=== PATIENT | female | born 1935 | race Caucasian/White ===

== ENCOUNTER 2018-03-23 12:24 | Inpatient (IN) | payer MEDICARE, OTHER ==
[~2018-03-23] VITALS: Ht 167.6 cm; Wt 77.6 kg
[~2018-03-23 12:24] MED LIST: CLAR-19; CND32T PO; EPIN0.3P2 IM; MONT10TA21; MTL2.5T PO; MTP100TCR; MTP100TCR PO; NF-MET200T; ONDA4TAB11 PO; PHEN118S11; TELM80TA3; TPR100T
--- OUTSIDE RECORDS SUMMARY | 2018-03-23 12:33 | XMS REPORT ---
Author Author ASHLEY VORA [facility] Address [address] [place] [address] Care Team Providers Care Service Unit Operator Name Role Phone ASHLEY VORA Unavailable PROBLEMS Type Condition ICD9-CM Code MIY82-KC Code Onset Dates Condition Status SNOMED Code Problem Mixed hyperlipidemia E78.2 Active 847135432 Problem Benign essential hypertension I10 Active 9767231 ALLERGIES Unknown Allergies SOCIAL HISTORY No smoking Hx information available PLAN OF CARE VITAL SIGNS MEDICATIONS Medication Instructions Dosage Frequency Start Date End Date Duration Status Tiotropium [place] Monohydrate 2.5 MCG/ACT Inhalation, dispense as writen Once a day 2 puffs 24h Jul, Aug, 90 days Active RESULTS No Results PROCEDURES No Known procedures IMMUNIZATIONS No Known Immunizations
--- OUTSIDE RECORDS SUMMARY | 2018-03-23 12:33 | XMS REPORT ---
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
--- OUTSIDE RECORDS SUMMARY | 2018-03-23 12:33 | XMS REPORT ---
Author Author ASHLEY VORA Organization [facility] Address [address] [place] [address] Care Team Providers Care Technology Adoption Manager Name Role Phone ASHLEY VORA Unavailable PROBLEMS Type Condition ICD9-CM Code FOB60-SX Code Onset Dates Condition Status SNOMED Code Problem Mixed hyperlipidemia E78.2 Active 866591387 Problem Benign essential hypertension I10 Active 3246818 ALLERGIES No Information ENCOUNTERS Encounter Location Date Diagnosis [place] [id number] [place] [address] 14429- 8675 Aug, [facility] [id number] [place] [address] 76542- 7368 Jun, [facility] [id number] [place] [address] 93207- 1246 Jan, [facility] [id number] [place] [address] 43830- 8333 Jan, Benign essential hypertension I10 [facility] [id number] [place] [address] 07441- 3232 Jan, [facility] [id number] [place] [address] 25901- 8779 Jan, Benign essential hypertension I10 and Mixed hyperlipidemia E78.2 [facility] [id number] [place] [address] 05483- 2434 December, Dizziness R42 [facility] [id number] [place] [address] 52770- 5350 Sep, Bronchospasm J98.01 [facility] [id number] [place] [address] 96828- 3512 Sep, Bronchospasm J98.01 [facility] [id number] [place] [address] 72130- 6087 Jun, [facility] [id number] [place] [address] 87925- 8381 Jan, [facility] [id number] [place] [address] 90866- 8140 Jan, Benign essential hypertension I10 [facility] [address] 92632- 7234 December, [facility] [id number] [place] [address] 20147- 9072 December, Acute right-sided low back pain without sciatica M54.5 ; Neck pain M54.2 ; Benign essential hypertension I10 and Hematuria R31.9 [facility] [id number] [place] [address] 69985- 7897 December, [facility] [address] 94[address] -7080 December, Acute right-sided low back pain, with sciatica presence unspecified M54.5 and Acute right flank pain R10.9 [facility] [id number] [place] [address] 00806- 6040 December, [facility] [id number] [place] [address] 27219- 6658 December, Neck pain M54.2 [facility] [id number] [place] [address] 62946- 1282 Sep, [facility] [id number] [place] [address] 08865- 0499 Aug, [facility] [address] 58309- 1775 Jul, [facility] [id number] [place] [address] 79411- 2086 Jul, Bronchospasm J98.01 [facility] [id number] [place] [address] 55871- 3401 Jul, Cough R05 and Neck pain M54.2 [facility] [id number] [place] [address] 42372- 1611 14 Jun, 2015 [facility] [id number] [place] [address] 01139- 4206 Jun, [facility] [id number] [place] [address] 30991- 5847 30 Jan, 2015 Acute upper respiratory infection 465.9 and Pleurisy 511.0 [facility] [id number] [place] [address] 52007- 1594 Jan, [facility] [id number] [place] [address] 43886- 5183 Jan, Benign essential hypertension 401.1 ; Unspecified arthropathy, site unspecified 716.90 and Discoid lupus erythematosus 695.4 [facility] [id number] [place] [address] 74125- 6788 Dec, [facility] [id number] [place] [address] 85042- 2110 Dec, [facility] [id number] [place] [address] 09009- 3284 Jun, [facility] [id number] [address] 4929 Jun, [facility] [id number] [place] [address] 02468- 0585 Jun, [facility] [id number] [place] [address] 10912- 6190 Jun, [facility] [id number] [place] [address] 53541- 7886 Jan, [facility] [id number] [place] [address] 07897- 7220 Jan, [facility] [id number] [place] [address] 06665- 4629 Jan, [facility] [place] [facility] [address] [id number] [place] [address]- 8459 Jan, [facility] [place] [facility] [address] [id number] [place] [address]- 6633 Dec, [facility] [place] [facility] [address] [id number] [place] [address]- 7371 Dec, [facility] [place] [facility] [address] [id number] [place] [address]- 8741 Dec, [facility] [place] [facility] [address] [id number] [place] [address]- 5665 Dec, [facility] [place] [facility] [address] [id number] [place] [address]- 8973 Dec, [facility] [place] [facility] [address] [id number] [place] [address]- 0022 Sep, [facility] [place] [facility] [address] [id number] [place] [address]- 9581 Sep, [facility] [place] [facility] [address] [id number] [place] [address]- 8801 Sep, [facility] [place] [facility] [address] [facility] [id number] [place] [address]- 4838 Sep, [facility] [place] [facility] [address] [id number] [place] [address]- 4914 May, [facility] [place] [facility] [address] [id number] [place] [address]- 4836 Mar, [facility] [place] [facility] [address] [id number] [place] [address]- 0583 Mar, [facility] [place] [facility] [address] [id number] [place] [address]- 3719 Aug, [facility] [place] [facility] [address] [id number] [place] [address]- 3812 Aug, [facility] [place] [facility] [address] [place] [address]- 0766 Jun, [facility] [address] [place] [address]- 3996 Jun, [facility] [address] [place] [address]- 2546 Mar, [facility] [address] [place] [address]- 9677 Mar, [facility] [address] [place] [address]- 2013 Jan, [facility] [address] [place] [address] 71193- 4206 Oct, [facility] [address] [place] [address]- 1866 Oct, [facility] [id number] [place] [address]- 1642 Sep, [facility] [address] [place] [address]- 9542 Sep, [facility] [address] [place] [address]- 8836 Sep, [facility] [address] [place] [address]- 3573 Sep, [facility] [address] [place] [address]- 8077 Aug, [facility] [id number] [address]- 2783 Apr, IMMUNIZATIONS No Known Immunizations SOCIAL HISTORY Never Assessed REASON FOR VISIT Medication refill request PLAN OF CARE VITAL SIGNS MEDICATIONS Medication Instructions Dosage Frequency Start Date End Date Duration Status Toprol XL 100 mg Orally, no generic 2 times a day 1 tablet No Generic 12h Active Metolazone 2.5 MG Orally, no generic Once a day 1 tablet 24h Jun, Active RESULTS No Results PROCEDURES No Known procedures INSTRUCTIONS MEDICATIONS ADMINISTERED No Known Medications MEDICAL (GENERAL) HISTORY Type Description Date Medical History lupus erythematous Medical History hypertension Surgical History appendectomy 1954 Surgical History hysterectomy 1984 Hospitalization History surgeries
--- OUTSIDE RECORDS SUMMARY | 2018-03-23 12:33 | XMS REPORT ---
Author Author ASHLEY VORA [facility] eClinicalWorks Address Unknown Phone Unavailable Care Team Providers Care Senior Marketing Manager Name Role Phone ASHLEY VORA CP Unavailable Allergies, Adverse Reactions, Alerts Substance Reaction Event Type Prednisone skin peeled off, purple skin Drug Allergy Erythromycin Base chest pain Drug Allergy Metoprolol Succinate 100 Mg Tablet Extended Releas Info Not Available Non Drug Allergy Metoprolol Succinate 25 Mg Tablet Extended Release Info Not Available Non Drug Allergy Problems Problem Type Condition Code Onset Dates Condition Status Problem Unspecified arthropathy, 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 [address]-60 2.5 MG Orally Once a day Jun 23, 2012 1 tablet Tramadol HCl [facility] [address]-51 50 MG Orally every 6 hrs Jul 04, 2015 1 tablet as needed [place]and [facility] [address]-22 32 MG Once a day February 25, 2014 ral route 1 time per dayBrand name only Toprol XL [facility] [address]-75 100 MG Orally 2 times a day 1 tablet No Generic Procedures Procedure Coding System Code Date Office Visit, Est Pt., Level 3 CPT-4 63621 Jul 04, 2015 [facility] VISIT ESTABLISHED PATIENT CPT-4 G0467 Jul 04, 2015 Vital Signs Date/Time: Jul 04, 2015 Temperature 97.9 F Weight 135 lbs Height 66 in BMI 21.79 Index Blood Pressure Diastolic 98 mmHg Blood Pressure Systolic 148 mmHg Cardiac Monitoring Heart Rate 88 bpm Results Name Result Date Reference Range Unit Abnormality Flag Xray : Chest (PA lateral) Summary Purpose eClinicalWorks Submission
--- OUTSIDE RECORDS SUMMARY | 2018-03-23 12:33 | XMS REPORT ---
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
--- OUTSIDE RECORDS SUMMARY | 2018-03-23 12:33 | XMS REPORT ---
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
--- OUTSIDE RECORDS SUMMARY | 2018-03-23 12:33 | XMS REPORT ---
Author Author ASHLEY VORA [facility] Address [address] [place] [address] Care Team Providers Care Manager Payment Name Role Phone ASHLEY VORA Unavailable PROBLEMS Type Condition ICD9-CM Code ZJR06-JW Code Onset Dates Condition Status SNOMED Code Problem Mixed hyperlipidemia E78.2 Active 446928858 Problem Benign essential hypertension I10 Active 7567705 ALLERGIES No Information SOCIAL HISTORY Never Assessed PLAN OF CARE VITAL SIGNS MEDICATIONS Medication Instructions Dosage Frequency Start Date End Date Duration Status Meclizine HCl 25 MG Orally Once a day 1 tablet as needed 24h December, 30 day(s) Active RESULTS No Results PROCEDURES No Known procedures IMMUNIZATIONS No Known Immunizations MEDICAL (GENERAL) HISTORY Type Description Date Medical History lupus erythematous Medical History hypertension Surgical History appendectomy 1954 Surgical History hysterectomy 1984 Hospitalization History surgeries
--- OUTSIDE RECORDS SUMMARY | 2018-03-23 12:33 | XMS REPORT ---
Author Author ASHLEY VORA Organization [facility] Address [address] [place] [address] Care Team Providers Care Construction Area Manager Name Role Phone ASHLEY VORA Unavailable PROBLEMS Type Condition ICD9-CM Code DHV89-QN Code Onset Dates Condition Status SNOMED Code Problem Mixed hyperlipidemia E78.2 Active 822107629 Problem Benign essential hypertension I10 Active 0841132 ALLERGIES No Information ENCOUNTERS Encounter Location Date Diagnosis [facility] [id number] [place] [address] 36900- 7021 December, Benign essential hypertension I10 and Mixed hyperlipidemia E78.2 [facility] [address] 63885- 5495 December, [facility] [id number] [place] [address] 37157- 0384 December, Benign essential hypertension I10 [facility] [id number] [place] [address] 08087- 2855 Aug, [facility] [id number] [place] [address] 33787- 4958 Jun, [facility] [id number] [place] [address] 14199- 8384 Jan, [facility] [id number] [place] [address] 90764- 0171 Jan, Benign essential hypertension I10 [facility] [id number] [place] [address] 79076- 5645 Jan, [facility] [id number] [place] [address] 98781- 2713 13 Jan, 2017 Benign essential hypertension I10 and Mixed hyperlipidemia E78.2 [facility] [id number] [place] [address] 58062- 2111 December, Dizziness R42 [facility] [address] 83590- 9148 Sep, Bronchospasm J98.01 [facility] [address] 31778- 8073 Sep, Bronchospasm J98.01 [facility] [address] 38462- 6743 Jun, [facility] [address] 46828- 8636 Jan, [facility] [address] 66153- 0727 Jan, Benign essential hypertension I10 [facility] [id number] [place] [address] 50121- 2928 December, [facility] [address] 38491- 5968 December, Acute right-sided low back pain without sciatica M54.5 ; Neck pain M54.2 ; Benign essential hypertension I10 and Hematuria R31.9 [facility] [id number] [place] [address] 96378- 8527 December, [facility] [id number] [place] [address] 81317 -4248 December, Acute right-sided low back pain, with sciatica presence unspecified M54.5 and Acute right flank pain R10.9 [facility] [id number] [place] [address] 62952- 5659 December, [facility] [address] 41228- 5347 December, Neck pain M54.2 [facility] [id number] [place] [address] 20631- 5349 Sep, [facility] [address] [place] [address]- 3089 Aug, [facility] [id number] [place] [address] 30262- 5262 Jul, [facility] [address], [place] [address]- 4012 Jul, Bronchospasm J98.01 [facility] [id number] [place] [address] 74655- 7675 Jul, Cough R05 and Neck pain M54.2 [facility] [id number] [place] [address] 65090- 1148 Jun, [facility] [id number] [place] [address] 96702- 0807 Jun, [facility] [id number] [place] [address] 81020- 2245 Jan, Acute upper respiratory infection 465.9 and Pleurisy 511.0 [facility] [address] [place] [address] 56030- 1413 Jan, [facility] [id number] [place] [address] 80149- 9959 Jan, Benign essential hypertension 401.1 ; Unspecified arthropathy, site unspecified 716.90 and Discoid lupus erythematosus 695.4 [facility] [address] [place] [address] 06962- 6490 Dec, [facility] [address] [address]- 6117 Dec, [facility] [id number] [place] [address] 65505- 5060 Jun, [facility] [address], [place] [address]- 2774 Jun, [facility] [address] [place] [address] 36447- 1462 Jun, [facility] [place] [facility] [address] [id number] [place] [address]- 1539 Jun, [facility] [place] [facility] [address] [id number] [place] [address]- 9588 Jan, [facility] [place] [facility] [address] [id number] [place] [address]- 0034 Jan, [facility] [place] [facility] [address] [id number] [place] [address]- 1407 Jan, [facility] [place] [facility] [address] [id number] [place] [address]- 6528 Jan, [facility] [place] [facility] [address] [id number] [place] [address]- 3198 Dec, [facility] [place] [facility] [address] [id number] [place] [address]- 7233 Dec, [facility] [place] [facility] [address] [id number] [place] [address]- 4416 Dec, [facility] [place] [facility] [address] [id number] [place] [address]- 2734 Dec, [facility] [place] [facility] [address] [id number] [place] [address]- 9576 Dec, [facility] [place] [facility] [address] [id number] [place] [address]- 7138 Sep, [facility] [place] [facility] [address] [id number] [place] [address]- 6745 Sep, [facility] [place] [facility] [address] [id number] [place] [address]- 4971 Sep, [facility] [place] [facility] [address] [id number] [place] [address]- 5358 Sep, [facility] [place] [facility] [address] [id number] [place] [address]- 7674 May, [facility] [place] [facility] [address] [id number] [place] [address]- 2102 Mar, [facility] [place] [facility] [address] [id number] [place] [address]- 7922 Mar, [facility] [place] [facility] [address] [id number] [place] [address]- 5420 Aug, [facility] [place] [facility] [address] [id number] [place] [address]- 0022 Aug, [facility] [place] [facility] [address] [id number] [place] [address]- 4280 Jun, [facility] [place] [facility] [address] [id number] [place] [address]- 5778 Jun, [facility] [place] [facility] [address] [id number] [place] [address]- 1539 Mar, [facility] [place] [facility] [address] [id number] [place] [address]- 9247 Mar, [facility] [place] [facility] [address] [id number] [place] [address]- 9578 Jan, [facility] [place] [facility] [address] [id number] [place] [address]- 1261 Oct, [facility] [place] [facility] [address] [id number] [place] [address]- 1154 Oct, [facility] [place] [facility] [address] [id number] [place] [address]- 1990 Sep, [facility] [place] [facility] [address] [id number] [place] [address]- 8533 Sep, [facility] [place] [facility] [address] [id number] [place] [address]- 1973 Sep, [facility] [place] [facility] [address] [id number] [place] [address]- 0306 Sep, [facility] [place] [facility] [address] [id number] [place] [address]- 5998 Aug, [facility] [place] [facility] [address] [id number] [place] [address]- 8243 16 Apr, 2010 IMMUNIZATIONS No Known Immunizations SOCIAL HISTORY Never Assessed REASON FOR VISIT Busy number PLAN OF CARE VITAL SIGNS MEDICATIONS Medication [...]
--- OUTSIDE RECORDS SUMMARY | 2018-03-23 12:33 | XMS REPORT ---
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
--- OUTSIDE RECORDS SUMMARY | 2018-03-23 12:33 | XMS REPORT ---
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
--- OUTSIDE RECORDS SUMMARY | 2018-03-23 12:33 | XMS REPORT ---
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 [address]-75 2.5 MCG/ACT Inhalation Once a day Jul 05, 2015 2 puffs Results No Known Results Summary Purpose eClinicalWorks Submission
--- OUTSIDE RECORDS SUMMARY | 2018-03-23 12:33 | XMS REPORT ---
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
--- OUTSIDE RECORDS SUMMARY | 2018-03-23 12:33 | XMS REPORT ---
Author Author ASHLEY VORA [facility] Address [address] [place] [address] Care Team Providers Care Inspector Toys Name Role Phone ASHLEY VORA Unavailable PROBLEMS Type Condition ICD9-CM Code [id number] Code Onset Dates Condition Status SNOMED Code Problem Mixed hyperlipidemia E78.2 Active 046358518 Problem Benign essential hypertension I10 Active 9491039 ALLERGIES Unknown Allergies SOCIAL HISTORY No smoking Hx information available PLAN OF CARE VITAL SIGNS MEDICATIONS Unknown Medications RESULTS No Results PROCEDURES No Known procedures IMMUNIZATIONS No Known Immunizations
--- OUTSIDE RECORDS SUMMARY | 2018-03-23 12:34 | XMS REPORT | Continuity of Care Document ---
Author Author [facility] Address Unknown Phone Unavailable Allergies Active Description Code Type Severity Reaction Onset Reported/Identified Relationship to Patient Clinical Status Yes amoxicillin [id number] Drug Allergy Unknown N/A 12/23/2007 Yes azithromycin [id number] Drug Allergy Unknown N/A 12/23/2007 Yes cefaclor [id number] Drug Allergy Unknown N/A 12/23/2007 Yes cephalexin [id number] Drug Allergy Unknown N/A 12/23/2007 Yes cortisone [id number] Drug Allergy Unknown N/A 12/23/2007 Yes Sulfa (Sulfonamide Antibiotics) [id number] Drug Allergy Unknown N/A 2007 Yes verapamil [id number] Drug Allergy Unknown N/A 12/23/2007 Yes acetaminophen [id number] Drug Allergy Unknown HEART PAPILATIO 12/15/2009 Yes ALL EYE DROPS ALL EYE DROPS Unknown MAKE EYES SWELL 12/15/2009 Yes amlodipine [id number] Drug Allergy Unknown SWOLLEN LEGS AN 12/15/2009 Yes benazepril [id number] Drug Allergy Unknown SEVERE HEADACHE 12/15/2009 Yes chlorpheniramine [id number] Drug Allergy Unknown HEART PAPILATIO 2009 Yes dextromethorphan [id number] Drug Allergy Unknown HEART PAPILATIO 2009 Yes doxycycline [id number] Drug Allergy Unknown N/A 12/15/2009 Yes egg [id number] Drug Allergy Unknown N/A 12/15/2009 Yes griseofulvin [id number] Drug Allergy Unknown N/A 12/15/2009 Yes oxaprozin [id number] Drug Allergy Unknown N/A 12/15/2009 Yes propoxyphene F364719001 Drug Allergy Unknown SEVERE PAIN IN 12/15/2009 Yes tetracycline [id number] Drug Allergy Unknown N/A 12/15/2009 Yes levofloxacin [id number] Drug Allergy Unknown FACIAL FLUSHING 12/16/2009 Yes all eye drops OA 01/03/2010 Yes amlodipine Drug Allergy 01/03/2010 Yes amoxicillin Drug Allergy 01/03/2010 Yes [place] Drug Allergy 01/03/2010 Yes Benicar Drug Allergy 01/03/2010 Yes Calan Drug Allergy 01/03/2010 Yes Cardura Drug Allergy 01/03/2010 Yes Ceclor Drug Allergy 01/03/2010 Yes clonidine Drug Allergy 01/03/2010 Yes Coricidin Drug Allergy 01/03/2010 Yes cortisone Drug Allergy 01/03/2010 Yes Darvocet-N 100 Drug Allergy 01/03/2010 Yes Daypro Drug Allergy 01/03/2010 Yes Dynacirc CR Drug Allergy 01/03/2010 Yes eggs Food Allergy 01/03/2010 Yes guaifenesin Drug Allergy 01/03/2010 Yes hydrALAZINE Drug Allergy 01/03/2010 Yes Keflex Drug Allergy 01/03/2010 Yes Levaquin Drug Allergy 01/03/2010 Yes Lotensin Drug Allergy 01/03/2010 Yes Micardis Drug Allergy 01/03/2010 Yes Norvasc Drug Allergy 01/03/2010 Yes Propacet 100 Drug Allergy 01/03/2010 Yes Sular Drug Allergy 01/03/2010 Yes sulfa drug Drug Allergy 01/03/2010 Yes [place] Drug Allergy 01/03/2010 Yes tetracycline Drug Allergy 01/03/2010 Yes Vibramycin Drug Allergy 01/03/2010 Yes Zithromax Drug Allergy 01/03/2010 Yes prednisone [id number] Drug Allergy Mild RASH 03/14/2010 Yes metoprolol succinate 25 mg Tablet Extended Release 24 hr Drug Allergy 10/01/2011 Yes metoprolol succinate 100 mg Tablet Extended Release 24 hr Drug Allergy 02/25/2012 Yes prednisone Drug Allergy 03/13/2012 Medications There is no data. Problems Date Dx Coded Attending Type Code Diagnosis Diagnosed By 01/03/2010 401.9 HYPERTENSION ( SYSTEMIC) 01/03/2010 780.79 OTHER MALAISE AND FATIGUE 01/03/2010 995.27 CERTAIN ADVERSE EFFECTS NOT ELSEWHERE CLASSIFIED, OTHER DRUG ALLERGY 01/03/2010 ASHLEY VORA MD 401.9 HYPERTENSION (SYSTEMIC) 01/03/2010 ASHLEY VORA MD 780.79 OTHER MALAISE AND FATIGUE 01/03/2010 ASHLEY VORA MD 995.27 CERTAIN ADVERSE EFFECTS NOT ELSEWHERE CLASSIFIED, OTHER DRUG ALLERGY 01/03/2010 ASHLEY VORA MD 401.9 HYPERTENSION (SYSTEMIC) 01/03/2010 ASHLEY VORA MD 780.79 OTHER MALAISE AND FATIGUE 01/03/2010 ASHLEY VORA MD 995.27 CERTAIN ADVERSE EFFECTS NOT ELSEWHERE CLASSIFIED, OTHER DRUG ALLERGY 01/03/2010 ASHLEY VORA MD 401.9 HYPERTENSION (SYSTEMIC) 01/03/2010 ASHLEY VORA MD 780.79 OTHER MALAISE AND FATIGUE 01/03/2010 ASHLEY VORA MD 995.27 CERTAIN ADVERSE EFFECTS NOT ELSEWHERE CLASSIFIED, OTHER DRUG ALLERGY 03/14/2010 Ot 989.5 03/14/2010 Ot E000.8 03/14/2010 Ot E030 03/14/2010 Ot E849.0 03/14/2010 Ot E905.3 04/17/2010 704.00 Alopecia, Unspecified 04/17/2010 ASHLEY VORA MD 704.00 Alopecia, Unspecified 04/17/2010 ASHLEY VORA MD 704.00 Alopecia, Unspecified 04/17/2010 ASHLEY VORA MD 704.00 Alopecia, Unspecified 11/03/2010 Ot 275.2 DIS MAGNESIUM METABOLISM 11/03/2010 Ot 276.50 VOLUME DEPLETION, UNSPECIFIED 11/03/2010 Ot 276.8 HYPOPOTASSEMIA 11/03/2010 Ot 401.9 HYPERTENSION NOS 11/03/2010 Ot 787.01 NAUSEA WITH VOMITING 11/03/2010 Ot 791.9 ABN URINE FINDINGS NEC 11/03/2010 Ot V58.69 OTH MED,LT, CURRENT USE 11/06/2010 276.8 HYPOPOTASSEMIA 11/06/2010 ASHLEY VORA MD 276.8 HYPOPOTASSEMIA 11/06/2010 ASHLEY VORA MD 276.8 HYPOPOTASSEMIA 11/06/2010 ASHLEY VORA MD 276.8 HYPOPOTASSEMIA 11/08/2011 726.90 Enthesopathy Of Unspecified Site 11/08/2011 ASHLEY VORA MD 726.90 Enthesopathy Of Unspecified Site 11/08/2011 ASHLEY VORA MD 726.90 Enthesopathy Of Unspecified Site 11/08/2011 ASHLEY VORA MD 726.90 Enthesopathy Of Unspecified Site 03/13/2012 461.9 ACUTE SINUSITIS UNSPECIFIED 03/13/2012 783.21 LOSS OF WEIGHT 03/13/2012 DIONY DUDLEY, ASHLEY 461.9 ACUTE SINUSITIS UNSPECIFIED 03/13/2012 DIONY DUDLEY, ASHLEY 783.21 LOSS OF WEIGHT 03/13/2012 DIONY DUDLEY, ASHLEY 461.9 ACUTE SINUSITIS UNSPECIFIED 03/13/2012 DIONY DUDLEY, ASHLEY 783.21 LOSS OF WEIGHT 03/13/2012 ASHLEY VORA MD 461.9 ACUTE SINUSITIS UNSPECIFIED 03/13/2012 DIONY DUDLEY, ASHLEY 783.21 LOSS OF WEIGHT 03/10/2013 ASHLEY VORA MD 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 03/10/2013 ASHLEY VORA MD 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 03/10/2013 ASHLEY VORA MD 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 12/28/2013 ASHLEY VORA MD 599.0 URINARY TRACT INFECTION 12/28/2013 ASHLEY VORA MD 599.0 URINARY TRACT INFECTION 02/25/2014 DIONY DUDLEY, ASHLEY 716.90 UNSPECIFIED ARTHROPATHY SITE UNSPECIFIED 08/01/2015 DIONY DUDLEY, ASHLEY F Ot R05 01/20/2016 ASHLEY VORA MD Ot R05 COUGH 01/23/2016 DARRIAN GIMENEZ Ot M54.5 LOW BACK PAIN 01/24/2016 DARRIAN GIMENEZ Ot M54.5 LOW BACK PAIN 02/22/2016 DARRIAN GIMENEZ Ot M54.5 LOW BACK PAIN Procedures Code [place] [address] UA W/ CULTURE IF INDICATED 12/28/2013 01785 CULTURE URINE 12/30/2013 60123 ROUTINE VENIPUNCTURE 02/25/2014 [id number] GFR CALC (RESULT ONLY) 02/25/2014 88318 CMP 02/25/2014 78785 LIPID PANEL 02/25/2014 Results Test Result Range Comp. Metabolic Panel (14) - 02/12/17 09:08 Glucose, Serum 96 mg/dL 65-99 BUN 19 mg/dL 8-27 Creatinine, Serum 0.78 mg/dL 0.57-1.00 eGFR If NonAfricn Am 73 mL/min/1.73 >59 eGFR If Africn Am 84 mL/min/1.73 >59 BUN/Creatinine Ratio 24 12- Sodium, Serum 140 mmol/L 134-144 Potassium, Serum 4.5 mmol/L 3.5-5.2 Chloride, Serum 96 mmol/L 96-106 Carbon Dioxide, Total 25 mmol/L 18-29 Calcium, Serum 9.3 mg/dL 8.7-10.3 Protein, Total, Serum 7.8 g/dL 6.0-8.5 Albumin, Serum 3.4 g/dL 3.5-4.8 Globulin, Total 4.4 g/dL 1.5-4.5 A/G Ratio 0.8 1.2-2.2 Bilirubin, Total 0.8 mg/dL 0.0-1.2 Alkaline Phosphatase, S 115 IU/L 39-117 AST (SGOT) 34 IU/L 0-40 ALT (SGPT) 15 IU/L 0-32 Lipid Panel - 02/12/17 09:08 Cholesterol, Total 203 mg/dL 100-199 Triglycerides 158 mg/dL 0-149 HDL Cholesterol 48 mg/dL >39 VLDL Cholesterol [place] 32 mg/dL 5-40 LDL Cholesterol Calc 123 mg/dL 0-99 CMP - 01/30/18 10:42 GLUCOSE 102 mg/dL 65-99 UREA NITROGEN (BUN) 24 mg/dL 7-25 CREATININE 0.79 mg/dL 0.60-0.88 eGFR NON-AFR. TOGOLESE 71 mL/min/1.73m2 > OR=60 eGFR 82 mL/min/1.73m2 > OR=60 BUN/CREATININE RATIO NOT APPLICABLE (calc) 6-22 SODIUM 136 mmol/L 135-146 POTASSIUM 3.8 mmol/L 3.5-5.3 CHLORIDE 99 mmol/L 98-110 CARBON DIOXIDE 28 mmol/L 20-31 CALCIUM 9.1 mg/dL 8.6-10.4 PROTEIN, TOTAL 7.7 g/dL 6.1-8.1 ALBUMIN 3.1 g/dL 3.6-5.1 GLOBULIN 4.6 g/dL (calc) 1.9-3.7 ALBUMIN/GLOBULIN RATIO 0.7 (calc) 1.0-2.5 BILIRUBIN, TOTAL 0.8 mg/dL 0.2-1.2 ALKALINE PHOSPHATASE 98 U/L 33-130 AST 35 U/L 10-35 ALT 14 U/L 6-29 Encounters ACCT No. Visit Date/Time Discharge Status Pt. Type Provider Facility Loc./Unit Complaint [id number] 02/25/2014 09:57:00 02/25/2014 23:59:59 CLS Outpatient ASHLEY VORA MD [id number] 12/28/2013 13:41:00 12/28/2013 23:59:59 CLS Outpatient ASHLEY VORA MD [id number] 03/10/2013 10:33:00 03/10/2013 23:59:59 CLS Outpatient ASHLEY VORA MD [id number] 03/13/2012 10:13:00 03/13/2012 23:59:59 CLS Outpatient [id number] 02/13/2017 08:49:00 Document Registration [id number] 01/30/2018 10:20:00 01/30/2018 23:59:59 CLS Outpatient ASHLEY VORA MD [facility] [id number] 01/30/2018 10:20:00 Document Registration [id number] 01/20/2016 13:28:00 01/20/2016 23:59:59 CLS Outpatient DARRIAN GIMENEZ [facility] [id number] 07/04/2015 16:43:00 07/04/2015 23:59:59 CLS Outpatient ASHLEY VORA MD [facility] [id number] 07/04/2015 16:43:00 Document Registration [id number] 11/02/2010 21:51:00 Document Registration [id number] 03/14/2010 20:00:00 Document Registration
[2018-03-23] MEDS ORDERED: TIOT4MIS2 INH (12:49)
--- NOTE | 2018-03-23 12:58 | ED Fall/Injury ---
General Chief Complaint: Trauma-Non Activation Stated Complaint: FALL L HIP PAIN Nursing Triage Note: ARRIVED VIA EMS FROM HOME. STATES SHE FELL WHEN SHE BENT OVER TO GET SOMETHING FROM THE OVEN LANDING ON HER LEFT ELBOW AND HIP. COMPLAINS OF SEVERE LEFT HIP PAIN. PT RECIEVED FENTENYL 50 MCG AND ZOFRAN 2MG IV IN ROUTE TO HOSPITAL. Source: patient, EMS notes reviewed Exam Limitations: no limitations History of Present Illness Date Seen by Provider: Mar 23, 2018 Time Seen by Provider: 12:44 Initial Comments Patient presents to the ER by EMS with chief complaint that she was at home cooking in the kitchen with her daughter and she pulled the door down on the oven as she was turning she fell landing on her left elbow and then her left hip. She started having pain in her left hip immediately and external rotation. She's never had a fracture of her hips or knees. She has sensation in her feet and toes as well as the ability to move them. She says her elbow in all longer hurts her. She says she does not strike her head. She is not on blood thinners. 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 She takes blood pressure medicine which she says she took this morning. She has a history of emphysema for which she uses respimat twice a day as prescribed. She is having no shortness of breath. She however is having nausea and received Zofran from EMS but still feels a lot of nausea and would like some more. EMS reports they gave her 50 of fentanyl and she says her pain went from a 8-9 out of 10 down to a 5 out of 10 and she is not wanting anything else right this minute. She denies dysuria or discharge. Allergies and Home Medications Allergies Coded Allergies: prednisone (Unverified Allergy, Mild, RASH, 03/14/10) Amoxicillin (Verified Allergy, Unknown, 12/23/07) Cefaclor (Verified Allergy, Unknown, 12/23/07) Cephalexin (Verified Allergy, Unknown, 12/23/07) Cortisone (Verified Allergy, Unknown, 12/23/07) Oxaprozin (Verified Allergy, Unknown, 12/15/09) Sulfa (Sulfonamide Antibiotics) (Verified Allergy, Unknown, 12/23/07) Tetracycline (Verified Allergy, Unknown, 12/15/09) Verapamil (Verified Allergy, Unknown, 12/23/07) amlodipine (Verified Allergy, Unknown, SWOLLEN LEGS AND FEET,PAIN IN HEAD UP TO 3 TIMES IN NIGHT, 12/15/09) azithromycin (Verified Allergy, Unknown, 12/23/07) benazepril (Verified Allergy, Unknown, SEVERE HEADACHE, 12/15/09) doxycycline (Verified Allergy, Unknown, 12/15/09) egg (Verified Allergy, Unknown, 12/15/09) griseofulvin (Verified Allergy, Unknown, 12/15/09) levofloxacin (Verified Allergy, Unknown, FACIAL FLUSHING, DIARRHEA AND LEG CRAMPS, 12/16/09) propoxyphene (Verified Allergy, Unknown, SEVERE PAIN IN HEAD, 12/15/09) acetaminophen (Verified Adverse Reaction, Unknown, HEART PAPILATIONS AND HYPERTENSION, 12/15/09) chlorpheniramine (Verified Adverse Reaction, Unknown, HEART PAPILATIONS AND HYPERTENSION, 12/15/09) dextromethorphan (Verified Adverse Reaction, Unknown, HEART PAPILATIONS AND HYPERTENSION, 12/15/09) Uncoded Allergies: ALL EYE DROPS (Adverse Reaction, Unknown, MAKE EYES SWELL SHUT, 12/15/09) Home Medications Candesartan Cilexetil 32 Mg Tablet, 32 MG PO DAILY, (Reported) Epinephrine 0.3 Mg/0.3/Syringe Pen.injctr, 0.3 MG IM PRN Prescribed by: EVANGELINA DELEON on 03/14/102020 Metolazone 2.5 Mg Tab, 2.5 MG PO DAILY, (Reported) Metoprolol Succinate 100 Mg Tab.sr.24h, 100 MG PO BID, (Reported) Ondansetron 4 Mg Tab.rapdis, 4 MG PO Q6H PRN Prescribed by: HELGA NORTON on 11/03/10 0144 Patient Home Medication List Home Medication List Reviewed: Yes Review of Systems Constitutional: No chills, No diaphoresis, No fever, No malaise Eyes: Denies Blindness, Denies Blurred Vision, Denies Pain, Denies Photophobia Ears, Nose, Mouth, Throat: denies ear pain, denies ear discharge Respiratory: No cough, No short of breath Cardiovascular: No chest pain, No edema, No Hx of Intervention, No palpitations , No syncope, No vascular heart diseas Gastrointestinal: No abdominal pain, No constipation, No diarrhea, No nausea, No vomiting Genitourinary: No discharge, No dysuria : No Musculoskeletal: No back pain; joint pain (Left hip) Past Barcauw-Wkrdxi-Qsvlkr Hx Patient Social History Alcohol Use: Denies Use Recreational Drug Use: No Smoking Status: Never a Smoker Recent Foreign Travel: No Contact w/Someone Who Travel: No Recent Infectious Disease Expo: No Recent Hopitalizations: Yes Past Medical History Surgeries: Yes (tonsilectomy, appedenctomy, adenoidectomy) Respiratory: Yes (Pneumonia December 2009) Cardiac: Yes Neurological: No Reproductive Disorders: No Genitourinary: No Gastrointestinal: No Musculoskeletal: No Endocrine: Yes HEENT: No Cancer: No Psychosocial: No Blood Disorders: No Physical Exam Vital Signs Vital Signs - First Documented 03/23/18 12:24 Temp 98.0 Pulse 64 Resp 16 B/P (MAP) 200/101 (134) Pulse Ox 83 O2 Delivery Room Air Capillary Refill : Less Than 3 Seconds Height, Weight, BMI Height: 5'6.00" Weight: 150lbs. oz. 68.027409lg; BMI Method:Stated General Appearance: WD/WN, mild distress HEENT: PERRL/EOMI, normal ENT inspection, TMs normal, pharynx normal, other ( negative for raccoon eyes, Johnson signs, hemotympanum any him. Atraumatic head.) Neck: non-tender, full range of motion, supple, normal inspection Cardiovascular: normal peripheral pulses, regular rate, rhythm, no edema Respiratory: chest non-tender, lungs clear, normal breath sounds, no respiratory distress, no accessory muscle use Peripheral Pulses: 1+ Dorsalis Pedis (R), 1+ Left Dors-Pedis (L); 2+ Radial Pulses (R), 2+ Radial Pulses (L) Gastrointestinal: normal bowel sounds, non tender, soft Extremities: normal range of motion (left elbow), no pedal edema, no calf tenderness, other (tenderness without swelling or ecchymosis over the left hip. Externally rotated and shortened and range of motion is limited secondary to pain) Neurologic/Psychiatric: no motor/sensory deficits, alert, normal mood/affect, oriented x 3, other (neurovascularly intact distal to the left hip) Skin: normal color, warm/dry, ecchymosis (1 x 2 cm ecchymosis over left elbow without crepitus in the joint) Progress/Results/Core Measures Results/Orders Lab Results Laboratory Tests Test 03/23/18 12:30 Range/Units White Blood Count 10.4 4.3-11.0 10^3/uL Red Blood Count 4.32 L 4.35-5.85 10^6/uL Hemoglobin 13.4 11.5-16.0 G/DL Hematocrit 39 35-52 % Mean Corpuscular Volume 91 80-99 FL Mean Corpuscular Hemoglobin 31 25-34 PG Mean Corpuscular Hemoglobin Concent 34 32-36 G/DL Red Cell Distribution Width 13.8 10.0-14.5 % Platelet Count 236 130-400 10^3/uL Mean Platelet Volume 9.3 7.4-10.4 FL Neutrophils (%) (Auto) 62 42-75 % Lymphocytes (%) (Auto) 23 12-44 % Monocytes (%) (Auto) 14 H 0-12 % Eosinophils (%) (Auto) 1 0-10 % Basophils (%) (Auto) 0 0-10 % Neutrophils # (Auto) 6.4 1.8-7.8 X 10^3 Lymphocytes # (Auto) 2.4 1.0-4.0 X 10^3 Monocytes # (Auto) 1.4 H 0.0-1.0 X 10^3 Eosinophils # (Auto) 0.2 0.0-0.3 10^3/uL Basophils # (Auto) 0.0 0.0-0.1 10^3/uL Sodium Level 135 135-145 MMOL/L Potassium Level 3.2 L 3.6-5.0 MMOL/L Chloride Level 101 98-107 MMOL/L Carbon Dioxide Level 25 21-32 MMOL/L Anion Gap 9 5-14 MMOL/L Blood Urea Nitrogen 23 H 7-18 MG/DL Creatinine 0.68 0.60-1.30 MG/DL Estimat Glomerular Filtration Rate > 60 BUN/Creatinine Ratio 34 Glucose Level 120 H 70-105 MG/DL Calcium Level 8.8 8.5-10.1 MG/DL Total Bilirubin 0.8 0.1-1.0 MG/DL Aspartate Amino Transf (AST/SGOT) 34 5-34 U/L Alanine Aminotransferase (ALT/SGPT) 14 0-55 U/L Alkaline Phosphatase 103 40-136 U/L Total Protein 7.3 6.4-8.2 GM/DL Albumin 2.9 L 3.2-4.5 GM/DL My Orders Orders - RAKESH PEDROZA Ct Head/Cervical Spine Wo (03/23/18 12:51) Saline Lock/Iv-Start (03/23/18 12:51) Cbc With Automated Diff (03/23/18 12:51) Comprehensive Metabolic Panel (03/23/18 12:51) Ua Culture If Indicated (03/23/18 12:51) Chest 1 View, Ap/Pa Only (03/23/18 12:51) Pelvis With Left Hip 2-3 Views (03/23/18 12:51) Ondansetron Injection (Zofran Injectio (03/23/18 13:00) Fentanyl Injection (Sublimaze Injection (03/23/18 13:30) Medications Given in ED Current Medications Medications Dose Ordered Sig/Thiago Route Start Time Stop Time Status Last Admin Dose Admin Fentanyl Citrate 50 mcg ONCE ONCE IVP 03/23/18 13:30 03/23/18 13:31 DC 03/23/18 13:34 50 MCG Ondansetron HCl 4 mg ONCE ONCE IVP 03/23/18 13:00 03/23/18 13:01 DC 03/23/18 12:57 4 MG Vital Signs/I&O 03/23/18 12:24 Temp 98.0 Pulse 64 Resp 16 B/P (MAP) 200/101 (134) Pulse Ox 83 O2 Delivery Room Air Blood Pressure Mean: 134 Progress Progress Note : Time: 12:57 Progress Note We discussed getting a CT of her head and neck and an x-ray of her left elbow and left hip as well as labs to include urinalysis. She has declined the x-ray of her left elbow at this time. She is not wanting anything else for pain right now but she would like some more Zofran. Diagnostic Imaging Diagonstic Imaging: Xray Plain Films/CT/US/NM/MRI: hip (left) Comments VIA [facility], [facility]. [place], [place] NAME: LISS GLEASON [facility] REC#: [id number] PT STATUS: REG ER : 1935 PHYSICIAN: RAKESH PEDROZA MD ADMIT DATE: 03/23/18/ER Draft Date of Exam:03/23/18 PELVIS WITH LEFT HIP 2-3 VIEWS INDICATION: Fall. Left hip pain. FINDINGS: AP pelvis shows the bony ring intact. SI joints are symmetrical with moderate sclerosis. Pubic symphysis is in good alignment. There are no pelvic fractures. The left hip shows a femoral neck fracture. Femoral head is in normal articulation with the acetabulum. The trochanter is intact. IMPRESSION: 1. Femoral neck fracture on the left without evidence of displacement. Dictated on workstation # [id number] Dict: 03/23/18 1329 Trans: 03/23/18 [facility] [id number] Interpreted by: BRANNON HAWKINS MD Electronically signed by: Reviewed: Reviewed by Me Diagonstic Imaging: CT (without contrast) Plain Films/CT/US/NM/MRI: c-spine, head Comments VIA [place], [place] NAME: LISS GLEASON [facility] REC#: [id number] PT STATUS: REG ER : 1935 PHYSICIAN: RAKESH PEDROZA MD ADMIT DATE: 03/23/18/ER Draft Date of Exam:03/23/18 CT HEAD/CERVICAL SPINE WO PROCEDURE: CT head and CT cervical spine without contrast. TECHNIQUE: Multiple contiguous axial images were obtained through the brain and cervical spine without the use of intravenous contrast. Sagittal and coronal reformations through the cervical spine were then performed. INDICATION: Fall. FINDINGS: CT HEAD WITHOUT: There is diffuse cortical atrophy. There is no evidence of intracranial hemorrhage. No mass effect. Ventricles are not dilated. No architectural fluid collection. Basal cisterns are clear. The pituitary is not enlarged. The orbital contents appear normal. There is dense calcification within the carotid siphons bilaterally as well as the vertebral arteries. The mastoid air cells are clear. No evidence of calvarial fracture. IMPRESSION: 1. Diffuse cortical atrophy. No acute intracranial abnormalities. 2. Dense atherosclerotic disease of the carotid and vertebral arteries. CT CERVICAL SPINE: Sagittal and coronal reformatted images show good alignment. Body heights are well-maintained throughout. The atlantoaxial joint is intact. There is diffuse degenerative disc and facet disease from C4 through C7. Hypertrophic lipping of the endplates noted anteriorly as well as along the uncovertebral joint posteriorly. There does not appeared be high-grade stenosis. No fractures are demonstrated. IMPRESSION: Advanced degenerative cervical disc disease without acute abnormality. Dictated on workstation # [id number] Dict: 03/23/18 1326 Trans: 03/23/18 1335 [facility] [id number] Interpreted by: BRANNON HAWKINS MD Electronically signed by: Reviewed: Reviewed by Me Diagonstic Imaging: Xray Plain Films/CT/US/NM/MRI: chest (1v) Comments VIA [facility]. [place], [place] NAME: LISS GLEASON [facility] REC#: [id number] PT STATUS: REG ER : 1935 PHYSICIAN: RAKESH PEDROZA MD ADMIT DATE: 03/23/18/ER Draft Date of Exam:03/23/18 CHEST 1 VIEW, AP/PA ONLY INDICATION: Fall. Comparison with 07/04/2005. FINDINGS: Portable chest. Lungs are well aerated. There do appear to be developing bullous changes in the left lung base. No evidence of pneumothorax. No pleural effusion. There are no acute infiltrates. Heart mildly enlarged. No evidence of pulmonary edema. No evidence of rib fractures. IMPRESSION: 1. 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 2. Cardiomegaly. 3. No acute findings. Dictated on workstation # [id number] Dict: 03/23/18 1328 Trans: 03/23/18 1336 [facility] [id number] Interpreted by: BRANNON HAWKINS MD Electronically signed by: Reviewed: Reviewed by Me Departure Communication (Admissions) Time/Spoke to Admitting Phy: 13:51 Discussed case lab imaging findings with Dr. Young and she agrees to see the patient. Time/Spoke to Consulting Phy: 13:49 Discussed the case with Drs. Arcos and he agrees to see her and plan to do surgery tomorrow afternoon. Nothing by mouth after midnight. Impression Primary Impression: Fall Qualified Codes: W19.XXXA - Unspecified fall, initial encounter Additional Impressions: Traumatic ecchymosis of left elbow Qualified Codes: S50.02XA - Contusion of left elbow, initial encounter Closed nondisplaced fracture of base of neck of femur Qualified Codes: S72.045A - Nondisplaced fracture of base of neck of left femur, initial encounter for closed fracture Disposition: ADMITTED INPATIENT Condition: Stable Admissions Decision to Admit Reason: Admit from ER (General) Decision to Admit/Date: Mar 23, 2018 Time/Decision to Admit Time: 14:02 Departure-Patient Inst. Referrals: ASHLEY VORA MD (PCP/Family) Primary Care Physician Copy Copies To 1: NOHELIA AUSTIN TITUS J Mar 23, 2018 12:58
[2018-03-23 13:00] LABS: BASOPHILS % (AUTO) 0 % (0-10); EOSINOPHILS # (AUTO) 0.2 10^3/uL (0.0-0.3); EOSINOPHILS % (AUTO) 1 % (0-10); HEMATOCRIT 39 % (35-52); HEMOGLOBIN 13.4 G/DL (11.5-16.0); LYMPHOCYTES # (AUTO) 2.4 X 10^3 (1.0-4.0); LYMPHOCYTES % (AUTO) 23 % (12-44); MEAN CORPUSCULAR HEMOGLOBIN 31 PG (25-34); MEAN CORPUSCULAR HGB CONC 34 G/DL (32-36); MEAN CORPUSCULAR VOLUME 91 FL (80-99); MEAN PLATELET VOLUME 9.3 FL (7.4-10.4); MONOCYTES # (AUTO) 1.4 X 10^3 (0.0-1.0); MONOCYTES % (AUTO) 14 % (0-12); NEUTROPHILS # (AUTO) 6.4 X 10^3 (1.8-7.8); NEUTROPHILS % (AUTO) 62 % (42-75); PLATELET COUNT 236 10^3/uL (130-400); RED BLOOD COUNT 4.32 10^6/uL (4.35-5.85); RED CELL DISTRIBUTION WIDTH 13.8 % (10.0-14.5); WHITE BLOOD COUNT 10.4 10^3/uL (4.3-11.0)
[2018-03-23] MEDS ORDERED: ONDANSETRON 4 MG/2 ML (SDV) Z0FRAN IVP ONE (13:00)
[2018-03-23 13:12] LABS: ALANINE AMINOTRANSFERASE 14 U/L (0-55); ALBUMIN 2.9 GM/DL (3.2-4.5); ALKALINE PHOSPHATASE 103 U/L (40-136); BILIRUBIN,TOTAL 0.8 MG/DL (0.1-1.0); BUN/CREATININE RATIO 34; CALCIUM 8.8 MG/DL (8.5-10.1); CARBON DIOXIDE 25 MMOL/L (21-32); CHLORIDE 101 MMOL/L (98-107); CREATININE SERUM 0.68 MG/DL (0.60-1.30); GFR ESTIMATED > 60; GLUCOSE 120 MG/DL (70-105); POTASSIUM 3.2 MMOL/L (3.6-5.0); SODIUM 135 MMOL/L (135-145); TOTAL PROTEIN 7.3 GM/DL (6.4-8.2)
[2018-03-23] MEDS ORDERED: fentaNYL INJECTION 100 MCG/2 ML AMP IVP ONE ×2 (13:30→14:15)
--- NOTE | 2018-03-23 13:35 | Diagnostic Imaging Report ---
PROCEDURE: CT head and CT cervical spine without contrast. TECHNIQUE: Multiple contiguous axial images were obtained through the brain and cervical spine without the use of intravenous contrast. Sagittal and coronal reformations through the cervical spine were then performed. INDICATION: Fall. FINDINGS: CT HEAD WITHOUT: There is diffuse cortical atrophy. There is no evidence of intracranial hemorrhage. No mass effect. Ventricles are not dilated. No architectural fluid collection. Basal cisterns are clear. The pituitary is not enlarged. The orbital contents appear normal. There is dense calcification within the carotid siphons bilaterally as well as the vertebral arteries. The mastoid air cells are clear. No evidence of calvarial fracture. IMPRESSION: 1. Diffuse cortical atrophy. No acute intracranial abnormalities. 2. Dense atherosclerotic disease of the carotid and vertebral arteries. CT CERVICAL SPINE: Sagittal and coronal reformatted images show good alignment. Body heights are well-maintained throughout. The atlantoaxial joint is intact. There is diffuse degenerative disc and facet disease from C4 through C7. Hypertrophic lipping of the endplates noted anteriorly as well as along the uncovertebral joint posteriorly. There does not appeared be high-grade stenosis. No fractures are demonstrated. IMPRESSION: Advanced degenerative cervical disc disease without acute abnormality. Dictated by: Dictated on workstation # [id number]
--- NOTE | 2018-03-23 13:36 | Diagnostic Imaging Report ---
INDICATION: Fall. Comparison with 07/04/2005. FINDINGS: Portable chest. Lungs are well aerated. There do appear to be developing bullous changes in the left lung base. No evidence of pneumothorax. No pleural effusion. There are no acute infiltrates. Heart mildly enlarged. No evidence of pulmonary edema. No evidence of rib fractures. IMPRESSION: 1. 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 2. Cardiomegaly. 3. No acute findings. Dictated by: Dictated on workstation # [id number]
--- NOTE | 2018-03-23 13:38 | Diagnostic Imaging Report ---
INDICATION: Fall. Left hip pain. FINDINGS: AP pelvis shows the bony ring intact. SI joints are symmetrical with moderate sclerosis. Pubic symphysis is in good alignment. There are no pelvic fractures. The left hip shows a femoral neck fracture. Femoral head is in normal articulation with the acetabulum. The trochanter is intact. IMPRESSION: 1. Femoral neck fracture on the left without evidence of displacement. Dictated by: Dictated on workstation # [id number]
[2018-03-23 14:19] LABS: BILIRUBIN,URINE NEGATIVE (NEGATIVE); CLARITY,URINE CLEAR; COLOR,URINE YELLOW; GLUCOSE, URINE (UA) NEGATIVE (NEGATIVE); KETONES,URINE NEGATIVE (NEGATIVE); LEUKOCYTE ESTERASE ,URINE NEGATIVE (NEGATIVE); NITRITE,URINE NEGATIVE (NEGATIVE); PH,URINE 6 (5-9); PROTEIN,URINE 4+ (NEGATIVE); UROBILINOGEN,URINE NORMAL (NORMAL)
[2018-03-23] MEDS ORDERED: hydrALAZINE (APESOLINE) 20 MG/ML VIAL IV ONE (14:30)
[2018-03-23 14:40] LABS: WBC,URINE 0-2 /HPF
[2018-03-23 14:41] LABS: AMORPHOUS SEDIMENT,UR FEW AMOR URATES /LPF; BACTERIA,URINE NEGATIVE /HPF
[2018-03-23 15:00] VITALS: BP 163/77
[2018-03-23] MEDS ORDERED: TETANUS & DIPHTHERIA TOX,ADULT 0.5 ML (TENIVAC) IM ONE (15:00)
[2018-03-23] MEDS ORDERED: PATIENT MAY USE OWN MEDS, ALL MC SCH (15:30)
[2018-03-23] MEDS: POTASSIUM CHLORIDE INJ 40 MEQ in 1/2 NS IV SOLUTION 1,000 ML IV SCH (16:02)
[2018-03-23] MEDS: fentaNYL INJECTION 100 MCG/2 ML AMP IV PRN ×4 (16:36→23:10)
[2018-03-23 16:50] VITALS: BP 144/84
[2018-03-23] MEDS: ONDANSETRON 4 MG/2 ML (SDV) Z0FRAN IV PRN (18:53)
--- NOTE | 2018-03-23 18:59 | HISTORY AND PHYSICAL ---
DATE OF SERVICE: ADMISSION HISTORY AND PHYSICAL REASON FOR ADMISSION: Left femoral neck fracture. HISTORY OF PRESENT ILLNESS: The patient is an 82-year-old female who fell at home when she was removing something from the oven. Today, she denies antecedent pain. She denies loss of consciousness. She presented to the Emergency Department where she was found to have a displaced left femoral neck fracture. She reports left hip pain. She denies other pain. She denies paresthesias. REVIEW OF SYSTEMS: No recent chest pain, shortness of breath or dysuria. ALLERGIES: PREDNISONE, AMOXICILLIN, CEPHALOSPORINS, CORTISONE, OXAPROZIN, SULFA, TETRACYCLINE, VERAPAMIL, AMLODIPINE, AZITHROMYCIN, BENAZEPRIL, DOXYCYCLINE, EGG, GRISEOFULVIN, LEVOFLOXACIN, PROPOXYPHENE, ACETAMINOPHEN, CHLORPHENIRAMINE, DEXTROMETHORPHAN, AND EYEDROPS. MEDICATIONS: 1. Candesartan, Epinephrine. 2. Metolazone. 3. Metoprolol. 4. Ondansetron. SOCIAL HISTORY: The patient denies alcohol or tobacco use. PAST SURGICAL HISTORY: Tonsillectomy, appendectomy, adenoidectomy. FAMILY HISTORY: Significant for COPD, lupus, history of pneumonia. PHYSICAL EXAMINATION: GENERAL: The patient is a well-developed, well-nourished, no acute distress. HEENT: Normocephalic, atraumatic. Pupils are equal, round and reactive to light. Oropharynx is clear. NECK: Supple, no lymphadenopathy. LUNGS: Clear to auscultation bilaterally. HEART: Regular rate and rhythm. ABDOMEN: Soft, nontender, nondistended. EXTREMITIES: Examination of the left hip demonstrates tenderness laterally. There is no significant shortening. She has symmetric pulses with brisk capillary refill. Intact dorsiflexion and plantarflexion of the toes. IMAGING: Radiographs reveal displaced left femoral neck fracture. IMPRESSION: Displaced left femoral neck fracture. PLAN: Left hip bipolar replacement. The risks, benefits, options navigations and recovery were discussed at length with the patient and her daughter. They understand and wish to proceed. Job ID: [id number] DocumentID: [id number] Dictated Date: 03/23/2018 18:20:30 Dinner Cook Date: 03/23/2018 18:59:00 Dictated By: MALICK RUEDA MD
[2018-03-23 19:35] VITALS: BP 167/80
[2018-03-23] MEDS: TOPROL 100 MG PO SCH (20:58)
[2018-03-23] MEDS: TIOTROPIUM IH SCH (20:58)
[2018-03-24] VITALS (9 sets, daily range): BP systolic 110–194; BP diastolic 59–93
[2018-03-24] MEDS ORDERED: 1/2 NS W/KCL 20 MEQ/L 0 ML IV ONE (01:03)
[2018-03-24] MEDS ORDERED: 1/2 NS IV SOLUTION 0 ML IV ONE (01:18)
[2018-03-24] MEDS ORDERED: POTASSIUM CL 10MEQ/50ML IVPB 0 ML IV ONE (01:20)
[2018-03-24] MEDS: POTASSIUM CHLORIDE INJ 40 MEQ in 1/2 NS IV SOLUTION 1,000 ML IV SCH ×3 (01:31→22:30)
[2018-03-24] MEDS: fentaNYL INJECTION 100 MCG/2 ML AMP IV PRN ×4 (01:33→10:07)
[2018-03-24] MEDS: ONDANSETRON 4 MG/2 ML (SDV) Z0FRAN IV PRN ×3 (01:51→10:07)
[2018-03-24 05:39] LABS: BASOPHILS % (AUTO) 0 % (0-10); EOSINOPHILS % (AUTO) 0 % (0-10); HEMATOCRIT 38 % (35-52); HEMOGLOBIN 12.5 G/DL (11.5-16.0); LYMPHOCYTES # (AUTO) 1.5 X 10^3 (1.0-4.0); LYMPHOCYTES % (AUTO) 12 % (12-44); MEAN CORPUSCULAR HEMOGLOBIN 30 PG (25-34); MEAN CORPUSCULAR HGB CONC 33 G/DL (32-36); MEAN CORPUSCULAR VOLUME 93 FL (80-99); MEAN PLATELET VOLUME 9.3 FL (7.4-10.4); MONOCYTES # (AUTO) 1.6 X 10^3 (0.0-1.0); MONOCYTES % (AUTO) 13 % (0-12); NEUTROPHILS # (AUTO) 9.2 X 10^3 (1.8-7.8); NEUTROPHILS % (AUTO) 75 % (42-75); PLATELET COUNT 208 10^3/uL (130-400); RED BLOOD COUNT 4.12 10^6/uL (4.35-5.85); RED CELL DISTRIBUTION WIDTH 14.2 % (10.0-14.5); WHITE BLOOD COUNT 12.4 10^3/uL (4.3-11.0)
[2018-03-24 05:55] LABS: BUN/CREATININE RATIO 31; CALCIUM 8.4 MG/DL (8.5-10.1); CARBON DIOXIDE 24 MMOL/L (21-32); CHLORIDE 103 MMOL/L (98-107); CREATININE SERUM 0.71 MG/DL (0.60-1.30); GFR ESTIMATED > 60; GLUCOSE 104 MG/DL (70-105); POTASSIUM 4.1 MMOL/L (3.6-5.0); SODIUM 135 MMOL/L (135-145)
--- NOTE | 2018-03-24 07:31 | Progress Note-Standard ---
Standard Progress Note Progress Notes/Assess & Plan Date Seen by Provider: Mar 24, 2018 Time Seen by Provider: 07:30 Progress/Assessment & Plan NO new complaints LLE on pillow NVI distally L femoral neck fracture to OR later today for bipolar prosthesis MALICK RUEDA MD Mar 24, 2018 07:31
[2018-03-24] MEDS ORDERED: UMECLIDINIUM BROMIDE (INCRUSE ELLIPTA) 7'S IH SCH (08:00)
[2018-03-24] MEDS: TOPROL 100 MG PO SCH ×2 (08:09→21:53)
[2018-03-24] MEDS: CANDESARTAN 32 MG PO SCH (08:10)
[2018-03-24] MEDS ORDERED: cloNIDine 0.1 MG (CATAPRES) TAB PO PRN (08:15)
[2018-03-24] MEDS ORDERED: PROMETHAZINE INJ 25 MG/ML (PHENERGAN) AMP IM PRN (08:15)
[2018-03-24] MEDS ORDERED: NITROGLYCERIN 2% OINT 1 GM UNIT DOSE PACKET TOP PRN (08:15)
[2018-03-24] MEDS: TIOTROPIUM IH SCH ×2 (08:18→20:39)
[2018-03-24] MEDS ORDERED: METO100T6 PO (09:32)
[2018-03-24] MEDS ORDERED: METO2.5T PO (09:32)
[2018-03-24] MEDS ORDERED: CAND32TA2 PO (09:32)
--- NOTE | 2018-03-24 10:14 | Consultation-Hospitalist ---
HPI History of Present Illness: HPI/Chief Complaint CC: Left femoral neck fracture HPI: This is an 82-year-old white female clinic patient of Dr. Pickard a [facility] who sustained a fall at home where she lives alone. She denied any chest pain or syncope prior to the fall. She sustained a left femoral neck fracture. Dr. Arcos is planning for repair at 1500 hours today. I have reconciled all of her home medications and hypertension is always an issue per patient and her daughter at the bedside. We'll provide clonidine and Nitropaste for elevated blood pressure. She seems to be a candidate for inpatient rehabilitation so I did recheck out for that referral and added a social work consult. She does report severe nausea after given fentanyl and it really doesn't last too long so I will change to Dilaudid and maintain Phenergan IM along with Zofran. Source: patient, family Exam Limitations: no limitations Date Seen 03/24/18 Attending Physician Tawnya Young MD PCP Bry Pickard MD Referring Physician Date of Admission Mar 23, 2018 at 14:00 Home Medications & Allergies Home Medications Reviewed patient Home Medication Reconciliation performed by pharmacy medication reconciliations radio/tv technician and/or nursing. Patients Allergies have been reviewed. Allergies Allergies Coded Allergies iodine (Verified Allergy, Severe, RASH, 03/23/18) prednisone (Verified Allergy, Mild, RASH, 03/23/18) Sulfa (Sulfonamide Antibiotics) (Verified Allergy, Unknown, 03/23/18) amlodipine (Verified Allergy, Unknown, SWOLLEN LEGS AND FEET,PAIN IN HEAD UP TO 3 TIMES IN NIGHT, 03/23/18) amoxicillin (Verified Allergy, Unknown, 03/23/18) azithromycin (Verified Allergy, Unknown, 03/23/18) benazepril (Verified Allergy, Unknown, SEVERE HEADACHE, 03/23/18) cefaclor (Verified Allergy, Unknown, 03/23/18) cephalexin (Verified Allergy, Unknown, 03/23/18) cortisone (Verified Allergy, Unknown, 03/23/18) doxycycline (Verified Allergy, Unknown, 03/23/18) egg (Verified Allergy, Unknown, 03/23/18) griseofulvin (Verified Allergy, Unknown, 03/23/18) levofloxacin (Verified Allergy, Unknown, FACIAL FLUSHING, DIARRHEA AND LEG CRAMPS, 03/23/18) oxaprozin (Verified Allergy, Unknown, 03/23/18) propoxyphene (Verified Allergy, Unknown, SEVERE PAIN IN HEAD, 03/23/18) tetracycline (Verified Allergy, Unknown, 03/23/18) verapamil (Verified Allergy, Unknown, 03/23/18) acetaminophen (Verified Adverse Reaction, Unknown, HEART PAPILATIONS AND HYPERTENSION, 03/23/18) chlorpheniramine (Verified Adverse Reaction, Unknown, HEART PAPILATIONS AND HYPERTENSION, 03/23/18) dextromethorphan (Verified Adverse Reaction, Unknown, HEART PAPILATIONS AND HYPERTENSION, 03/23/18) Uncoded Allergies ALL EYE DROPS ( Adverse Reaction, Unknown, MAKE EYES SWELL SHUT, 12/15/09) Past Sljqvta-Jvyyof-Lclnhi Hx Past Med/Social Hx: Reviewed Nursing Past Med/Soc Hx, Reviewed and Corrections made Patient Social History Marrital Status: single Employed/Student: retired Alcohol Use: Denies Use Recreational Drug Use: No Smoking Status: Never a Smoker Physical Abuse Screen: No Sexual Abuse: No Recent Foreign Travel: No Contact w/other who traveled: No Recent Hopitalizations: No Recent Infectious Disease Expo: No Immunizations Up To Date Tetanus Booster (TDap): Unknown Seasonal Allergies Seasonal Allergies: Yes Past Medical History Cardiac: High Cholesterol, Hypertension Reproductive: No Genitourinary: Bladder Infection Gastrointestinal: Chronic Constipation Musculoskeletal: Arthritis, Fractures History of Blood Disorders: No Family History Reviewed Nursing Family Hx Hypertension Review of Systems Constitutional: see HPI, weakness EENTM: no symptoms reported Respiratory: no symptoms reported Cardiovascular: no symptoms reported Gastrointestinal: nausea Genitourinary: no symptoms reported Musculoskeletal: joint pain Skin: no symptoms reported Psychiatric/Neurological: No Symptoms Reported All Other Systems Reviewed Negative Unless Noted: Yes Physical Exam Physical Exam Vital Signs Vital Signs - First Documented 03/23/18 03/23/18 12:24 14:42 Temp 98.0 Pulse 64 Resp 16 B/P (MAP) 200/101 (134) Pulse Ox 83 O2 Delivery Room Air O2 Flow Rate 2.00 Capillary Refill : Less Than 3 SecondsLess Than 3 Seconds Height, Weight, BMI Height: 5'6.00" Weight: 171lbs. 2.0oz. 77.873016ts; 27.6 BMI Method:Stated General Appearance: No Apparent Distress, WD/WN, Chronically ill, Obese Eyes: Bilateral Eye Normal Inspection, Bilateral Eye PERRL HEENT: PERRL/EOMI, TMs Normal, Normal ENT Inspection, Pharynx Normal Neck: Full Range of Motion, Normal Inspection, Non Tender, Supple, Carotid Bruit Respiratory: Chest Non Tender, Lungs Clear, Normal Breath Sounds, No Accessory Muscle Use, No Respiratory Distress Cardiovascular: Regular Rate, Rhythm, No Edema, No Gallop, No JVD, No Murmur, Normal Peripheral Pulses Gastrointestinal: Normal Bowel Sounds, No Organomegaly, No Pulsatile Mass, Non Tender, Soft Back: Normal Inspection, No CVA Tenderness, No Vertebral Tenderness Extremity: Normal Capillary Refill, Normal Inspection, Normal Range of Motion ( except left leg), Non Tender, No Calf Tenderness, No Pedal Edema Neurologic/Psychiatric: Alert, Oriented x3, No Motor/Sensory Deficits, Normal Mood/Affect Skin: Normal Color, Warm/Dry Lymphatic: No Adenopathy Results Results/Procedures Labs Laboratory Tests 03/23/18 12:30 03/24/18 05:00 Patient resulted labs reviewed. Assessment/Plan Assessment and Plan Assess & Plan/Chief Complaint Left femoral neck fracture HTN resistant type Plan: Proceed on with left femoral neck fracture repair today as planned since medical benefits outweigh medical risks IRU SW Home meds HTN management Diagnosis/Problems Diagnosis/Problems (1) Closed nondisplaced fracture of base of neck of femur Status: Acute Qualifiers: Encounter type: initial encounter Laterality: left Qualified Codes: S72.045A - Nondisplaced fracture of base of neck of left femur, initial encounter for closed fracture (2) Fall Status: Acute Qualifiers: Encounter type: initial encounter Qualified Codes: W19.XXXA - Unspecified fall, initial encounter (3) Nausea Status: Acute Assessment & Plan: 03/24: Change pain med and add Phenergan (4) Hypertension, malignant Status: Chronic (5) Multiple allergies Status: Chronic (6) Lives alone with help available Status: Acute Clinical Quality Measures DVT/VTE Risk/Contraindication: Risk Factor Score Per Nursin RFS Level Per Nursing on Admit: 4+=Very High LADONNA MCDONOUGH DO Mar 24, 2018 10:14
[2018-03-24] MEDS ORDERED: HYDROmorphone 1 MG/ML (DILAUDID) 1 ML SYRINGE IV PRN (10:15)
[2018-03-24] MEDS ORDERED: BUPIVACAINE 0.5% 30 ML (SENSORCAINE) VIAL ONE (14:58)
[2018-03-24] MEDS: LACTATED RINGERS 1,000 ML IV SCH ×2 (15:00→16:35)
[2018-03-24] MEDS ORDERED: LIDOCAINE PF 2% 5 ML (XYLOCAINE) VIAL ONE (15:01)
[2018-03-24] MEDS ORDERED: proPOfol 200 MG/20 ML (DIPRIVAN) VIAL IV ONE (15:01)
[2018-03-24] MEDS ORDERED: DEXAMETHASONE 10 MG/ML (DECADRON) 1 ML VIAL ONE (15:01)
[2018-03-24] MEDS ORDERED: fentaNYL INJECTION 100 MCG/2 ML AMP ONE (15:01)
[2018-03-24] MEDS ORDERED: ONDANSETRON 4 MG/2 ML (SDV) Z0FRAN ONE (15:01)
[2018-03-24] MEDS ORDERED: SEVOFLURANE (ULTANE) 15 ML INHAL SOLN ONE ×6 (15:01→16:53)
--- NOTE | 2018-03-24 15:09 | Progress Note-Pre Operative ---
Pre-Operative Progress Note H&P Reviewed The H&P was reviewed, patient examined and no changes noted. Date Seen by Provider: Mar 24, 2018 Time Seen by Provider: 15:00 Date H&P Reviewed: Mar 24, 2018 Time H&P Reviewed: 15:00 Pre-Operative Diagnosis: closed, displaced left femoral neck fracture MALICK RUEDA MD Mar 24, 2018 15:08
--- NOTE | 2018-03-24 15:10 | Progress Note-Post Operative ---
Post-Operative Progess Note Surgeon (s)/Capacity Management Specialist (s) Surgeon MALICK RUEDA MD Capacity Management Specialist: Raymond Forbes Pre-Operative Diagnosis closed, displaced left femoral neck fracture Post-Operative Diagnosis closed, displaced left femoral neck fracture Procedure & Operative Findings Date of Procedure 03/24/18 Procedure Performed/Findings left hip bipolar replacement Anesthesia Type GETA Estimated Blood Loss Estimated blood loss (mL): 300 ml Specimens/Packing Specimens Removed femoral head Packing: none MALICK RUEDA MD Mar 24, 2018 15:10
[2018-03-24] MEDS: RT-ALBUTEROL/IPRATROPIUM 3 ML (DUONEB) VIAL INH SCH ×2 (15:22→20:39)
[2018-03-24] MEDS ORDERED: CLINDAMYCIN 600 MG/50 ML IVPB 50 ML IV ONE (15:30)
[2018-03-24] MEDS ORDERED: ONDANSETRON 4 MG/2 ML (SDV) Z0FRAN IVP PRN (15:45)
[2018-03-24] MEDS ORDERED: TEMAZEPAM 15 MG (RESTORIL) CAP PO PRN (15:45)
--- NOTE | 2018-03-24 15:54 | Physical Therapy Progress Note ---
Therapy Progress Note Patient currently in surgery. PT to begin in BRITTNEY Churchill PT Mar 24, 2018 15:54
[2018-03-24] MEDS ORDERED: PHENYLEPHRINE 100 MCG/ML 10 ML (ANESTHESIA) SYR ONE (16:01)
[2018-03-24] MEDS ORDERED: GLYCOPYRROLATE 0.2 MG/ML (ROBINUL) 2 ML VIAL ONE (16:41)
[2018-03-24] MEDS ORDERED: ROCURONIUM 10 MG/ML 5 ML SYRINGE IV ONE (16:41)
[2018-03-24] MEDS ORDERED: NEOSTIGMINE 1 MG/ML 5 ML SYRINGE ONE (16:41)
--- NOTE | 2018-03-24 18:11 | Diagnostic Imaging Report ---
INDICATION: Postop left hip arthroplasty. COMPARISON: None. FINDINGS: Two views of the left hip demonstrate well-seated left hip arthroplasty. There is no fracture or dislocation. No unexpected postoperative foreign body seen. IMPRESSION: Well-seated left hip arthroplasty. Dictated by: Dictated on workstation # [id number]
[2018-03-24] MEDS ORDERED: SENNOSIDES 8.6 MG (SENOKOT) TAB PO SCH (21:00)
[2018-03-24] MEDS ORDERED: NON-FORMULARY MEDICATION 1 EA EA (Metoprolol Succinate (Toprol Xl) 100 MG) PO SCH (21:00)
[2018-03-24] MEDS: SENNOSIDES 8.6 MG (SENOKOT) TAB PO SCH (21:53)
--- NOTE | 2018-03-24 23:11 | OPERATIVE REPORT ---
DATE OF SERVICE: 03/24/2018 PREOPERATIVE DIAGNOSIS: Displaced left femoral neck fracture. POSTOPERATIVE DIAGNOSIS: Displaced left femoral neck fracture. PROCEDURE: Left hip bipolar replacement. SURGEON: Beck Rueda MD. INFORMATION WRITER: WARREN Stallings, who assisted throughout the procedure and closed the incisions. ANESTHESIA: General endotracheal by Brittani Maurer CRNA. ESTIMATED BLOOD LOSS: 300 mL. DRAINS: None. COMPLICATIONS: None. MATERIALS: DePuy press fit 5 stem with a standard neck and 45 liner. POSTOPERATIVE PLAN: Routine hip protocol with weightbearing as tolerated. The patient was transferred to the recovery room awake and stable condition. STATEMENT OF MEDICAL NECESSITY: The patient is an 82-year-old independently living female who fell at home yesterday and was found to have a displaced left femoral neck fracture. In order to maintain her ambulatory status, the patient elected to proceed with surgical intervention. DESCRIPTION OF PROCEDURE: After risks and benefits of procedure were discussed and questions were answered, an informed consent was signed and placed on the chart. The operative site was confirmed in the preoperative holding area initialed by the surgeon. The patient was then transferred to the operating room and after adequate levels of general endotracheal anesthetic were obtained, a timeout was called confirming the operative site. The patient was then carefully placed in the right lateral decubitus position being careful to place an axillary roll and pad all bony prominences. Left hip and lower extremity were prepped and draped in the usual sterile fashion. A standard anterior lateral approach was utilized. Hemostasis was obtained with cautery. The iliotibial band was incised in line with the incision. The abductor insertion site was incised 2 cm proximal to its bony attachment and this was tagged. A capsulotomy was performed and the femoral head was removed. This was sized to a size 45. The femoral neck cut was made using the template as a guide. This was then prepared proximally with a box chisel followed by T-handled working second hand and sequential trials, a size 5 provided good coverage with good fill and was stable. This was then trialled with a standard head and neck and 45 mm liner. This was reduced and found to be stable in all planes with no impingement noted. The trials were removed. The joint was irrigated and inspected closely for loose bodies. The canal was irrigated and the prosthesis was placed in 15 degrees of anteversion with good fill and stability obtained. The liner shell and head were then placed and the hip was reduced after inspecting for any loose bodies. The hip was taken through range of motion with no impingement noted. Full range of motion was noted and the hip was stable in all planes. The joint was irrigated with pulse lavage as it had been throughout the procedure. The abductor musculature was reapproximated using #5 Tevdek in [id number] interrupted fashion with excellent repair obtained. This incorporated the capsule as well. The wound was further irrigated with pulse lavage. Iliotibial band was closed in a running fashion with #1 Vicryl. Subcutaneous tissues were then irrigated. 0 Vicryl was used for deep subcutaneous tissue, 2-0 Vicryl for the superficial subcutaneous tissue, jose used on the skin. The incision was infiltrated with plain Marcaine. A soft dressing and abduction pillow were applied and the patient was transported to the recovery room, awake and in stable condition. Job ID: [id number] DocumentID: [id number] Dictated Date: 03/24/2018 17:03:57 Postal Worker Date: 03/24/2018 23:10:45 Dictated By: BECK RUEDA MD
[2018-03-24] MEDS: CLINDAMYCIN 600 MG/50 ML IVPB 50 ML IV SCH (23:21)
[2018-03-24] MEDS: HYDROmorphone 1 MG/ML (DILAUDID) 1 ML SYRINGE IV PRN (23:21)
[2018-03-25] VITALS (7 sets, daily range): BP systolic 91–126; BP diastolic 51–60
[2018-03-25] MEDS: RT-ALBUTEROL/IPRATROPIUM 3 ML (DUONEB) VIAL INH SCH ×4 (02:32→19:25)
[2018-03-25] MEDS: LACTATED RINGERS 1,000 ML IV SCH (03:28)
[2018-03-25] MEDS: diphenhydrAMINE 50 MG/ML INJ (BENADRYL) IVP PRN (03:54)
[2018-03-25 06:05] LABS: BASOPHILS % (AUTO) 0 % (0-10); EOSINOPHILS % (AUTO) 0 % (0-10); HEMATOCRIT 31 % (35-52); HEMOGLOBIN 10.4 G/DL (11.5-16.0); LYMPHOCYTES # (AUTO) 1.2 X 10^3 (1.0-4.0); LYMPHOCYTES % (AUTO) 8 % (12-44); MEAN CORPUSCULAR HEMOGLOBIN 31 PG (25-34); MEAN CORPUSCULAR HGB CONC 33 G/DL (32-36); MEAN CORPUSCULAR VOLUME 93 FL (80-99); MEAN PLATELET VOLUME 9.5 FL (7.4-10.4); MONOCYTES # (AUTO) 2.4 X 10^3 (0.0-1.0); MONOCYTES % (AUTO) 17 % (0-12); NEUTROPHILS # (AUTO) 10.6 X 10^3 (1.8-7.8); NEUTROPHILS % (AUTO) 75 % (42-75); PLATELET COUNT 177 10^3/uL (130-400); RED BLOOD COUNT 3.35 10^6/uL (4.35-5.85); RED CELL DISTRIBUTION WIDTH 13.9 % (10.0-14.5); WHITE BLOOD COUNT 14.2 10^3/uL (4.3-11.0)
[2018-03-25 06:20] LABS: ALBUMIN 2.3 GM/DL (3.2-4.5); BILIRUBIN,TOTAL 0.7 MG/DL (0.1-1.0); CALCIUM 7.9 MG/DL (8.5-10.1); CREATININE SERUM 1.62 MG/DL (0.60-1.30); POTASSIUM 4.3 MMOL/L (3.6-5.0); TOTAL PROTEIN 5.6 GM/DL (6.4-8.2)
[2018-03-25] MEDS: MULTIVIT W/MINERALS TAB (THERAGRAN M) PO SCH (06:39)
[2018-03-25] MEDS: CLINDAMYCIN 600 MG/50 ML IVPB 50 ML IV SCH (06:39)
[2018-03-25] MEDS: TIOTROPIUM IH SCH ×2 (06:57→19:27)
--- NOTE | 2018-03-25 07:07 | Progress Note-Standard ---
Standard Progress Note Progress Notes/Assess & Plan Date Seen by Provider: Mar 25, 2018 Time Seen by Provider: 07:05 Progress/Assessment & Plan NO new complaints LLE on pillow NVI distally L femoral neck fracture to OR later today for bipolar prosthesis Final Diagnosis No complaints Radiographs-HW well positioned without fractures Vital Signs Date Time Temp Pulse Resp B/P (MAP) Pulse Ox O2 Delivery O2 Flow Rate FiO2 03/25/18 06:58 93 Nasal Cannula 2.50 03/25/18 04:00 98.5 84 20 91/51 (64) 92 Nasal Cannula 2.50 03/24/18 23:42 97.8 80 20 128/68 (88) 96 Nasal Cannula 2.50 03/24/18 21:48 78 130/70 (90) 03/24/18 20:40 94 Nasal Cannula 2.50 03/24/18 20:31 98.4 81 18 110/63 (79) 95 Nasal Cannula 2.00 03/24/18 19:11 Nasal Cannula 2.50 03/24/18 18:30 98.9 86 18 117/59 (78) 94 Nasal Cannula 1.00 03/24/18 12:16 99.1 83 18 161/77 (105) 93 Nasal Cannula 1.00 03/24/18 10:28 138/66 (90) 03/24/18 08:19 93 1.50 03/24/18 08:00 96.6 78 18 190/89 (122) 95 Nasal Cannula 1.00 I & O 03/25/18 07:00 Intake Total 2550 ml Output Total 725 ml Balance 1825 ml Laboratory Tests Test 03/25/18 05:21 Range/Units White Blood Count 14.2 H 4.3-11.0 10^3/uL Red Blood Count 3.35 L 4.35-5.85 10^6/uL Hemoglobin 10.4 L 11.5-16.0 G/DL Hematocrit 31 L 35-52 % Mean Corpuscular Volume 93 80-99 FL Mean Corpuscular Hemoglobin 31 25-34 PG Mean Corpuscular Hemoglobin Concent 33 32-36 G/DL Red Cell Distribution Width 13.9 10.0-14.5 % Platelet Count 177 130-400 10^3/uL Mean Platelet Volume 9.5 7.4-10.4 FL Neutrophils (%) (Auto) 75 42-75 % Lymphocytes (%) (Auto) 8 L 12-44 % Monocytes (%) (Auto) 17 H 0-12 % Eosinophils (%) (Auto) 0 0-10 % Basophils (%) (Auto) 0 0-10 % Neutrophils # (Auto) 10.6 H 1.8-7.8 X 10^3 Lymphocytes # (Auto) 1.2 1.0-4.0 X 10^3 Monocytes # (Auto) 2.4 H 0.0-1.0 X 10^3 Eosinophils # (Auto) 0.0 0.0-0.3 10^3/uL Basophils # (Auto) 0.0 0.0-0.1 10^3/uL Sodium Level 132 L 135-145 MMOL/L Potassium Level 4.3 3.6-5.0 MMOL/L Chloride Level 101 98-107 MMOL/L Carbon Dioxide Level 23 21-32 MMOL/L Anion Gap 8 5-14 MMOL/L Blood Urea Nitrogen 38 H 7-18 MG/DL Creatinine 1.62 H 0.60-1.30 MG/DL Estimat Glomerular Filtration Rate 31 BUN/Creatinine Ratio 23 Glucose Level 137 H 70-105 MG/DL Calcium Level 7.9 L 8.5-10.1 MG/DL Total Bilirubin 0.7 0.1-1.0 MG/DL Aspartate Amino Transf (AST/SGOT) 27 5-34 U/L Alanine Aminotransferase (ALT/SGPT) 10 0-55 U/L Alkaline Phosphatase 68 40-136 U/L Total Protein 5.6 L 6.4-8.2 GM/DL Albumin 2.3 L 3.2-4.5 GM/DL LLE--dressing intact. Intact DF and PF of toes and ankle. 2 plus DP pulse with brisk cap refill. Sensation intact throughout s/p L hip bipolar mobilize eval for IRF WBAT MALICK RUEDA MD Mar 25, 2018 07:07
--- NOTE | 2018-03-25 07:55 | Anesthesia-General Post-Op ---
General Patient Condition Mental Status/LOC: Same as Preop Cardiovascular: Satisfactory Nausea/Vomiting: Absent Respiratory: Satisfactory Pain: Controlled Complications: Absent Post Op Complications Complications None Follow Up Care/Instructions Patient Instructions None needed. Anesthesia/Patient Condition Patient Condition Patient is doing well, no complaints, stable vital signs, no apparent adverse anesthesia problems. No complications reported per nursing. RUTH ARMSTRONG CRNA Mar 25, 2018 07:55
[2018-03-25] MEDS ORDERED: UMECLIDINIUM BROMIDE (INCRUSE ELLIPTA) 7'S IH SCH (08:00)
[2018-03-25] MEDS: SENNOSIDES 8.6 MG (SENOKOT) TAB PO SCH ×2 (08:39→21:21)
[2018-03-25] MEDS: CANDESARTAN 32 MG PO SCH (08:41)
[2018-03-25] MEDS: TOPROL 100 MG PO SCH ×2 (08:42→21:20)
[2018-03-25] MEDS ORDERED: METOLAZONE 2.5 MG PO SCH (09:00)
[2018-03-25] MEDS ORDERED: NON-FORMULARY MEDICATION 1 EA EA (Tiotropium Bromide (Spiriva Respimat 2.5MCG/ACTUATION) 2 INH SCH (09:00)
[2018-03-25] MEDS ORDERED: CANDESARTAN CILEXETIL 32 MG PO SCH (09:00)
[2018-03-25] MEDS ORDERED: METOLAZONE 2.5 MG (ZAROXOLYN) TAB PO SCH (09:00)
[2018-03-25] MEDS ORDERED: NS IV 500 ML 500 ML IV SCH (09:45)
--- NOTE | 2018-03-25 10:02 | Physical Therapy Evaluation ---
PT Evaluation-General Medical Diagnosis Admission Date Mar 23, 2018 at 14:00 Medical Diagnosis: left femoral neck fracture Onset Date: Mar 23, 2018 Therapy Diagnosis Therapy Diagnosis: generalized weakness/debility Height/Weight Height (Feet): 5 Height (Inches): 6.00 Weight (Pounds): 171 Weight (Ounces): 2.0 Precautions Precautions/Isolations: Fall Prevention, Standard Precautions Weight Bear Status Right Lower Extremity: Right Full Weight Bearing Left Lower Extremity: Left Weight Bearing/Tolerated Referral Physician: Isrrael Reason for Referral: Evaluation/Treatment Medical History Pertinent Medical History: CAD, HTN Current History EMS secondary to fall while removing food from oven and landing on left side Reviewed History: Yes Social History Home: Single Level Current Living Status: Alone Entry Into Home: Ramp Prior/Core FIM Prior Level of Function Functional [place] Measure 0=Not Assessed/NA 4=Minimal Assistance 1=Total Assistance 5=Supervision or Setup 2=Maximal Assistance 6=Modified [place] 3=Moderate Assistance 7=Complete [place] Bed Mobility: 7 Transfers (B,C,W/C) (FIM): 7 Gait: 7 PT Evaluation-Current Subjective Patient agrees to PT. Pain Numeric Pain Scale: 8 Location: Left Location Body Site: Hip Pain Description: Acute Objective Patient Orientation: Normal For Age Problem Solving: Fair Attachments: Oxygen, Benavides Catheter, IV ROM/Strength ROM Lower Extremities left LE hip precautions right LE WFL Strength Lower Extremities right knee flexion/extension 3/5; hip flexion NT; DF/PF 3/5 left knee flexion/extension 3-/5; hip flexion NT; DF/PF 3/5 Integumentary/Posture Integumentary refer to nursing notes Bowel Incontinence: No Bladder Incontinence: Benavides Cath Posture WFL Neuromuscular (Tone, Coordination, Reflexes) grossly intact Sensory Vision: Functional Hearing: Impaired Sensation Right Lower Extremit: Intact Sensation Left Lower Extremity: Intact Transfers Functional [place] Measure 0=Not Assessed/NA 4=Minimal Assistance 1=Total Assistance 5=Supervision or Setup 2=Maximal Assistance 6=Modified [place] 3=Moderate Assistance 7=Complete [place] Transfers (B, C, W/C) (FIM): 2 Scootin Rollin Supine to/from Sit: 2 Sit to/from Stand: 2 Gait Mode of Locomotion: Walk Anticipated Mode of Locomotion: Walk Gait (FIM): 1 Distance (FIM): 1=up to 49 ft Distance: 5' Gait Level of Assist: 3 Gait Persons Needed: 1 Gait Assistive Device: FWW Comments/Gait Description flexed knee posture in stand with difficulty weight shifting to left due to pain Balance Sitting Static: Normal Sitting Dynamic: Normal Standing Static: Fair Standing Dynamic: Fair Assessment/Needs 82 y.o. female, will benefit from skilled PT to address functional strength and mobility to improve current LOF and to safely return to home at maximum LOF. From a PT standpoint, patient would benefit from stay in ARU to ensure safe return to home with home health intervention. Rehab Potential: Fair PT Fdc Goals Fdc Goals PT Lye Treater Goals Time Frame: Apr 11, 2018 Transfers (B,C,W/C) (FIM): 6 Gait (FIM): 6 Gait distance (FIM): 3=150 ft Distance: 225' Gait Level of Assist: 6 Gait Assistive Device: FWW PT Plan Problem List Problem List: Activity Tolerance, Functional Strength, Safety Treatment/Plan Treatment Plan: Continue Plan of Care Treatment Plan: Bed Mobility, Education, Functional Activity Attila, Functional Strength, Gait, Safety, Therapeutic Exercise, Transfers Treatment Duration: Apr 11, 2018 Frequency: 11 times per week Estimated Hrs Per Day: .5 hour per day Patient and/or Family Agrees t: Yes Safety Risks/Education Patient Education: Reviewed Precautions, Safety Issues Teaching Recipient: Patient Teaching Methods: Demonstration, Discussion Response to Teaching: Reinforcement Needed Discharge Recommendations Therapy D/C Recommendations: Acute Rehab Time/GCodes Time In: 815 Time Out: 843 Total Billed Treatment Time: 27 Total Billed Treatment 1 visit EVModC 27 min G Codes Necessary: BRITTNEY Cruz PT Mar 25, 2018 10:02
--- NOTE | 2018-03-25 10:13 | Progress Note-Hospitalist ---
Subjective HPI/CC On Admission Date Seen by Provider: Mar 25, 2018 Time Seen by Provider: 09:45 CC: Left femoral neck fracture HPI: This is an 82-year-old white female clinic patient of Dr. Pickard a [facility] who sustained a fall at home where she lives alone. She denied any chest pain or syncope prior to the fall. She sustained a left femoral neck fracture. Dr. Arcos is planning for repair at 1500 hours today. I have reconciled all of her home medications and hypertension is always an issue per patient and her daughter at the bedside. We'll provide clonidine and Nitropaste for elevated blood pressure. She seems to be a candidate for inpatient rehabilitation so I did recheck out for that referral and added a social work consult. She does report severe nausea after given fentanyl and it really doesn't last too long so I will change to Dilaudid and maintain Phenergan IM along with Zofran. Subjective/Events-last exam Patient did have low blood pressure today and that is highly unusual for her and she was symptomatic and noted creatinine had increased to 1.6 so we'll give normal saline of 500 cc bolus and hold her angiotensin receptor irma and Toprol and monitor closely. Patient reports that the pain is still present but she seems to be allergic and sensitive to every pain medication and every antibiotic and every medication that she is given so we'll try her best to keep her as comfortable as possible but her limitations don't appear to be anaphylaxis or even a sensitivity but will try to keep her very comfortable at this time. Checked meds and labs IRU will speak to her today about possible transfer to that dept tomorrow or even the next day. Review of Systems General: Malaise Musculoskeletal: leg pain Objective Exam Vital Signs Vital Signs Date Time Temp Pulse Resp B/P (MAP) Pulse Ox O2 Delivery O2 Flow Rate FiO2 03/25/18 20:00 Nasal Cannula 2.50 03/25/18 19:25 90 03/25/18 19:20 97.5 79 18 126/59 (81) Capillary Refill : Less Than 3 SecondsLess Than 3 Seconds General Appearance: No Apparent Distress, WD/WN Neck: Normal Inspection, Non Tender, Supple Respiratory: Lungs Clear, Normal Breath Sounds, No Accessory Muscle Use, No Respiratory Distress Cardiovascular: Regular Rate, Rhythm, No Edema, No Gallop, No JVD, No Murmur, Normal Peripheral Pulses Neurologic/Psychiatric: Alert, Oriented x3, No Motor/Sensory Deficits, Depressed Affect Results/Procedures Lab Laboratory Tests 03/25/18 05:21 Patient resulted labs reviewed. Assessment/Plan Assessment and Plan Assess & Plan/Chief Complaint Left femoral neck fracture s/p repair uncomplicated POD # 1 HTN resistant type Plan: IRU at [facility] NS bolus Hold ARB due to increased creatinine Continue Nebs and IS Monitor bowels Diagnosis/Problems Diagnosis/Problems (1) Closed nondisplaced fracture of base of neck of femur Status: Resolved Qualifiers: Encounter type: initial encounter Laterality: left Qualified Codes: S72.045A - Nondisplaced fracture of base of neck of left femur, initial encounter for closed fracture (2) Fall Status: Acute Qualifiers: Encounter type: initial encounter Qualified Codes: W19.XXXA - Unspecified fall, initial encounter (3) Nausea Status: Resolved Assessment & Plan: 03/24: Change pain med and add Phenergan (4) Hypertension, malignant Status: Chronic (5) Multiple allergies Status: Chronic (6) Lives alone with help available Status: Acute (7) Hip fracture requiring operative repair Status: Acute Qualifiers: Encounter type: initial encounter Fracture type: closed Laterality: left Qualified Codes: S72.002A - Fracture of unspecified part of neck of left femur, initial encounter for closed fracture (8) Renal insufficiency Status: Acute (9) Hypotensive episode Status: Acute Clinical Quality Measures DVT/VTE Risk/Contraindication: Risk Factor Score Per Nursin RFS Level Per Nursing on Admit: 4+=Very High LADONNA MCDONOUGH DO Mar 25, 2018 10:13
[2018-03-25] MEDS: HYDROmorphone 1 MG/ML (DILAUDID) 1 ML SYRINGE IV PRN ×2 (10:51→19:44)
--- NOTE | 2018-03-25 11:47 | Occupational Therapy Eval ---
OT Evaluation-General/PLF Medical Diagnosis Admission Date Mar 23, 2018 at 14:00 Medical Diagnosis: left femoral neck fracture Onset Date: Mar 23, 2018 Therapy Diagnosis Therapy Diagnosis: Weakness Height/Weight Height (Feet): 5 Height (Inches): 6.00 Weight (Pounds): 171 Weight (Ounces): 2.0 Precautions Precautions/Isolations: Fall Prevention, Standard Precautions Safety Interventions: Bed Exit Alarm Weight Bear Status Weight Bearing Restriction: Weight Bearing/Tolerated Referral Physician: Isrrael Referral Reason: Activity Tolerance, Self Care, Evaluation/Treatment, Strengthening/ROM Medical History Pertinent Medical History: CAD, HTN Current History Pt. fell and sustained a left femoral neck fx. Pt. received a bipolar replacement. Reviewed History: Yes Social History Home: Single Level Current Living Status: Alone Entry Into Home: Ramp Pt. has daughters that are available to assist and a neighbor that is close to assist. ADL-Prior Level of Function ADL PLOF Comments Pt. states that previous to this, she was independent with all daily tasks. DME/Equipment: Bedside Commode DME/Equipment Comments Pt. states that she has a walker, cane, rolling walker with seat, BSC, and wheelchair. States that she has this from her spouse. OT Current Status Subjective Pt. reports 9/10 pain in left hip. Nursing has just came in to give her Dilaudid for pain management. Appearance Pt. in bed. States that she is having severe pain, and hasn't had pain medication since last night. Nursing does report that she asked pt. earlier if she was having pain and pt. stated "no." However, pt. has been sitting up and just transferred back to bed. Requests pain medication now. Nursing administered. Mental Status/Objective Patient Orientation: Person, Place, Time Current Hand Dominance: Right ADL-Treatment Functional [place] Measure 0=Not Assessed/NA 4=Minimal Assistance 1=Total Assistance 5=Supervision or Setup 2=Maximal Assistance 6=Modified [place] 3=Moderate Assistance 7=Complete IndependenceIRFPAI Quality Coding Scale 6 Independent with activity with or without an assistive device 5 Patient requires set up or clean up by helper. Patient completes activity by themselves 4 Supervision or touching assist (CGA). [place] provide cues , steadying assist 3 The helper provides less than half the effort to complete the activity 2 The helper provides more than half the effort to complete the activity 1 Dependent. The helper does all the effort to complete an activity 7 Patient refused to complete or attempt activity 9 The patient did not perform the activity before the current illness or injury 88 Not attempted due to Medical conditions or safety concerns Pt. has just returned to bed with nursing. Pt. declines getting up again. However, pt. does request assist to re-position self in bed. Pt. is encouraged to move left LE on her own, but is unable to. OT guides this for her, and pt.is able to move right LE. OT is able to re-position hips. Pt. reports that she has been "strapped down" and points to her abductor pillow. OT educates her on the purpose of pillow and hip precautions. Speak with pt. and family regarding goals for independence, as pt. lives alone. Educated her on rehab process and goals of OT. Pt. verbalizes understanding and states that she will start tomorrow. All needs met in room. Education OT Patient Education: Correct positioning, Progress toward Goal/Update tx plan , Purpose of tx/functional activities, Reviewed precautions, Rehab process, Transfer techniques Teaching Recipient: Patient Teaching Methods: Demonstration Response to Teaching: Verbalize Understanding, Return Demonstration OT Short Term Goals Short Term Goals Time Frame: Apr 01, 2018 Eating(FIM): 5 Grooming(FIM): 5 Bathing(FIM): 3 Upper Body Dressing(FIM): 4 Lower Body Dressing(FIM): 3 Toileting(FIM): 4 Transfers (B,C,W/C) (FIM): 4 Toilet/Commode Transfer(FIM): 4 Additional Short Term Goals: 1-Demonstrate ADL Tasks, 2-Verbalize Understanding , 3-ImproveStrength/Attila 1=Demonstrate adherence to instructed precautions during ADL tasks. 2=Patient will verbalize/demonstrate understanding of assistive devices/ modifications for ADL. 3=Patient will improve strength/tolerance for activity to enable patient to perform ADL's. OT Alf Goals Hospitality Intern Goals Time Frame: Apr 08, 2018 Eating (FIM): 6 Grooming(FIM): 6 Bathing(FIM): 5 Upper Body Dressing(FIM): 5 Lower Body Dressing(FIM): 5 Toileting(FIM): 6 Transfers (B,C,W/C) (FIM): 6 Toilet/Commode Transfer(FIM): 6 Shower Transfer(FIM): 5 Additional Goals: 1-Demonstrate ADL Tasks, 2-Verbalize Understanding, 3- ImproveStrength/Attila 1=Demonstrate adherence to instructed precautions during ADL tasks. 2=Patient will verbalize/demonstrate understanding of assistive devices/ modifications for ADL. 3=Patient will improve strength/tolerance for activity to enable patient to perform ADL's. OT Education/Plan Problem List/Assessment Assessment: Decreased Activ Tolerance, Dependent Transfers, Impaired Bed Mobility, Impaired Funct Balance, Impaired I ADL's, Impaired Self-Care Skills Discharge Recommendations Plan/Recommendations: Continue POC Therapy D/C Recommendations: Acute Rehab Comment Discharge goals and equipment to be determined. Treatment Plan/Plan of Care Treatment,Training & Education: Yes Patient would benefit from OT for education, treatment and training to promote independence in ADL's, mobility, safety and/or upper extremity function for ADL' s. Plan of Care: ADL Retraining, Functional Mobility, UE Funct Exercise/Act Treatment Duration: Apr 08, 2018 Frequency: 5 times per week Estimated Hrs Per Day: .25 hour per day Agreement: Yes Rehab Potential: Fair Time/GCodes Start Time: 10:40 Stop Time: 11:00 Total Time Billed (hr/min): 20 Billed Treatment Time 1, GELACIO BUTTERFIELD OT Mar 25, 2018 11:47
--- NOTE | 2018-03-25 13:21 | Physical Therapy Daily Note ---
PT Daily Note-Current Subjective Patient reluctantly agrees to PT. She states, "I think this is too much too fast." Pain Numeric Pain Scale: 10-Worst Possible Pain Location: Left Location Body Site: Hip Pain Description: Acute Mental Status Patient Orientation: Normal For Age Attachments: Oxygen, Benavides Catheter Transfers Functional [place] Measure 0=Not Assessed/NA 4=Minimal Assistance 1=Total Assistance 5=Supervision or Setup 2=Maximal Assistance 6=Modified [place] 3=Moderate Assistance 7=Complete IndependenceIRFPAI Quality Coding Scale 6 Independent with activity with or without an assistive device 5 Patient requires set up or clean up by helper. Patient completes activity by themselves 4 Supervision or touching assist (CGA). [place] provide cues , steadying assist 3 The helper provides less than half the effort to complete the activity 2 The helper provides more than half the effort to complete the activity 1 Dependent. The helper does all the effort to complete an activity 7 Patient refused to complete or attempt activity 9 The patient did not perform the activity before the current illness or injury 88 Not attempted due to Medical conditions or safety concerns Transfers (B, C, W/C) (FIM): 2 Scootin Supine to/from Sit: 2 Sit to/from Stand: 4 Patient is very resistive with all mobility and requires much encouragement Weight Bearing Right Lower Extremity: Right Full Weight Bearing Left Lower Extremity: Left Weight Bearing/Tolerated Gait Training Gait (FIM): 1 Distance (FIM): 1=up to 49 ft Distance: 8' x 2 Gait Level of Assist: 3 Gait Persons Needed: 1 Gait Assistive Device: FWW Patient ceased gait training due to fatigue and pain. Difficulty with weight shifting to left to advance right LE Exercises Supine Ex: Ankle pumps, Quad Set, Heel Slides Supine Reps: 10 (AAROM) Seated Therapy Exercises: Long arc quads Seated Reps: 15 Assessment Patient returned to bed with needs met. Patient appears to self limit with activity and mobility. Pt to increase activity as tolerated by patient. From a PT standpoint, patient may require extended care facility prior to ARU if her motivation level and participation level does not increase. PT Short Term Goals Short Term Goals Transfers (B,C,W/C) (FIM): 4 PT [facility] Goals [facility] Goals PT Supervisor Wound Goals Time Frame: Apr 11, 2018 Transfers (B,C,W/C) (FIM): 6 Gait (FIM): 6 Gait distance (FIM): 3=150 ft Distance: 225' Gait Level of Assist: 6 Gait Assistive Device: FWW PT Plan Treatment/Plan Treatment Plan: Continue Plan of Care Treatment Plan: Bed Mobility, Education, Functional Activity Attila, Functional Strength, Gait, Safety, Therapeutic Exercise, Transfers Treatment Duration: Apr 11, 2018 Frequency: 11 times per week Estimated Hrs Per Day: .5 hour per day Patient and/or Family Agrees t: Yes Time/GCodes Time In: 1235 Time Out: 1259 Total Billed Treatment Time: 24 Total Billed Treatment 1 visit EX 10 min GT 14 min BRITTNEY MCNULTY PT Mar 25, 2018 13:21
[2018-03-26] VITALS (7 sets, daily range): BP systolic 113–136; BP diastolic 55–72
[2018-03-26] MEDS: HYDROmorphone 1 MG/ML (DILAUDID) 1 ML SYRINGE IV PRN ×4 (02:11→16:45)
[2018-03-26] MEDS: RT-ALBUTEROL/IPRATROPIUM 3 ML (DUONEB) VIAL INH SCH ×4 (02:56→18:38)
[2018-03-26] MEDS: MULTIVIT W/MINERALS TAB (THERAGRAN M) PO SCH (06:16)
[2018-03-26 06:22] LABS: BASOPHILS % (AUTO) 0 % (0-10); EOSINOPHILS % (AUTO) 0 % (0-10); HEMATOCRIT 33 % (35-52); HEMOGLOBIN 10.7 G/DL (11.5-16.0); LYMPHOCYTES # (AUTO) 1.5 X 10^3 (1.0-4.0); LYMPHOCYTES % (AUTO) 9 % (12-44); MEAN CORPUSCULAR HGB CONC 33 G/DL (32-36); MEAN CORPUSCULAR VOLUME 93 FL (80-99); MEAN PLATELET VOLUME 9.4 FL (7.4-10.4); MONOCYTES # (AUTO) 3.1 X 10^3 (0.0-1.0); MONOCYTES % (AUTO) 20 % (0-12); NEUTROPHILS # (AUTO) 11.2 X 10^3 (1.8-7.8); NEUTROPHILS % (AUTO) 71 % (42-75); PLATELET COUNT 199 10^3/uL (130-400); RED BLOOD COUNT 3.51 10^6/uL (4.35-5.85); RED CELL DISTRIBUTION WIDTH 14.1 % (10.0-14.5); WHITE BLOOD COUNT 15.7 10^3/uL (4.3-11.0)
[2018-03-26 06:36] LABS: MEAN CORPUSCULAR HEMOGLOBIN 30 PG (25-34)
[2018-03-26 06:47] LABS: ALBUMIN 2.6 GM/DL (3.2-4.5); BILIRUBIN,TOTAL 0.8 MG/DL (0.1-1.0); CALCIUM 8.4 MG/DL (8.5-10.1); CREATININE SERUM 1.65 MG/DL (0.60-1.30); POTASSIUM 4.1 MMOL/L (3.6-5.0); TOTAL PROTEIN 6.7 GM/DL (6.4-8.2)
--- NOTE | 2018-03-26 07:22 | Progress Note-Standard ---
Standard Progress Note Progress Notes/Assess & Plan Date Seen by Provider: Mar 26, 2018 Time Seen by Provider: 07:21 Progress/Assessment & Plan NO new complaints LLE on pillow NVI distally L femoral neck fracture to OR later today for bipolar prosthesis Final Diagnosis no complaints Vital Signs Date Time Temp Pulse Resp B/P (MAP) Pulse Ox O2 Delivery O2 Flow Rate FiO2 03/26/18 06:14 82 120/72 (88) 03/26/18 03:20 97.3 84 18 116/55 (75) 97 Nasal Cannula 2.50 03/26/18 02:56 96 Nasal Cannula 2.50 03/26/18 02:00 88 130/70 (90) 03/25/18 23:20 97.8 85 18 122/60 (80) 97 Nasal Cannula 2.50 03/25/18 21:17 74 98/58 (71) 03/25/18 20:00 Nasal Cannula 2.50 03/25/18 19:25 90 Nasal Cannula 2.50 03/25/18 19:20 97.5 79 18 126/59 (81) 95 Nasal Cannula 2.50 03/25/18 16:00 97.5 84 20 119/56 (77) 97 Nasal Cannula 2.50 03/25/18 15:23 93 Nasal Cannula 2.50 03/25/18 11:45 97.0 78 20 101/55 (70) 97 Nasal Cannula 2.50 03/25/18 08:46 97.8 84 20 98/57 (71) 96 Nasal Cannula 2.50 03/25/18 08:00 Nasal Cannula 2.50 I & O 03/26/18 07:00 Intake Total 1600 ml Output Total 900 ml Balance 700 ml Laboratory Tests Test 03/26/18 05:35 Range/Units White Blood Count 15.7 H 4.3-11.0 10^3/uL Red Blood Count 3.51 L 4.35-5.85 10^6/uL Hemoglobin 10.7 L 11.5-16.0 G/DL Hematocrit 33 L 35-52 % Mean Corpuscular Volume 93 80-99 FL Mean Corpuscular Hemoglobin 30 25-34 PG Mean Corpuscular Hemoglobin Concent 33 32-36 G/DL Red Cell Distribution Width 14.1 10.0-14.5 % Platelet Count 199 130-400 10^3/uL Mean Platelet Volume 9.4 7.4-10.4 FL Neutrophils (%) (Auto) 71 42-75 % Lymphocytes (%) (Auto) 9 L 12-44 % Monocytes (%) (Auto) 20 H 0-12 % Eosinophils (%) (Auto) 0 0-10 % Basophils (%) (Auto) 0 0-10 % Neutrophils # (Auto) 11.2 H 1.8-7.8 X 10^3 Lymphocytes # (Auto) 1.5 1.0-4.0 X 10^3 Monocytes # (Auto) 3.1 H 0.0-1.0 X 10^3 Eosinophils # (Auto) 0.0 0.0-0.3 10^3/uL Basophils # (Auto) 0.0 0.0-0.1 10^3/uL Sodium Level 135 135-145 MMOL/L Potassium Level 4.1 3.6-5.0 MMOL/L Chloride Level 102 98-107 MMOL/L Carbon Dioxide Level 26 21-32 MMOL/L Anion Gap 7 5-14 MMOL/L Blood Urea Nitrogen 49 H 7-18 MG/DL Creatinine 1.65 H 0.60-1.30 MG/DL Estimat Glomerular Filtration Rate 30 BUN/Creatinine Ratio 30 Glucose Level 100 70-105 MG/DL Calcium Level 8.4 L 8.5-10.1 MG/DL Total Bilirubin 0.8 0.1-1.0 MG/DL Aspartate Amino Transf (AST/SGOT) 33 5-34 U/L Alanine Aminotransferase (ALT/SGPT) 12 0-55 U/L Alkaline Phosphatase 79 40-136 U/L Total Protein 6.7 6.4-8.2 GM/DL Albumin 2.6 L 3.2-4.5 GM/DL L hip incision clean and dry. No calf tenderness. Neg Israel's s/p L hip bipolar DC Kennedy MARTINES PT/OT MALICK RUEDA MD Mar 26, 2018 07:22
[2018-03-26 07:41] LABS: LYMPHOCYTES % (MANUAL) 10 %; MONOCYTES % (MANUAL) 14 %; NEUTROPHILS % (MANUAL) 76 %; RBC MORPH NORMAL
[2018-03-26] MEDS: CANDESARTAN 32 MG PO SCH (08:17)
[2018-03-26] MEDS: SENNOSIDES 8.6 MG (SENOKOT) TAB PO SCH ×2 (08:18→20:33)
[2018-03-26] MEDS: TOPROL 100 MG PO SCH ×2 (08:18→20:34)
[2018-03-26] MEDS: TIOTROPIUM IH SCH ×2 (08:56→18:39)
--- NOTE | 2018-03-26 10:26 | Physical Therapy Daily Note ---
PT Daily Note-Current Subjective Agreeable to PT with encouragement. Daughter reports the patient's pain has been more than 10/10 today. Pain Numeric Pain Scale: 10-Worst Possible Pain Location: Left Location Body Site: Hip Pain Description: Ache Comment: Pt has 1 hour until she can take pain meds. Mental Status Patient Orientation: Person, Place, Time, Situation Attachments: Oxygen Transfers Functional [place] Measure 0=Not Assessed/NA 4=Minimal Assistance 1=Total Assistance 5=Supervision or Setup 2=Maximal Assistance 6=Modified [place] 3=Moderate Assistance 7=Complete IndependenceIRFPAI Quality Coding Scale 6 Independent with activity with or without an assistive device 5 Patient requires set up or clean up by helper. Patient completes activity by themselves 4 Supervision or touching assist (CGA). [place] provide cues , steadying assist 3 The helper provides less than half the effort to complete the activity 2 The helper provides more than half the effort to complete the activity 1 Dependent. The helper does all the effort to complete an activity 7 Patient refused to complete or attempt activity 9 The patient did not perform the activity before the current illness or injury 88 Not attempted due to Medical conditions or safety concerns Transfers (B, C, W/C) (FIM): 1 (assist of 2 to transfer to EOB; pt does participate with the transfer. ) Scootin Rollin Supine to/from Sit: 1 Sit to/from Stand: 3 (Mod asssit with bed slightly elevated. ) Pt able to take 4-5 steps to transfer to the chair with FWW with CGA and 100% cues for sequencing. Weight Bearing Right Lower Extremity: Right Full Weight Bearing Left Lower Extremity: Left Weight Bearing/Tolerated Treatments Out of bed and up to chair. Pt in chair post treatment with needs met and oxygen in situ. Assessment Pt requires encouragement to participate but does work with this therapist to participate with treatment. Became nauseated after treatment. Nursing present and aware. PT Short Term Goals Short Term Goals Transfers (B,C,W/C) (FIM): 4 PT Coating Mixer Supervisor Goals Coating Mixer Supervisor Goals PT Coating Mixer Supervisor Goals Time Frame: Apr 11, 2018 Transfers (B,C,W/C) (FIM): 6 Gait (FIM): 6 Gait distance (FIM): 3=150 ft Distance: 225' Gait Level of Assist: 6 Gait Assistive Device: FWW PT Plan Problem List Problem List: Activity Tolerance, Functional Strength, Safety, Balance, Gait, Transfer, Bed Mobility Treatment/Plan Treatment Plan: Continue Plan of Care Treatment Plan: Bed Mobility, Education, Functional Activity Attila, Functional Strength, Gait, Safety, Therapeutic Exercise, Transfers Treatment Duration: Apr 11, 2018 Frequency: 11 times per week Estimated Hrs Per Day: .5 hour per day Patient and/or Family Agrees t: Yes Safety Risks/Education Patient Education: Gait Training Teaching Recipient: Patient Teaching Methods: Demonstration, Discussion Response to Teaching: Reinforcement Needed Time/GCodes Time In: 950 Time Out: 1015 Total Billed Treatment Time: 25 Total Billed Treatment visit FA 25 DIXON AVILES PT Mar 26, 2018 10:26
--- NOTE | 2018-03-26 10:49 | Progress Note-Hospitalist ---
Subjective HPI/CC On Admission Date Seen by Provider: Mar 26, 2018 Time Seen by Provider: 10:30 CC: Left femoral neck fracture HPI: This is an 82-year-old white female clinic patient of Dr. Pickard a [facility] who sustained a fall at home where she lives alone. She denied any chest pain or syncope prior to the fall. She sustained a left femoral neck fracture. Dr. Arcos is planning for repair at 1500 hours today. I have reconciled all of her home medications and hypertension is always an issue per patient and her daughter at the bedside. We'll provide clonidine and Nitropaste for elevated blood pressure. She seems to be a candidate for inpatient rehabilitation so I did recheck out for that referral and added a social work consult. She does report severe nausea after given fentanyl and it really doesn't last too long so I will change to Dilaudid and maintain Phenergan IM along with Zofran. Subjective/Events-last exam Patient doing well overall although she seems to be very negative regarding most everything that is asked. Slow recovery so there is a question whether or not she can maintain the exercises in IRU proposed for tomorrow No bowel movement yet but she reports she is not eating enough to produce one Overall very flat affect and family at the bedside trying to encourage her Physical therapy and occupational therapy are working with her diligently Creatinine was 1.3 and 1.4 in the past after I reviewed lab results a 1.6 today and consistent with that seems to be consistent with chronic renal insufficiency Review of Systems General: Malaise Gastrointestinal: Nausea Musculoskeletal: leg pain Objective Exam Vital Signs Vital Signs Date Time Temp Pulse Resp B/P (MAP) Pulse Ox O2 Delivery O2 Flow Rate FiO2 03/26/18 20:35 Nasal Cannula 2.50 03/26/18 19:35 97.1 98 18 114/59 (77) 96 Capillary Refill : Less Than 3 SecondsLess Than 3 Seconds General Appearance: No Apparent Distress, WD/WN, Chronically ill Respiratory: Chest Non Tender, Lungs Clear, Normal Breath Sounds, No Accessory Muscle Use, No Respiratory Distress Cardiovascular: Regular Rate, Rhythm, No Edema, No Gallop, No JVD, No Murmur, Normal Peripheral Pulses Extremity: Normal Capillary Refill, Normal Inspection, Normal Range of Motion, Non Tender, No Calf Tenderness, No Pedal Edema Neurologic/Psychiatric: Alert, Oriented x3, No Motor/Sensory Deficits, Depressed Affect Results/Procedures Lab Laboratory Tests 03/26/18 05:35 Patient resulted labs reviewed. Assessment/Plan Assessment and Plan Assess & Plan/Chief Complaint Left femoral neck fracture s/p repair uncomplicated POD # 2 HTN resistant type Plan: IRU at [facility] Hold ARB due to increased creatinine Continue Nebs and IS Monitor bowels Very negative attitude making recovery slow, will try to encourage as much as possible Diagnosis/Problems Diagnosis/Problems (1) Closed nondisplaced fracture of base of neck of femur Status: Resolved Qualifiers: Encounter type: initial encounter Laterality: left Qualified Codes: S72.045A - Nondisplaced fracture of base of neck of left femur, initial encounter for closed fracture (2) Fall Status: Acute Qualifiers: Encounter type: initial encounter Qualified Codes: W19.XXXA - Unspecified fall, initial encounter (3) Nausea Status: Resolved Assessment & Plan: 03/24: Change pain med and add Phenergan (4) Hypertension, malignant Status: Chronic (5) Multiple allergies Status: Chronic (6) Lives alone with help available Status: Acute (7) Hip fracture requiring operative repair Status: Acute Qualifiers: Encounter type: initial encounter Fracture type: closed Laterality: left Qualified Codes: S72.002A - Fracture of unspecified part of neck of left femur, initial encounter for closed fracture (8) Renal insufficiency Status: Acute Assessment & Plan: No changes and h/o creat 1.4 in the past (9) Hypotensive episode Status: Acute (10) Negative attitude Status: Acute (11) Delayed physical recovery Status: Acute Clinical Quality Measures DVT/VTE Risk/Contraindication: Risk Factor Score Per Nursin RFS Level Per Nursing on Admit: 4+=Very High LADONNA MCDONOUGH DO Mar 26, 2018 10:49
--- NOTE | 2018-03-26 11:58 | Occupational Ther Daily Note ---
OT Current Status-Daily Note Subjective Pt seen in room, up in recliner, agreeable to OT. Has campuzano on lap due to nausea. Appearance Alert, cooperative Mental Status/Objective Functional [place] Measure 0=Not Assessed/NA 4=Minimal Assistance 1=Total Assistance 5=Supervision or Setup 2=Maximal Assistance 6=Modified [place] 3=Moderate Assistance 7=Complete [place] Other Treatment Pt was able to do only 5 reps with a couple different bilat UE exercises, working on shoulders and elbows. Shoulder flex limited to approx 90 degrees. Patient and family education on hip precautions during exercises, with their verbal understanding. Exercise to strengthen arms to help with transfers and ADLs. pt left up in recliner, daughter present, all needs met. Education OT Patient Education: Exercise program, Purpose of tx/functional activities, Other (hip precautions) Teaching Recipient: Patient, Family Teaching Methods: Discussion Response to Teaching: Verbalize Understanding OT Short Term Goals Short Term Goals Time Frame: Apr 01, 2018 Eating(FIM): 5 Grooming(FIM): 5 Bathing(FIM): 3 Upper Body Dressing(FIM): 4 Lower Body Dressing(FIM): 3 Toileting(FIM): 4 Transfers (B,C,W/C) (FIM): 4 Toilet/Commode Transfer(FIM): 4 Additional Short Term Goals: 1-Demonstrate ADL Tasks, 2-Verbalize Understanding , 3-ImproveStrength/Attila 1=Demonstrate adherence to instructed precautions during ADL tasks. 2=Patient will verbalize/demonstrate understanding of assistive devices/ modifications for ADL. 3=Patient will improve strength/tolerance for activity to enable patient to perform ADL's. OT Group Home Goals Group Home Goals Time Frame: Apr 08, 2018 Eating (FIM): 6 Grooming(FIM): 6 Bathing(FIM): 5 Upper Body Dressing(FIM): 5 Lower Body Dressing(FIM): 5 Toileting(FIM): 6 Transfers (B,C,W/C) (FIM): 6 Toilet/Commode Transfer(FIM): 6 Shower Transfer(FIM): 5 Additional Goals: 1-Demonstrate ADL Tasks, 2-Verbalize Understanding, 3- ImproveStrength/Attila 1=Demonstrate adherence to instructed precautions during ADL tasks. 2=Patient will verbalize/demonstrate understanding of assistive devices/ modifications for ADL. 3=Patient will improve strength/tolerance for activity to enable patient to perform ADL's. OT Education/Plan Discharge Recommendations Plan/Recommendations: Continue POC Treatment Plan/Plan of Care Patient would benefit from OT for education, treatment and training to promote independence in ADL's, mobility, safety and/or upper extremity function for ADL' s. Plan of Care: ADL Retraining, Functional Mobility, UE Funct Exercise/Act Treatment Duration: Apr 08, 2018 Frequency: 5 times per week Estimated Hrs Per Day: .25 hour per day Agreement: Yes Rehab Potential: Fair Time/GCodes Start Time: 10:35 Stop Time: 10:50 Total Time Billed (hr/min): 15 Billed Treatment Time visit, 15 minutes exercise RADHA LALA OT Mar 26, 2018 11:58
--- NOTE | 2018-03-26 15:02 | Physical Therapy Daily Note ---
PT Daily Note-Current Subjective Pt sleeping Supine in bed upon arrival. Pt is very difficult to wake & daughter advises that pt had been pain med and was very drowsy. Mental Status Patient Orientation: Unresponsive Attachments: Oxygen Transfers Functional [place] Measure 0=Not Assessed/NA 4=Minimal Assistance 1=Total Assistance 5=Supervision or Setup 2=Maximal Assistance 6=Modified [place] 3=Moderate Assistance 7=Complete IndependenceIRFPAI Quality Coding Scale 6 Independent with activity with or without an assistive device 5 Patient requires set up or clean up by helper. Patient completes activity by themselves 4 Supervision or touching assist (CGA). [place] provide cues , steadying assist 3 The helper provides less than half the effort to complete the activity 2 The helper provides more than half the effort to complete the activity 1 Dependent. The helper does all the effort to complete an activity 7 Patient refused to complete or attempt activity 9 The patient did not perform the activity before the current illness or injury 88 Not attempted due to Medical conditions or safety concerns Weight Bearing Right Lower Extremity: Right Full Weight Bearing Left Lower Extremity: Left Weight Bearing/Tolerated Treatments PROGRAMMER OR ANALYST tries to wake pt but pt is very drowsy and won't wake. PROGRAMMER OR ANALYST & pt's daughter discuss hip precautions and go over HO with precautions on it, simple Supine EX pt can work on as well as how ARU works since pt is probably coming to ARU tomorrow (03/27). Pt & daughter have all needs met at end of tx, including gerry light next to pt. Assessment Current Status: Fair Progress Pt very drowsy and cannot keep pt awake. PT Short Term Goals Short Term Goals Transfers (B,C,W/C) (FIM): 4 PT Fpc Goals Continuous Towel Roller Goals PT Fpc Goals Time Frame: Apr 11, 2018 Transfers (B,C,W/C) (FIM): 6 Gait (FIM): 6 Gait distance (FIM): 3=150 ft Distance: 225' Gait Level of Assist: 6 Gait Assistive Device: FWW PT Plan Problem List Problem List: Activity Tolerance, Functional Strength, Safety, Balance, Gait, Transfer, Bed Mobility Treatment/Plan Treatment Plan: Continue Plan of Care Treatment Plan: Bed Mobility, Education, Functional Activity Attila, Functional Strength, Gait, Safety, Therapeutic Exercise, Transfers Treatment Duration: Apr 11, 2018 Frequency: 11 times per week Estimated Hrs Per Day: .5 hour per day Patient and/or Family Agrees t: Yes Safety Risks/Education Patient Education: Transfer Techniques, Reviewed Precautions, Correct Positioning, Safety Issues Teaching Recipient: Patient, Family Teaching Methods: Demonstration, Discussion Response to Teaching: Verbalize Understanding Time/GCodes Time In: 1412 Time Out: 1433 Total Billed Treatment Time: 21 Total Billed Treatment 1, FA (21m) G Codes Necessary: HÉCTOR Cao PROGRAMMER OR ANALYST Mar 26, 2018 15:02
[2018-03-26] MEDS: diphenhydrAMINE 50 MG/ML INJ (BENADRYL) IVP PRN (22:41)
[2018-03-27 00:21] VITALS: BP 131/60
[2018-03-27] MEDS: RT-ALBUTEROL/IPRATROPIUM 3 ML (DUONEB) VIAL INH SCH ×2 (01:35→06:26)
[2018-03-27] MEDS: diphenhydrAMINE 50 MG/ML INJ (BENADRYL) IVP PRN (02:24)
[2018-03-27 04:57] VITALS: BP 149/84
[2018-03-27 06:18] LABS: BASOPHILS % (AUTO) 0 % (0-10); EOSINOPHILS % (AUTO) 0 % (0-10); HEMATOCRIT 28 % (35-52); HEMOGLOBIN 9.5 G/DL (11.5-16.0); LYMPHOCYTES # (AUTO) 1.3 X 10^3 (1.0-4.0); LYMPHOCYTES % (AUTO) 9 % (12-44); MEAN CORPUSCULAR HEMOGLOBIN 32 PG (25-34); MEAN CORPUSCULAR HGB CONC 34 G/DL (32-36); MEAN CORPUSCULAR VOLUME 93 FL (80-99); MEAN PLATELET VOLUME 9.5 FL (7.4-10.4); MONOCYTES # (AUTO) 2.7 X 10^3 (0.0-1.0); MONOCYTES % (AUTO) 19 % (0-12); NEUTROPHILS # (AUTO) 10.5 X 10^3 (1.8-7.8); NEUTROPHILS % (AUTO) 72 % (42-75); PLATELET COUNT 186 10^3/uL (130-400); RED BLOOD COUNT 3.02 10^6/uL (4.35-5.85); RED CELL DISTRIBUTION WIDTH 13.8 % (10.0-14.5); WHITE BLOOD COUNT 14.5 10^3/uL (4.3-11.0)
[2018-03-27] MEDS: MULTIVIT W/MINERALS TAB (THERAGRAN M) PO SCH (06:18)
[2018-03-27] MEDS: TIOTROPIUM IH SCH (06:26)
[2018-03-27 06:33] LABS: ALBUMIN 2.3 GM/DL (3.2-4.5); BILIRUBIN,TOTAL 0.9 MG/DL (0.1-1.0); CALCIUM 8.1 MG/DL (8.5-10.1); CREATININE SERUM 1.37 MG/DL (0.60-1.30); POTASSIUM 4.1 MMOL/L (3.6-5.0); TOTAL PROTEIN 5.8 GM/DL (6.4-8.2)
--- NOTE | 2018-03-27 07:58 | Progress Note-Standard ---
Standard Progress Note Progress Notes/Assess & Plan Date Seen by Provider: Mar 27, 2018 Time Seen by Provider: 07:57 Progress/Assessment & Plan NO new complaints LLE on pillow NVI distally L femoral neck fracture to OR later today for bipolar prosthesis Final Diagnosis no complaints Vital Signs Date Time Temp Pulse Resp B/P (MAP) Pulse Ox O2 Delivery O2 Flow Rate FiO2 03/27/18 06:28 97 Nasal Cannula 1.50 03/27/18 04:57 97.4 83 20 149/84 (105) 94 Nasal Cannula 1.50 03/27/18 01:36 93 Nasal Cannula 1.50 03/27/18 00:21 97.2 95 20 131/60 (83) 94 Nasal Cannula 1.50 03/26/18 20:35 Nasal Cannula 2.50 03/26/18 19:35 97.1 98 18 114/59 (77) 96 Nasal Cannula 1.50 03/26/18 18:40 92 Nasal Cannula 1.50 03/26/18 16:10 98.5 107 18 136/60 (85) 96 Nasal Cannula 2.00 03/26/18 14:22 92 Nasal Cannula 2.50 03/26/18 12:00 97.9 80 16 115/60 (78) 98 Nasal Cannula 2.50 03/26/18 08:56 97 Nasal Cannula 2.50 03/26/18 08:47 95 Nasal Cannula 2.50 03/26/18 08:00 98.2 84 16 113/57 (75) 97 Nasal Cannula 2.50 I & O 03/27/18 07:00 Intake Total 370 ml Output Total 250 ml Balance 120 ml Laboratory Tests Test 03/27/18 05:45 Range/Units White Blood Count 14.5 H 4.3-11.0 10^3/uL Red Blood Count 3.02 L 4.35-5.85 10^6/uL Hemoglobin 9.5 L 11.5-16.0 G/DL Hematocrit 28 L 35-52 % Mean Corpuscular Volume 93 80-99 FL Mean Corpuscular Hemoglobin 32 25-34 PG Mean Corpuscular Hemoglobin Concent 34 32-36 G/DL Red Cell Distribution Width 13.8 10.0-14.5 % Platelet Count 186 130-400 10^3/uL Mean Platelet Volume 9.5 7.4-10.4 FL Neutrophils (%) (Auto) 72 42-75 % Lymphocytes (%) (Auto) 9 L 12-44 % Monocytes (%) (Auto) 19 H 0-12 % Eosinophils (%) (Auto) 0 0-10 % Basophils (%) (Auto) 0 0-10 % Neutrophils # (Auto) 10.5 H 1.8-7.8 X 10^3 Lymphocytes # (Auto) 1.3 1.0-4.0 X 10^3 Monocytes # (Auto) 2.7 H 0.0-1.0 X 10^3 Eosinophils # (Auto) 0.0 0.0-0.3 10^3/uL Basophils # (Auto) 0.0 0.0-0.1 10^3/uL Sodium Level 133 L 135-145 MMOL/L Potassium Level 4.1 3.6-5.0 MMOL/L Chloride Level 101 98-107 MMOL/L Carbon Dioxide Level 25 21-32 MMOL/L Anion Gap 7 5-14 MMOL/L Blood Urea Nitrogen 52 H 7-18 MG/DL Creatinine 1.37 H 0.60-1.30 MG/DL Estimat Glomerular Filtration Rate 37 BUN/Creatinine Ratio 38 Glucose Level 101 70-105 MG/DL Calcium Level 8.1 L 8.5-10.1 MG/DL Total Bilirubin 0.9 0.1-1.0 MG/DL Aspartate Amino Transf (AST/SGOT) 26 5-34 U/L Alanine Aminotransferase (ALT/SGPT) 9 0-55 U/L Alkaline Phosphatase 75 40-136 U/L Total Protein 5.8 L 6.4-8.2 GM/DL Albumin 2.3 L 3.2-4.5 GM/DL Smear Scan LLE--no calf tenderness. Neg Israel's. dressing intact s/p L bipolar to IRF today MALICK RUEDA MD Mar 27, 2018 07:58
[2018-03-27 08:00] VITALS: BP 121/60
[2018-03-27] MEDS: TOPROL 100 MG PO SCH (08:33)
[2018-03-27] MEDS: CANDESARTAN 32 MG PO SCH (08:34)
[2018-03-27] MEDS: SENNOSIDES 8.6 MG (SENOKOT) TAB PO SCH (08:34)
--- NOTE | 2018-03-27 10:19 | Discharge Summary-Hospitalist ---
Diagnosis/Chief Complaint Date of Admission Mar 23, 2018 at 14:00 Date of Discharge Discharge Date: Mar 27, 2018 Discharge Diagnosis (1) Closed nondisplaced fracture of base of neck of femur Status: Resolved (2) Fall Status: Acute (3) Nausea Status: Resolved Assessment & Plan: 03/24: Change pain med and add Phenergan 03/27: resolved (4) Hypertension, malignant Status: Chronic (5) Multiple allergies Status: Chronic (6) Lives alone with help available Status: Acute Assessment & Plan: 03/27: going to IRU today (7) Hip fracture requiring operative repair Status: Acute (8) Renal insufficiency Status: Acute Assessment & Plan: 03/24: No changes and h/o creat 1.4 in the past 03/27: improved to 1.3 baseline (9) Hypotensive episode Status: Resolved (10) Negative attitude Status: Chronic (11) Delayed physical recovery Status: Acute Discharge Summary Discharge Physical Exam Allergies: Coded Allergies: iodine (Verified Allergy, Severe, RASH, 03/23/18) prednisone (Verified Allergy, Mild, RASH, 03/23/18) Sulfa (Sulfonamide Antibiotics) (Verified Allergy, Unknown, 03/23/18) amlodipine (Verified Allergy, Unknown, SWOLLEN LEGS AND FEET,PAIN IN HEAD UP TO 3 TIMES IN NIGHT, 03/23/18) amoxicillin (Verified Allergy, Unknown, 03/23/18) azithromycin (Verified Allergy, Unknown, 03/23/18) benazepril (Verified Allergy, Unknown, SEVERE HEADACHE, 03/23/18) cefaclor (Verified Allergy, Unknown, 03/23/18) cephalexin (Verified Allergy, Unknown, 03/23/18) cortisone (Verified Allergy, Unknown, 03/23/18) doxycycline (Verified Allergy, Unknown, 03/23/18) egg (Verified Allergy, Unknown, 03/23/18) griseofulvin (Verified Allergy, Unknown, 03/23/18) levofloxacin (Verified Allergy, Unknown, FACIAL FLUSHING, DIARRHEA AND LEG CRAMPS, 03/23/18) oxaprozin (Verified Allergy, Unknown, 03/23/18) propoxyphene (Verified Allergy, Unknown, SEVERE PAIN IN HEAD, 03/23/18) tetracycline (Verified Allergy, Unknown, 03/23/18) verapamil (Verified Allergy, Unknown, 03/23/18) acetaminophen (Verified Adverse Reaction, Unknown, HEART PAPILATIONS AND HYPERTENSION, 03/23/18) chlorpheniramine (Verified Adverse Reaction, Unknown, HEART PAPILATIONS AND HYPERTENSION, 03/23/18) dextromethorphan (Verified Adverse Reaction, Unknown, HEART PAPILATIONS AND HYPERTENSION, 03/23/18) Uncoded Allergies: ALL EYE DROPS (Adverse Reaction, Unknown, MAKE EYES SWELL SHUT, 12/15/09) Vitals & I&Os Vital Signs Date Time Temp Pulse Resp B/P (MAP) Pulse Ox O2 Delivery O2 Flow Rate FiO2 03/27/18 08:00 98.6 87 18 121/60 (80) 94 Nasal Cannula 1.50 General Appearance: Alert, Oriented X3, Cooperative Respiratory: Clear to Auscultation, Normal Air Movement Cardiovascular: Regular Rate, Normal S1, Normal S2 Neuro: Normal Gait, Normal Speech, Strength at 5/5 X4 Ext Psych/Mental Status: Mental Status NL Hospital Course Hospital course: This is an 82-year-old white female but sustained a left hip fracture in a fall sustained at home. She underwent an uncomplicated repair by Dr. Arcos. Labs were monitored note significant decline in hemoglobin but elevated creatinine of 1.6 exacerbated her chronic renal insufficiency level of 1.4 she has had in the past so she was given IV fluids and repeated labs and it day of transfer to rehabilitation was 1.3 back to baseline. Difficulty finding a pain medication that she was not allergic to was a challenge but I persevered and was able to find a low dose of oxycodone without Tylenol that she was sensitive to and that will be continued in inpatient rehabilitation. Catheter was removed and senna along with Colace will be continued to prevent narcotic bowel and that will be maintained while in inpatient rehabilitation. She lives alone although family is helpful she will need recovery in inpatient rehabilitation for approximately one week. Labs (last 24 hrs) Laboratory Tests 03/27/18 05:45: White Blood Count 14.5H, Red Blood Count 3.02L, Hemoglobin 9.5L, Hematocrit 28L , Mean Corpuscular Volume 93, Mean Corpuscular Hemoglobin 32, Mean Corpuscular Hemoglobin Concent 34, Red Cell Distribution Width 13.8, Platelet Count 186, Mean Platelet Volume 9.5, Neutrophils (%) (Auto) 72, Lymphocytes (%) (Auto) 9L, Monocytes (%) (Auto) 19H, Eosinophils (%) (Auto) 0, Basophils (%) (Auto) 0, Neutrophils # (Auto) 10.5H, Lymphocytes # (Auto) 1.3, Monocytes # (Auto) 2.7H, Eosinophils # (Auto) 0.0, Basophils # (Auto) 0.0, Sodium Level 133L, Potassium Level 4.1, Chloride Level 101, Carbon Dioxide Level 25, Anion Gap 7, Blood Urea Nitrogen 52H, Creatinine 1.37H, Estimat Glomerular Filtration Rate 37, BUN/ Creatinine Ratio 38, Glucose Level 101, Calcium Level 8.1L, Total Bilirubin 0.9 , Aspartate Amino Transf (AST/SGOT) 26, Alanine Aminotransferase (ALT/SGPT) 9, Alkaline Phosphatase 75, Total Protein 5.8L, Albumin 2.3L, Smear Scan Microbiology 03/23/18 MRSA Screen - Final, Complete MRSA not isolated Patient resulted labs reviewed. Pending Labs Laboratory Tests 03/27/18 05:45: White Blood Count 14.5, Red Blood Count 3.02, Hemoglobin 9.5, Hematocrit 28, Mean Corpuscular Volume 93, Mean Corpuscular Hemoglobin 32, Mean Corpuscular Hemoglobin Concent 34, Red Cell Distribution Width 13.8, Platelet Count 186, Mean Platelet Volume 9.5, Neutrophils (%) (Auto) 72, Lymphocytes (%) (Auto) 9, Monocytes (%) (Auto) 19, Eosinophils (%) (Auto) 0, Basophils (%) (Auto) 0, Neutrophils # (Auto) 10.5, Lymphocytes # (Auto) 1.3, Monocytes # (Auto) 2.7, Eosinophils # (Auto) 0.0, Basophils # (Auto) 0.0, Sodium Level 133, Potassium Level 4.1, Chloride Level 101, Carbon Dioxide Level 25, Anion Gap 7, Blood Urea Nitrogen 52, Creatinine 1.37, Estimat Glomerular Filtration Rate 37, BUN/ Creatinine Ratio 38, Glucose Level 101, Calcium Level 8.1, Total Bilirubin 0.9, Aspartate Amino Transf (AST/SGOT) 26, Alanine Aminotransferase (ALT/SGPT) 9, Alkaline Phosphatase 75, Total Protein 5.8, Albumin 2.3, Smear Scan Discussion & Recommendations Discharge Planning: <30 minutes discharge planning Discharge Home Medications: Active Scripts Active Reported [place]and (Candesartan Cilexetil) 32 Mg Tablet 32 Mg PO DAILY Toprol Xl (Metoprolol Succinate) 100 Mg Tab.er.24h 100 Mg PO BID Metolazone 2.5 Mg Tablet 2.5 Mg PO DAILY Spiriva Respimat 2.5MCG/ACTUATION (Tiotropium [place]) 4 Gm Mist.inhal 2 Puff INH DAILY Instructions to patient/family Please see electronic discharge instructions given to patient. Clinical Quality Measures DVT/VTE Risk/Contraindication: Risk Factor Score Per Nursin RFS Level Per Nursing on Admit: 4+=Very High Problem Qualifiers (1) Closed nondisplaced fracture of base of neck of femur: Encounter type: initial encounter Laterality: left Qualified Codes: S72.045A - Nondisplaced fracture of base of neck of left femur, initial encounter for closed fracture (2) Fall: Encounter type: initial encounter Qualified Codes: W19.XXXA - Unspecified fall, initial encounter (3) Hip fracture requiring operative repair: Encounter type: initial encounter Fracture type: closed Laterality: left Qualified Codes: S72.002A - Fracture of unspecified part of neck of left femur , initial encounter for closed fracture LADONNA MCDONOUGH DO Mar 27, 2018 10:19
--- NOTE | 2018-03-27 10:30 | DISCHARGE SUMMARY ---
DATE OF SERVICE: DIAGNOSES: 1. Displaced left femoral neck fracture. 2. Systemic lupus. PROCEDURE: Left hip bipolar replacement. OTHER PAST MEDICAL HISTORY: 1. Hypertension. 2. Heart palpitations. SUMMARY: The patient is an 82-year-old female, who fell at home and presented with a displaced left femoral neck fracture. She underwent a left hip bipolar replacement and did very well postoperatively. At the time of discharge, her wound was clean and dry. She had no calf tenderness. Negative Homans sign. She was progressing well with physical therapy, was tolerating diet well and tolerating pain with oral pain medication. CONDITION AT DISCHARGE: Good. DISCHARGE DISPOSITION: Transfer to the inpatient rehabilitation services for continued physical and occupational therapy. Job ID: [id number] DocumentID: [id number] Dictated Date: 03/27/2018 08:01:23 Logistics Planning Manager Date: 03/27/2018 10:29:59 Dictated By: MALICK RUEDA MD
[2018-03-27] MEDS ORDERED: DOCUSATE SODIUM 100 MG (COLACE) CAP PO SCH (21:00)
== END 2018-03-27 10:50 | DRG 470 ==
LOC: EDUNIT# 12:24 → ER 12:28 → 4TH 14:00
PROVIDERS: ADMIT Family Medicine; ATTEND Family Medicine
PROC: 0SRS01A Replacement of Left Hip Joint, Femoral Surface with Metal Synthetic Substitute, Uncemented, Open Approach (ICD-10-PCS; principal; 2018-03-24 15:38)
DX: S72.045A Nondisplaced fracture of base of neck of left femur, initial encounter for closed fracture (principal); S50.02XA Contusion of left elbow, initial encounter; I12.9 Hypertensive chronic kidney disease with stage 1 through stage 4 chronic kidney disease, or unspecified chronic kidney disease; N18.9 Chronic kidney disease, unspecified; J43.9 Emphysema, unspecified; R00.2 Palpitations; N28.9 Disorder of kidney and ureter, unspecified; R11.0 Nausea; M19.91 Primary osteoarthritis, unspecified site; W19.XXXA Unspecified fall, initial encounter; Y93.G3 Activity, cooking and baking; Y92.000 Kitchen of unspecified non-institutional (private) residence as the place of occurrence of the external cause
CPT/HCPCS: 36415; 51702; 70450; 71045; 72125; 73502; 80048; 80053; 81000; 85007; 85025; 85027; 87081; 94640; 94664; 94760; 96374; 96375; 96376

== ENCOUNTER 2018-03-27 10:09 | Inpatient (IN) | payer MEDICARE, OTHER ==
[~2018-03-27] VITALS: Ht 167.6 cm; Wt 74.0 kg
[~2018-03-27 10:09] MED LIST changes: +CAND32TA2 PO; +METO100T6 PO; +METO2.5T PO; +TIOT4MIS2 INH
[2018-03-27] MEDS ORDERED: PROMETHAZINE INJ 25 MG/ML (PHENERGAN) AMP IM PRN (11:15)
[2018-03-27] MEDS ORDERED: PATIENT MAY USE OWN MEDS, ALL MC SCH (11:15)
[2018-03-27] MEDS ORDERED: TEMAZEPAM 15 MG (RESTORIL) CAP PO PRN (11:15)
[2018-03-27] MEDS ORDERED: NITROGLYCERIN 2% OINT 1 GM UNIT DOSE PACKET TOP PRN (11:15)
--- NOTE | 2018-03-27 11:20 | Physical Therapy Evaluation ---
PT Evaluation-General Medical Diagnosis Admission Date 03/27/2018 Medical Diagnosis: left hipfx Onset Date: Mar 23, 2018 Therapy Diagnosis Therapy Diagnosis: weakness; abn gait Height/Weight Height (Feet): 5 Height (Inches): 6.00 Weight (Pounds): 171 Weight (Ounces): 2.0 Precautions Precautions/Isolations: Standard Precautions Weight Bear Status Right Lower Extremity: Right Full Weight Bearing Left Lower Extremity: Left Weight Bearing/Tolerated Referral Physician: Gurdeep Reason for Referral: Evaluation/Treatment Medical History Pertinent Medical History: CAD, HTN Additional Medical History mitral valve prolapse; system lupus; chronic bronchitis. Current History Pt reports she was opening the oven door and next thing she knew, she was on the floor (03/23/18). EMS transported her to [facility] ER. She was found to have left hip fx and it was repaired with a hip arthroplasty. She was transferred to ARU for continued therapy services. Reviewed History: Yes Social History Home: Single Level Current Living Status: Alone (family checks on her frequently. ) Entry Into Home: Ramp Prior/Core FIM Prior Level of Function Functional [place] Measure 0=Not Assessed/NA 4=Minimal Assistance 1=Total Assistance 5=Supervision or Setup 2=Maximal Assistance 6=Modified [place] 3=Moderate Assistance 7=Complete [place] Bed Mobility: 7 Transfers (B,C,W/C) (FIM): 7 Gait: 7 (pt reports she does not typically use a walker or cane) pt has a hospital bed, shower chair, commode, FWW, cane and wheelchair. pt PT Evaluation-Current Subjective "I'm gonna need to rest. I've done a lot today. I sat up for 1 hour and I sat on the commode." Pain Numeric Pain Scale: 10-Worst Possible Pain Location: Left Location Body Site: Hip Pain Description: Ache (feels someone has a knife in there.) Pt/Family Goals Pt reports her goal is to return home as before. Objective Patient Orientation: Person, Place, Time, Situation Problem Solving: Fair Attachments: Oxygen ROM/Strength ROM Lower Extremities WFL; hip precautions left LE and Left motion is AAROm due to guarding. Strenght Lower Extremities Right LE strength is grossly 5/5; left LE strength is grossly 2/5. Integumentary/Posture Integumentary Refer to nursing notes. Bowel Incontinence: No Bladder Incontinence: No Posture normal and symmetrical Neuromuscular (Tone, Coordination, Reflexes) intact and functional Sensory Vision: Wears Glasses Hearing: Functional Hand Dominance: Right Sensation Right Lower Extremit: Intact Sensation Left Lower Extremity: Intact Transfers Functional [place] Measure 0=Not Assessed/NA 4=Minimal Assistance 1=Total Assistance 5=Supervision or Setup 2=Maximal Assistance 6=Modified [place] 3=Moderate Assistance 7=Complete IndependenceIRFPAI Quality Coding Scale 6 Independent with activity with or without an assistive device 5 Patient requires set up or clean up by helper. Patient completes activity by themselves 4 Supervision or touching assist (CGA). [place] provide cues , steadying assist 3 The helper provides less than half the effort to complete the activity 2 The helper provides more than half the effort to complete the activity 1 Dependent. The helper does all the effort to complete an activity 7 Patient refused to complete or attempt activity 9 The patient did not perform the activity before the current illness or injury 88 Not attempted due to Medical conditions or safety concerns Transfers (B, C, W/C) (FIM): 2 Scootin Rollin Roll Left to Right (QC): 3 Supine to/from Sit: 3 Sit to/from Stand: 3 bed t/f WC(FIM only if WC use): 4 Sit to Lying (QC): 3 (assist with both legs into bed. ) Lying to Sitting/Side of Bed(Q: 3 (assist with both legs.) Sit to Stand (QC): 4 (skilled cues for hand placement. ) Chair/Gxi-ad-Wlyru Xfer(QC): 4 Car Transfer (QC): 7 (pt refused this transfer. ) Gait Does the Patient Walk?: Yes Mode of Locomotion: Walk Anticipated Mode of Locomotion: Walk Gait (FIM): 2 Distance (FIM): 1=up to 49 ft Walk 10 feet (QC): 4 (min assist at gait belt and skilled cues to sequence. ) Walk 50 ft with 2 Turns(QC): 88 (unable to ambulate this distance. ) Walk 150 ft (QC): 88 Walking 10ft/uneven surface-QC: 88 (unsafe to attempt) Distance: 10 ft Gait Level of Assist: 4 (min assist for balance and safety.) Gait Assistive Device: FWW Comments/Gait Description slow gait; step to with the right. Wheelchair Training Does the Pt Use a Wheelchair?: No Stairs Stairs (FIM): 1 (unable;unsafe to attempt) 1 Step (curb) (QC): 88 (unable;unsafe) 4 Steps (QC): 88 12 Steps (QC): 88 If not tested on admit;explain unable to attempt and unsafe Balance Sitting Static: Fair Sitting Dynamic: Fair Standing Static: Fair Standing Dynamic: Fair Picking up an Object (QC): 88 Treatment B LE ther ex x 10 for AP, QS and GS; seated for AP and LAQ. Assessment/Needs Pt presents post fall with hip fracture that has been replaced. She has impaired functional transfers, bed mobility, strength, gait and safety. Her activity tolerance is limited and she is also resistive to therapy services, requiring much encouragement to participate. However, based on her PLOF and current function, she is a good candidate for therapy services and has potential to make functional gains. Rehab Potential: Guarded (due to resistive to therapy at times. ) PT Short Term Goals Short Term Goals Time Frame: Apr 03, 2018 Transfers (B,C,W/C) (FIM): 4 Gait (FIM): 4 Distance (FIM): 3=150 ft Gait Assistive Device: FWW PT Clerical Administrator Goals Nursing Home Goals PT Clerical Administrator Goals Time Frame: Apr 17, 2018 Transfers (B,C,W/C) (FIM): 6 Sit to Lying (QC): 6 Lying-Sitting on Side/Bed(QC): 6 Sit to Stand (QC): 6 Roll Left to Right (QC): 6 Chair/Zmo-ke-Vukcf Xfer(QC): 6 Car Transfer (QC): 6 Does the Patient Walk: Yes Gait (FIM): 6 Gait distance (FIM): 3=150 ft Walk 10 feet (QC): 6 Walk 10ft-Uneven Surface(QC): 6 Walk 50ft with 2 Turns (QC): 6 Walk 150 ft (QC): 6 Gait Assistive Device: FWW Does the Pt use WC or Scooter?: No Stairs (FIM): 5 # of Steps: 4 1 Step (curb) (QC): 6 4 Steps (QC): 6 12 Steps (QC): 88 Picking up an Object (QC): 88 PT Plan Problem List Problem List: Activity Tolerance, Functional Strength, Safety, Balance, Gait, Transfer, Bed Mobility Treatment/Plan Treatment Plan: Continue Plan of Care Treatment Plan: Bed Mobility, Education, Functional Activity Attila, Functional Strength, Group Therapy, Gait, Safety, Therapeutic Exercise, Transfers Treatment Duration: Apr 17, 2018 Frequency: At least 5 of 7 days/Wk (IRF) Estimated Hrs Per Day: 1.5 hours per day Patient and/or Family Agrees t: Yes Safety Risks/Education Patient Education: Transfer Techniques, Safety Issues Teaching Recipient: Patient Teaching Methods: Discussion Response to Teaching: Reinforcement Needed Discharge Recommendations Therapy D/C Recommendations: Physical Therapy Home Care Time/GCodes Time In: 1050 Time Out: 1135 Total Billed Treatment Time: 45 Total Billed Treatment visit EVM 30 FA 15 DIXON AVILES PT Mar 27, 2018 11:20
--- NOTE | 2018-03-27 12:00 | Occupational Therapy Eval ---
OT Evaluation-General/PLF Medical Diagnosis Admission Date Mar 27, 2018 at 10:50 Medical Diagnosis: left hip fx, BENJAMIN Onset Date: Mar 23, 2018 Therapy Diagnosis Therapy Diagnosis: decr self care ,weakness, decr funct mobil, decr act yamileth Height/Weight Height (Feet): 5 Height (Inches): 6.00 Weight (Pounds): 171 Weight (Ounces): 2.0 Precautions Precautions/Isolations: Standard Precautions Weight Bear Status Weight Bearing Restriction: Weight Bearing/Tolerated Posterior total hip precautions Referral Physician: Gurdeep Referral Reason: Evaluation/Treatment Medical History Pertinent Medical History: CAD, HTN Additional Medical History mitral valve prolapse; system lupus; chronic bronchitis. Current History Pt reports she was opening the oven door and next thing she knew, she was on the floor (03/23/18). EMS transported her to [facility] ER. She was found to have left hip fx and it was repaired with a bipolar hip replacement on 03-24-18 Reviewed History: Yes Social History Home: Single Level Current Living Status: Alone (family checks on her frequently. ) Entry Into Home: Ramp Pt has daughters that assist her and a neighbor close by who can help also. ADL-Prior Level of Function ADL PLOF Comments Pt reported that she was previously able to manage all of her basic self care needs, her laundry, cooking, cleaning. She is unable to do yard work due to allergies. 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 DME/Equipment: Bath Bench, Shower, Shower Hose Stitching Machine Feeder Or Offbearer, Tall Toilet DME/Equipment Comments Pt reported that she has a walker, cane, rolling water with seat, BSC, w/c and hospital bed at home OT Current Status Subjective Pt seen in room, up in bed, agreeable to OT. pain rated 9/10 in hip but not described. Nursing notified for meds. Pt stated, "I'm done for the day. I don't want to get up again." Appearance Alert, cooperative Mental Status/Objective Patient Orientation: Person, Place, Time, Situation Attachments: Saline Lock Current Glasses/Contacts: Yes (readers) Hearing Aids: No Dentures/Partials: Yes (upper and lower) Hand Dominance: Right Upper Extremity ROM Grossly WFL bilat Upper Extremity Sensation No problems per pt report Upper Extremity Strength Grossly 4/5 bilat ADL-Treatment ADL-Current Pt education in rehab process and plans for this afternoon. She would prefer to do sponge bath today rather than shower. Provided pt and daughter with written instructions for hip precautions and reviewed them. Pt left up in bed, all needs met. Functional [place] Measure 0=Not Assessed/NA 4=Minimal Assistance 1=Total Assistance 5=Supervision or Setup 2=Maximal Assistance 6=Modified [place] 3=Moderate Assistance 7=Complete IndependenceIRFPAI Quality Coding Scale 6 Independent with activity with or without an assistive device 5 Patient requires set up or clean up by helper. Patient completes activity by themselves 4 Supervision or touching assist (CGA). [place] provide cues , steadying assist 3 The helper provides less than half the effort to complete the activity 2 The helper provides more than half the effort to complete the activity 1 Dependent. The helper does all the effort to complete an activity 7 Patient refused to complete or attempt activity 9 The patient did not perform the activity before the current illness or injury 88 Not attempted due to Medical conditions or safety concerns Education OT Patient Education: Purpose of tx/functional activities, Rehab process Teaching Recipient: Patient, Family Teaching Methods: Discussion Response to Teaching: Verbalize Understanding OT Short Term Goals Short Term Goals Transfers (B,C,W/C) (FIM): 4 1=Demonstrate adherence to instructed precautions during ADL tasks. 2=Patient will verbalize/demonstrate understanding of assistive devices/ modifications for ADL. 3=Patient will improve strength/tolerance for activity to enable patient to perform ADL's. OT Teaching Dietitian Goals Teaching Dietitian Goals Time Frame: Apr 17, 2018 1=Demonstrate adherence to instructed precautions during ADL tasks. 2=Patient will verbalize/demonstrate understanding of assistive devices/ modifications for ADL. 3=Patient will improve strength/tolerance for activity to enable patient to perform ADL's. OT Education/Plan Problem List/Assessment Assessment: Decreased Activ Tolerance, Decreased UE Strength, Dependent Transfers, Impaired Bed Mobility, Impaired Self-Care Skills Pt would benefit from skilled OT to increase her independence in basic self care to allow her to safety return to her home after a fall with hip fx and repair Discharge Recommendations Plan/Recommendations: Continue POC Treatment Plan/Plan of Care Treatment,Training & Education: Yes Patient would benefit from OT for education, treatment and training to promote independence in ADL's, mobility, safety and/or upper extremity function for ADL' s. Plan of Care: ADL Retraining, Functional Mobility, Group Exercise/Act as Ind ( education, exercise, funct mobility, activity tolerance, socialization), UE Funct Exercise/Act, UE Neuromus Re-Ed/Coord, OTHER (energy conservation education) Treatment Duration: Apr 17, 2018 Frequency: At least 5 of 7 days/Wk (IRF) Estimated Hrs Per Day: 1.5 hours per day Agreement: Yes Rehab Potential: Guarded (due to resistive to therapy at times. ) Time/GCodes Start Time: 11:35 Stop Time: 11:50 Total Time Billed (hr/min): 15 Billed Treatment Time visit, 15 minutes evaluation moderate intensity RADHA LALA OT Mar 27, 2018 12:00
--- NOTE | 2018-03-27 12:01 | HISTORY AND PHYSICAL ---
DATE OF SERVICE: 03/27/2018 ADMISSION HISTORY AND PHYSICAL CHIEF COMPLAINT: Difficulty with walking. HISTORY OF PRESENT ILLNESS: The patient is an 82-year-old female patient of Dr. Pickard at [facility], who sustained a fall at home where she lives alone in [place], [place]. She does have a daughter who lives in [place], [place]. She was admitted to the service of Dr. Degroot and seen in consultation by Dr. Acros on 03/03/2018, at [facility]. The patient was found to have sustained a displaced left femoral neck fracture. The patient underwent left hip bipolar replacement. Therapies were begun. The patient was felt to be appropriate for inpatient rehabilitation unit. She is currently O2 dependent on O2 by nasal cannula. She is on medications for hypertension. Currently, she is mod assist for transfers, min assist for gait with walker, min assist with bed mobility. She is set up for eating and grooming, min assist for upper body dressing, mod to max assist for lower body dressing, mod assist for toileting and toileting hygiene. PAST MEDICAL HISTORY: Hypertension. PAST SURGICAL HISTORY: As per above. ALLERGIES: MULTIPLE; SULFA, TYLENOL, AMLODIPINE, AMOXICILLIN, ZITHROMAX, KEFLEX, CORTISONE, DOXYCYCLINE, FOOD ALLERGIES. FAMILY HISTORY: Noncontributory. SOCIAL HISTORY: She is a and had been independent. REVIEW OF SYSTEMS: A 10-point review of systems significant for hip pain, shortness of breath. MEDICATIONS: O2 by nasal cannula to maintain sats more than 92%, Atacand 32 mg p.o. daily, Zaroxolyn 2.5 mg p.o. daily, metoprolol 100 mg p.o. b.i.d., and Spiriva ventilation daily. PHYSICAL EXAMINATION: GENERAL: Significant for a pleasant female, appearing her stated age, sitting in a wheelchair, in no acute distress. VITAL SIGNS: Within normal limits. O2 sats more than 90%, 92% with O2 by nasal cannula 2 liters per minute in place. HEENT: Vision, speech, hearing grossly intact. No oral lesion is noted. NECK: Supple without mass. HEART: Regular rhythm. CHEST: Clear. ABDOMEN: Soft, nontender, bowel sounds present. EXTREMITIES: No limb edema. No calf tenderness. MUSCULOSKELETAL: The patient has functional active range of motion of all four extremities with the exception of left hip due to guarding. NEUROLOGIC: Cognition grossly intact, sensation grossly intact to touch. Strength 4/5 both upper limbs rt lower limb 5/5, left lower limb 3-/5 distally and the hip not tested. IMPRESSION: 1. Ambulatory dysfunction secondary to fall with fracture with a displaced left femoral neck fracture status post left hip bipolar replacement by Dr. Arcos. 2. Hypertension, controlled with medication. PLAN: The patient will have a comprehensive program of inpatient rehabilitationWITH goal of maximizing level of functional independence prior to discharge home with family and home health care to assist as needed. The patient will have PT, OT 90 minutes per day each discipline, 5 days a week for 14 days with the above goals in mind. Rehabilitation nursing to assist with bowel, bladder, skin, wound care, medication administration, pain management and social media specialist with discharge planning, community reentry, Respiratory Therapy to assist with O2 administration and wean as able with hospitalist service and Dr. Arcos as per their schedule. Please see post-admission physician evaluation for the details of plan of care. ESTIMATED LENGTH OF STAY: 14 days. PROGNOSIS: Rehab prognosis appears good for above goals in mind discharging home with family and home health care, modified independent supervision for ADLs and mobility skills. DIET: Regular. CODE STATUS: Full code. Job ID: [id number] DocumentID: [id number] Dictated Date: 03/27/2018 11:08:54 Credit Underwriter Date: 03/27/2018 12:00:56 Dictated By: BRANNON HAYNES MD MTDD
[2018-03-27] MEDS: RT-ALBUTEROL/IPRATROPIUM 3 ML (DUONEB) VIAL INH SCH ×2 (14:51→19:58)
--- NOTE | 2018-03-27 14:58 | Physical Therapy Daily Note ---
PT Daily Note-Current Subjective "I've about done all I can today." Agrees to short therapy session. Transfers Functional [place] Measure 0=Not Assessed/NA 4=Minimal Assistance 1=Total Assistance 5=Supervision or Setup 2=Maximal Assistance 6=Modified [place] 3=Moderate Assistance 7=Complete IndependenceIRFPAI Quality Coding Scale 6 Independent with activity with or without an assistive device 5 Patient requires set up or clean up by helper. Patient completes activity by themselves 4 Supervision or touching assist (CGA). [place] provide cues , steadying assist 3 The helper provides less than half the effort to complete the activity 2 The helper provides more than half the effort to complete the activity 1 Dependent. The helper does all the effort to complete an activity 7 Patient refused to complete or attempt activity 9 The patient did not perform the activity before the current illness or injury 88 Not attempted due to Medical conditions or safety concerns Transfers (B, C, W/C) (FIM): 2 Scootin Supine to/from Sit: 3 (asssit with both legs to get into bed) Sit to/from Stand: 4 (skilled cues forhand placement) Weight Bearing Right Lower Extremity: Right Full Weight Bearing Left Lower Extremity: Left Weight Bearing/Tolerated Gait Training Does the Patient Walk?: Yes Gait (FIM): 2 Distance (FIM): 1=up to 49 ft Distance: 10 ft Gait Level of Assist: 4 Gait Assistive Device: FWW antalgic gait; slow; fatigued at the end of walking. ABle to turn to sit on the edge of the bed. Treatments Gait and transfer training. in bed post treatment with needs met. Assessment Progressing. Tired this afternoon after a long day of therapy PT Short Term Goals Short Term Goals Time Frame: Apr 03, 2018 Transfers (B,C,W/C) (FIM): 4 Gait (FIM): 4 Distance (FIM): 3=150 ft Gait Assistive Device: FWW PT Prison Goals Chief Nurse Goals PT Chief Nurse Goals Time Frame: Apr 17, 2018 Transfers (B,C,W/C) (FIM): 6 Sit to Lying (QC): 6 Lying-Sitting on Side/Bed(QC): 6 Sit to Stand (QC): 6 Rollin Roll Left to Right (QC): 6 Chair/Sct-zr-Cbbey Xfer(QC): 6 Car Transfer (QC): 6 Does the Patient Walk: Yes Gait (FIM): 6 Gait distance (FIM): 3=150 ft Walk 10 feet (QC): 6 Walk 10ft-Uneven Surface(QC): 6 Walk 50ft with 2 Turns (QC): 6 Walk 150 ft (QC): 6 Gait Assistive Device: FWW Does the Pt use WC or Scooter?: No Stairs (FIM): 5 # of Steps: 4 1 Step (curb) (QC): 6 4 Steps (QC): 6 12 Steps (QC): 88 Picking up an Object (QC): 88 PT Plan Problem List Problem List: Activity Tolerance, Functional Strength, Safety, Balance, Gait, Transfer, Bed Mobility Treatment/Plan Treatment Plan: Continue Plan of Care Treatment Plan: Bed Mobility, Education, Functional Activity Attila, Functional Strength, Group Therapy, Gait, Safety, Therapeutic Exercise, Transfers Treatment Duration: Apr 17, 2018 Frequency: At least 5 of 7 days/Wk (IRF) Estimated Hrs Per Day: 1.5 hours per day Patient and/or Family Agrees t: Yes Safety Risks/Education Patient Education: Transfer Techniques Teaching Recipient: Patient Teaching Methods: Demonstration, Discussion Response to Teaching: Reinforcement Needed Time/GCodes Time In: 1430 Time Out: 1500 Total Billed Treatment Time: 30 Total Billed Treatment visit FA 30 DIXON AVILES PT Mar 27, 2018 14:58
--- NOTE | 2018-03-27 15:21 | Occupational Ther Daily Note ---
OT Current Status-Daily Note Subjective Pt seen in room, up in bed, agreeable to OT. Pain not mentioned except when moving. Appearance Alert, cooperative Mental Status/Objective Functional [place] Measure 0=Not Assessed/NA 4=Minimal Assistance 1=Total Assistance 5=Supervision or Setup 2=Maximal Assistance 6=Modified [place] 3=Moderate Assistance 7=Complete [place] ADL-Treatment Max assist to move from supine to sit EOB, with help for legs and upper body. Sat EOB for bathing and dressing, then stood min assist to transfer a few steps to [facility], with FWW. Pt is not able to walk the distance to bathroom to use regular toilet at this time. After toileting, transferred min assist to w/c. Care transferred to PT. Functional [place] Measure 0=Not Assessed/NA 4=Minimal Assistance 1=Total Assistance 5=Supervision or Setup 2=Maximal Assistance 6=Modified [place] 3=Moderate Assistance 7=Complete IndependenceIRFPAI Quality Coding Scale 6 Independent with activity with or without an assistive device 5 Patient requires set up or clean up by helper. Patient completes activity by themselves 4 Supervision or touching assist (CGA). [place] provide cues , steadying assist 3 The helper provides less than half the effort to complete the activity 2 The helper provides more than half the effort to complete the activity 1 Dependent. The helper does all the effort to complete an activity 7 Patient refused to complete or attempt activity 9 The patient did not perform the activity before the current illness or injury 88 Not attempted due to Medical conditions or safety concerns Eating (FIM): 6 (Pt reported able to open packages, cut food, feed herself. Able to get drink. Has dentures that she always wears to eat - there are foods that she cannot eat without them. ) Eating (QC): 6 Bathing (FIM): 3 (CGA to wash bottom. Unable to wash lower legs due to hip precautions. 70%, sponge bath) Bathing Location: L Arm, R Arm, L Upper Leg, R Upper Leg, Chest, Abdomen, Perineal Area Shower/Bathe Self (QC): 3 Upper Body (FIM): 5 (Setup to don shirt) Upper Body Dressing (QC): 5 Lower Body Dressing (FIM): 2 (Unable to get pants over feet and to pull them up to knees. Min assist ssit to stand and then CGA to pull pants up over hips. Unable to get slipper socks off and on due to hip precautions. pt educ use of dressing stick and sock aid. FWW) Lower Body Dressing (QC): 2 On/Off Footwear (QC): 1 Toileting (FIM): 4 (CGA for clothing management, FWW. Able to do hygiene with setup. BSC beside bed.) Toileting Hygiene (QC): 4 Toilet/Commode Transfer (FIM): 4 (Min assist to get off/on BSC over toilet, FWW ) Toilet Transfer (QC): 3 Education OT Patient Education: Modified ADL techniques, Progress toward Goal/Update tx plan, Purpose of tx/functional activities, Safety issues, Transfer techniques, Use of adapted equipment Teaching Recipient: Patient Teaching Methods: Demonstration, Discussion Response to Teaching: Verbalize Understanding, Return Demonstration, Reinforcement Needed OT Short Term Goals Short Term Goals Transfers (B,C,W/C) (FIM): 4 1=Demonstrate adherence to instructed precautions during ADL tasks. 2=Patient will verbalize/demonstrate understanding of assistive devices/ modifications for ADL. 3=Patient will improve strength/tolerance for activity to enable patient to perform ADL's. OT Mechanical Shovel Operator Goals Mechanical Shovel Operator Goals Time Frame: Apr 17, 2018 1=Demonstrate adherence to instructed precautions during ADL tasks. 2=Patient will verbalize/demonstrate understanding of assistive devices/ modifications for ADL. 3=Patient will improve strength/tolerance for activity to enable patient to perform ADL's. OT Education/Plan Problem List/Assessment Pt would benefit from skilled OT to increase her independence in basic self care to allow her to safety return to her home after a fall with hip fx and repair Discharge Recommendations Plan/Recommendations: Continue POC Treatment Plan/Plan of Care Patient would benefit from OT for education, treatment and training to promote independence in ADL's, mobility, safety and/or upper extremity function for ADL' s. Plan of Care: ADL Retraining, Functional Mobility, Group Exercise/Act as Ind ( education, exercise, funct mobility, activity tolerance, socialization), UE Funct Exercise/Act, UE Neuromus Re-Ed/Coord, OTHER (energy conservation education) Treatment Duration: Apr 17, 2018 Frequency: At least 5 of 7 days/Wk (IRF) Estimated Hrs Per Day: 1.5 hours per day Agreement: Yes Rehab Potential: Guarded (due to resistive to therapy at times. ) Time/GCodes Start Time: 13:30 Stop Time: 14:30 Total Time Billed (hr/min): 60 Billed Treatment Time visit, 60 minutes RADHA VILLAFUERTE OT Mar 27, 2018 15:21
[2018-03-27 17:54] VITALS: BP 122/74
[2018-03-27] MEDS: SENNOSIDES 8.6 MG (SENOKOT) TAB PO SCH (20:22)
[2018-03-27] MEDS: DOCUSATE SODIUM 100 MG (COLACE) CAP PO SCH (20:22)
[2018-03-28] MEDS: RT-ALBUTEROL/IPRATROPIUM 3 ML (DUONEB) VIAL INH SCH ×4 (02:28→19:20)
[2018-03-28 06:00] VITALS: BP 129/72
--- NOTE | 2018-03-28 07:09 | Progress Note-Standard ---
Standard Progress Note Progress Notes/Assess & Plan Date Seen by Provider: Mar 28, 2018 Time Seen by Provider: 07:08 Progress/Assessment & Plan NO complaints Vital Signs Date Time Temp Pulse Resp B/P (MAP) Pulse Ox O2 Delivery O2 Flow Rate FiO2 03/28/18 02:28 94 Nasal Cannula 2.00 03/27/18 21:00 96 Nasal Cannula 1.50 03/27/18 20:01 88 Room Air 03/27/18 17:54 98.5 90 16 122/74 (90) 91 Nasal Cannula 2.00 03/27/18 14:51 92 Nasal Cannula 1.50 03/27/18 10:50 Nasal Cannula 1.50 I & O 03/28/18 07:00 Intake Total 300 ml Output Total 150 ml Balance 150 ml L hip incision echymotic without erythema no calf tenderness s/p L hip bipolar PT/OT I will be out of town next week A MALICK Bruner MD Mar 28, 2018 07:09
[2018-03-28] MEDS: MULTIVIT W/MINERALS TAB (THERAGRAN M) PO SCH (07:19)
--- NOTE | 2018-03-28 07:19 | PM&R Post Admission Assessment ---
Post Admission Physician Asses Date seen by provider: Mar 27, 2018 Time seen by provider: 11:50 The preadmission screen agrees with the post admission assessment that the patient is a good candidate for inpatient rehabilitation. The patient will have a comprehensive program of inpatient rehabilitation with a goal of maximizing level of functional independence prior to discharge home with FAMILY AND hhc. The patient will have PT/OT ninety minutes per day, each discipline, five days a week 14 DAYS for gait, strengthening, conditioning, balance, ADLs, any patient/family/caregiver training as necessary. Speech therapy to do cognitive assessment and treat as indicated. Rehabilitation nursing to assist with bowel, bladder, skin, wound care, medication administration, pain management. Wind Instrument Repairer to assist with discharge planning, community reentry. SCD's for DVT prophylaxis. She appears to be well motivated to participate in three hours of therapy a day. She should be able to tolerate three hours of therapy a day from a medicalAND SURGICAL standpoint. She should benefit from the three hours of therapy a day. She has a reasonable discharge plan, reasonable discharge rehabilitation goals and a supportive family. She has various comorbidities that need to be closely monitored with medications and treatments adjusted on a daily basis as needed. These include: HTN Resp insufficiency] Barriers to discharge for this patient who had been independent prior to this are for her to be modified independent to supervision for ADLs and mobility skills prior to discharge home with family and HHC], so as to lessen the burden of the caregivers. Risks for this patient include: 1. Fall 2. Fracture 3. DVT 4. Pulmonary embolism 5. Wound infection 6. Skin breakdown 7. Contractures 8. Poorly controlled pain 9. Urinary retention 10. UTI 11. Respiratory infection 12. Aspiration 13. Poorly controlled HTN Estimated Length of Stay: 14 days Prognosis: Rehab prognosis appears good for goal of discharge home with family and HHC modified independent to supervision for ADLs and mobility skills. General: Alert, Oriented X3, Cooperative, No Acute Distress HEENT: Atraumatic, PERRLA, EOMI, Mucous Memb Moist/[place] Lungs: Clear to Auscultation Heart: Regular Rate Abdomen: Normal Bowel Sounds, Soft Extremities: Other (trace edema left ankle) Skin: Other (incision healing well) Neuro: Other (good strength BUES and RLE limited at left hip with guarding) BRANNON HAYNES MD Mar 28, 2018 07:19
[2018-03-28] MEDS: SENNOSIDES 8.6 MG (SENOKOT) TAB PO SCH ×3 (07:52→20:38)
[2018-03-28] MEDS: DOCUSATE SODIUM 100 MG (COLACE) CAP PO SCH ×3 (07:52→20:38)
[2018-03-28] MEDS: METOLAZONE 2.5 MG (ZAROXOLYN) TAB PO SCH (07:53)
[2018-03-28] MEDS ORDERED: SPIRIVA RESPIMAT IH SCH (08:00)
--- NOTE | 2018-03-28 08:59 | ST Cognitive Linguistic Eval ---
Speech Evaluation-General Medical Diagnosis left hip fx, BENJAMIN Onset Date: Mar 23, 2018 Therapy Diagnosis Therapy Diagnosis: Cognition Precautions Precautions/Isolations: Fall Prevention, Standard Precautions Referral Referring Physician: Dr. Mackenzie Medical History Pertinent Medical History: CAD, HTN Current History Hip fx Reviewed History: Yes Social History Home: Single Level Current Living Status: Alone (family checks on her frequently. ) Speech PLF-Current Status Prior Level of Function Pt lives alone and was Independent Language Eval: Auditory Comprehends Simple Yes/No Ques: Functional Follows Complex Directions: Functional Follows General Conversations: Functional Language Eval: Verbal Language Completes Spontaneous Greeting: Functional Requests Basic Needs: Functional States Basic Personal Info: Functional Expresses Complex Ideas: Functional Language Evaluation: Reading NA Objective Cognitive Domain Attention: WNL Problem Solving: Functional Objective Results [facility] was administered to assess Cognitive-linguistic skills. Results are as follows: MEMORY: 3 word recall immediate 3/3; delayed 2/3 and remote delay 3/3. SEQUENCING/ORGANIZATION: Pt was 100% for sequencing multi-step ADLs. PROBLEM SOLVING: Simple 100% Complex 100%. YES/NO QUESTIONS: 9/10 SPEECH?LANGUAGE: WNL Impression the pt demonstrates functional cognition to be able to participate in her therapy program. Communication/Social Cognition Comprehension: 6 Expression: 7 Social Interaction: 6 Problem Solvin Memory: 6 Speech Patient Assess Expression of Ideas/Wants: Expression (4) Understanding Verbal Content: Understands (4) Brief Interview-Mental Status: Yes Repetition of Three Words: Three (3) Temporal Orientation: Year: Correct (3) Temporal Orientation: Month: Accurate within 5 days(2) Temporal Orientation: Day: Correct (1) Recall : Wear to say "Sock": Yes, no cue required (2) Recall : Color: Yes, no cue required (2) Recall : Bed: Yes, no cue required (2) Speech Short Term Goals Short Term Goals Short Term Goals No goals required as skilled ST not indicated. Speech Business Development Assistant Goals Business Development Assistant Goals No goals established as no skilled ST is indicated. Speech-Plan Patient/Family Goals Patient/Family Goals: to return home Treatment Plan Speech Therapy Treatment Plan: Discontinue ST no skilled ST indicated. Frequency: Modified Program (IRF) (o times) Estimated Hrs Per Day: Other (o time) Rehab Potential: Fair Pt/Family Agrees to Plan: Yes Safety Risks/Education Teaching Recipient: Patient Teaching Methods: Discussion Response to Teaching: Verbalize Understanding Time Speech Therapy Time In: 13:00 Speech Therapy Time Out: 13:30 Total Billed Time: 30 Billed Treatment Time 1, SPSNDCHATA Bailey Mar 28, 2018 08:59
--- NOTE | 2018-03-28 09:13 | Physical Therapy Daily Note ---
PT Daily Note-Current Subjective Patient states, "I'm not a morning person." Reluctantly agrees to PT. Pain Numeric Pain Scale: 10-Worst Possible Pain Location: Left Location Body Site: Hip Pain Description: Acute Mental Status Patient Orientation: Normal For Age Transfers Functional [place] Measure 0=Not Assessed/NA 4=Minimal Assistance 1=Total Assistance 5=Supervision or Setup 2=Maximal Assistance 6=Modified [place] 3=Moderate Assistance 7=Complete IndependenceIRFPAI Quality Coding Scale 6 Independent with activity with or without an assistive device 5 Patient requires set up or clean up by helper. Patient completes activity by themselves 4 Supervision or touching assist (CGA). [place] provide cues , steadying assist 3 The helper provides less than half the effort to complete the activity 2 The helper provides more than half the effort to complete the activity 1 Dependent. The helper does all the effort to complete an activity 7 Patient refused to complete or attempt activity 9 The patient did not perform the activity before the current illness or injury 88 Not attempted due to Medical conditions or safety concerns Transfers (B, C, W/C) (FIM): 4 Scootin Sit to/from Stand: 4 Sit to Stand (QC): 4 Weight Bearing Right Lower Extremity: Right Full Weight Bearing Left Lower Extremity: Left Weight Bearing/Tolerated Gait Training Does the Patient Walk?: Yes Gait (FIM): 2 Distance (FIM): 2=410-61 ft Distance: 60' x 5 Walk 10 feet (QC): 4 Walk 50 ft with 2 Turns(QC): 4 Gait Level of Assist: 4 Gait Persons Needed: 1 Gait Assistive Device: FWW very slow, flexed bilateral knee posture with shuffle gait sequence Exercises Seated Therapy Exercises: Ankle pumps, Long arc quads, Hip flexion Seated Reps: 15 (2 sets) Assessment Patient requires encouragement to actively participate with PT. She requires multiple recovery periods due to left LE pain. Patient is diaphoretic, however , vitals are WNL. RN aware of patient status. PT Short Term Goals Short Term Goals Time Frame: Apr 03, 2018 Transfers (B,C,W/C) (FIM): 4 Gait (FIM): 4 Distance (FIM): 3=150 ft Gait Assistive Device: FWW PT Correction Goals Observation Nurse Goals PT Observation Nurse Goals Time Frame: Apr 17, 2018 Transfers (B,C,W/C) (FIM): 6 Sit to Lying (QC): 6 Lying-Sitting on Side/Bed(QC): 6 Sit to Stand (QC): 6 Rollin Roll Left to Right (QC): 6 Chair/Srs-eq-Cdsln Xfer(QC): 6 Car Transfer (QC): 6 Does the Patient Walk: Yes Gait (FIM): 6 Gait distance (FIM): 3=150 ft Walk 10 feet (QC): 6 Walk 10ft-Uneven Surface(QC): 6 Walk 50ft with 2 Turns (QC): 6 Walk 150 ft (QC): 6 Gait Assistive Device: FWW Does the Pt use WC or Scooter?: No Stairs (FIM): 5 # of Steps: 4 1 Step (curb) (QC): 6 4 Steps (QC): 6 12 Steps (QC): 88 Picking up an Object (QC): 88 PT Plan Treatment/Plan Treatment Plan: Continue Plan of Care Treatment Plan: Bed Mobility, Education, Functional Activity Attila, Functional Strength, Group Therapy, Gait, Safety, Therapeutic Exercise, Transfers Treatment Duration: Apr 17, 2018 Frequency: At least 5 of 7 days/Wk (IRF) Estimated Hrs Per Day: 1.5 hours per day Patient and/or Family Agrees t: Yes Time/GCodes Time In: 800 Time Out: 900 Total Billed Treatment Time: 60 Total Billed Treatment 1 visit EX x 2 23 min GT x 2 37 min BRITTNEY MCNULTY PT Mar 28, 2018 09:13
--- NOTE | 2018-03-28 11:14 | Progress Note-Hospitalist ---
Subjective HPI/CC On Admission Date Seen by Provider: Mar 28, 2018 Time Seen by Provider: 10:30 Subjective/Events-last exam Patient seems to be having side effects from the very low dose of Oxycodone I ordered so will DC it. Nausea now so ordered Zofran. Checked meds and labs. Very negative overall causing a significant delay in recovery. Will try to support the patient the best we can but may need to go to the [place] instead of IRU. Review of Systems General: Fatigue, Malaise Gastrointestinal: Nausea Objective Exam Vital Signs Vital Signs Date Time Temp Pulse Resp B/P (MAP) Pulse Ox O2 Delivery O2 Flow Rate FiO2 03/28/18 09:28 96 Nasal Cannula 2.00 03/28/18 06:00 98.0 88 16 129/72 (91) Capillary Refill : Less Than 3 Seconds General Appearance: No Apparent Distress, WD/WN, Chronically ill Respiratory: Chest Non Tender, Lungs Clear, Normal Breath Sounds, No Accessory Muscle Use, No Respiratory Distress Cardiovascular: Regular Rate, Rhythm, No Edema, No Gallop, No JVD, No Murmur, Normal Peripheral Pulses Neurologic/Psychiatric: Alert, Oriented x3, No Motor/Sensory Deficits, Depressed Affect Results/Procedures Lab Patient resulted labs reviewed. Assessment/Plan Assessment and Plan Assess & Plan/Chief Complaint Assessment: Recovery following left hip fracture Slow recovery Side effects from narcotics Nausea from narcotics Hypertension Chronic renal insufficiency Plan: DC oxycodone Rely on ES Tylenol that she takes at home for pain Zofran If patient cannot meet inpatient rehabilitation therapy requirements will need to go to the jail Diagnosis/Problems Diagnosis/Problems (1) Hip fracture requiring operative repair Status: Acute Qualifiers: Encounter type: sequela Fracture type: closed Laterality: left Qualified Codes: S72.002S - Fracture of unspecified part of neck of left femur , sequela (2) Delayed physical recovery Status: Acute (3) Nausea Status: Acute (4) Renal insufficiency Status: Chronic (5) Multiple allergies Status: Chronic (6) Hypertension, malignant Status: Chronic Clinical Quality Measures DVT/VTE Risk/Contraindication: Risk Factor Score Per Nursin RFS Level Per Nursing on Admit: 4+=Very High LADONNA MCDONOUGH DO Mar 28, 2018 11:14
[2018-03-28] MEDS: ONDANSETRON 4 MG/2 ML (SDV) Z0FRAN IVP PRN (11:44)
--- NOTE | 2018-03-28 14:34 | Therapy Group Daily Note ---
Therapy Daily Group Note Patient Education Topic Other List Below Exercises LE Seated Exercise, UE Exercise Other/Notes Pt was an active participant in OT/PT/ST group. She shared a favorite childhood memory with the group during introductions. Shee contributed to education/ discussion on memory and memory strategies and was able to identify ways that she uses memory for home safety. She had 2 matches out of 12 on a memory activity and also did seated UE and LE exercises. She walked back to her room with CGA, FWW, and was left in bed, all needs met. Start Time: 13:00 Stop Time: 14:05 Total Billed Treatment Time: 65 Total Billed Treatment visit, 65 minutes group RADHA LALA OT Mar 28, 2018 14:34
--- NOTE | 2018-03-28 14:41 | Occupational Ther Daily Note ---
OT Current Status-Daily Note Subjective Pt seen in room, up in recliner, reluctantly agreeable to OT. No pain mentioned but reported she was nauseated - nursing notified Appearance Very drowsy at times. Mental Status/Objective Functional [place] Measure 0=Not Assessed/NA 4=Minimal Assistance 1=Total Assistance 5=Supervision or Setup 2=Maximal Assistance 6=Modified [place] 3=Moderate Assistance 7=Complete [place] ADL-Treatment Pt did not want to bathe but did agree to wash [place] areas with bath pack. She doffed and donned shirt with setup. Pt educ use of dressing stick to take pants off and put clean ones on, to maintain hip precautions. She got up from recliner with close SBA and walked with CGA, FWW a few steps to BSC. She was able to get up and down from commode with CGA and stood CGA to wash glen area and pull pants down/up. Brushed hair and washed/inserted dentures with setup, seated. She walked abck to recliner for exercise. Functional [place] Measure 0=Not Assessed/NA 4=Minimal Assistance 1=Total Assistance 5=Supervision or Setup 2=Maximal Assistance 6=Modified [place] 3=Moderate Assistance 7=Complete IndependenceIRFPAI Quality Coding Scale 6 Independent with activity with or without an assistive device 5 Patient requires set up or clean up by helper. Patient completes activity by themselves 4 Supervision or touching assist (CGA). [place] provide cues , steadying assist 3 The helper provides less than half the effort to complete the activity 2 The helper provides more than half the effort to complete the activity 1 Dependent. The helper does all the effort to complete an activity 7 Patient refused to complete or attempt activity 9 The patient did not perform the activity before the current illness or injury 88 Not attempted due to Medical conditions or safety concerns Grooming (FIM): 5 (setup) Oral Hygiene (QC): 5 Upper Body (FIM): 5 (setup) Lower Body Dressing (FIM): 4 (A little help getting foot into pants leg, using dressing stick. Sit to stand and to pull pants up, CGA, FWW) Toileting Hygiene (QC): 4 (CGA for clothing management and hygiene, FWW) Toilet/Commode Transfer (FIM): 4 (CGA getting on and off BSC) Other Treatment Pt did 10 reps 4 different bilat UE exercises with yellow (gentle resistance) theraband, with education on how to do each exercise. She could track reps but tended to drift asleep midway. To strengthen arms to help with getting up and down and standing during ADLs. Pt left up in recliner, O2 in place, all needs met. Education OT Patient Education: Exercise program, Modified ADL techniques, Progress toward Goal/Update tx plan, Purpose of tx/functional activities, Safety issues, Use of adapted equipment Teaching Recipient: Patient Teaching Methods: Demonstration, Discussion Response to Teaching: Verbalize Understanding, Return Demonstration, Reinforcement Needed OT Short Term Goals Short Term Goals Transfers (B,C,W/C) (FIM): 4 1=Demonstrate adherence to instructed precautions during ADL tasks. 2=Patient will verbalize/demonstrate understanding of assistive devices/ modifications for ADL. 3=Patient will improve strength/tolerance for activity to enable patient to perform ADL's. OT Bit Tripoler Goals Intermediate Goals Time Frame: Apr 17, 2018 1=Demonstrate adherence to instructed precautions during ADL tasks. 2=Patient will verbalize/demonstrate understanding of assistive devices/ modifications for ADL. 3=Patient will improve strength/tolerance for activity to enable patient to perform ADL's. OT Education/Plan Problem List/Assessment Pt would benefit from skilled OT to increase her independence in basic self care to allow her to safety return to her home after a fall with hip fx and repair Discharge Recommendations Plan/Recommendations: Continue POC Treatment Plan/Plan of Care Patient would benefit from OT for education, treatment and training to promote independence in ADL's, mobility, safety and/or upper extremity function for ADL' s. Plan of Care: ADL Retraining, Functional Mobility, Group Exercise/Act as Ind ( education, exercise, funct mobility, activity tolerance, socialization), UE Funct Exercise/Act, UE Neuromus Re-Ed/Coord, OTHER (energy conservation education) Treatment Duration: Apr 17, 2018 Frequency: At least 5 of 7 days/Wk (IRF) Estimated Hrs Per Day: 1.5 hours per day Agreement: Yes Rehab Potential: Fair Time/GCodes Start Time: 11:00 Stop Time: 12:00 Total Time Billed (hr/min): 60 Billed Treatment Time visit, 45 minutes ADL, 15 minutes exercise RADHA LALA OT Mar 28, 2018 14:41
[2018-03-28] MEDS: ACETAMINOPHEN 500 MG TAB (TYLENOL) PO PRN (16:58)
[2018-03-28 17:27] VITALS: BP 132/75
[2018-03-28] MEDS: SPIRIVA RESPIMAT IH SCH (19:27)
[2018-03-29] MEDS: RT-ALBUTEROL/IPRATROPIUM 3 ML (DUONEB) VIAL INH SCH ×4 (01:17→19:26)
[2018-03-29] MEDS: ACETAMINOPHEN 500 MG TAB (TYLENOL) PO PRN ×3 (01:38→22:29)
[2018-03-29 05:10] VITALS: BP 120/68
[2018-03-29] MEDS: MULTIVIT W/MINERALS TAB (THERAGRAN M) PO SCH (06:06)
[2018-03-29] MEDS: DOCUSATE SODIUM 100 MG (COLACE) CAP PO SCH ×2 (07:08→19:48)
[2018-03-29] MEDS: SENNOSIDES 8.6 MG (SENOKOT) TAB PO SCH ×2 (07:08→19:49)
[2018-03-29] MEDS: METOLAZONE 2.5 MG (ZAROXOLYN) TAB PO SCH (08:28)
[2018-03-29] MEDS: SPIRIVA RESPIMAT IH SCH ×2 (10:11→20:30)
--- NOTE | 2018-03-29 11:52 | Physical Therapy Daily Note ---
PT Daily Note-Current Subjective Pt laying Supine in bed upon arrival. Pt agrees to PT. Pain Numeric Pain Scale: 8 Location Body Site: Hip Pain Description: Ache Mental Status Patient Orientation: Person, Place, Situation Transfers Functional [place] Measure 0=Not Assessed/NA 4=Minimal Assistance 1=Total Assistance 5=Supervision or Setup 2=Maximal Assistance 6=Modified [place] 3=Moderate Assistance 7=Complete IndependenceIRFPAI Quality Coding Scale 6 Independent with activity with or without an assistive device 5 Patient requires set up or clean up by helper. Patient completes activity by themselves 4 Supervision or touching assist ([facility]). [place] provide cues , steadying assist 3 The helper provides less than half the effort to complete the activity 2 The helper provides more than half the effort to complete the activity 1 Dependent. The helper does all the effort to complete an activity 7 Patient refused to complete or attempt activity 9 The patient did not perform the activity before the current illness or injury 88 Not attempted due to Medical conditions or safety concerns Scootin Supine to/from Sit: 4 Sit to/from Stand: 4 Sit to Stand (QC): 4 Weight Bearing Right Lower Extremity: Right Full Weight Bearing Left Lower Extremity: Left Weight Bearing/Tolerated Gait Training Does the Patient Walk?: Yes Distance (FIM): 1=up to 49 ft Distance: 35 Walk 10 feet (QC): 4 Gait Level of Assist: 4 Gait Persons Needed: 1 Gait Assistive Device: FWW Pt walks with slow darci, fatigues easily. Treatments COMPONENT INSPECTOR & pt discuss pt's progress and what is expected for tx. Pt transfers from Supine to EOB to Standing using bed rails & FWW at [facility]. Pt ambulates to restroom, completes pericare and after finishing, reports SOA and fatigue. Pt returns to recliner to rest. Pt has all needs met, including call light. Assessment Current Status: Good Progress Pt fatigues quickly and reports pain while ambulating/WB. PT Short Term Goals Short Term Goals Time Frame: Apr 03, 2018 Transfers (B,C,W/C) (FIM): 4 Gait (FIM): 4 Distance (FIM): 3=150 ft Gait Assistive Device: FWW PT Care Home Goals Medical Biller/Coder Goals PT Medical Biller/Coder Goals Time Frame: Apr 17, 2018 Transfers (B,C,W/C) (FIM): 6 Sit to Lying (QC): 6 Lying-Sitting on Side/Bed(QC): 6 Sit to Stand (QC): 6 Rollin Roll Left to Right (QC): 6 Chair/Yir-ya-Utrco Xfer(QC): 6 Car Transfer (QC): 6 Does the Patient Walk: Yes Gait (FIM): 6 Gait distance (FIM): 3=150 ft Walk 10 feet (QC): 6 Walk 10ft-Uneven Surface(QC): 6 Walk 50ft with 2 Turns (QC): 6 Walk 150 ft (QC): 6 Gait Assistive Device: FWW Does the Pt use WC or Scooter?: No Stairs (FIM): 5 # of Steps: 4 1 Step (curb) (QC): 6 4 Steps (QC): 6 12 Steps (QC): 88 Picking up an Object (QC): 88 PT Plan Problem List Problem List: Activity Tolerance, Functional Strength, Safety, Gait, Transfer Treatment/Plan Treatment Plan: Continue Plan of Care Treatment Plan: Bed Mobility, Education, Functional Activity Attila, Functional Strength, Group Therapy, Gait, Safety, Therapeutic Exercise, Transfers Treatment Duration: Apr 17, 2018 Frequency: At least 5 of 7 days/Wk (IRF) Estimated Hrs Per Day: 1.5 hours per day Patient and/or Family Agrees t: Yes Safety Risks/Education Patient Education: Gait Training, Transfer Techniques, Correct Positioning, Safety Issues Teaching Recipient: Patient Teaching Methods: Discussion Response to Teaching: Verbalize Understanding Time/GCodes Time In: 1115 Time Out: 1140 Total Billed Treatment Time: 25 Total Billed Treatment 1, FA x2 (25m) G Codes Necessary: HÉCTOR Cao PTA Mar 29, 2018 11:52
[2018-03-29 17:33] VITALS: BP 122/69
[2018-03-30] MEDS: RT-ALBUTEROL/IPRATROPIUM 3 ML (DUONEB) VIAL INH SCH ×4 (04:15→19:04)
[2018-03-30 05:00] VITALS: BP 113/73
[2018-03-30] MEDS: MULTIVIT W/MINERALS TAB (THERAGRAN M) PO SCH (06:17)
[2018-03-30] MEDS: ACETAMINOPHEN 500 MG TAB (TYLENOL) PO PRN ×3 (06:18→22:05)
[2018-03-30] MEDS: METOLAZONE 2.5 MG (ZAROXOLYN) TAB PO SCH (09:05)
[2018-03-30] MEDS: DOCUSATE SODIUM 100 MG (COLACE) CAP PO SCH ×2 (09:09→20:04)
[2018-03-30] MEDS: SENNOSIDES 8.6 MG (SENOKOT) TAB PO SCH ×2 (09:10→20:04)
[2018-03-30] MEDS: SPIRIVA RESPIMAT IH SCH ×2 (10:41→19:04)
--- NOTE | 2018-03-30 15:56 | Individualized Plan of Care ---
Individualized Plan of Care Rehab Nursing IPOC Order Admission Date Mar 27, 2018 at 10:50 Current Orders Orders Pt Evaluate/Treat Request (03/27/18 10:10) Request Ot Evaluate & Treat (03/27/18 10:10) Request For Cognitive Services (03/27/18 10:10) Admission Arrival Bed Request (03/27/18 10:50) Admission Order(Inpt,Obs,Sdc) (03/27/18 11:10) Vital Signs: Routine (Order) 08,16,00 (03/27/18 11:10) Sequential Compression Device 08,20 (03/27/18 11:10) Cancer Program Coordinator-Inpt Rehab Con (03/27/18 11:10) Rehab Nursing Orders-Ipoc (03/27/18 11:10) Turn And Reposition Q2HR (03/27/18 11:10) Intake & Output 06,14,22 (03/27/18 11:10) Weekly Weight (Lbs) WEEK (03/27/18 11:10) Code/Resuscitation (03/27/18 11:10) Code/Resuscitation (03/27/18 11:13) Incentive Spirometry (Nursing) Q2H (03/27/18 11:13) Monitor Pulse Oximetry (03/27/18 11:13) Oxygen-Administer 07,19 (03/27/18 11:13) Sammy Hose 09,21 (03/27/18 11:13) General/Regular (03/27/18 Dinner) Albuterol/Ipra Inhalation Soln (Duoneb I (03/27/18 15:00) Docusate Sodium Capsule (Colace Capsule) (03/27/18 21:00) Metolazone Tablet (Zaroxolyn Tablet) (03/28/18 09:00) Therapeutic Multivitamin Tab (Vitamins, (03/28/18 07:00) Nitroglycerin Ointment (Nitrobid Ointme (03/27/18 11:15) Patient May Use Own Meds, All (Patient M (03/27/18 11:15) Promethazine Injection (Phenergan Injec (03/27/18 11:15) Temazepam Capsule (Restoril Capsule) (03/27/18 11:15) Sennosides Tablet (Senokot Tablet) (03/27/18 21:00) Clonidine Tablet (Catapres Tablet) (03/27/18 11:15) Oxycodone Immediate Rel Tablet (Oxyir Ta (03/27/18 11:15) Oxygen Delivery Set Up (03/27/18 11:13) Oxygen Delivery Set Up (03/27/18 11:13) Consult Physician (03/27/18 11:17) Ambulate TID (03/27/18 13:29) Sequential Compression Device 08,20 (03/27/18 13:29) Dvt/Vte Risk - Notifiy Physici 08 (03/27/18 13:29) Patient Visit (03/27/18 ) Pt Eval Moderate Complexity (03/27/18 ) Functional Activities, Ea 15 (03/27/18 ) Patient's Own Med(Rx Use Only) (Patient' (03/28/18 08:00) Patient Visit (03/27/18 ) Speech Sound Lang Comp (03/27/18 ) Patient's Own Med(Rx Use Only) (Patient' (03/28/18 21:00) Acetaminophen Tablet (Tylenol Tablet) (03/28/18 11:15) Ondansetron Injection (Zofran Injectio (03/28/18 11:45) Patient Visit (03/28/18 ) Exercise Therap, Ea 15 Min (03/28/18 ) Gait Training, Ea 15 Min (03/28/18 ) Patient Visit (03/28/18 ) Patient Visit (03/29/18 ) Functional Activities, Ea 15 (03/29/18 ) Rehab Nursing Orders: Ongoing Assess. of Cognitive Status, Ongoing Assess. of Function Status, Disease Management & Educaiton, DVT Prophylaxis, Fall Prevention, Fluid/Electrolyte/Nutrition Mgmt, Infection Prevention, Medication Management & Education, Management of Risks & Complications, Management of Skin Intergrity, Nutrition Management, Pain Management, Patient/Family Support PT IPOC Problem List: Activity Tolerance, Functional Strength, Safety, Gait, Transfer Treatment Plan: Continue Plan of Care Bed Mobility, Education, Functional Activity Attila, Functional Strength, Group Therapy, Gait, Safety, Therapeutic Exercise, Transfers Treatment Duration: Apr 17, 2018 Frequency: At least 5 of 7 days/Wk (IRF) Estimated Hrs Per Day: 1.5 hours per day OT IPOC Problems: Decreased Activ Tolerance, Decreased UE Strength, Dependent Transfers , Impaired Bed Mobility, Impaired Self-Care Skills OT Treatment, Training and Edu: Yes OT Problems Pt would benefit from skilled OT to increase her independence in basic self care to allow her to safety return to her home after a fall with hip fx and repair Plan of Care: ADL Retraining, Functional Mobility, Group Exercise/Act as Ind ( education, exercise, funct mobility, activity tolerance, socialization), UE Funct Exercise/Act, UE Neuromus Re-Ed/Coord, OTHER (energy conservation education) Treatment Duration: Apr 17, 2018 Frequency: At least 5 of 7 days/Wk (IRF) Estimated Hrs Per Day: 1.[address] IPOC Speech Therapy Treatment Plan: Discontinue ST Treatment Duration: Mar 30, 2018 Frequency: Modified Program (IRF) (o times) Estimated Hrs Per Day: Other (o time) Cancer Program Coordinator/Case Mgmt Cancer Program Coordinator/Case Managemen: Discharge Planning, Patient/Family Counseling Dietitian/Plastic Surgery Manager Dietitian/Plastic Surgery Manager to monitor nutritional status and make changes and/or recommendations as needed and work with speech pathology on dietary upgrades as the occur. Physician IPOC Medical Issues being managed closely and that require the 24 hour availability of a physician: htn cri igc CODE 08.11 eTIOLOGIC dx nONDISPLACED LEFT FEM NECK FRACTURE Medical Issues: Bowel/Bladder Function, DVT Prophylaxis, Falls Precautions, Fluid/Electrolyte/Nutrition Balance, Infection Protection, Pain Management, Wound Care, Other (List) Brief Synthesis of Preadmission Screen, Post-Admission Evaluation, and Therapy Evaluations:82 YO FEMALE WHO LIVES ALONE BUT HAS CLOSE FAMILY SUPPORT WHO FELL AT HOME AND SUSTAINEDD A LEFT FEM NECK FRACTURE NOW S/P REPAIR WITH ORTHO hAD BEEN iNDEPENDENT PRIOR TO THIS [facility] htn cri Medical Prognosis: gOOD Anticipated Length of Stay: 04-17-18 mODIFIED iNDEPENDENT TO SUPERVISION FOR ADLS AND MOBILITY SKILLS Anticipated d/c Destination: [facility] WITH FAMILY AND [facility] BRANNON HAYNES MD Mar 30, 2018 15:55
[2018-03-30 18:00] VITALS: BP 175/73
[2018-03-30] MEDS: cloNIDine 0.1 MG (CATAPRES) TAB PO PRN (18:20)
[2018-03-30 20:14] VITALS: BP 120/72
[2018-03-31] MEDS: RT-ALBUTEROL/IPRATROPIUM 3 ML (DUONEB) VIAL INH SCH ×2 (01:21→09:43)
[2018-03-31 05:20] VITALS: BP 157/82
[2018-03-31] MEDS: MULTIVIT W/MINERALS TAB (THERAGRAN M) PO SCH (06:20)
[2018-03-31] MEDS: ACETAMINOPHEN 500 MG TAB (TYLENOL) PO PRN ×3 (06:21→23:33)
[2018-03-31] MEDS: METOLAZONE 2.5 MG (ZAROXOLYN) TAB PO SCH (08:48)
[2018-03-31] MEDS: DOCUSATE SODIUM 100 MG (COLACE) CAP PO SCH ×2 (09:29→20:19)
[2018-03-31] MEDS: SENNOSIDES 8.6 MG (SENOKOT) TAB PO SCH ×2 (09:30→20:20)
[2018-03-31] MEDS: SPIRIVA RESPIMAT IH SCH ×2 (09:42→18:42)
--- NOTE | 2018-03-31 09:46 | Occupational Ther Daily Note ---
OT Current Status-Daily Note Subjective Pt seen in room, up in bed, agreeable to OT. Reported that she had a lot of pain on Saturday but leg felt better on Saturday. Agreeable to OT. Appearance Alert, cooperative Mental Status/Objective Functional [place] Measure 0=Not Assessed/NA 4=Minimal Assistance 1=Total Assistance 5=Supervision or Setup 2=Maximal Assistance 6=Modified [place] 3=Moderate Assistance 7=Complete [place] Attachments: Saline Lock (covered) ADL-Treatment Pt recalled hip precautions. Pt got out of bed with SBA but cues for hand placement. Walked with CGA, FWW to bathroom and got on BSC over toilet with SBA. Managed clothing and hygiene with SBA. Pt used dressing stick to undress lower body. Walked with CGA, FWW to shower and got in/out shower and on/off shower bench with CGA, FWW, grab bars, pt educ mod technique. Pt unable to wash lower legs without long handled sponge. Pt educ mod technique to dry legs. Pt took O2 off to toilet but put it back on in shower and left it on. After bathing, she walked CGA to BS over toilet to dress. Became SOB and said her heart felt like it was pounding. O2 sats 94% but HR above 120. Nursing took vitals and BP was low. Pt required additional recovery periods to complete dressing and after walking to recliner. Pt left up in recliner, legs elevated. O2 sats 96% and HR decreased to 100. All needs met. Functional [place] Measure 0=Not Assessed/NA 4=Minimal Assistance 1=Total Assistance 5=Supervision or Setup 2=Maximal Assistance 6=Modified [place] 3=Moderate Assistance 7=Complete IndependenceIRFPAI Quality Coding Scale 6 Independent with activity with or without an assistive device 5 Patient requires set up or clean up by helper. Patient completes activity by themselves 4 Supervision or touching assist (CGA). [place] provide cues , steadying assist 3 The helper provides less than half the effort to complete the activity 2 The helper provides more than half the effort to complete the activity 1 Dependent. The helper does all the effort to complete an activity 7 Patient refused to complete or attempt activity 9 The patient did not perform the activity before the current illness or injury 88 Not attempted due to Medical conditions or safety concerns Bathing (FIM): 5 (Washed and dried all parts, shower bench. Grab bar, hand held shower, long handled sponge. ) Upper Body (FIM): 5 (Setup) Lower Body Dressing (FIM): 4 (Help to don socks. Used dressing stick to doff and don underwear and slacks. ) Toileting (FIM): 5 (SBA to manage clothing and hygiene. BSC over toilet, grab bar, FWW) Toilet/Commode Transfer (FIM): 5 (SBA getting on and off BSC over toilet, using grab bar and FWW) Education OT Patient Education: Modified ADL techniques, Purpose of tx/functional activities, Safety issues, Use of adapted equipment Teaching Recipient: Patient Teaching Methods: Demonstration, Discussion Response to Teaching: Verbalize Understanding, Return Demonstration, Reinforcement Needed OT Short Term Goals Short Term Goals Transfers (B,C,W/C) (FIM): 4 1=Demonstrate adherence to instructed precautions during ADL tasks. 2=Patient will verbalize/demonstrate understanding of assistive devices/ modifications for ADL. 3=Patient will improve strength/tolerance for activity to enable patient to perform ADL's. OT Manager Cargo Goals Mcc Goals Time Frame: Apr 17, 2018 1=Demonstrate adherence to instructed precautions during ADL tasks. 2=Patient will verbalize/demonstrate understanding of assistive devices/ modifications for ADL. 3=Patient will improve strength/tolerance for activity to enable patient to perform ADL's. OT Education/Plan Problem List/Assessment Pt would benefit from skilled OT to increase her independence in basic self care to allow her to safety return to her home after a fall with hip fx and repair Discharge Recommendations Plan/Recommendations: Continue POC Treatment Plan/Plan of Care Patient would benefit from OT for education, treatment and training to promote independence in ADL's, mobility, safety and/or upper extremity function for ADL' s. Plan of Care: ADL Retraining, Functional Mobility, Group Exercise/Act as Ind ( education, exercise, funct mobility, activity tolerance, socialization), UE Funct Exercise/Act, UE Neuromus Re-Ed/Coord, OTHER (energy conservation education) Treatment Duration: Apr 17, 2018 Frequency: At least 5 of 7 days/Wk (IRF) Estimated Hrs Per Day: 1.5 hours per day Agreement: Yes Rehab Potential: Fair Time/GCodes Start Time: 08:30 Stop Time: 09:30 Total Time Billed (hr/min): 60 Billed Treatment Time visit, 60 minutes RADHA VILLAFUERTE OT Mar 31, 2018 09:46
[2018-03-31] MEDS: ONDANSETRON 4 MG/2 ML (SDV) Z0FRAN IVP PRN (10:23)
--- NOTE | 2018-03-31 11:06 | Physical Therapy Daily Note ---
PT Daily Note-Current Subjective Pt sitting in recliner upon arrival. Pt agrees to PT. Pain Numeric Pain Scale: 7 Location: Left Location Body Site: Knee Pain Description: Ache Mental Status Patient Orientation: Person, Place, Time, Situation Attachments: Oxygen (2L) Transfers Functional [place] Measure 0=Not Assessed/NA 4=Minimal Assistance 1=Total Assistance 5=Supervision or Setup 2=Maximal Assistance 6=Modified [place] 3=Moderate Assistance 7=Complete IndependenceIRFPAI Quality Coding Scale 6 Independent with activity with or without an assistive device 5 Patient requires set up or clean up by helper. Patient completes activity by themselves 4 Supervision or touching assist (CGA). [place] provide cues , steadying assist 3 The helper provides less than half the effort to complete the activity 2 The helper provides more than half the effort to complete the activity 1 Dependent. The helper does all the effort to complete an activity 7 Patient refused to complete or attempt activity 9 The patient did not perform the activity before the current illness or injury 88 Not attempted due to Medical conditions or safety concerns Scootin Sit to/from Stand: 4 Sit to Stand (QC): 4 Weight Bearing Right Lower Extremity: Right Full Weight Bearing Left Lower Extremity: Left Weight Bearing/Tolerated Gait Training Does the Patient Walk?: Yes Distance (FIM): 9=395-94 ft Distance: 60' Walk 10 feet (QC): 5 Walk 50 ft with 2 Turns(QC): 5 Gait Level of Assist: 5 Gait Persons Needed: 1 Gait Assistive Device: FWW Pt fatigues easily and reports pain in L hip & knee with WB. Pt walks short distance before needing rest break. Treatments Pt transfers from recliner to standing using FWW at [facility]. Pt ambulates to restroom but reports feeling nauseated & begins vomiting. Nurse notified & nausea med given. PHP MYSQL WEB DEVELOPER provides campuzano & cool rag for head & neck. Pt returns to recliner to rest after vomiting ceases. Pt completes Supine Ex reclined in recliner. Pt then transfers back to standing and ambulates in hallway with a couple short breaks before returning to room to rest in recliner. Pt has all needs met at end of tx, including call light & phone. Assessment Current Status: Fair Progress Pt continues to report pain in L hip, knee & groin. Pt also reports nausea & light headedness during tx. PT Short Term Goals Short Term Goals Time Frame: Apr 03, 2018 Transfers (B,C,W/C) (FIM): 4 Gait (FIM): 4 Distance (FIM): 3=150 ft Gait Assistive Device: FWW PT Maintenance Engineer [employer] Goals Maintenance Engineer [employer] Goals PT Maintenance Engineer [employer] Goals Time Frame: Apr 17, 2018 Transfers (B,C,W/C) (FIM): 6 Sit to Lying (QC): 6 Lying-Sitting on Side/Bed(QC): 6 Sit to Stand (QC): 6 Rollin Roll Left to Right (QC): 6 Chair/Wof-ku-Zewij Xfer(QC): 6 Car Transfer (QC): 6 Does the Patient Walk: Yes Gait (FIM): 6 Gait distance (FIM): 3=150 ft Walk 10 feet (QC): 6 Walk 10ft-Uneven Surface(QC): 6 Walk 50ft with 2 Turns (QC): 6 Walk 150 ft (QC): 6 Gait Assistive Device: FWW Does the Pt use WC or Scooter?: No Stairs (FIM): 5 # of Steps: 4 1 Step (curb) (QC): 6 4 Steps (QC): 6 12 Steps (QC): 88 Picking up an Object (QC): 88 PT Plan Problem List Problem List: Activity Tolerance, Functional Strength, Safety, Balance, Gait, Transfer, Bed Mobility, ROM Treatment/Plan Treatment Plan: Continue Plan of Care Treatment Plan: Bed Mobility, Education, Functional Activity Attila, Functional Strength, Group Therapy, Gait, Safety, Therapeutic Exercise, Transfers Treatment Duration: Apr 17, 2018 Frequency: At least 5 of 7 days/Wk (IRF) Estimated Hrs Per Day: 1.5 hours per day Patient and/or Family Agrees t: Yes Safety Risks/Education Patient Education: Gait Training, Transfer Techniques, Correct Positioning, Safety Issues Teaching Recipient: Patient Teaching Methods: Discussion Response to Teaching: Verbalize Understanding Time/GCodes Time In: 1000 Time Out: 1100 Total Billed Treatment Time: 60 Total Billed Treatment 1, GT (15m), FA x2 (30m) & EX (15m) G Codes Necessary: HÉCTOR Cao PHP MYSQL WEB DEVELOPER Mar 31, 2018 11:06
--- NOTE | 2018-03-31 13:31 | Occupational Ther Daily Note ---
OT Current Status-Daily Note Subjective Pt seen in room, up in bed, agreeable to OT. Mentioned her leg hurt at end of tx and she was going to check with her nurse about some pain meds. Appearance Alert, cooperative Mental Status/Objective Functional [place] Measure 0=Not Assessed/NA 4=Minimal Assistance 1=Total Assistance 5=Supervision or Setup 2=Maximal Assistance 6=Modified [place] 3=Moderate Assistance 7=Complete [place] ADL-Treatment O2 now on 2L/min. Got out of bed without help but struggled a little to get up and walked with SBA, FWW to bathroom. Got on/off BSC with SBA and managed clothing and hygiene SBA. Walked to w/c and was transported to gym. She did 12 minutes bilat UE exercise with arm bike set at 12W/min, taking one brief recovery break. To strengthen arms to help with transfers and standing for ADLs. Returned to room and transferred SBA, FWW to recliner, O2 in place, all needs met. Functional [place] Measure 0=Not Assessed/NA 4=Minimal Assistance 1=Total Assistance 5=Supervision or Setup 2=Maximal Assistance 6=Modified [place] 3=Moderate Assistance 7=Complete IndependenceIRFPAI Quality Coding Scale 6 Independent with activity with or without an assistive device 5 Patient requires set up or clean up by helper. Patient completes activity by themselves 4 Supervision or touching assist (CGA). [place] provide cues , steadying assist 3 The helper provides less than half the effort to complete the activity 2 The helper provides more than half the effort to complete the activity 1 Dependent. The helper does all the effort to complete an activity 7 Patient refused to complete or attempt activity 9 The patient did not perform the activity before the current illness or injury 88 Not attempted due to Medical conditions or safety concerns Education OT Patient Education: Exercise program, Progress toward Goal/Update tx plan, Purpose of tx/functional activities Teaching Recipient: Patient Teaching Methods: Discussion Response to Teaching: Verbalize Understanding OT Short Term Goals Short Term Goals Transfers (B,C,W/C) (FIM): 4 1=Demonstrate adherence to instructed precautions during ADL tasks. 2=Patient will verbalize/demonstrate understanding of assistive devices/ modifications for ADL. 3=Patient will improve strength/tolerance for activity to enable patient to perform ADL's. OT Facing Slitter Goals Facing Slitter Goals Time Frame: Apr 17, 2018 1=Demonstrate adherence to instructed precautions during ADL tasks. 2=Patient will verbalize/demonstrate understanding of assistive devices/ modifications for ADL. 3=Patient will improve strength/tolerance for activity to enable patient to perform ADL's. OT Education/Plan Problem List/Assessment Pt would benefit from skilled OT to increase her independence in basic self care to allow her to safety return to her home after a fall with hip fx and repair Discharge Recommendations Plan/Recommendations: Continue POC Treatment Plan/Plan of Care Patient would benefit from OT for education, treatment and training to promote independence in ADL's, mobility, safety and/or upper extremity function for ADL' s. Plan of Care: ADL Retraining, Functional Mobility, Group Exercise/Act as Ind ( education, exercise, funct mobility, activity tolerance, socialization), UE Funct Exercise/Act, UE Neuromus Re-Ed/Coord, OTHER (energy conservation education) Treatment Duration: Apr 17, 2018 Frequency: At least 5 of 7 days/Wk (IRF) Estimated Hrs Per Day: 1.5 hours per day Agreement: Yes Rehab Potential: Fair Time/GCodes Start Time: 12:30 Stop Time: 13:00 Total Time Billed (hr/min): 30 Billed Treatment Time visit, 10 minutes ADL, 20 minutes exercise RADHA LALA OT Mar 31, 2018 13:31
[2018-03-31] MEDS ORDERED: RT-ALBUTEROL/IPRATROPIUM 3 ML (DUONEB) VIAL INH PRN (14:45)
--- NOTE | 2018-03-31 15:00 | Physical Therapy Daily Note ---
PT Daily Note-Current Subjective Pt sitting in recliner upon arrival. Pt agrees to PT. Pain Numeric Pain Scale: 6 Location: Left Location Body Site: Knee Pain Description: Ache Mental Status Patient Orientation: Person, Place, Situation Transfers Functional [place] Measure 0=Not Assessed/NA 4=Minimal Assistance 1=Total Assistance 5=Supervision or Setup 2=Maximal Assistance 6=Modified [place] 3=Moderate Assistance 7=Complete IndependenceIRFPAI Quality Coding Scale 6 Independent with activity with or without an assistive device 5 Patient requires set up or clean up by helper. Patient completes activity by themselves 4 Supervision or touching assist (CGA). [place] provide cues , steadying assist 3 The helper provides less than half the effort to complete the activity 2 The helper provides more than half the effort to complete the activity 1 Dependent. The helper does all the effort to complete an activity 7 Patient refused to complete or attempt activity 9 The patient did not perform the activity before the current illness or injury 88 Not attempted due to Medical conditions or safety concerns Scootin Rollin Roll Left to Right (QC): 4 Supine to/from Sit: 4 Sit to/from Stand: 4 Sit to Lying (QC): 4 Sit to Stand (QC): 4 Weight Bearing Right Lower Extremity: Right Full Weight Bearing Left Lower Extremity: Left Weight Bearing/Tolerated Gait Training Does the Patient Walk?: Yes Distance (FIM): 6=235-02 ft Distance: 75' Walk 10 feet (QC): 5 Walk 50 ft with 2 Turns(QC): 5 Gait Assistive Device: FWW Pt fatigues easily & needs rest breaks. Pt reports pain & SOA during ambulation. Wheelchair Training Does the Pt Use a Wheelchair?: No Exercises Seated Therapy Exercises: Ankle pumps, Long arc quads, Hip flexion, Kicking activity Seated Reps: 15 Treatments Pt transfers from recliner to standing and ambulates in hallway using FWW at [facility]. Pt takes a couple of rest breaks during walk due to pain & fatigue. Pt completes Seated Ex in chair before returning to room at end of tx. Pt transfers back to bed, EOB to Supine at Min A for lifting BLE into bed. Pt resting in bed at end of tx with all needs met, including call & phone next to pt, ice packs on both L groin & knee. Assessment Current Status: Good Progress Pt fatigues easily and is not motivated to push self. Pt self limits. PT Short Term Goals Short Term Goals Time Frame: Apr 03, 2018 Transfers (B,C,W/C) (FIM): 4 Gait (FIM): 4 Distance (FIM): 3=150 ft Gait Assistive Device: FWW PT Formal Waiter/Waitress Goals Half-Way Goals PT Formal Waiter/Waitress Goals Time Frame: Apr 17, 2018 Transfers (B,C,W/C) (FIM): 6 Sit to Lying (QC): 6 Lying-Sitting on Side/Bed(QC): 6 Sit to Stand (QC): 6 Rollin Roll Left to Right (QC): 6 Chair/Umr-bp-Ibrqi Xfer(QC): 6 Car Transfer (QC): 6 Does the Patient Walk: Yes Gait (FIM): 6 Gait distance (FIM): 3=150 ft Walk 10 feet (QC): 6 Walk 10ft-Uneven Surface(QC): 6 Walk 50ft with 2 Turns (QC): 6 Walk 150 ft (QC): 6 Gait Assistive Device: FWW Does the Pt use WC or Scooter?: No Stairs (FIM): 5 # of Steps: 4 1 Step (curb) (QC): 6 4 Steps (QC): 6 12 Steps (QC): 88 Picking up an Object (QC): 88 PT Plan Problem List Problem List: Activity Tolerance, Functional Strength, Safety, Balance, Gait, Transfer Treatment/Plan Treatment Plan: Continue Plan of Care Treatment Plan: Bed Mobility, Education, Functional Activity Attila, Functional Strength, Group Therapy, Gait, Safety, Therapeutic Exercise, Transfers Treatment Duration: Apr 17, 2018 Frequency: At least 5 of 7 days/Wk (IRF) Estimated Hrs Per Day: 1.5 hours per day Patient and/or Family Agrees t: Yes Safety Risks/Education Patient Education: Gait Training, Transfer Techniques, Correct Positioning, Safety Issues Teaching Recipient: Patient Teaching Methods: Discussion Response to Teaching: Verbalize Understanding Time/GCodes Time In: 1345 Time Out: 1415 Total Billed Treatment Time: 30 Total Billed Treatment 1, GT (15m) & EX (15m) G Codes Necessary: HÉCTOR Cao MOHS SURGEON/GENERAL DERMATOLOGIST Mar 31, 2018 15:00
[2018-03-31 18:03] VITALS: BP 122/75
[2018-04-01 06:00] VITALS: BP 160/80
[2018-04-01] MEDS: MULTIVIT W/MINERALS TAB (THERAGRAN M) PO SCH (06:04)
[2018-04-01] MEDS: SPIRIVA RESPIMAT IH SCH ×2 (07:07→19:04)
[2018-04-01] MEDS: METOLAZONE 2.5 MG (ZAROXOLYN) TAB PO SCH (08:28)
[2018-04-01] MEDS: SENNOSIDES 8.6 MG (SENOKOT) TAB PO SCH ×2 (08:28→21:00)
[2018-04-01] MEDS: DOCUSATE SODIUM 100 MG (COLACE) CAP PO SCH ×2 (08:28→21:00)
[2018-04-01] MEDS: ACETAMINOPHEN 500 MG TAB (TYLENOL) PO PRN ×2 (08:31→16:41)
--- NOTE | 2018-04-01 10:46 | Occupational Ther Daily Note ---
OT Current Status-Daily Note Subjective Pt seen in room, up in bed, agreeable to OT. Stated she had just gotten pain meds. Appearance Alert, cooperative Mental Status/Objective Functional [place] Measure 0=Not Assessed/NA 4=Minimal Assistance 1=Total Assistance 5=Supervision or Setup 2=Maximal Assistance 6=Modified [place] 3=Moderate Assistance 7=Complete [place] ADL-Treatment Pt was able to move from supine to sit EOB without help. Sit to stand with SBA, struggling a little at midpoint. Walked with SBA, FWW to bathroom but reported legs feeling "quivery". No LOB observed. Pt toileted without help and got on/ off BSC over toilet herself. Pt changed shirt but did not change briefs or pants. Took brief recovery break while dressing due to "heart beating fast." O2 in place throughout. Pt walked with SBA, FWW to w/c and was transported to gym. Functional [place] Measure 0=Not Assessed/NA 4=Minimal Assistance 1=Total Assistance 5=Supervision or Setup 2=Maximal Assistance 6=Modified [place] 3=Moderate Assistance 7=Complete IndependenceIRFPAI Quality Coding Scale 6 Independent with activity with or without an assistive device 5 Patient requires set up or clean up by helper. Patient completes activity by themselves 4 Supervision or touching assist (CGA). [place] provide cues , steadying assist 3 The helper provides less than half the effort to complete the activity 2 The helper provides more than half the effort to complete the activity 1 Dependent. The helper does all the effort to complete an activity 7 Patient refused to complete or attempt activity 9 The patient did not perform the activity before the current illness or injury 88 Not attempted due to Medical conditions or safety concerns Upper Body (FIM): 5 (setup) Toileting (FIM): 6 Transfers (B, C, W/C) (FIM): 5 Toilet Transfer (QC): 6 Other Treatment Pt did 13 minutes bilat UE exercise with arm bike set at 15-20 W resistance ( increased time and resistance). Pt required a couple brief recovery breaks. Also worked with pegs on tabletop activity with 1# weight on each arm. While pt was working, talked about what she needs to be able to do to go home. She will need to be able to get to the bathroom by herself (she has a BSC to go over toilet) and to get in/out of bed and chair safely. She has relatives nearby and daughters who can stay with her. Pt returned to room per w/c and walked about 10 feet to get into recliner. Pt up in recliner, all needs met, O2 in place. Education OT Patient Education: Exercise program, Progress toward Goal/Update tx plan, Purpose of tx/functional activities, Use of adapted equipment Teaching Recipient: Patient Teaching Methods: Discussion Response to Teaching: Verbalize Understanding OT Short Term Goals Short Term Goals Transfers (B,C,W/C) (FIM): 4 1=Demonstrate adherence to instructed precautions during ADL tasks. 2=Patient will verbalize/demonstrate understanding of assistive devices/ modifications for ADL. 3=Patient will improve strength/tolerance for activity to enable patient to perform ADL's. OT Custodial Goals Hot Punch Press Operator Goals Time Frame: Apr 17, 2018 1=Demonstrate adherence to instructed precautions during ADL tasks. 2=Patient will verbalize/demonstrate understanding of assistive devices/ modifications for ADL. 3=Patient will improve strength/tolerance for activity to enable patient to perform ADL's. OT Education/Plan Problem List/Assessment Pt would benefit from skilled OT to increase her independence in basic self care to allow her to safety return to her home after a fall with hip fx and repair Discharge Recommendations Plan/Recommendations: Continue POC Treatment Plan/Plan of Care Patient would benefit from OT for education, treatment and training to promote independence in ADL's, mobility, safety and/or upper extremity function for ADL' s. Plan of Care: ADL Retraining, Functional Mobility, Group Exercise/Act as Ind ( education, exercise, funct mobility, activity tolerance, socialization), UE Funct Exercise/Act, UE Neuromus Re-Ed/Coord, OTHER (energy conservation education) Treatment Duration: Apr 17, 2018 Frequency: At least 5 of 7 days/Wk (IRF) Estimated Hrs Per Day: 1.5 hours per day Agreement: Yes Rehab Potential: Fair Time/GCodes Start Time: 08:30 Stop Time: 09:30 Total Time Billed (hr/min): 60 Billed Treatment Time visit, 25 minutes ADL, 35 minutes exercise RADHA LALA OT Apr 01, 2018 10:46
--- NOTE | 2018-04-01 11:07 | Physical Therapy Daily Note ---
PT Daily Note-Current Subjective Pt. states she feels she is making some progress. Pt. lives alone, is "not a people person" , has Lupus and sleeps in a hospital bed at home most of the time. Pt. state she has a support system at home and is secure there. States she has emphysema and has never smoked a day in her life but was around coal heat all her life growing up. States she just had telemetry put on this date as she is having palpitations Pain Numeric Pain Scale: 5-Moderate Pain Location: Left Location Body Site: Hip Pain Description: Ache Mental Status Patient Orientation: Normal For Age Attachments: Oxygen, Other-See Comments (telemeetry) Transfers Functional [place] Measure 0=Not Assessed/NA 4=Minimal Assistance 1=Total Assistance 5=Supervision or Setup 2=Maximal Assistance 6=Modified [place] 3=Moderate Assistance 7=Complete IndependenceIRFPAI Quality Coding Scale 6 Independent with activity with or without an assistive device 5 Patient requires set up or clean up by helper. Patient completes activity by themselves 4 Supervision or touching assist (CGA). [place] provide cues , steadying assist 3 The helper provides less than half the effort to complete the activity 2 The helper provides more than half the effort to complete the activity 1 Dependent. The helper does all the effort to complete an activity 7 Patient refused to complete or attempt activity 9 The patient did not perform the activity before the current illness or injury 88 Not attempted due to Medical conditions or safety concerns Transfers (B, C, W/C) (FIM): 3 Scootin Rollin Supine to/from Sit: 3 (LEs) Sit to/from Stand: 5 Bed to/from Chair: 5 Weight Bearing Right Lower Extremity: Right Full Weight Bearing Left Lower Extremity: Left Weight Bearing/Tolerated Gait Training Does the Patient Walk?: Yes Gait (FIM): 2 Distance (FIM): 9=637-92 ft (100x3,50) Gait Level of Assist: 5 Gait Persons Needed: 1 Gait Assistive Device: FWW Exercises Supine Ex: Ankle pumps, Quad Set, Rolling, Glut sets, Heel Slides, Short Arc Quads, Scooting, Straight leg raise (assist), Hip abd/add Supine Reps: 10 (x2) Seated Therapy Exercises: Ankle pumps, Sit to stand, Long arc quads, Hip flexion (right), Hip abd/add Seated Reps: 15 Assessment Current Status: Good Progress needs rest breaks, has telemetry on today as pt states she is having heart palpitations PT Short Term Goals Short Term Goals Time Frame: Apr 03, 2018 Transfers (B,C,W/C) (FIM): 4 Gait (FIM): 4 Distance (FIM): 3=150 ft Gait Assistive Device: FWW PT Cement Car Dumper Goals Long-Term Goals PT Cement Car Dumper Goals Time Frame: Apr 17, 2018 Transfers (B,C,W/C) (FIM): 6 Sit to Lying (QC): 6 Lying-Sitting on Side/Bed(QC): 6 Sit to Stand (QC): 6 Rollin Roll Left to Right (QC): 6 Chair/Vzy-ex-Xnbrw Xfer(QC): 6 Car Transfer (QC): 6 Does the Patient Walk: Yes Gait (FIM): 6 Gait distance (FIM): 3=150 ft Walk 10 feet (QC): 6 Walk 10ft-Uneven Surface(QC): 6 Walk 50ft with 2 Turns (QC): 6 Walk 150 ft (QC): 6 Gait Assistive Device: FWW Does the Pt use WC or Scooter?: No Stairs (FIM): 5 # of Steps: 4 1 Step (curb) (QC): 6 4 Steps (QC): 6 12 Steps (QC): 88 Picking up an Object (QC): 88 PT Plan Treatment/Plan Treatment Plan: Continue Plan of Care Treatment Plan: Bed Mobility, Education, Functional Activity Attila, Functional Strength, Group Therapy, Gait, Safety, Therapeutic Exercise, Transfers Treatment Duration: Apr 17, 2018 Frequency: At least 5 of 7 days/Wk (IRF) Estimated Hrs Per Day: 1.5 hours per day Patient and/or Family Agrees t: Yes Safety Risks/Education Patient Education: Gait Training, Transfer Techniques, Correct Positioning, Safety Issues Teaching Recipient: Patient Teaching Methods: Demonstration, Discussion Response to Teaching: Verbalize Understanding, Return Demonstration, Reinforcement Needed emphasis on TRFs in out bed left vs right Time/GCodes Time In: 1000 Time Out: 1100 Total Billed Treatment Time: 60 Total Billed Treatment 1,EX25m,FA15m,GT20m G Codes Necessary: ANA Byrd [employer]OM[employer] HE[employer] NURSE PRACTITIONER Apr 01, 2018 11:07
--- NOTE | 2018-04-01 12:40 | Progress Note-Standard ---
Standard Progress Note Progress Notes/Assess & Plan Date Seen by Provider: Apr 01, 2018 Time Seen by Provider: 12:32 Progress/Assessment & Plan Pt. reports no c/o. VSS. Wound well approx with no warmth, erythema or drainage. Lt. calf soft and nontender with negative radhames's sign. Intact PF, DF and EHL. Able to SLR with slight assist. Doing well s/p left hip bipolar prosthesis Dressing changed today. continue OT, PT mobilize DVT prophylaxis MARK WAGGONER Apr 01, 2018 12:39
--- NOTE | 2018-04-01 14:30 | Physical Therapy Daily Note ---
PT Daily Note-Current Subjective Pt. agrees to Rx. States she feels she is making some progress. Was happy to know she is very near indep entering bed from the window side with unaffected leg first. Pain Numeric Pain Scale: 0-No Pain Mental Status Patient Orientation: Normal For Age Attachments: Other-See Comments (telemetry) Transfers Functional [place] Measure 0=Not Assessed/NA 4=Minimal Assistance 1=Total Assistance 5=Supervision or Setup 2=Maximal Assistance 6=Modified [place] 3=Moderate Assistance 7=Complete IndependenceIRFPAI Quality Coding Scale 6 Independent with activity with or without an assistive device 5 Patient requires set up or clean up by helper. Patient completes activity by themselves 4 Supervision or touching assist (CGA). [place] provide cues , steadying assist 3 The helper provides less than half the effort to complete the activity 2 The helper provides more than half the effort to complete the activity 1 Dependent. The helper does all the effort to complete an activity 7 Patient refused to complete or attempt activity 9 The patient did not perform the activity before the current illness or injury 88 Not attempted due to Medical conditions or safety concerns in out bed approaching from other side of bed using unaffected LE first needing only coaching and instruction Weight Bearing Right Lower Extremity: Right Full Weight Bearing Left Lower Extremity: Left Weight Bearing/Tolerated Gait Training Gait Assistive Device: FWW 50-60 ft x 3 FWW CGA slow, careful , no LOB Stair Training Stair Training: Handrails/: 2 handrails Stairs (FIM): 2 #of Steps: 4 Stairs: Pattern: Step to Level of Assist: 4 instructions for sequence, turns and rails Exercises Supine Ex: Heel Slides, Short Arc Quads, Hip abd/add Supine Reps: 10 Assessment Current Status: Good Progress PT Short Term Goals Short Term Goals Time Frame: Apr 03, 2018 Transfers (B,C,W/C) (FIM): 4 Gait (FIM): 4 Distance (FIM): 3=150 ft Gait Assistive Device: FWW PT Hedis Manager Goals Hedis Manager Goals PT Shelter Goals Time Frame: Apr 17, 2018 Transfers (B,C,W/C) (FIM): 6 Sit to Lying (QC): 6 Lying-Sitting on Side/Bed(QC): 6 Sit to Stand (QC): 6 Rollin Roll Left to Right (QC): 6 Chair/Bqh-os-Royej Xfer(QC): 6 Car Transfer (QC): 6 Does the Patient Walk: Yes Gait (FIM): 6 Gait distance (FIM): 3=150 ft Walk 10 feet (QC): 6 Walk 10ft-Uneven Surface(QC): 6 Walk 50ft with 2 Turns (QC): 6 Walk 150 ft (QC): 6 Gait Assistive Device: FWW Does the Pt use WC or Scooter?: No Stairs (FIM): 5 # of Steps: 4 1 Step (curb) (QC): 6 4 Steps (QC): 6 12 Steps (QC): 88 Picking up an Object (QC): 88 PT Plan Treatment/Plan Treatment Plan: Continue Plan of Care Treatment Plan: Bed Mobility, Education, Functional Activity Attila, Functional Strength, Group Therapy, Gait, Safety, Therapeutic Exercise, Transfers Treatment Duration: Apr 17, 2018 Frequency: At least 5 of 7 days/Wk (IRF) Estimated Hrs Per Day: 1.5 hours per day Patient and/or Family Agrees t: Yes Safety Risks/Education Patient Education: Gait Training, Transfer Techniques, Steps Teaching Recipient: Patient Teaching Methods: Demonstration, Discussion Response to Teaching: Verbalize Understanding, Return Demonstration, Reinforcement Needed Time/GCodes Time In: 1400 Time Out: 1430 Total Billed Treatment Time: 30 Total Billed Treatment 1,FA 20m,GT10m G Codes Necessary: ANA Byrd CONSTRUCTION PIT WORKER Apr 01, 2018 14:30
--- NOTE | 2018-04-01 14:40 | Occupational Ther Daily Note ---
OT Current Status-Daily Note Subjective Pt seen in room, up in bed, agreeable to OT. No pain mentioned. Appearance Alert, cooperative Mental Status/Objective Functional [place] Measure 0=Not Assessed/NA 4=Minimal Assistance 1=Total Assistance 5=Supervision or Setup 2=Maximal Assistance 6=Modified [place] 3=Moderate Assistance 7=Complete [place] ADL-Treatment Pt was able to get up to EOB without help and sit to stand with SBA, FWW. Walked with SBA, FWW to bathroom and was able to toilet mod I. She walked SBA, FWW to recliner for exercises. Functional [place] Measure 0=Not Assessed/NA 4=Minimal Assistance 1=Total Assistance 5=Supervision or Setup 2=Maximal Assistance 6=Modified [place] 3=Moderate Assistance 7=Complete IndependenceIRFPAI Quality Coding Scale 6 Independent with activity with or without an assistive device 5 Patient requires set up or clean up by helper. Patient completes activity by themselves 4 Supervision or touching assist (CGA). [place] provide cues , steadying assist 3 The helper provides less than half the effort to complete the activity 2 The helper provides more than half the effort to complete the activity 1 Dependent. The helper does all the effort to complete an activity 7 Patient refused to complete or attempt activity 9 The patient did not perform the activity before the current illness or injury 88 Not attempted due to Medical conditions or safety concerns Toileting (FIM): 6 (BSC, grab bars, FWW) Toilet/Commode Transfer (FIM): 6 (BSC, FWW, grab bars) Other Treatment She was given written information on 5 different bilat UE exercises to strengthen arms to help with transfers and ADLs. Verbal and demonstration cues to do each exercise, with occasional help to do them correctly. She was able to do 10 reps each exercise with yellow theraband. O2 on throughout tx. Pt left up in recliner, all needs met. Education OT Patient Education: Exercise program, Purpose of tx/functional activities Teaching Recipient: Patient Teaching Methods: Demonstration, Discussion Response to Teaching: Verbalize Understanding, Return Demonstration, Reinforcement Needed OT Short Term Goals Short Term Goals Transfers (B,C,W/C) (FIM): 4 1=Demonstrate adherence to instructed precautions during ADL tasks. 2=Patient will verbalize/demonstrate understanding of assistive devices/ modifications for ADL. 3=Patient will improve strength/tolerance for activity to enable patient to perform ADL's. OT Structural Steel Ironworker Goals Structural Steel Ironworker Goals Time Frame: Apr 17, 2018 1=Demonstrate adherence to instructed precautions during ADL tasks. 2=Patient will verbalize/demonstrate understanding of assistive devices/ modifications for ADL. 3=Patient will improve strength/tolerance for activity to enable patient to perform ADL's. OT Education/Plan Problem List/Assessment Pt would benefit from skilled OT to increase her independence in basic self care to allow her to safety return to her home after a fall with hip fx and repair Discharge Recommendations Plan/Recommendations: Continue POC Treatment Plan/Plan of Care Patient would benefit from OT for education, treatment and training to promote independence in ADL's, mobility, safety and/or upper extremity function for ADL' s. Plan of Care: ADL Retraining, Functional Mobility, Group Exercise/Act as Ind ( education, exercise, funct mobility, activity tolerance, socialization), UE Funct Exercise/Act, UE Neuromus Re-Ed/Coord, OTHER (energy conservation education) Treatment Duration: Apr 17, 2018 Frequency: At least 5 of 7 days/Wk (IRF) Estimated Hrs Per Day: 1.5 hours per day Agreement: Yes Rehab Potential: Fair Time/GCodes Start Time: 13:15 Stop Time: 13:45 Total Time Billed (hr/min): 30 Billed Treatment Time visit, 10 minutes ADL, 20 minutes exercise RADHA LALA OT Apr 01, 2018 14:40
[2018-04-01 15:33] LABS: BASOPHILS % (AUTO) 0 % (0-10); EOSINOPHILS # (AUTO) 0.2 10^3/uL (0.0-0.3); EOSINOPHILS % (AUTO) 2 % (0-10); HEMATOCRIT 30 % (35-52); HEMOGLOBIN 9.4 G/DL (11.5-16.0); LYMPHOCYTES # (AUTO) 1.2 X 10^3 (1.0-4.0); LYMPHOCYTES % (AUTO) 13 % (12-44); MEAN CORPUSCULAR HEMOGLOBIN 31 PG (25-34); MEAN CORPUSCULAR HGB CONC 32 G/DL (32-36); MEAN CORPUSCULAR VOLUME 96 FL (80-99); MEAN PLATELET VOLUME 8.5 FL (7.4-10.4); MONOCYTES # (AUTO) 1.5 X 10^3 (0.0-1.0); MONOCYTES % (AUTO) 17 % (0-12); NEUTROPHILS # (AUTO) 5.9 X 10^3 (1.8-7.8); NEUTROPHILS % (AUTO) 67 % (42-75); PLATELET COUNT 355 10^3/uL (130-400); RED BLOOD COUNT 3.07 10^6/uL (4.35-5.85); RED CELL DISTRIBUTION WIDTH 14.6 % (10.0-14.5); WHITE BLOOD COUNT 8.8 10^3/uL (4.3-11.0)
[2018-04-01 16:06] LABS: ALANINE AMINOTRANSFERASE 20 U/L (0-55); ALBUMIN 2.5 GM/DL (3.2-4.5); ALKALINE PHOSPHATASE 147 U/L (40-136); BILIRUBIN,TOTAL 0.8 MG/DL (0.1-1.0); BUN/CREATININE RATIO 26; CALCIUM 8.4 MG/DL (8.5-10.1); CARBON DIOXIDE 30 MMOL/L (21-32); CHLORIDE 99 MMOL/L (98-107); CREATININE SERUM 1.12 MG/DL (0.60-1.30); GFR ESTIMATED 47; GLUCOSE 105 MG/DL (70-105); POTASSIUM 3.4 MMOL/L (3.6-5.0); SODIUM 135 MMOL/L (135-145); TOTAL PROTEIN 6.5 GM/DL (6.4-8.2)
[2018-04-01 17:16] VITALS: BP 152/80
[2018-04-01] MEDS ORDERED: APIXABAN 5 MG (ELIQUIS) TABLET PO NR (17:30)
--- NOTE | 2018-04-01 18:01 | Consultation-Cardiology ---
HPI-Cardiology Cardiology Consultation: Date of Consultation 04/01/18 Date of Admission Attending Physician Kwabena Mackenzie MD Admitting Physician Bry Pickard MD Consulting Physician Carolina PLASCENCIA MD HPI: Time Seen by Provider: 13:30 Chief Complaint: Shortness of breath This is a 82-year-old female who recently had a hip fracture, status post hip surgery. Cardiology was consulted because the patient developed shortness of breath and tachycardia. The patient denies any chest pain. She also denies any significant previous cardiac history. She does share with me that she has irregularity in her rhythm but does not know if it is atrial fibrillation. She is not on any oral anticoagulation. Patient does have history of COPD, however she was never a smoker but was exposed to wood smoke and passive smoking. She was not on oxygen at home. Shortness of breath started yesterday and has not gotten better. Telemetry showed ectopic atrial rhythm likely from low right atrium. Review of Systems-Cardiology Review of Systems Constitutional: As described under HPI; No As described under HPI, No no symptoms reported, No chills, No fever, No lightheadedness Eyes: No As described under HPI, No no symptoms reported, No blindness, No blurred vision, No contact lenses, No drainage, No decreased acuity, No foreign body sensation, No pain, No vision change Ears/Nose/Throat: No As described under HPI, No no symptoms reported, No chronic hearing loss, No ear discharge, No ear pain, No nasal drainage, No ulcerations Respiratory: No no symptoms reported; As described under HPI; No As described under HPI, No cough, No orthopnea; shortness of breath; No SOB with excertion Cardiovascular: No no symptoms reported; As described under HPI; No As described under HPI, No chest pain, No edema; irregular heart rate; No lightheadedness; palpitations Gastrointestinal: No no symptoms reported, No As described under HPI, No abdomen distended, No abdominal pain, No blood streaked bowels, No constipation , No diarrhea, No nausea, No vomiting, No stool coloration changes Genitourinary: No As described under HPI, No burning, No dysuria, No discharge , No frequency, No flank pain, No hematuria, No urgency : Yes : No Musculoskeletal: No no symptoms reported, No As describe under HPI, No back pain, No gout, No joint pain, No joint swelling, No muscle pain, No muscle stiffness, No neck pain, No other Skin: No no symptoms reported, No As described under HPI, No change in color, No change in hair/nails, No dryness, No lesions, No lumps, No rash, No other, No skin related problems, No ulcerations, No rash on exposed areas, No ulcerations on exposed areas Psychiatric/Neurological: No no symptoms reported, No As described under HPI, No anxiety, No depression, No emotional problems, No headache, No numbness, No pre-existing deficit, No seizure, No tingling, No tremors, No weakness, No other , No focal weakness, No syncope Hematologic: No bleeding abnormalities AAO-Wnmheg-Vieazt Hx Patient Social History Alcohol Use: Denies Use Recreational Drug Use: No Smoking Status: Never a Smoker Recent Foreign Travel: No Recent Infectious Disease Expo: No Hospitalization with Isolation: Denies Physical Abuse Screen: No Sexual Abuse: No Immunizations Up To Date Tetanus Booster (TDap): Unknown Past Medical History PMH As described under Assessment. Family Medical History Family History: Patient reports no known family medical history. Allergies and Home Medications Allergies Coded Allergies: iodine (Verified Allergy, Severe, RASH, 03/23/18) prednisone (Verified Allergy, Mild, RASH, 03/23/18) Sulfa (Sulfonamide Antibiotics) (Verified Allergy, Unknown, 03/23/18) amlodipine (Verified Allergy, Unknown, SWOLLEN LEGS AND FEET,PAIN IN HEAD UP TO 3 TIMES IN NIGHT, 03/23/18) amoxicillin (Verified Allergy, Unknown, 03/23/18) azithromycin (Verified Allergy, Unknown, 03/23/18) benazepril (Verified Allergy, Unknown, SEVERE HEADACHE, 03/23/18) cefaclor (Verified Allergy, Unknown, 03/23/18) cephalexin (Verified Allergy, Unknown, 03/23/18) cortisone (Verified Allergy, Unknown, 03/23/18) doxycycline (Verified Allergy, Unknown, 03/23/18) egg (Verified Allergy, Unknown, 03/23/18) griseofulvin (Verified Allergy, Unknown, 03/23/18) levofloxacin (Verified Allergy, Unknown, FACIAL FLUSHING, DIARRHEA AND LEG CRAMPS, 03/23/18) oxaprozin (Verified Allergy, Unknown, 03/23/18) propoxyphene (Verified Allergy, Unknown, SEVERE PAIN IN HEAD, 03/23/18) tetracycline (Verified Allergy, Unknown, 03/23/18) verapamil (Verified Allergy, Unknown, 03/23/18) chlorpheniramine (Verified Adverse Reaction, Unknown, HEART PAPILATIONS AND HYPERTENSION, 03/23/18) dextromethorphan (Verified Adverse Reaction, Unknown, HEART PAPILATIONS AND HYPERTENSION, 03/23/18) Uncoded Allergies: ALL EYE DROPS (Adverse Reaction, Unknown, MAKE EYES SWELL SHUT, 12/15/09) Home Medications Candesartan Cilexetil 32 Mg Tablet, 32 MG PO DAILY, (Reported) Metolazone 2.5 Mg Tablet, 2.5 MG PO DAILY, (Reported) Metoprolol Succinate 100 Mg Tab.er.24h, 100 MG PO BID, (Reported) Tiotropium [place] 4 Gm Mist.inhal, 2 PUFF INH DAILY, (Reported) Patient Home Medication List Home Medication List Reviewed: Yes Physical Exam-Cardiology Physical Exam Vital Signs/I&O 04/01/18 04/01/18 04/01/18 04/01/18 10:03 10:03 13:00 17:16 Temp 98.2 Pulse 91 91 91 86 Resp 20 B/P (MAP) 152/80 (104) Pulse Ox 91 O2 Delivery Nasal Cannula 04/01/18 04/01/18 04/01/18 19:00 19:04 21:00 Pulse 101 Pulse Ox 92 95 O2 Delivery Room Air Room Air 04/01/18 00:00 Intake Total 700 ml Balance 700 ml Capillary Refill : Less Than 3 Seconds Constitutional: appears stated age, AAO x 3, apparent distress, well-developed , well-nourished HEENT: PERRL; No normal ENT inspection, No TMs normal, No pharynx normal, No scleral icterus (R), No scleral icterus (L), No pale conjunctivae (R), No pale conjunctivae (L), No photophobia, No TM abnormal (R), No TM abnormal (L), No pharyngeal erythema, No tonsillar exudate, No other, No discharge, No EOMI; hearing is well preserved; No hard of hearing; oral hygience is good; No ulceration, No xanthelasmas are seen Neck: No non-tender, No full range of motion, No supple, No normal inspection, No carotid bruit, No limited range of motion, No lymphadenopathy (R), No lymphadenopathy (L), No tender lateral, No tender midline, No thyromegaly, No other; carotid pulses are 2 + bilaterally; No with good upstrokes Respiratory: No accessory muscle use, No respiratory distress, No chest tender , No chest expansion is symmetric; chest is bilaterally symmetric; No lungs clear to percussion; lungs clear to auscultation; No crackles, No rhonchi, No rales, No stridor, No wheezing, No pleural rub, No other Cardiovascular: regular rate-rhythm, tachycardia, S1 and S2 Gastrointestinal: No tender, No soft, No round, No distended, No pulsatile mass , No organomegaly, No guarding, No rebound, No tenderness, No hernia, No mass, No audible bowel sounds, No abnormal bowel sounds, No abdominal bruits, No spleenomegaly, No other Rectal: deferred Extremities: No normal range of motion, No non-tender, No normal inspection, No pedal edema, No calf tenderness, No normal capillary refill, No pelvis stable , No calf tenderness, No inflammation, No pedal edema, No slow capillary refill , No swelling, No other, No abrasion, No clubbing, No cyanosis, No ecchymosis, No laceration, No no lower extremity edema bilateral, No significant edema, No tenderness, No wound Neurologic/Psychiatric: no motor/sensory deficits, alert, normal mood/affect, oriented x 3, power is 5/5 both on sides Skin: No normal color, No warm/dry, No cyanosis, No cool, No diaphoresis, No damp, No ecchymosis, No jaundice, No mottled, No pallor, No rash, No tattoos/ piercings, No ulcerations, No rash on exposed areas, No ulcerations on exposed areas, No other Data Review Labs Laboratory Tests 04/01/18 12:56: White Blood Count 8.8, Red Blood Count 3.07L, Hemoglobin 9.4L, Hematocrit 30L, Mean Corpuscular Volume 96, Mean Corpuscular Hemoglobin 31, Mean Corpuscular Hemoglobin Concent 32, Red Cell Distribution Width 14.6H, Platelet Count 355, Mean Platelet Volume 8.5, Neutrophils (%) (Auto) 67, Lymphocytes (%) (Auto) 13, Monocytes (%) (Auto) 17H, Eosinophils (%) (Auto) 2, Basophils (%) (Auto) 0, Neutrophils # (Auto) 5.9, Lymphocytes # (Auto) 1.2, Monocytes # (Auto) 1.5H, Eosinophils # (Auto) 0.2, Basophils # (Auto) 0.0, D-Dimer 6.71H, Sodium Level 135, Potassium Level 3.4L, Chloride Level 99, Carbon Dioxide Level 30, Anion Gap 6, Blood Urea Nitrogen 29H, Creatinine 1.12, Estimat Glomerular Filtration Rate 47, BUN/Creatinine Ratio 26, Glucose Level 105, Calcium Level 8.4L, Total Bilirubin 0.8, Aspartate Amino Transf (AST/SGOT) 50H, Alanine Aminotransferase ( ALT/SGPT) 20, Alkaline Phosphatase 147H, Troponin I < 0.30, B-Type Natriuretic Peptide 145.3H, Total Protein 6.5, Albumin 2.5L ECG Impression ECG Comment Ectopic atrial rhythm. A/P-Cardiology Assessment/Admission Diagnosis Shortness of breath, tachycardia, Recent hip surgery, Not on DVT prophylaxis, Hypertension Plan Patient had recent hip surgery and is not on DVT prophylaxis. Patient is at high risk for pulmonary embolism. CT angiography was recommended however the found later that she is iodine allergy. VQ scan was requested. D-dimer is positive. Lower extremity venous ultrasound was recommended to rule out DVT. Since the patient is at high risk for PE, I have taken the liberty of starting Eliquis 10 mg 1. If the VQ scan is negative, we can decrease the dose. Ectopic atrial rhythm. Likely atrial tachycardia. Patient does not have history of atrial fibrillation but does tell me that she had irregular heart rhythm before. She is not on oral anticoagulation. Therefore I'm unsure whether she has history of paroxysmal atrial fibrillation. We are starting Eliquis for possible PE for now. I have recommended telemetry and an echocardiogram. Shortness of breath: Mild elevation of BNP. No florid congestive heart failure. I have recommended an echocardiogram. Thank you for your consultation. Please call me if you have any questions. Justine Plascencia MD, FACP, FACC, FSCAI, FHRS, CCDS Interventional Cardiology Cardiac Electrophysiology Vascular Medicine and Endovascular Interventions Clinical Quality Measures DVT/VTE Risk/Contraindication: Risk Factor Score Per Nursin RFS Level Per Nursing on Admit: 4+=Very High [place] PLASCENCIA MD Apr 01, 2018 18:01
--- NOTE | 2018-04-01 19:23 | Diagnostic Imaging Report ---
PROCEDURE: US venous lower ext., yuliana. TECHNIQUE: Multiple real-time grayscale images were obtained over the lower extremities in various projections, bilaterally. Additional duplex Doppler and color Doppler images were also obtained. INDICATION: Left leg pain. Patient has history of left hip fracture. FINDINGS: There is no evidence of a right or left lower extremity DVT. Both lower extremity deep venous systems demonstrate normal compressibility with normal response to augmentation and Valsalva. There is a segment of thrombosed peroneal vein on the left, below the knee proximal 4.7 centers in length. No other areas of thrombus are seen. There is no fluid collection or mass. IMPRESSION: No thrombosed evidence of right or left lower extremity DVT. There is an approximately 4.7 cm segment of thrombosed peroneal vein and on the left, below the knee. Dictated by: Dictated on workstation # [id number]
[2018-04-01] MEDS ORDERED: APIXABAN 5 MG (ELIQUIS) TABLET PO SCH (21:00)
[2018-04-02] MEDS: ACETAMINOPHEN 500 MG TAB (TYLENOL) PO PRN ×3 (01:39→22:34)
[2018-04-02 05:40] VITALS: BP 171/88
[2018-04-02] MEDS: cloNIDine 0.1 MG (CATAPRES) TAB PO PRN ×2 (05:40→17:28)
[2018-04-02] MEDS: MULTIVIT W/MINERALS TAB (THERAGRAN M) PO SCH (06:43)
[2018-04-02 06:49] VITALS: BP 149/80
[2018-04-02] MEDS: APIXABAN 5 MG (ELIQUIS) TABLET PO SCH ×2 (08:33→20:49)
[2018-04-02] MEDS: METOLAZONE 2.5 MG (ZAROXOLYN) TAB PO SCH (08:33)
[2018-04-02] MEDS: SENNOSIDES 8.6 MG (SENOKOT) TAB PO SCH ×2 (08:34→20:50)
[2018-04-02] MEDS: DOCUSATE SODIUM 100 MG (COLACE) CAP PO SCH ×2 (08:34→20:50)
--- NOTE | 2018-04-02 08:48 | Progress Note (SOAP) ---
Subjective Time Seen by Provider: 08:40 Subjective/Events-last exam Patient not feeling good. Patient open all night. Patient has some pain. fall Displaced left femoral neck fracture. Hypertension Objective Exam Vital Signs Date Time Temp Pulse Resp B/P (MAP) Pulse Ox O2 Delivery O2 Flow Rate FiO2 04/02/18 07:00 96 04/02/18 06:49 149/80 (103) 04/02/18 05:40 98.3 98 20 171/88 (115) 94 Nasal Cannula 1.50 04/02/18 01:00 98 04/01/18 21:00 95 Room Air 04/01/18 19:04 92 Room Air 04/01/18 19:00 101 04/01/18 17:16 98.2 86 20 152/80 (104) 91 Nasal Cannula 04/01/18 13:00 91 04/01/18 10:03 91 04/01/18 10:03 91 04/01/18 09:00 Nasal Cannula 1.50 I & O 04/02/18 07:00 Intake Total 1145 ml Balance 1145 ml Capillary Refill : Less Than 3 Seconds General Appearance: No Apparent Distress, WD/WN HEENT: Normal ENT Inspection Neck: Full Range of Motion Respiratory: No Accessory Muscle Use, No Respiratory Distress Cardiovascular: Regular Rate, Rhythm, No Murmur Results Lab Laboratory Tests 04/01/18 12:56: White Blood Count 8.8, Red Blood Count 3.07L, Hemoglobin 9.4L, Hematocrit 30L, Mean Corpuscular Volume 96, Mean Corpuscular Hemoglobin 31, Mean Corpuscular Hemoglobin Concent 32, Red Cell Distribution Width 14.6H, Platelet Count 355, Mean Platelet Volume 8.5, Neutrophils (%) (Auto) 67, Lymphocytes (%) (Auto) 13, Monocytes (%) (Auto) 17H, Eosinophils (%) (Auto) 2, Basophils (%) (Auto) 0, Neutrophils # (Auto) 5.9, Lymphocytes # (Auto) 1.2, Monocytes # (Auto) 1.5H, Eosinophils # (Auto) 0.2, Basophils # (Auto) 0.0, D-Dimer 6.71H, Sodium Level 135, Potassium Level 3.4L, Chloride Level 99, Carbon Dioxide Level 30, Anion Gap 6, Blood Urea Nitrogen 29H, Creatinine 1.12, Estimat Glomerular Filtration Rate 47, BUN/Creatinine Ratio 26, Glucose Level 105, Calcium Level 8.4L, Total Bilirubin 0.8, Aspartate Amino Transf (AST/SGOT) 50H, Alanine Aminotransferase ( ALT/SGPT) 20, Alkaline Phosphatase 147H, Troponin I < 0.30, B-Type Natriuretic Peptide 145.3H, Total Protein 6.5, Albumin 2.5L Assessment/Plan Assessment/Plan Assess & Plan/Chief Complaint Fall. Displaced left femoral neck fracture. Hypertension. Patient was up all night. Patient hurting Clinical Quality Measures DVT/VTE Risk/Contraindication: Risk Factor Score Per Nursin RFS Level Per Nursing on Admit: 4+=Very High EDGARD OCHOA DO Apr 02, 2018 08:48
--- NOTE | 2018-04-02 09:19 | Occupational Ther Daily Note ---
OT Current Status-Daily Note Subjective Pt seen in room, up in bed, reluctantly agreeable to OT. She said she had tests done last night that kept her up until midnight and she was really tired. Nursing gave pain meds Appearance Alert, cooperative Mental Status/Objective Functional [place] Measure 0=Not Assessed/NA 4=Minimal Assistance 1=Total Assistance 5=Supervision or Setup 2=Maximal Assistance 6=Modified [place] 3=Moderate Assistance 7=Complete [place] ADL-Treatment She declined bathing and changing clothes. Pt moved from supine to sit EOB without assistance, following hip precautions. She cleaned her dentures and put them in, then got up from bed with SBA. She walked to commons area with SBA, FWW for breakfast (50 feet). She was able to get into chair with arms with SBA and prepare her breakfast. She had eaten only a few bites and became nauseated and vomited. After meds from nursing, she walked back to her room with CGA, FWW. She was able to get into bed with help for L leg only and was left up in bed, all needs met, O2 on. Functional [place] Measure 0=Not Assessed/NA 4=Minimal Assistance 1=Total Assistance 5=Supervision or Setup 2=Maximal Assistance 6=Modified [place] 3=Moderate Assistance 7=Complete IndependenceIRFPAI Quality Coding Scale 6 Independent with activity with or without an assistive device 5 Patient requires set up or clean up by helper. Patient completes activity by themselves 4 Supervision or touching assist (CGA). [place] provide cues , steadying assist 3 The helper provides less than half the effort to complete the activity 2 The helper provides more than half the effort to complete the activity 1 Dependent. The helper does all the effort to complete an activity 7 Patient refused to complete or attempt activity 9 The patient did not perform the activity before the current illness or injury 88 Not attempted due to Medical conditions or safety concerns Eating (FIM): 6 Grooming (FIM): 6 (dentures) Transfers (B, C, W/C) (FIM): 4 (min - help with L leg) Education OT Patient Education: Progress toward Goal/Update tx plan, Purpose of tx/ functional activities Teaching Recipient: Patient Teaching Methods: Discussion Response to Teaching: Verbalize Understanding OT Short Term Goals Short Term Goals Transfers (B,C,W/C) (FIM): 4 1=Demonstrate adherence to instructed precautions during ADL tasks. 2=Patient will verbalize/demonstrate understanding of assistive devices/ modifications for ADL. 3=Patient will improve strength/tolerance for activity to enable patient to perform ADL's. OT Usp Goals Dough Mixer Operator Goals Time Frame: Apr 17, 2018 1=Demonstrate adherence to instructed precautions during ADL tasks. 2=Patient will verbalize/demonstrate understanding of assistive devices/ modifications for ADL. 3=Patient will improve strength/tolerance for activity to enable patient to perform ADL's. OT Education/Plan Problem List/Assessment Pt would benefit from skilled OT to increase her independence in basic self care to allow her to safety return to her home after a fall with hip fx and repair Discharge Recommendations Plan/Recommendations: Continue POC Treatment Plan/Plan of Care Patient would benefit from OT for education, treatment and training to promote independence in ADL's, mobility, safety and/or upper extremity function for ADL' s. Plan of Care: ADL Retraining, Functional Mobility, Group Exercise/Act as Ind ( education, exercise, funct mobility, activity tolerance, socialization), UE Funct Exercise/Act, UE Neuromus Re-Ed/Coord, OTHER (energy conservation education) Treatment Duration: Apr 17, 2018 Frequency: At least 5 of 7 days/Wk (IRF) Estimated Hrs Per Day: 1.5 hours per day Agreement: Yes Rehab Potential: Fair Time/GCodes Start Time: 08:30 Stop Time: 09:10 Total Time Billed (hr/min): 40 Billed Treatment Time visit, 40 minutes ADL RADHA LALA OT Apr 02, 2018 09:19
[2018-04-02] MEDS: ONDANSETRON 8 MG (ZOFRAN) ORAL DISSOLVE TAB PO PRN ×2 (09:35→17:28)
--- NOTE | 2018-04-02 10:33 | Physical Therapy Daily Note ---
PT Daily Note-Current Subjective Pt laying Supine in bed upon arrival. Pt agrees to PT. Pain Comment: Pt doesn't report pain but reports nausea Mental Status Patient Orientation: Person, Place Attachments: Oxygen (2L) Transfers Functional [place] Measure 0=Not Assessed/NA 4=Minimal Assistance 1=Total Assistance 5=Supervision or Setup 2=Maximal Assistance 6=Modified [place] 3=Moderate Assistance 7=Complete IndependenceIRFPAI Quality Coding Scale 6 Independent with activity with or without an assistive device 5 Patient requires set up or clean up by helper. Patient completes activity by themselves 4 Supervision or touching assist (CGA). [place] provide cues , steadying assist 3 The helper provides less than half the effort to complete the activity 2 The helper provides more than half the effort to complete the activity 1 Dependent. The helper does all the effort to complete an activity 7 Patient refused to complete or attempt activity 9 The patient did not perform the activity before the current illness or injury 88 Not attempted due to Medical conditions or safety concerns Scootin Rollin Roll Left to Right (QC): 4 Weight Bearing Right Lower Extremity: Right Full Weight Bearing Left Lower Extremity: Left Weight Bearing/Tolerated Exercises Supine Ex: Ankle pumps, Quad Set, Heel Slides, Straight leg raise, Hip abd/add Supine Reps: 15 (2 sets of 15 reps) Treatments Pt reports feeling ill & nauseated this morning. Pt visiting with Pharmacist at beginning of tx to discuss new Blood Thinner. YARD MOTOR OPERATOR & pt continue to discuss pt progress & need for participation in Therapy, as well as how medications have interacted & affected tx. Pt completes Supine Ex in bed with several rest breaks due to fatigue and nausea. Pt resting at end of tx with all needs met, including call light in hand. Assessment Current Status: Fair Progress Pt has nausea during tx. Pt feels this is caused by Tramadol. PT Short Term Goals Short Term Goals Time Frame: Apr 03, 2018 Transfers (B,C,W/C) (FIM): 4 Gait (FIM): 4 Distance (FIM): 3=150 ft Gait Assistive Device: FWW PT Long-Term Goals Superintendent [employer] Goals PT Long-Term Goals Time Frame: Apr 17, 2018 Transfers (B,C,W/C) (FIM): 6 Sit to Lying (QC): 6 Lying-Sitting on Side/Bed(QC): 6 Sit to Stand (QC): 6 Rollin Roll Left to Right (QC): 6 Chair/Zlo-sr-Xilzc Xfer(QC): 6 Car Transfer (QC): 6 Does the Patient Walk: Yes Gait (FIM): 6 Gait distance (FIM): 3=150 ft Walk 10 feet (QC): 6 Walk 10ft-Uneven Surface(QC): 6 Walk 50ft with 2 Turns (QC): 6 Walk 150 ft (QC): 6 Gait Assistive Device: FWW Does the Pt use WC or Scooter?: No Stairs (FIM): 5 # of Steps: 4 1 Step (curb) (QC): 6 4 Steps (QC): 6 12 Steps (QC): 88 Picking up an Object (QC): 88 PT Plan Problem List Problem List: Activity Tolerance, Functional Strength, Safety, Balance, Gait, Transfer Treatment/Plan Treatment Plan: Continue Plan of Care Treatment Plan: Bed Mobility, Education, Functional Activity Attil[place], Functional Strength, Group Therapy, Gait, Safety, Therapeutic Exercise, Transfers Treatment Duration: Apr 17, 2018 Frequency: At least 5 of 7 days/Wk (IRF) Estimated Hrs Per Day: 1.5 hours per day Patient and/or Family Agrees t: Yes Safety Risks/Education Patient Education: Transfer Techniques, Correct Positioning, Safety Issues Teaching Recipient: Patient Teaching Methods: Discussion Time/GCodes Time In: 930 Time Out: 1030 Total Billed Treatment Time: 60 Total Billed Treatment 1, FA x2 (30m) & EX x2 (30m) G Codes Necessary: HÉCTOR Cao YARD MOTOR OPERATOR Apr 02, 2018 10:33
[2018-04-02] MEDS: SPIRIVA RESPIMAT IH SCH ×2 (11:04→19:35)
--- NOTE | 2018-04-02 14:27 | Physical Therapy Daily Note ---
PT Daily Note-Current Subjective Pt sitting in recliner upon arrival. Pt agrees to PT but continues to reports nausea and limits tx. Pain Location: No Pain Reported Mental Status Patient Orientation: Person, Place, Situation Attachments: Oxygen (2L) Transfers Functional [place] Measure 0=Not Assessed/NA 4=Minimal Assistance 1=Total Assistance 5=Supervision or Setup 2=Maximal Assistance 6=Modified [place] 3=Moderate Assistance 7=Complete IndependenceIRFPAI Quality Coding Scale 6 Independent with activity with or without an assistive device 5 Patient requires set up or clean up by helper. Patient completes activity by themselves 4 Supervision or touching assist (CGA). [place] provide cues , steadying assist 3 The helper provides less than half the effort to complete the activity 2 The helper provides more than half the effort to complete the activity 1 Dependent. The helper does all the effort to complete an activity 7 Patient refused to complete or attempt activity 9 The patient did not perform the activity before the current illness or injury 88 Not attempted due to Medical conditions or safety concerns Weight Bearing Right Lower Extremity: Right Full Weight Bearing Left Lower Extremity: Left Weight Bearing/Tolerated Treatments Pt refuses ambulation citing weakness and nausea. Earth Auger Operator visits with pt & pt's daughter during tx. AUTO CUSTOMIZE PAINTER further discusses continued use of blood thinner and what to watch or during tx, how blood thinner could help SOA and what pt will do upon discharge/weekly meeting today. Pt wanting to rest at end of tx, all needs met including call light in hand. Assessment Current Status: Fair Progress Pt continues to struggle with nausea/vomiting limiting tx. PT Short Term Goals Short Term Goals Time Frame: Apr 03, 2018 Transfers (B,C,W/C) (FIM): 4 Gait (FIM): 4 Distance (FIM): 3=150 ft Gait Assistive Device: FWW PT Technology Services Manager Goals Half-Way Goals PT Technology Services Manager Goals Time Frame: Apr 17, 2018 Transfers (B,C,W/C) (FIM): 6 Sit to Lying (QC): 6 Lying-Sitting on Side/Bed(QC): 6 Sit to Stand (QC): 6 Rollin Roll Left to Right (QC): 6 Chair/Qeh-io-Qnqiz Xfer(QC): 6 Car Transfer (QC): 6 Does the Patient Walk: Yes Gait (FIM): 6 Gait distance (FIM): 3=150 ft Walk 10 feet (QC): 6 Walk 10ft-Uneven Surface(QC): 6 Walk 50ft with 2 Turns (QC): 6 Walk 150 ft (QC): 6 Gait Assistive Device: FWW Does the Pt use WC or Scooter?: No Stairs (FIM): 5 # of Steps: 4 1 Step (curb) (QC): 6 4 Steps (QC): 6 12 Steps (QC): 88 Picking up an Object (QC): 88 PT Plan Problem List Problem List: Activity Tolerance, Functional Strength, Safety, Balance, Gait, Transfer Treatment/Plan Treatment Plan: Continue Plan of Care Treatment Plan: Bed Mobility, Education, Functional Activity [place]til[place], Functional Strength, Group Therapy, Gait, Safety, Therapeutic Exercise, Transfers Treatment Duration: Apr 17, 2018 Frequency: At least 5 of 7 days/Wk (IRF) Estimated Hrs Per Day: 1.5 hours per day Patient and/or Family Agrees t: Yes Safety Risks/Education Patient Education: Gait Training, Transfer Techniques, Correct Positioning, Safety Issues Teaching Recipient: Patient, Family Teaching Methods: Discussion Response to Teaching: Verbalize Understanding Time/GCodes Time In: 1245 Time Out: 1315 Total Billed Treatment Time: 30 Total Billed Treatment 1, FA x2 (30m) G Codes Necessary: HÉCTOR Cao AUTO CUSTOMIZE PAINTER Apr 02, 2018 14:27
--- NOTE | 2018-04-02 14:41 | Cardiology Progress Note ---
Cardiology SOAP Progress Note Subjective: Shortness of breath, not feeling well. Objective: I&O/Vital Signs 04/02/18 04/02/18 04/02/18 04/02/18 05:40 06:49 07:00 09:00 Temp 98.3 Pulse 98 96 Resp 20 B/P (MAP) 171/88 (115) 149/80 (103) Pulse Ox 94 95 O2 Delivery Nasal Cannula Room Air O2 Flow Rate 1.50 04/02/18 04/02/18 11:05 13:00 Pulse 80 Pulse Ox 95 O2 Flow Rate 2.00 04/02/18 00:00 Intake Total 850 ml Balance 850 ml Weight (Pounds): 165 Weight (Ounces): 4.0 Weight (Calculated Kilograms): [id number] Constitutional: appears stated age, AAO x 3, apparent distress, well-developed , well-nourished Respiratory: No accessory muscle use, No respiratory distress, No chest tender , No chest expansion is symmetric; chest is bilaterally symmetric; No lungs clear to percussion; lungs clear to auscultation; No crackles, No rhonchi, No rales, No stridor, No wheezing, No pleural rub, No other Cardiovascular: regular rate-rhythm, tachycardia, S1 and S2 Gastrointestional: No tender, No soft, No round, No distended, No pulsatile mass, No organomegaly, No guarding, No rebound, No tenderness, No hernia, No mass, No audible bowel sounds, No abnormal bowel sounds, No abdominal bruits, No spleenomegaly, No other Extremities: No normal range of motion, No non-tender, No normal inspection, No pedal edema, No calf tenderness, No normal capillary refill, No pelvis stable , No calf tenderness, No inflammation, No pedal edema, No slow capillary refill , No swelling, No other, No abrasion, No clubbing, No cyanosis, No ecchymosis, No laceration, No no lower extremity edema bilateral, No significant edema, No tenderness, No wound Neurologic/Psychiatric: no motor/sensory deficits, alert, normal mood/affect, oriented x 3, power is 5/5 both on sides Skin: No normal color, No warm/dry, No cyanosis, No cool, No diaphoresis, No damp, No ecchymosis, No jaundice, No mottled, No pallor, No rash, No tattoos/ piercings, No ulcerations, No rash on exposed areas, No ulcerations on exposed areas, No other A/P: Assessment/Dx: Shortness of breath, tachycardia, Recent hip surgery, Not on DVT prophylaxis, Hypertension Plan: Patient had recent hip surgery and is not on DVT prophylaxis. Patient is at high risk for pulmonary embolism. CT angiography was recommended however the found later that she is iodine allergy. VQ scan was requested. D-dimer is positive. Lower extremity venous ultrasound was recommended to rule out DVT. Lower extremity venous ultrasound did not show any significant large vein DVT however small clot was noted. Since the patient is at high risk for PE, Eliquis started 10 mg twice a day for 7 days as per PE protocol. VQ scan was indeterminate since the perfusion portion could not be done. I discussed at length with the patient about CT angiography. According to the patient she had coronary angiography in [place] a few years ago when she was given contrast and she was very sick and does not want it again. I discussed with her and her family that not having a confirmed diagnosis of PE, may mean that we may just have to treat her as PE with the information we already have. Ectopic atrial rhythm. Likely atrial tachycardia. Patient does not have history of atrial fibrillation but does tell me that she had irregular heart rhythm before. She is not on oral anticoagulation. Therefore I'm unsure whether she has history of paroxysmal atrial fibrillation. We are starting Eliquis for possible PE for now. I have recommended telemetry and an echocardiogram. Shortness of breath: Mild elevation of BNP. No florid congestive heart failure. I have recommended an echocardiogram. Shortness of breath is likely secondary to COPD. Thank you for your consultation. Please call me if you have any questions. Justine Plascencia MD, FACP, FACC, FSCAI, FHRS, CCDS Interventional Cardiology Cardiac Electrophysiology Vascular Medicine and Endovascular Interventions Carolina PLASCENCIA MD Apr 02, 2018 2:41 pm
--- NOTE | 2018-04-02 16:03 | Occupational Ther Daily Note ---
OT Current Status-Daily Note Subjective Pt seen in room, up in recliner, agreeable to OT. Pt requested Tylenol at end of tx. Appearance Alert, cooperative Mental Status/Objective Functional [place] Measure 0=Not Assessed/NA 4=Minimal Assistance 1=Total Assistance 5=Supervision or Setup 2=Maximal Assistance 6=Modified [place] 3=Moderate Assistance 7=Complete [place] ADL-Treatment Functional [place] Measure 0=Not Assessed/NA 4=Minimal Assistance 1=Total Assistance 5=Supervision or Setup 2=Maximal Assistance 6=Modified [place] 3=Moderate Assistance 7=Complete IndependenceIRFPAI Quality Coding Scale 6 Independent with activity with or without an assistive device 5 Patient requires set up or clean up by helper. Patient completes activity by themselves 4 Supervision or touching assist (CGA). [place] provide cues , steadying assist 3 The helper provides less than half the effort to complete the activity 2 The helper provides more than half the effort to complete the activity 1 Dependent. The helper does all the effort to complete an activity 7 Patient refused to complete or attempt activity 9 The patient did not perform the activity before the current illness or injury 88 Not attempted due to Medical conditions or safety concerns Other Treatment Still reporting some nausea and dry heaves today. Pt did 10-15 reps bilat UE exercise with yellow theraband, working mostly on shoulders and elbows, as needed for getting up and down. Also did ex with 1# weight, working on shoulders , elbows, forearms and wrists. Both to strengthen arms to help with sit to stand and standing during ADLs. pt required frequent recovery periods and often took a few ice chips for nausea. O2 was in place. Pt was able to get up from recliner with SBA and walk with SBA, FWW to bed, with skilled cues for hand placement. Needed help to get L leg into bed. pt left up in bed, 4 rails up, all needs met, O2 in place. Education OT Patient Education: Exercise program, Purpose of tx/functional activities Teaching Recipient: Patient Teaching Methods: Discussion Response to Teaching: Verbalize Understanding OT Short Term Goals Short Term Goals Transfers (B,C,W/C) (FIM): 4 1=Demonstrate adherence to instructed precautions during ADL tasks. 2=Patient will verbalize/demonstrate understanding of assistive devices/ modifications for ADL. 3=Patient will improve strength/tolerance for activity to enable patient to perform ADL's. OT Senior Care Goals Senior Care Goals Time Frame: Apr 17, 2018 1=Demonstrate adherence to instructed precautions during ADL tasks. 2=Patient will verbalize/demonstrate understanding of assistive devices/ modifications for ADL. 3=Patient will improve strength/tolerance for activity to enable patient to perform ADL's. OT Education/Plan Problem List/Assessment Pt would benefit from skilled OT to increase her independence in basic self care to allow her to safety return to her home after a fall with hip fx and repair Discharge Recommendations Plan/Recommendations: Continue POC Treatment Plan/Plan of Care Patient would benefit from OT for education, treatment and training to promote independence in ADL's, mobility, safety and/or upper extremity function for ADL' s. Plan of Care: ADL Retraining, Functional Mobility, Group Exercise/Act as Ind ( education, exercise, funct mobility, activity tolerance, socialization), UE Funct Exercise/Act, UE Neuromus Re-Ed/Coord, OTHER (energy conservation education) Treatment Duration: Apr 17, 2018 Frequency: At least 5 of 7 days/Wk (IRF) Estimated Hrs Per Day: 1.5 hours per day Agreement: Yes Rehab Potential: Fair Time/GCodes Start Time: 13:15 Stop Time: 14:05 Total Time Billed (hr/min): 50 Billed Treatment Time visit, 50 minutes exercise RADHA LALA OT Apr 02, 2018 16:03
[2018-04-02 18:00] VITALS: BP 183/94
[2018-04-03 06:15] VITALS: BP 172/83
[2018-04-03] MEDS: MULTIVIT W/MINERALS TAB (THERAGRAN M) PO SCH (06:25)
--- NOTE | 2018-04-03 08:10 | Progress Note (SOAP) ---
Subjective Time Seen by Provider: 07:55 Subjective/Events-last exam Patient feel she is doing better today. Patient states she's not nauseous. Patient states her breathing is better Objective Exam Vital Signs Date Time Temp Pulse Resp B/P (MAP) Pulse Ox O2 Delivery O2 Flow Rate FiO2 04/03/18 07:25 86 04/03/18 06:15 97.4 88 18 172/83 (112) 94 Nasal Cannula 1.00 04/03/18 01:00 81 04/02/18 20:30 96 Nasal Cannula 2.00 04/02/18 19:35 96 2.00 04/02/18 19:00 77 04/02/18 18:00 97.8 82 18 183/94 (123) 95 Nasal Cannula 2.00 1.00 04/02/18 13:00 80 04/02/18 11:05 95 2.00 04/02/18 09:00 95 Room Air I & O 04/03/18 07:00 Intake Total 800 ml Balance 800 ml Capillary Refill : Less Than 3 Seconds General Appearance: No Apparent Distress, WD/WN HEENT: Normal ENT Inspection Neck: Full Range of Motion, Normal Inspection Respiratory: Lungs Clear, No Accessory Muscle Use Cardiovascular: Regular Rate, Rhythm, No Murmur Gastrointestinal: non tender, soft Assessment/Plan Assessment/Plan Assess & Plan/Chief Complaint Fall. Displaced left femoral neck fracture. Hypertension. Patient was up all night. Patient hurting. . 04/03/18. fall. Displaced left femoral neck fracture. Hypertension. Patient feeling better. Patient not nauseous. Patient states she's breathing better Clinical Quality Measures DVT/VTE Risk/Contraindication: Risk Factor Score Per Nursin RFS Level Per Nursing on Admit: 4+=Very High EDGARD OCHOA DO Apr 03, 2018 08:10
[2018-04-03] MEDS: SPIRIVA RESPIMAT IH SCH ×2 (08:36→20:00)
[2018-04-03] MEDS: DOCUSATE SODIUM 100 MG (COLACE) CAP PO SCH ×2 (08:52→20:45)
[2018-04-03] MEDS: SENNOSIDES 8.6 MG (SENOKOT) TAB PO SCH ×2 (08:52→20:45)
[2018-04-03] MEDS: METOLAZONE 2.5 MG (ZAROXOLYN) TAB PO SCH (08:54)
[2018-04-03] MEDS: APIXABAN 5 MG (ELIQUIS) TABLET PO SCH ×2 (08:54→20:47)
--- NOTE | 2018-04-03 08:54 | Diagnostic Imaging Report ---
Indication: Left hip fracture and shortness of breath PA and lateral chest obtained at 846 hours a.m., and compared to 03/23/2018. Heart is borderline in size. Aorta is tortuous. The lungs show chronic appearing increased markings. There is a prominent bleb with some adjacent scarring in the left base which is unchanged from the prior study. IMPRESSION: Borderline heart size with tortuous aorta. Chronic appearing increased residual markings with a prominent bleb with some adjacent scarring in the left base. There is no consolidation or significant pleural fluid. Dictated by: Dictated on workstation # [id number]
[2018-04-03] MEDS: ACETAMINOPHEN 500 MG TAB (TYLENOL) PO PRN ×2 (08:58→17:29)
[2018-04-03 09:11] LABS: BUN/CREATININE RATIO 25; CALCIUM 8.4 MG/DL (8.5-10.1); CARBON DIOXIDE 30 MMOL/L (21-32); CHLORIDE 100 MMOL/L (98-107); CREATININE SERUM 0.85 MG/DL (0.60-1.30); GFR ESTIMATED > 60; GLUCOSE 90 MG/DL (70-105); POTASSIUM 3.5 MMOL/L (3.6-5.0); SODIUM 136 MMOL/L (135-145)
--- NOTE | 2018-04-03 11:40 | Occupational Ther Daily Note ---
OT Current Status-Daily Note Subjective Pt seen in room, up in recliner, agreeable to OT. Reported feeling much better today and no n/v Appearance Alert, cooperative Mental Status/Objective Functional [place] Measure 0=Not Assessed/NA 4=Minimal Assistance 1=Total Assistance 5=Supervision or Setup 2=Maximal Assistance 6=Modified [place] 3=Moderate Assistance 7=Complete [place] ADL-Treatment Pt wanted to "wash up" at sink and consider shower tomorrow. She also wanted to try going without O2 - orders to keep it 94% or above. Sats taken in recliner 98 %, HR 91. Pt got up from recliner with SBA, struggling just a little at midpoint. Walked to bathroom and toileted mod I. Transferred to chair with arms and sat 84%. Before O2 could be put back on, sats at 94%. HR 111. Pt took O2 off to wash face and upper body and doff/don shirt but it was reapplied afterwards. Pt required occasional cues to take recovery breaks not only for O2 sats but also to decrease HR. Stood with SBA to wash glen/bottom and pull pants up. Walked back to recliner with SBA for recovery period. Functional [place] Measure 0=Not Assessed/NA 4=Minimal Assistance 1=Total Assistance 5=Supervision or Setup 2=Maximal Assistance 6=Modified [place] 3=Moderate Assistance 7=Complete IndependenceIRFPAI Quality Coding Scale 6 Independent with activity with or without an assistive device 5 Patient requires set up or clean up by helper. Patient completes activity by themselves 4 Supervision or touching assist (CGA). [place] provide cues , steadying assist 3 The helper provides less than half the effort to complete the activity 2 The helper provides more than half the effort to complete the activity 1 Dependent. The helper does all the effort to complete an activity 7 Patient refused to complete or attempt activity 9 The patient did not perform the activity before the current illness or injury 88 Not attempted due to Medical conditions or safety concerns Grooming (FIM): 5 (setup for washing face and hands, at sink) Bathing (FIM): 5 (setup to wash upper body and SBA to wash lower body, sponge bath at sink) Upper Body (FIM): 5 (Setup to doff/don clean shirt) Lower Body Dressing (FIM): 5 (SBA when pulling pants up/down. used dressing stick to doff/don pants and briefs, FWW) Toileting (FIM): 6 (BSC over toilet, grab bar, FWW. Managed clothing and hygiene) Toilet/Commode Transfer (FIM): 6 (BSC over toilet, grab bar, FWW) Other Treatment Walked with SBA, FWW to table in commons are, with OT managing oxygen tank. She did nuts and bolts activity with 1# weight on each arm, to strengthen arms to help with ADLs and transfers. Pt reported increased discomfort L thumb and thumb positioned to rest CMC joint with tape. Pt provided with information for OTC thumb splint that she could use at home to rest L thumb as needed. Pt walked back to room and got into recliner with SBA, legs elevated, all needs met , O2 in place 2 L/min Education OT Patient Education: Energy conservation, Modified ADL techniques, Progress toward Goal/Update tx plan, Purpose of tx/functional activities, Use of adapted equipment Teaching Recipient: Patient Teaching Methods: Discussion Response to Teaching: Verbalize Understanding OT Short Term Goals Short Term Goals Transfers (B,C,W/C) (FIM): 4 1=Demonstrate adherence to instructed precautions during ADL tasks. 2=Patient will verbalize/demonstrate understanding of assistive devices/ modifications for ADL. 3=Patient will improve strength/tolerance for activity to enable patient to perform ADL's. OT Nursing Home Goals Nursing Home Goals Time Frame: Apr 17, 2018 1=Demonstrate adherence to instructed precautions during ADL tasks. 2=Patient will verbalize/demonstrate understanding of assistive devices/ modifications for ADL. 3=Patient will improve strength/tolerance for activity to enable patient to perform ADL's. OT Education/Plan Problem List/Assessment Pt would benefit from skilled OT to increase her independence in basic self care to allow her to safety return to her home after a fall with hip fx and repair Discharge Recommendations Plan/Recommendations: Continue POC Treatment Plan/Plan of Care Patient would benefit from OT for education, treatment and training to promote independence in ADL's, mobility, safety and/or upper extremity function for ADL' s. Plan of Care: ADL Retraining, Functional Mobility, Group Exercise/Act as Ind ( education, exercise, funct mobility, activity tolerance, socialization), UE Funct Exercise/Act, UE Neuromus Re-Ed/Coord, OTHER (energy conservation education) Treatment Duration: Apr 17, 2018 Frequency: At least 5 of 7 days/Wk (IRF) Estimated Hrs Per Day: 1.5 hours per day Agreement: Yes Rehab Potential: Fair Time/GCodes Start Time: 09:40 Stop Time: 10:40 Total Time Billed (hr/min): 60 Billed Treatment Time visit, 35 minutes ADL, 25 minutes exercise RADHA LALA OT Apr 03, 2018 11:40
--- NOTE | 2018-04-03 12:45 | Physical Therapy Daily Note ---
PT Daily Note-Current Subjective Pt. agrees toRx. States she had a bad day yesterday but feels much better today. Pain Numeric Pain Scale: 0-No Pain Mental Status Patient Orientation: Normal For Age Attachments: Other-See Comments (telemetry) Transfers Functional [place] Measure 0=Not Assessed/NA 4=Minimal Assistance 1=Total Assistance 5=Supervision or Setup 2=Maximal Assistance 6=Modified [place] 3=Moderate Assistance 7=Complete IndependenceIRFPAI Quality Coding Scale 6 Independent with activity with or without an assistive device 5 Patient requires set up or clean up by helper. Patient completes activity by themselves 4 Supervision or touching assist (CGA). [place] provide cues , steadying assist 3 The helper provides less than half the effort to complete the activity 2 The helper provides more than half the effort to complete the activity 1 Dependent. The helper does all the effort to complete an activity 7 Patient refused to complete or attempt activity 9 The patient did not perform the activity before the current illness or injury 88 Not attempted due to Medical conditions or safety concerns Transfers (B, C, W/C) (FIM): 4 Scootin Rollin Supine to/from Sit: 4 (required assist for LLE) Sit to/from Stand: 5 Weight Bearing Right Lower Extremity: Right Full Weight Bearing Left Lower Extremity: Left Weight Bearing/Tolerated Gait Training Does the Patient Walk?: Yes Gait (FIM): 2 Distance (FIM): 2=415-48 ft (80ftx4) Gait Level of Assist: 5 Gait Persons Needed: 1 Gait Assistive Device: FWW slow with some mild SOB, O2 off , on rm air with sats at 95%, HR 110 Exercises Supine Ex: Ankle pumps, Quad Set, Rolling, Glut sets, Heel Slides, Short Arc Quads, Scooting, Hip abd/add Supine Reps: 20 Seated Therapy Exercises: Ankle pumps, Sit to stand, Hip flexion (right only), Hip abd/add Seated Reps: 15 Assessment Current Status: Good Progress moves slow but no LOB, just mild SOB without use of O2 PT Short Term Goals Short Term Goals Time Frame: Apr 03, 2018 Transfers (B,C,W/C) (FIM): 4 Gait (FIM): 4 Distance (FIM): 3=150 ft Gait Assistive Device: FWW PT Residential Goals Hand Quilter Goals PT Hand Quilter Goals Time Frame: Apr 17, 2018 Transfers (B,C,W/C) (FIM): 6 Sit to Lying (QC): 6 Lying-Sitting on Side/Bed(QC): 6 Sit to Stand (QC): 6 Rollin Roll Left to Right (QC): 6 Chair/[id number]-[id number] Xfer(QC): 6 Car Transfer (QC): 6 Does the Patient Walk: Yes Gait (FIM): 6 Gait distance (FIM): 3=150 ft Walk 10 feet (QC): 6 Walk 10ft-Uneven Surface(QC): 6 Walk 50ft with 2 Turns (QC): 6 Walk 150 ft (QC): 6 Gait Assistive Device: FWW Does the Pt use WC or Scooter?: No Stairs (FIM): 5 # of Steps: 4 1 Step (curb) (QC): 6 4 Steps (QC): 6 12 Steps (QC): 88 Picking up an Object (QC): 88 PT Plan Treatment/Plan Treatment Plan: Continue Plan of Care Treatment Plan: Bed Mobility, Education, Functional Activity Attila, Functional Strength, Group Therapy, Gait, Safety, Therapeutic Exercise, Transfers Treatment Duration: Apr 17, 2018 Frequency: At least 5 of 7 days/Wk (IRF) Estimated Hrs Per Day: 1.5 hours per day Patient and/or Family Agrees t: Yes Safety Risks/Education Patient Education: Gait Training, Transfer Techniques Teaching Recipient: Patient Teaching Methods: Demonstration, Discussion Response to Teaching: Verbalize Understanding, Return Demonstration, Reinforcement Needed Time/GCodes Time In: 1100 Time Out: 1200 Total Billed Treatment Time: 60 Total Billed Treatment 1,EX20m,FA15m,GT25m G Codes Necessary: ANA Byrd ONLINE MERCHANDISING MANAGER Apr 03, 2018 12:45
--- NOTE | 2018-04-03 13:24 | Cardiology Progress Note ---
Cardiology SOAP Progress Note Subjective: feeling better today. Objective: I&O/Vital Signs 04/03/18 04/03/18 04/03/18 04/03/18 06:15 07:25 08:36 09:00 Temp 97.4 Pulse 88 86 Resp 18 B/P (MAP) 172/83 (112) Pulse Ox 94 95 O2 Delivery Nasal Cannula Nasal Cannula O2 Flow Rate 1.00 0.50 1.00 04/03/18 12:44 Pulse 87 04/03/18 00:00 Intake Total 400 ml Balance 400 ml Weight (Pounds): 170 Weight (Ounces): 1.0 Weight (Calculated Kilograms): [id number] Constitutional: appears stated age, AAO x 3, apparent distress, well-developed , well-nourished Respiratory: No accessory muscle use, No respiratory distress, No chest tender , No chest expansion is symmetric; chest is bilaterally symmetric; No lungs clear to percussion; lungs clear to auscultation; No crackles, No rhonchi, No rales, No stridor, No wheezing, No pleural rub, No other Cardiovascular: regular rate-rhythm, tachycardia, S1 and S2 Gastrointestional: No tender, No soft, No round, No distended, No pulsatile mass, No organomegaly, No guarding, No rebound, No tenderness, No hernia, No mass, No audible bowel sounds, No abnormal bowel sounds, No abdominal bruits, No spleenomegaly, No other Extremities: No normal range of motion, No non-tender, No normal inspection, No pedal edema, No calf tenderness, No normal capillary refill, No pelvis stable , No calf tenderness, No inflammation, No pedal edema, No slow capillary refill , No swelling, No other, No abrasion, No clubbing, No cyanosis, No ecchymosis, No laceration, No no lower extremity edema bilateral, No significant edema, No tenderness, No wound Neurologic/Psychiatric: no motor/sensory deficits, alert, normal mood/affect, oriented x 3, power is 5/5 both on sides Skin: No normal color, No warm/dry, No cyanosis, No cool, No diaphoresis, No damp, No ecchymosis, No jaundice, No mottled, No pallor, No rash, No tattoos/ piercings, No ulcerations, No rash on exposed areas, No ulcerations on exposed areas, No other Results/Procedures: Labs Laboratory Tests 04/03/18 08:40: Sodium Level 136, Potassium Level 3.5L, Chloride Level 100, Carbon Dioxide Level 30, Anion Gap 6, Blood Urea Nitrogen 21H, Creatinine 0.85, Estimat Glomerular Filtration Rate > 60, BUN/Creatinine Ratio 25, Glucose Level 90, Calcium Level 8.4L A/P: Assessment/Dx: Shortness of breath, tachycardia, Recent hip surgery, Not on DVT prophylaxis, Hypertension Plan: Patient had recent hip surgery and is not on DVT prophylaxis. Patient is at high risk for pulmonary embolism. CT angiography was recommended however the found later that she is iodine allergy. VQ scan was requested. D-dimer is positive. Lower extremity venous ultrasound was recommended to rule out DVT. Lower extremity venous ultrasound did not show any significant large vein DVT however small clot was noted. Since the patient is at high risk for PE, Eliquis started 10 mg twice a day for 7 days as per PE protocol. VQ scan was indeterminate since the perfusion portion could not be done. I discussed at length with the patient about CT angiography. According to the patient she had coronary angiography in [place] a few years ago when she was given contrast and she was very sick and does not want it again. I discussed with her and her family that not having a confirmed diagnosis of PE, may mean that we may just have to treat her as PE with the information we already have. Ectopic atrial rhythm. Likely atrial tachycardia. Patient does not have history of atrial fibrillation but does tell me that she had irregular heart rhythm before. She is not on oral anticoagulation. Therefore I'm unsure whether she has history of paroxysmal atrial fibrillation. We are starting Eliquis for possible PE for now. I have recommended telemetry and an echocardiogram. Shortness of breath: Mild elevation of BNP. No florid congestive heart failure. I have recommended an echocardiogram. Shortness of breath is likely secondary to COPD. Thank you for your consultation. Please call me if you have any questions. Justine Plascencia MD, FACP, FACC, FSCAI, FHRS, CCDS Interventional Cardiology Cardiac Electrophysiology Vascular Medicine and Endovascular Interventions Carolina PLASCENCIA MD Apr 03, 2018 1:24 pm
[2018-04-03] MEDS ORDERED: KCL 10 MEQ TAB (MICRO K) PO NR (14:15)
--- NOTE | 2018-04-03 14:29 | Therapy Group Daily Note ---
Therapy Daily Group Note Patient Education Topic Home Safety, Fall Prevention, Other List Below (assistiv devices and walking safety) Exercises LE Seated Exercise Other/Notes Pt. participated in group therapy this date. Pt. came and went via FWW and CGA. Pt. required min to for TRFs in out bed. Pt. was very social and enjoyed meeting and sharing with others. Pts. were reviewed on the particulars of rehab unit ie 3 hr requirement as well as goals etc. Pts. participated in memory activity, establishing 4 words from categories and retaining them until the completion of the 1 hr group. Pts were shown demonstration of various types of assistive devices for walking and how these improve the quality and safety of gait. Pts. all participated in seated LE ther ex . Pt. assisted to room after group with assist to bed and call taylor in hand. Start Time: 13:00 Stop Time: 14:00 Total Billed Treatment Time: 60 Total Billed Treatment 1,GRP ANA CABAN CROWN IRONER OPERATOR Apr 03, 2018 14:29
[2018-04-03 18:30] VITALS: BP 129/80
[2018-04-04] MEDS: ACETAMINOPHEN 500 MG TAB (TYLENOL) PO PRN ×3 (01:16→18:23)
[2018-04-04 05:35] VITALS: BP 155/94
[2018-04-04] MEDS: MULTIVIT W/MINERALS TAB (THERAGRAN M) PO SCH (06:08)
[2018-04-04] MEDS: SPIRIVA RESPIMAT IH SCH (07:34)
--- NOTE | 2018-04-04 08:00 | PM & R (SOAP) Progress Note ---
Subjective This was a face to face visit with the patient. Date Seen by Provider: Apr 04, 2018 Time Seen by Provider: 07:50 Subjective/Events-last exam Patient was seen in her room this AM Patient min assist for transfers Remains on 1 liter of 02 by N/C .Patient c/o prashanth as she didint sleep well last night Labs noted replacement ordered for hypokalemia. Review of Systems General: Fatigue Pulmonary: Dyspnea Objective Physician Exam Last Set of Vital Signs Vital Signs Date Time Temp Pulse Resp B/P (MAP) Pulse Ox O2 Delivery O2 Flow Rate FiO2 04/04/18 07:00 93 04/04/18 05:35 97.9 18 155/94 (114) 96 Nasal Cannula 1.00 Capillary Refill : Less Than 3 Seconds I&O Intake and Output 04/04/18 00:00 Intake Total 1000 ml Balance 1000 ml Intake Oral 1000 ml # Voids 5 General: Alert, Oriented X3, Cooperative, No Acute Distress HEENT: Atraumatic, PERRLA, EOMI, Mucous Memb Moist/[place] Lungs: Clear to Auscultation Heart: Regular Rate Abdomen: Normal Bowel Sounds, Soft Extremities: Other (trace edema left ankle) Skin: Other (incision healing well) Neuro: Other (good strength BUES and RLE limited at left hip with guarding) Results Lab Data Laboratory Tests 04/01/18 12:56: White Blood Count 8.8, Red Blood Count 3.07L, Hemoglobin 9.4L, Hematocrit 30L, Mean Corpuscular Volume 96, Mean Corpuscular Hemoglobin 31, Mean Corpuscular Hemoglobin Concent 32, Red Cell Distribution Width 14.6H, Platelet Count 355, Mean Platelet Volume 8.5, Neutrophils (%) (Auto) 67, Lymphocytes (%) (Auto) 13, Monocytes (%) (Auto) 17H, Eosinophils (%) (Auto) 2, Basophils (%) (Auto) 0, Neutrophils # (Auto) 5.9, Lymphocytes # (Auto) 1.2, Monocytes # (Auto) 1.5H, Eosinophils # (Auto) 0.2, Basophils # (Auto) 0.0, D-Dimer 6.71H, Sodium Level 135, Potassium Level 3.4L, Chloride Level 99, Carbon Dioxide Level 30, Anion Gap 6, Blood Urea Nitrogen 29H, Creatinine 1.12, Estimat Glomerular Filtration Rate 47, BUN/Creatinine Ratio 26, Glucose Level 105, Calcium Level 8.4L, Total Bilirubin 0.8, Aspartate Amino Transf (AST/SGOT) 50H, Alanine Aminotransferase ( ALT/SGPT) 20, Alkaline Phosphatase 147H, Troponin I < 0.30, B-Type Natriuretic Peptide 145.3H, Total Protein 6.5, Albumin 2.5L 04/03/18 08:40: Sodium Level 136, Potassium Level 3.5L, Chloride Level 100, Carbon Dioxide Level 30, Anion Gap 6, Blood Urea Nitrogen 21H, Creatinine 0.85, Estimat Glomerular Filtration Rate > 60, BUN/Creatinine Ratio 25, Glucose Level 90, Calcium Level 8.4L Assessment/Plan Assessment and Plan Displaced left fem neck 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
[2018-04-04] MEDS: METOLAZONE 2.5 MG (ZAROXOLYN) TAB PO SCH (08:13)
[2018-04-04] MEDS: APIXABAN 5 MG (ELIQUIS) TABLET PO SCH ×2 (08:14→20:37)
[2018-04-04] MEDS: SENNOSIDES 8.6 MG (SENOKOT) TAB PO SCH ×2 (08:15→20:38)
[2018-04-04] MEDS: DOCUSATE SODIUM 100 MG (COLACE) CAP PO SCH ×2 (08:15→20:37)
--- NOTE | 2018-04-04 11:19 | Occupational Ther Daily Note ---
OT Current Status-Daily Note Subjective Pt alert and sitting upright in chair upon arrival. Pt reports mild pain through LLE and low back region, however pt was willing to participate. Mental Status/Objective Functional [place] Measure 0=Not Assessed/NA 4=Minimal Assistance 1=Total Assistance 5=Supervision or Setup 2=Maximal Assistance 6=Modified [place] 3=Moderate Assistance 7=Complete [place] ADL-Treatment Functional [place] Measure 0=Not Assessed/NA 4=Minimal Assistance 1=Total Assistance 5=Supervision or Setup 2=Maximal Assistance 6=Modified [place] 3=Moderate Assistance 7=Complete IndependenceIRFPAI Quality Coding Scale 6 Independent with activity with or without an assistive device 5 Patient requires set up or clean up by helper. Patient completes activity by themselves 4 Supervision or touching assist (CGA). [place] provide cues , steadying assist 3 The helper provides less than half the effort to complete the activity 2 The helper provides more than half the effort to complete the activity 1 Dependent. The helper does all the effort to complete an activity 7 Patient refused to complete or attempt activity 9 The patient did not perform the activity before the current illness or injury 88 Not attempted due to Medical conditions or safety concerns Grooming (FIM): 5 On/Off Footwear (QC): 1 Other Treatment Pt participated in BUE ther ex with use of 2# free weight through gross UE planes of motion, 1x15 reps. Pt complaining of fatigue and shortness of breath throughout duration of UE ther ex. Pt participated in static standing balance training with use of FWW and 02, and CGA for stability. Pt able to perform functional ambulation throughout pt's environment with FWW and verbal cues for safety with FWW. Education OT Patient Education: Correct positioning, Energy conservation, Modified ADL techniques, Reviewed precautions, Transfer techniques Teaching Recipient: Patient Teaching Methods: Demonstration, Discussion OT Short Term Goals Short Term Goals Transfers (B,C,W/C) (FIM): 4 1=Demonstrate adherence to instructed precautions during ADL tasks. 2=Patient will verbalize/demonstrate understanding of assistive devices/ modifications for ADL. 3=Patient will improve strength/tolerance for activity to enable patient to perform ADL's. OT [place] Cleaner Goals [place] Cleaner Goals Time Frame: Apr 17, 2018 1=Demonstrate adherence to instructed precautions during ADL tasks. 2=Patient will verbalize/demonstrate understanding of assistive devices/ modifications for ADL. 3=Patient will improve strength/tolerance for activity to enable patient to perform ADL's. OT Education/Plan Problem List/Assessment Pt would benefit from skilled OT to increase her independence in basic self care to allow her to safety return to her home after a fall with hip fx and repair Discharge Recommendations Plan/Recommendations: Continue POC Treatment Plan/Plan of Care Patient would benefit from OT for education, treatment and training to promote independence in ADL's, mobility, safety and/or upper extremity function for ADL' s. Plan of Care: ADL Retraining, Functional Mobility, Group Exercise/Act as Ind ( education, exercise, funct mobility, activity tolerance, socialization), UE Funct Exercise/Act, UE Neuromus Re-Ed/Coord, OTHER (energy conservation education) Treatment Duration: Apr 17, 2018 Frequency: At least 5 of 7 days/Wk (IRF) Estimated Hrs Per Day: 1.5 hours per day Agreement: Yes Rehab Potential: Fair Time/GCodes Start Time: 10:00 Stop Time: 11:00 Total Time Billed (hr/min): 60 Billed Treatment Time 1, ADL1, Ther ex2, Ther acts1 STEFF DYER OT Apr 04, 2018 11:19
[2018-04-04 11:20] VITALS: BP 145/84
--- NOTE | 2018-04-04 12:02 | Physical Therapy Daily Note ---
PT Daily Note-Current Subjective Pt. in recliner, nursing at her side stating they are concerned about pts. heart rate and are consulting Physician at this time. Pt. states she feels the same she has for days Pain Numeric Pain Scale: 0-No Pain Mental Status Patient Orientation: Normal For Age Attachments: Oxygen (2L) Transfers Functional [place] Measure 0=Not Assessed/NA 4=Minimal Assistance 1=Total Assistance 5=Supervision or Setup 2=Maximal Assistance 6=Modified [place] 3=Moderate Assistance 7=Complete IndependenceIRFPAI Quality Coding Scale 6 Independent with activity with or without an assistive device 5 Patient requires set up or clean up by helper. Patient completes activity by themselves 4 Supervision or touching assist (CGA). [place] provide cues , steadying assist 3 The helper provides less than half the effort to complete the activity 2 The helper provides more than half the effort to complete the activity 1 Dependent. The helper does all the effort to complete an activity 7 Patient refused to complete or attempt activity 9 The patient did not perform the activity before the current illness or injury 88 Not attempted due to Medical conditions or safety concerns Transfers (B, C, W/C) (FIM): 4 (LLE into bed) Scootin Rollin Supine to/from Sit: 4 Sit to/from Stand: 5 Weight Bearing Right Lower Extremity: Right Full Weight Bearing Left Lower Extremity: Left Weight Bearing/Tolerated Gait Training Does the Patient Walk?: Yes Gait (FIM): 2 Distance (FIM): 3=041-54 ft (50) Gait Level of Assist: 5 Gait Persons Needed: 1 Gait Assistive Device: FWW limited gait distance secondary to nursing and current assessment ongoing Exercises Supine Ex: Ankle pumps, Quad Set, Rolling, Heel Slides, Short Arc Quads, Scooting, Hip abd/add Supine Reps: 15 Seated Therapy Exercises: Ankle pumps, Sit to stand, Long arc quads, Hip flexion (right only) Seated Reps: 12 Assessment Current Status: Fair Progress nursing concerned about pts. HR seemingly rapid combined with possible PE, VQ inconclusive etc. At this itme pts. BP 145/84, HR 110, O2 sats 95%, nursing requests pt. in bed for EKG as this was ordered by the Dr after her report to him about pts. HR PT Short Term Goals Short Term Goals Time Frame: Apr 03, 2018 Transfers (B,C,W/C) (FIM): 4 Gait (FIM): 4 Distance (FIM): 3=150 ft Gait Assistive Device: FWW PT Retirement Goals Retirement Goals PT Rn Psychiatric Goals Time Frame: Apr 17, 2018 Transfers (B,C,W/C) (FIM): 6 Sit to Lying (QC): 6 Lying-Sitting on Side/Bed(QC): 6 Sit to Stand (QC): 6 Rollin Roll Left to Right (QC): 6 Chair/Dnl-hk-Lkupm Xfer(QC): 6 Car Transfer (QC): 6 Does the Patient Walk: Yes Gait (FIM): 6 Gait distance (FIM): 3=150 ft Walk 10 feet (QC): 6 Walk 10ft-Uneven Surface(QC): 6 Walk 50ft with 2 Turns (QC): 6 Walk 150 ft (QC): 6 Gait Assistive Device: FWW Does the Pt use WC or Scooter?: No Stairs (FIM): 5 # of Steps: 4 1 Step (curb) (QC): 6 4 Steps (QC): 6 12 Steps (QC): 88 Picking up an Object (QC): 88 PT Plan Treatment/Plan Treatment Plan: Continue Plan of Care Treatment Plan: Bed Mobility, Education, Functional Activity Attila, Functional Strength, Group Therapy, Gait, Safety, Therapeutic Exercise, Transfers Treatment Duration: Apr 17, 2018 Frequency: At least 5 of 7 days/Wk (IRF) Estimated Hrs Per Day: 1.5 hours per day Patient and/or Family Agrees t: Yes Safety Risks/Education Patient Education: Gait Training, Transfer Techniques, Disease Process, Safety Issues Teaching Recipient: Patient Teaching Methods: Demonstration, Discussion Response to Teaching: Verbalize Understanding, Return Demonstration, Reinforcement Needed Time/GCodes Time In: 1100 Time Out: 1200 Total Billed Treatment Time: 60 Total Billed Treatment 1,FA40m,EX20m G Codes Necessary: No ANA CABAN PTA Apr 04, 2018 12:02
--- NOTE | 2018-04-04 13:32 | Progress Note-Standard ---
Standard Progress Note Progress Notes/Assess & Plan Date Seen by Provider: Apr 04, 2018 Time Seen by Provider: 13:30 Progress/Assessment & Plan Pt. reports no c/o. She states she is ready to go home and has her home environment ready with handicap access and devices. VSS. Dressing clean and dry. Lt. calf soft and nontender with negative radhames's sign. Intact PF, DF and EHL. Mild pain with passive ER and IR left hip. Doing well s/p left hip bipolar prosthesis continue OT, PT mobilize DVT prophylaxis MARK WAGGONER Apr 04, 2018 13:32
--- NOTE | 2018-04-04 14:59 | Therapy Group Daily Note ---
Therapy Daily Group Note Patient Education Topic Other List Below (Memory: long and short term and strategies for recall) Exercises LE Seated Exercise, UE Exercise Other/Notes Pt. participated in group PT OT session this date. Pt. ambulated to from with FWW and SBA and assist for O2. Pts. were educated/reviewed on ARU practices and expectations. Education regarding long and short term memory was done and patients all shared their most significant memory of a historical event. Pts. all participated in seated U&L extremity exercises. A fun, engaging memory activity was enjoyed by all whereby memorizing and matching images was the focus. The importance of sleep and good rest habits was also a topic of education . Pt. to room after Rx with assist with taylor at hand. Start Time: 13:00 Stop Time: 14:30 Total Billed Treatment Time: 90 Total Billed Treatment 1,GRP ANA CABAN SENIOR PRODUCT ANALYST Apr 04, 2018 14:59
[2018-04-04 17:41] VITALS: BP 150/83
[2018-04-05] MEDS: ACETAMINOPHEN 500 MG TAB (TYLENOL) PO PRN ×3 (02:37→20:09)
[2018-04-05] MEDS: MULTIVIT W/MINERALS TAB (THERAGRAN M) PO SCH (06:02)
[2018-04-05 06:19] VITALS: BP 191/93
[2018-04-05] MEDS: SPIRIVA RESPIMAT IH SCH ×2 (07:00→19:14)
[2018-04-05] MEDS: APIXABAN 5 MG (ELIQUIS) TABLET PO SCH ×2 (08:12→20:09)
[2018-04-05] MEDS: METOLAZONE 2.5 MG (ZAROXOLYN) TAB PO SCH (08:12)
[2018-04-05] MEDS: SENNOSIDES 8.6 MG (SENOKOT) TAB PO SCH ×2 (08:12→22:26)
[2018-04-05] MEDS: DOCUSATE SODIUM 100 MG (COLACE) CAP PO SCH ×2 (08:13→22:26)
[2018-04-05] MEDS: cloNIDine 0.1 MG (CATAPRES) TAB PO PRN (08:23)
[2018-04-05 08:24] VITALS: BP 212/102
--- NOTE | 2018-04-05 08:28 | PM & R (SOAP) Progress Note ---
Subjective This was a face to face visit with the patient. Date Seen by Provider: Apr 05, 2018 Time Seen by Provider: 07:50 Subjective/Events-last exam Patient was seen in her room this AM..Patient min assist for transfers.Patient had run of tachycardia yesterday but EKG didnt capture Discussed case with RN Patient remains on tele to monitor but patient now weaned from .Cardiology following Objective Physician Exam Last Set of Vital Signs Vital Signs Date Time Temp Pulse Resp B/P (MAP) Pulse Ox O2 Delivery O2 Flow Rate FiO2 04/05/18 07:00 101 04/05/18 07:00 92 Room Air 04/05/18 06:19 99.0 16 191/93 (125) 0.00 Capillary Refill : Less Than 3 Seconds I&O Intake and Output 04/05/18 00:00 Intake Total 1140 ml Balance 1140 ml Intake Oral 1140 ml # Voids 5 # Bowel Movements 4 General: Alert, Oriented X3, Cooperative, No Acute Distress HEENT: Atraumatic, PERRLA, EOMI, Mucous Memb Moist/[place] Lungs: Clear to Auscultation Heart: Regular Rate Abdomen: Normal Bowel Sounds, Soft Extremities: Other (trace edema left ankle) Skin: Other (incision healing well) Neuro: Other (good strength BUES and RLE limited at left hip with guarding) Results Lab Data Laboratory Tests 04/03/18 08:40: Sodium Level 136, Potassium Level 3.5L, Chloride Level 100, Carbon Dioxide Level 30, Anion Gap 6, Blood Urea Nitrogen 21H, Creatinine 0.85, Estimat Glomerular Filtration Rate > 60, BUN/Creatinine Ratio 25, Glucose Level 90, Calcium Level 8.4L Assessment/Plan Assessment and Plan Displaced fem neck fracture s/p bipolar replacement DR Arcos HTN controlled with med Post op resp insuffiency weaned from 02 Episode of tachycardia tele monitoring and card following Postop anemia Hypokalemia replaced Plan Continue PT/OT F/U with Cardiology re tele d/c Next Team Conference 04-09-18 Co-Morbidities that are continuing to impact the rehab process: (include details ) BRANNON HAYNES MD Apr 05, 2018 08:28
--- NOTE | 2018-04-05 09:54 | Physical Therapy Daily Note ---
PT Daily Note-Current Subjective Pt. states she has had significantly increased BP, does not feel right and declines Rx. Transfers Functional [place] Measure 0=Not Assessed/NA 4=Minimal Assistance 1=Total Assistance 5=Supervision or Setup 2=Maximal Assistance 6=Modified [place] 3=Moderate Assistance 7=Complete IndependenceIRFPAI Quality Coding Scale 6 Independent with activity with or without an assistive device 5 Patient requires set up or clean up by helper. Patient completes activity by themselves 4 Supervision or touching assist (CGA). [place] provide cues , steadying assist 3 The helper provides less than half the effort to complete the activity 2 The helper provides more than half the effort to complete the activity 1 Dependent. The helper does all the effort to complete an activity 7 Patient refused to complete or attempt activity 9 The patient did not perform the activity before the current illness or injury 88 Not attempted due to Medical conditions or safety concerns Weight Bearing Right Lower Extremity: Right Full Weight Bearing Left Lower Extremity: Left Weight Bearing/Tolerated Assessment Current Status: No Treatment/Other Tests, Refused Treatment PT Short Term Goals Short Term Goals Time Frame: Apr 03, 2018 Transfers (B,C,W/C) (FIM): 4 Gait (FIM): 4 Distance (FIM): 3=150 ft Gait Assistive Device: FWW PT [facility] Goals Resident Care Director Goals PT Resident Care Director Goals Time Frame: Apr 17, 2018 Transfers (B,C,W/C) (FIM): 6 Sit to Lying (QC): 6 Lying-Sitting on Side/Bed(QC): 6 Sit to Stand (QC): 6 Rollin Roll Left to Right (QC): 6 Chair/Pnw-nf-Qwkqd Xfer(QC): 6 Car Transfer (QC): 6 Does the Patient Walk: Yes Gait (FIM): 6 Gait distance (FIM): 3=150 ft Walk 10 feet (QC): 6 Walk 10ft-Uneven Surface(QC): 6 Walk 50ft with 2 Turns (QC): 6 Walk 150 ft (QC): 6 Gait Assistive Device: FWW Does the Pt use WC or Scooter?: No Stairs (FIM): 5 # of Steps: 4 1 Step (curb) (QC): 6 4 Steps (QC): 6 12 Steps (QC): 88 Picking up an Object (QC): 88 PT Plan Treatment/Plan Treatment Plan: Continue Plan of Care Treatment Plan: Bed Mobility, Education, Functional Activity Attila, Functional Strength, Group Therapy, Gait, Safety, Therapeutic Exercise, Transfers Treatment Duration: Apr 17, 2018 Frequency: At least 5 of 7 days/Wk (IRF) Estimated Hrs Per Day: 1.5 hours per day Patient and/or Family Agrees t: Yes Time/GCodes Time In: 815 Time Out: 820 Total Billed Treatment Time: 0 Total Billed Treatment 1,NO Rx , no Chg G Codes Necessary: No ANA CABAN AGENCY SALES DIRECTOR Apr 05, 2018 09:54
[2018-04-05 10:00] VITALS: BP 133/82
--- NOTE | 2018-04-05 10:22 | Cardiology Progress Note ---
Subjective Date Seen by Provider: Apr 05, 2018 Time Seen by Provider: 10:17 Subjective/Events-last exam Patient is sitting in a chair, feeling better, I was called yesterday due to sinus tachycardia, her heart rate has improved after resting, this morning her blood pressure became significantly elevated. Currently better. I will restart her beta blockers. Review of Systems General: No Chills, No Night Sweats, No Fatigue, No Malaise, No Appetite, No Other HEENT: No Head Aches, No Visual Changes, No Eye Pain, No Ear Pain, No Dysphasia , No Sinus Congestion, No Post Nasal Drip, No Sore Throat, No Other Pulmonary: Dyspnea; No Cough, No Pleuritic Chest Pain, No Other Cardiovascular: Palpitations; No: Chest Pain, Orthopnea, Paroxysmal Noc. Dyspnea, Edema, Lt Headedness, Other Objective-Cardiology Exam Last Set of Vital Signs Vital Signs 04/05/18 04/05/18 04/05/18 06:19 10:00 10:03 Temp 99.0 Pulse 118 Resp 16 B/P (MAP) 133/82 (99) Pulse Ox 95 O2 Delivery Room Air O2 Flow Rate 0.00 Capillary Refill : Less Than 3 Seconds I&O Intake and Output 04/05/18 00:00 Intake Total 1140 ml Balance 1140 ml Intake Oral 1140 ml # Voids 5 # Bowel Movements 4 General: Alert, Oriented X3, Cooperative, No Acute Distress HEENT: Atraumatic, PERRLA, EOMI, Mucous Memb Moist/[place] Lungs: Clear to Auscultation Heart: Normal S1, Normal S2, Other (tachycardia) Abdomen: Normal Bowel Sounds, Soft Extremities: Other (trace edema left ankle) Skin: Other (incision healing well) Neuro: Other (good strength BUES and RLE limited at left hip with guarding) A/P-Cardiology Admission Diagnosis Sinus tachycardia Hypertension Hip fracture Anemia Assessment/Plan Questionable pulmonary embolism, patient is intolerant to IV contrast, VQ scan was intermediate risk, started on Eliquis therapeutic dose and tolerating medication well. Next Sinus tachycardia, could be related to underlying pulmonary embolism. Patient was initiated on beta blockers, I will monitor her electrolyte and CBC. Severe hypertension, given one dose of clonidine, she was on beta blockers and Rocky inhibitors as an outpatient, I will restart beta blockers and monitor blood pressure slowly. Status post hip fracture, underwent surgical repair, recovering and receiving physical therapy. Postop anemia, monitor H&H. Mild hypokalemia, monitor electrolytes Clinical Quality Measures DVT/VTE Risk/Contraindication: Risk Factor Score Per Nursin RFS Level Per Nursing on Admit: 4+=Very High SHE CHACON MD Apr 05, 2018 10:22
[2018-04-05] MEDS ORDERED: meTOproloL SUCCINATE 50 MG (TOPROL XL) TAB PO SCH (10:30)
[2018-04-05] MEDS ORDERED: PATIENT MAY USE OWN MED,SINGLE MED PO SCH (11:00)
[2018-04-05] MEDS: meTOprolol SUCCINATE 100 MG (TOPROL XL) TAB PO SCH (11:23)
[2018-04-05 17:56] VITALS: BP 167/83
[2018-04-06 03:15] VITALS: BP 195/92
[2018-04-06] MEDS: cloNIDine 0.1 MG (CATAPRES) TAB PO PRN (03:16)
[2018-04-06 04:45] VITALS: BP 172/79
[2018-04-06 04:47] LABS: MEAN PLATELET VOLUME 8.3 FL (7.4-10.4); RED BLOOD COUNT 2.92 10^6/uL (4.35-5.85); RED CELL DISTRIBUTION WIDTH 15.2 % (10.0-14.5); WHITE BLOOD COUNT 7.6 10^3/uL (4.3-11.0)
[2018-04-06 05:02] LABS: BUN/CREATININE RATIO 25; CALCIUM 8.1 MG/DL (8.5-10.1); CARBON DIOXIDE 29 MMOL/L (21-32); CHLORIDE 101 MMOL/L (98-107); GFR ESTIMATED > 60; GLUCOSE 95 MG/DL (70-105); MAGNESIUM 1.2 MG/DL (1.8-2.4); POTASSIUM 3.9 MMOL/L (3.6-5.0); SODIUM 136 MMOL/L (135-145)
[2018-04-06] MEDS: MULTIVIT W/MINERALS TAB (THERAGRAN M) PO SCH (06:06)
[2018-04-06] MEDS: ONDANSETRON 8 MG (ZOFRAN) ORAL DISSOLVE TAB PO PRN (06:33)
[2018-04-06] MEDS: ACETAMINOPHEN 500 MG TAB (TYLENOL) PO PRN ×3 (07:28→23:40)
[2018-04-06] MEDS: SPIRIVA RESPIMAT IH SCH ×2 (08:05→22:51)
[2018-04-06] MEDS: METOLAZONE 2.5 MG (ZAROXOLYN) TAB PO SCH (08:55)
[2018-04-06] MEDS: meTOprolol SUCCINATE 100 MG (TOPROL XL) TAB PO SCH (08:56)
[2018-04-06] MEDS: APIXABAN 5 MG (ELIQUIS) TABLET PO SCH ×2 (08:56→21:41)
[2018-04-06] MEDS: SENNOSIDES 8.6 MG (SENOKOT) TAB PO SCH ×2 (08:57→21:00)
[2018-04-06] MEDS: DOCUSATE SODIUM 100 MG (COLACE) CAP PO SCH ×2 (08:57→21:00)
[2018-04-06] MEDS ORDERED: meTOproloL SUCCINATE 50 MG (TOPROL XL) TAB PO SCH (09:00)
[2018-04-06] MEDS ORDERED: meTOproloL SUCCINATE 50 MG (TOPROL XL) TAB PO NR (12:00)
[2018-04-06] MEDS ORDERED: MAGNESIUM OXIDE (MAG-OX)400 MG TAB PO NR (12:00)
[2018-04-06] MEDS: MAGNESIUM 1 GM/100 ML IVPB 100 ML IV SCH ×2 (12:12→13:15)
--- NOTE | 2018-04-06 12:21 | Cardiology Progress Note ---
Subjective Date Seen by Provider: Apr 06, 2018 Time Seen by Provider: 12:18 Subjective/Events-last exam Patient is sitting up in a chair, feeling better, blood pressure still elevated. Was not receiving any blood pressure medication initially, I restarted Toprol at 50 mg, still elevated blood pressure at this time. Review of Systems General: No Chills, No Night Sweats, No Fatigue, No Malaise, No Appetite, No Other HEENT: No Head Aches, No Visual Changes, No Eye Pain, No Ear Pain, No Dysphasia , No Sinus Congestion, No Post Nasal Drip, No Sore Throat, No Other Pulmonary: No Dyspnea, No Cough, No Pleuritic Chest Pain, No Other Cardiovascular: No: Chest Pain, Palpitations, Orthopnea, Paroxysmal Noc. Dyspnea, Edema, Lt Headedness, Other Objective-Cardiology Exam Last Set of Vital Signs Vital Signs 04/05/18 04/05/18 04/06/18 04/06/18 04/06/18 04/06/18 04/06/18 06:19 17:56 04:45 05:37 07:00 08:06 08:47 Temp 98.2 Pulse 87 Resp 20 B/P (MAP) 172/79 (110) Pulse Ox 92 O2 Delivery Room Air O2 Flow Rate 0.00 Capillary Refill : Less Than 3 Seconds I&O Intake and Output 04/06/18 00:00 Intake Total 650 ml Balance 650 ml Intake Oral 650 ml # Voids 4 # Bowel Movements 2 General: Alert, Oriented X3, Cooperative, No Acute Distress HEENT: Atraumatic, PERRLA, EOMI, Mucous Memb Moist/[place] Neck: Supple, No JVD Lungs: Clear to Auscultation Heart: Normal S1, Normal S2, Other (tachycardia) Abdomen: Normal Bowel Sounds, Soft Extremities: No Clubbing, No Cyanosis, Other (trace edema left ankle) Skin: Other (incision healing well) Neuro: Normal Speech, Other (good strength BUES and RLE limited at left hip with guarding) Psych/Mental Status: Mental Status NL Results Lab Laboratory Tests 04/06/18 04:40 A/P-Cardiology Admission Diagnosis Sinus tachycardia Hypertension Hip fracture Anemia Assessment/Plan Questionable pulmonary embolism, patient is intolerant to IV contrast, VQ scan was intermediate risk, started on Eliquis therapeutic dose and tolerating medication well. Monitor H&H closely Sinus tachycardia, could be related to underlying pulmonary embolism. Heart rate is better after initiating beta blockers, I will increase the dose to 100 mg daily Severe hypertension, slightly better after initiating Toprol, I will increase the dose to 100 mg daily, patient was taking multiple medications at home which will be restarted slowly Anemia, worsening slowly, postop anemia. Continue to monitor H&H Hypomagnesemia, I will replace magnesium and monitor closely Status post hip fracture, underwent surgical repair, recovering and receiving physical therapy. Clinical Quality Measures DVT/VTE Risk/Contraindication: Risk Factor Score Per Nursin RFS Level Per Nursing on Admit: 4+=Very High SHE CHACON MD Apr 06, 2018 12:21
[2018-04-06 17:02] VITALS: BP 148/79
[2018-04-06] MEDS: MAGNESIUM OXIDE (MAG-OX)400 MG TAB PO SCH (18:36)
[2018-04-07 05:39] LABS: HEMOGLOBIN 8.6 G/DL (11.5-16.0); MEAN PLATELET VOLUME 8.3 FL (7.4-10.4); RED BLOOD COUNT 2.79 10^6/uL (4.35-5.85); RED CELL DISTRIBUTION WIDTH 15.3 % (10.0-14.5); WHITE BLOOD COUNT 6.9 10^3/uL (4.3-11.0)
[2018-04-07 05:40] VITALS: BP 172/91
[2018-04-07 05:54] LABS: BUN/CREATININE RATIO 26; CALCIUM 8.2 MG/DL (8.5-10.1); CARBON DIOXIDE 28 MMOL/L (21-32); CHLORIDE 101 MMOL/L (98-107); CREATININE SERUM 0.85 MG/DL (0.60-1.30); GFR ESTIMATED > 60; GLUCOSE 87 MG/DL (70-105); MAGNESIUM 1.7 MG/DL (1.8-2.4); POTASSIUM 3.6 MMOL/L (3.6-5.0); SODIUM 136 MMOL/L (135-145)
--- NOTE | 2018-04-07 07:38 | Occupational Ther Daily Note ---
OT Current Status-Daily Note Subjective Pt alert, lying in bed. Pt agrees to therapy. No c/o pain at this time. Mental Status/Objective Patient Orientation: Person, Place, Time, Situation Functional [place] Measure 0=Not Assessed/NA 4=Minimal Assistance 1=Total Assistance 5=Supervision or Setup 2=Maximal Assistance 6=Modified [place] 3=Moderate Assistance 7=Complete [place] Attachments: IV ADL-Treatment Pt declines taking shower and changing clothing, states will take one tomorrow when she gets jose and telemetry off. Pt ambulated with FWW to bathroom. Transfers to toilet mod I using FWW and grabbars. Mod I to complete toileting using FWW and grabbars. Pt then ambulated to recliner to complete sponge bath. After set up, pt is able to manipulate clothing and cleanse upper/lower body. Pt is able to don/doff socks with AE. Pt ambulated to sink to rinse dentures then applied adhesive to dentures to place in mouth. Pt brushed hair sitting in recliner. Pt required assist to open peaches container due to anxious about spilling juice. Pt able to use regular utensils to feed self. After therapy, pt sitting in recliner with call light/phone in reach. All needs met in room. Functional [place] Measure 0=Not Assessed/NA 4=Minimal Assistance 1=Total Assistance 5=Supervision or Setup 2=Maximal Assistance 6=Modified [place] 3=Moderate Assistance 7=Complete IndependenceIRFPAI Quality Coding Scale 6 Independent with activity with or without an assistive device 5 Patient requires set up or clean up by helper. Patient completes activity by themselves 4 Supervision or touching assist (CGA). [place] provide cues , steadying assist 3 The helper provides less than half the effort to complete the activity 2 The helper provides more than half the effort to complete the activity 1 Dependent. The helper does all the effort to complete an activity 7 Patient refused to complete or attempt activity 9 The patient did not perform the activity before the current illness or injury 88 Not attempted due to Medical conditions or safety concerns Eating (FIM): 5 Eating (QC): 5 Grooming (FIM): 5 Oral Hygiene (QC): 5 On/Off Footwear (QC): 6 Toileting (FIM): 6 Toileting Hygiene (QC): 6 Transfers (B, C, W/C) (FIM): 6 Toilet/Commode Transfer (FIM): 6 Toilet Transfer (QC): 6 OT Short Term Goals Short Term Goals Transfers (B,C,W/C) (FIM): 4 1=Demonstrate adherence to instructed precautions during ADL tasks. 2=Patient will verbalize/demonstrate understanding of assistive devices/ modifications for ADL. 3=Patient will improve strength/tolerance for activity to enable patient to perform ADL's. OT Care Home Goals Care Home Goals Time Frame: Apr 17, 2018 1=Demonstrate adherence to instructed precautions during ADL tasks. 2=Patient will verbalize/demonstrate understanding of assistive devices/ modifications for ADL. 3=Patient will improve strength/tolerance for activity to enable patient to perform ADL's. OT Education/Plan Problem List/Assessment Pt would benefit from skilled OT to increase her independence in basic self care to allow her to safety return to her home after a fall with hip fx and repair Discharge Recommendations Plan/Recommendations: Continue POC Treatment Plan/Plan of Care Patient would benefit from OT for education, treatment and training to promote independence in ADL's, mobility, safety and/or upper extremity function for ADL' s. Plan of Care: ADL Retraining, Functional Mobility, Group Exercise/Act as Ind ( education, exercise, funct mobility, activity tolerance, socialization), UE Funct Exercise/Act, UE Neuromus Re-Ed/Coord, OTHER (energy conservation education) Treatment Duration: Apr 17, 2018 Frequency: At least 5 of 7 days/Wk (IRF) Estimated Hrs Per Day: 1.5 hours per day Agreement: Yes Rehab Potential: Fair Time/GCodes Start Time: 07:30 Stop Time: 08:15 Total Time Billed (hr/min): 45 Billed Treatment Time 1 visit-ADL 3 (45 min) DIXON BECKMAN Apr 07, 2018 07:38
--- NOTE | 2018-04-07 07:54 | Progress Note-Standard ---
Standard Progress Note Progress Notes/Assess & Plan Date Seen by Provider: Apr 07, 2018 Time Seen by Provider: 07:53 Progress/Assessment & Plan NO complaints Vital Signs Date Time Temp Pulse Resp B/P (MAP) Pulse Ox O2 Delivery O2 Flow Rate FiO2 03/28/18 02:28 94 Nasal Cannula 2.00 03/27/18 21:00 96 Nasal Cannula 1.50 03/27/18 20:01 88 Room Air 03/27/18 17:54 98.5 90 16 122/74 (90) 91 Nasal Cannula 2.00 03/27/18 14:51 92 Nasal Cannula 1.50 03/27/18 10:50 Nasal Cannula 1.50 I & O 03/28/18 07:00 Intake Total 300 ml Output Total 150 ml Balance 150 ml L hip incision echymotic without erythema no calf tenderness s/p L hip bipolar PT/OT I will be out of town next week A [employer] covering Final Diagnosis No complaints incision without erythema or warmth s/p L hip bipolar continue PT/OT DC MALICK Valdez MD Apr 07, 2018 07:54
[2018-04-07] MEDS: SPIRIVA RESPIMAT IH SCH ×2 (07:59→21:09)
[2018-04-07] MEDS: ACETAMINOPHEN 500 MG TAB (TYLENOL) PO PRN ×2 (08:40→17:02)
[2018-04-07] MEDS: meTOprolol SUCCINATE 100 MG (TOPROL XL) TAB PO SCH (08:44)
[2018-04-07] MEDS: APIXABAN 5 MG (ELIQUIS) TABLET PO SCH ×2 (08:44→21:20)
[2018-04-07] MEDS: DOCUSATE SODIUM 100 MG (COLACE) CAP PO SCH ×2 (08:45→21:20)
[2018-04-07] MEDS: MAGNESIUM OXIDE (MAG-OX)400 MG TAB PO SCH ×2 (08:45→17:02)
[2018-04-07] MEDS: MULTIVIT W/MINERALS TAB (THERAGRAN M) PO SCH (08:45)
[2018-04-07] MEDS: METOLAZONE 2.5 MG (ZAROXOLYN) TAB PO SCH (08:45)
[2018-04-07] MEDS: SENNOSIDES 8.6 MG (SENOKOT) TAB PO SCH ×2 (08:46→21:21)
--- NOTE | 2018-04-07 10:08 | Physical Therapy Daily Note ---
PT Daily Note-Current Subjective Pt sitting in recliner upon arrival. Pt agrees to PT. Pain Numeric Pain Scale: 5-Moderate Pain Location: Left Location Body Site: Hip Pain Description: Ache Mental Status Patient Orientation: Person, Place, Situation Transfers Functional [place] Measure 0=Not Assessed/NA 4=Minimal Assistance 1=Total Assistance 5=Supervision or Setup 2=Maximal Assistance 6=Modified [place] 3=Moderate Assistance 7=Complete IndependenceIRFPAI Quality Coding Scale 6 Independent with activity with or without an assistive device 5 Patient requires set up or clean up by helper. Patient completes activity by themselves 4 Supervision or touching assist (CGA). [place] provide cues , steadying assist 3 The helper provides less than half the effort to complete the activity 2 The helper provides more than half the effort to complete the activity 1 Dependent. The helper does all the effort to complete an activity 7 Patient refused to complete or attempt activity 9 The patient did not perform the activity before the current illness or injury 88 Not attempted due to Medical conditions or safety concerns Scootin Sit to/from Stand: 5 Sit to Stand (QC): 5 Car Transfer (QC): 4 Weight Bearing Right Lower Extremity: Right Full Weight Bearing Left Lower Extremity: Left Weight Bearing/Tolerated Gait Training Does the Patient Walk?: Yes Distance (FIM): 3=150 ft Distance: 200' Walk 10 feet (QC): 5 Walk 50 ft with 2 Turns(QC): 5 Walk 150 ft (QC): 5 Gait Level of Assist: 5 Gait Persons Needed: 1 Gait Assistive Device: FWW Pt walks with slow darci and needs VC to stay w/in FWW. Wheelchair Training Does the Pt Use a Wheelchair?: No Exercises Seated Therapy Exercises: Ankle pumps, Long arc quads, Hip flexion, Kicking activity, Hip abd/add Seated Reps: 15 NuStep Minutes: 12 NuStep Workload: 3 Treatments Pt transfers from recliner to standing using FWW at SBA. Pt uses restroom before leaving room for tx. Pt ambulates using FWW at SBA in hallway. Pt uses NuStep for 12m at WL 3. Pt then completes Seated Ex. Pt completes car transfer , using UE to pull LLE into car due to strength deficit. Pt ambulates in hallway back to room to rest in recliner at end of tx with all needs met, including call light next to pt. Assessment Current Status: Good Progress Pt takes rest breaks as needed for fatigue. Pt has gained strength although still pulls LLE into car for transfer due to strength deficit. PT Short Term Goals Short Term Goals Time Frame: Apr 03, 2018 Transfers (B,C,W/C) (FIM): 4 Gait (FIM): 4 Distance (FIM): 3=150 ft Gait Assistive Device: FWW PT Senior Care Goals Intelligence Consultant Goals PT Senior Care Goals Time Frame: Apr 17, 2018 Transfers (B,C,W/C) (FIM): 6 Sit to Lying (QC): 6 Lying-Sitting on Side/Bed(QC): 6 Sit to Stand (QC): 6 Rollin Roll Left to Right (QC): 6 Chair/Fwr-ry-Fxgrn Xfer(QC): 6 Car Transfer (QC): 6 Does the Patient Walk: Yes Gait (FIM): 6 Gait distance (FIM): 3=150 ft Walk 10 feet (QC): 6 Walk 10ft-Uneven Surface(QC): 6 Walk 50ft with 2 Turns (QC): 6 Walk 150 ft (QC): 6 Gait Assistive Device: FWW Does the Pt use WC or Scooter?: No Stairs (FIM): 5 # of Steps: 4 1 Step (curb) (QC): 6 4 Steps (QC): 6 12 Steps (QC): 88 Picking up an Object (QC): 88 PT Plan Problem List Problem List: Activity Tolerance, Functional Strength, Gait Treatment/Plan Treatment Plan: Continue Plan of Care Treatment Plan: Bed Mobility, Education, Functional Activity Attila, Functional Strength, Group Therapy, Gait, Safety, Therapeutic Exercise, Transfers Treatment Duration: Apr 17, 2018 Frequency: At least 5 of 7 days/Wk (IRF) Estimated Hrs Per Day: 1.5 hours per day Patient and/or Family Agrees t: Yes Safety Risks/Education Patient Education: Gait Training, Transfer Techniques, Correct Positioning, Safety Issues Teaching Recipient: Patient Teaching Methods: Discussion Response to Teaching: Verbalize Understanding Time/GCodes Time In: 900 Time Out: 1000 Total Billed Treatment Time: 60 Total Billed Treatment 1, GT (15m), FA (15m) & EX x2 (30m) G Codes Necessary: No HÉCTOR DE LEÓN ORGANIC CHEMISTRY PROFESSOR Apr 07, 2018 10:08
--- NOTE | 2018-04-07 15:22 | Therapy Group Daily Note ---
Therapy Daily Group Note Patient Education Topic Fall Prevention, Other List Below (Proper Transfer Techniques) Exercises LE Seated Exercise, UE Exercise Other/Notes Pt ambulates to PT/OT Group using FWW at [facility]. Group consisted of Introductions (Name, Where you are from & Favorite Food/Restaurant), Socialization, UE/LE Seated Exercise, Proper/Safe Transfer Techniques, Home Safety and Fall Prevention. Pt actively participated in Group by giving personal examples of falls and items within the house that can cause falls as well as participated in Seated Exercises. Pt returned to room to rest at end of treatment with all needs met, including call light in hand. Start Time: 13:00 Stop Time: 14:15 Total Billed Treatment Time: 75 Total Billed Treatment 1, GRP HÉCTOR DE LEÓN SUPERVISOR BLOOD Apr 07, 2018 15:22
--- NOTE | 2018-04-07 15:47 | Cardiology Progress Note ---
Cardiology SOAP Progress Note Subjective: Much improved. No oxygen. Objective: I&O/Vital Signs 04/07/18 04/07/18 04/07/18 04/07/18 05:40 07:00 09:00 13:00 Temp 98.4 Pulse 76 79 91 Resp 18 B/P (MAP) 172/91 (118) Pulse Ox 94 O2 Delivery Room Air Room Air 04/07/18 00:00 Intake Total 640 ml Balance 640 ml Weight (Pounds): 170 Weight (Ounces): 1.0 Weight (Calculated Kilograms): 77.517864 Constitutional: appears stated age, AAO x 3, well-developed, well-nourished Respiratory: No accessory muscle use, No respiratory distress, No chest tender , No chest expansion is symmetric; chest is bilaterally symmetric; No lungs clear to percussion; lungs clear to auscultation; No crackles, No rhonchi, No rales, No stridor, No wheezing, No pleural rub, No other Cardiovascular: regular rate-rhythm, tachycardia, S1 and S2 Gastrointestional: No tender, No soft, No round, No distended, No pulsatile mass, No organomegaly, No guarding, No rebound, No tenderness, No hernia, No mass, No audible bowel sounds, No abnormal bowel sounds, No abdominal bruits, No spleenomegaly, No other Extremities: No normal range of motion, No non-tender, No normal inspection, No pedal edema, No calf tenderness, No normal capillary refill, No pelvis stable , No calf tenderness, No inflammation, No pedal edema, No slow capillary refill , No swelling, No other, No abrasion, No clubbing, No cyanosis, No ecchymosis, No laceration, No no lower extremity edema bilateral, No significant edema, No tenderness, No wound Neurologic/Psychiatric: no motor/sensory deficits, alert, normal mood/affect, oriented x 3, power is 5/5 both on sides Skin: No normal color, No warm/dry, No cyanosis, No cool, No diaphoresis, No damp, No ecchymosis, No jaundice, No mottled, No pallor, No rash, No tattoos/ piercings, No ulcerations, No rash on exposed areas, No ulcerations on exposed areas, No other Results/Procedures: Labs Laboratory Tests 04/07/18 05:30: White Blood Count 6.9, Red Blood Count 2.79L, Hemoglobin 8.6L, Hematocrit 26L, Mean Corpuscular Volume 95, Mean Corpuscular Hemoglobin 31, Mean Corpuscular Hemoglobin Concent 33, Red Cell Distribution Width 15.3H, Platelet Count 283, Mean Platelet Volume 8.3, Sodium Level 136, Potassium Level 3.6, Chloride Level 101, Carbon Dioxide Level 28, Anion Gap 7, Blood Urea Nitrogen 22H, Creatinine 0.85, Estimat Glomerular Filtration Rate > 60, BUN/Creatinine Ratio 26, Glucose Level 87, Calcium Level 8.2L, Magnesium Level 1.7L A/P: Assessment/Dx: Shortness of breath, tachycardia, Recent hip surgery, Not on DVT prophylaxis, Hypertension Plan: Patient had recent hip surgery and is not on DVT prophylaxis. Patient is at high risk for pulmonary embolism. CT angiography was recommended however the found later that she is iodine allergy. VQ scan was requested. D-dimer is positive. Lower extremity venous ultrasound was recommended to rule out DVT. Lower extremity venous ultrasound did not show any significant large vein DVT however small clot was noted. Since the patient is at high risk for PE, Eliquis started 10 mg twice a day for 7 days as per PE protocol. VQ scan was indeterminate since the perfusion portion could not be done. continue treatment as per PE protocol. Ectopic atrial rhythm. Likely atrial tachycardia. Patient does not have history of atrial fibrillation but does tell me that she had irregular heart rhythm before. She is not on oral anticoagulation. Therefore I'm unsure whether she has history of paroxysmal atrial fibrillation. On eliquis. Shortness of breath: Much improved. Mild elevation of BNP. No florid congestive heart failure. Echocardiogram showed normal LV function. Shortness of breath is likely secondary to COPD. Thank you for your consultation. Please call me if you have any questions. Justine Plascencia MD, FACP, FACC, FSCAI, FHRS, CCDS Interventional Cardiology Cardiac Electrophysiology Vascular Medicine and Endovascular Interventions Carolina PLASCENCIA MD Apr 07, 2018 3:47 pm
[2018-04-07 18:40] VITALS: BP 123/70
--- NOTE | 2018-04-07 20:08 | PM & R (SOAP) Progress Note ---
Subjective This was a face to face visit with the patient. Date Seen by Provider: Apr 07, 2018 Time Seen by Provider: 17:45 Subjective/Events-last exam Patient was seen in her room this afternoon Patient min assist for transfers Tele remains on til tomorrow when cardiology will reassess Objective Physician Exam Last Set of Vital Signs Vital Signs Date Time Temp Pulse Resp B/P (MAP) Pulse Ox O2 Delivery O2 Flow Rate FiO2 04/07/18 18:40 98.7 87 16 123/70 (87) 92 Room Air 04/05/18 06:19 0.00 Capillary Refill : Less Than 3 Seconds I&O Intake and Output 04/07/18 00:00 Intake Total 790 ml Balance 790 ml Intake Oral 590 ml IV Total 200 ml # Voids 6 General: Alert, Oriented X3, Cooperative, No Acute Distress HEENT: Atraumatic, PERRLA, EOMI, Mucous Memb Moist/[place] Neck: Supple, No JVD Lungs: Clear to Auscultation Heart: Normal S1, Normal S2, Other (tachycardia) Abdomen: Normal Bowel Sounds, Soft Extremities: No Clubbing, No Cyanosis, Other (trace edema left ankle) Skin: Other (incision healing well) Neuro: Normal Speech, Other (good strength BUES and RLE limited at left hip with guarding) Psych/Mental Status: Mental Status NL Results Lab Data Laboratory Tests 04/06/18 04:40: White Blood Count 7.6, Red Blood Count 2.92L, Hemoglobin 9.0L, Hematocrit 28L, Mean Corpuscular Volume 95, Mean Corpuscular Hemoglobin 31, Mean Corpuscular Hemoglobin Concent 33, Red Cell Distribution Width 15.2H, Platelet Count 280, Mean Platelet Volume 8.3, Sodium Level 136, Potassium Level 3.9, Chloride Level 101, Carbon Dioxide Level 29, Anion Gap 6, Blood Urea Nitrogen 20H, Creatinine 0.80, Estimat Glomerular Filtration Rate > 60, BUN/Creatinine Ratio 25, Glucose Level 95, Calcium Level 8.1L, Magnesium Level 1.2L 04/07/18 05:30: White Blood Count 6.9, Red Blood Count 2.79L, Hemoglobin 8.6L, Hematocrit 26L, Mean Corpuscular Volume 95, Mean Corpuscular Hemoglobin 31, Mean Corpuscular Hemoglobin Concent 33, Red Cell Distribution Width 15.3H, Platelet Count 283, Mean Platelet Volume 8.3, Sodium Level 136, Potassium Level 3.6, Chloride Level 101, Carbon Dioxide Level 28, Anion Gap 7, Blood Urea Nitrogen 22H, Creatinine 0.85, Estimat Glomerular Filtration Rate > 60, BUN/Creatinine Ratio 26, Glucose Level 87, Calcium Level 8.2L, Magnesium Level 1.7L Assessment/Plan Assessment and Plan Displaced fem neck fracture s/p 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
[2018-04-08] MEDS: ACETAMINOPHEN 500 MG TAB (TYLENOL) PO PRN ×3 (01:26→17:56)
[2018-04-08 05:20] VITALS: BP 165/83
[2018-04-08] MEDS: MULTIVIT W/MINERALS TAB (THERAGRAN M) PO SCH (08:00)
[2018-04-08] MEDS: DOCUSATE SODIUM 100 MG (COLACE) CAP PO SCH ×2 (08:14→21:29)
[2018-04-08] MEDS: SENNOSIDES 8.6 MG (SENOKOT) TAB PO SCH ×2 (08:14→21:29)
[2018-04-08] MEDS: APIXABAN 5 MG (ELIQUIS) TABLET PO SCH ×2 (08:15→20:42)
[2018-04-08] MEDS: METOLAZONE 2.5 MG (ZAROXOLYN) TAB PO SCH (08:15)
[2018-04-08] MEDS: meTOprolol SUCCINATE 100 MG (TOPROL XL) TAB PO SCH (08:15)
[2018-04-08] MEDS: MAGNESIUM OXIDE (MAG-OX)400 MG TAB PO SCH ×2 (08:21→17:54)
--- NOTE | 2018-04-08 09:04 | PM & R (SOAP) Progress Note ---
Subjective This was a face to face visit with the patient. Date Seen by Provider: Apr 08, 2018 Time Seen by Provider: 08:10 Subjective/Events-last exam Patient was seen in her room this AM Patient min assist for transfers [place] out and patient off supplemental [address] arminda WATT to d/c tele Objective Physician Exam Last Set of Vital Signs Vital Signs Date Time Temp Pulse Resp B/P (MAP) Pulse Ox O2 Delivery O2 Flow Rate FiO2 04/08/18 07:00 77 04/08/18 05:20 98.3 17 165/83 (110) 93 Room Air 04/05/18 06:19 0.00 Capillary Refill : Less Than 3 Seconds I&O Intake and Output 04/08/18 00:00 Intake Total 370 ml Balance 370 ml Intake Oral 370 ml # Voids 2 # Bowel Movements 1 General: Alert, Oriented X3, Cooperative, No Acute Distress HEENT: Atraumatic, PERRLA, EOMI, Mucous Memb Moist/[place] Neck: Supple, No JVD Lungs: Clear to Auscultation Heart: Normal S1, Normal S2, Other (tachycardia) Abdomen: Normal Bowel Sounds, Soft Extremities: No Clubbing, No Cyanosis, Other (trace edema left ankle) Skin: Other (incision healing well) Neuro: Normal Speech, Other (good strength BUES and RLE limited at left hip with guarding) Psych/Mental Status: Mental Status NL Results Lab Data Laboratory Tests 04/06/18 04:40: White Blood Count 7.6, Red Blood Count 2.92L, Hemoglobin 9.0L, Hematocrit 28L, Mean Corpuscular Volume 95, Mean Corpuscular Hemoglobin 31, Mean Corpuscular Hemoglobin Concent 33, Red Cell Distribution Width 15.2H, Platelet Count 280, Mean Platelet Volume 8.3, Sodium Level 136, Potassium Level 3.9, Chloride Level 101, Carbon Dioxide Level 29, Anion Gap 6, Blood Urea Nitrogen 20H, Creatinine 0.80, Estimat Glomerular Filtration Rate > 60, BUN/Creatinine Ratio 25, Glucose Level 95, Calcium Level 8.1L, Magnesium Level 1.2L 04/07/18 05:30: White Blood Count 6.9, Red Blood Count 2.79L, Hemoglobin 8.6L, Hematocrit 26L, Mean Corpuscular Volume 95, Mean Corpuscular Hemoglobin 31, Mean Corpuscular Hemoglobin Concent 33, Red Cell Distribution Width 15.3H, Platelet Count 283, Mean Platelet Volume 8.3, Sodium Level 136, Potassium Level 3.6, Chloride Level 101, Carbon Dioxide Level 28, Anion Gap 7, Blood Urea Nitrogen 22H, Creatinine 0.85, Estimat Glomerular Filtration Rate > 60, BUN/Creatinine Ratio 26, Glucose Level 87, Calcium Level 8.2L, Magnesium Level 1.7L Assessment/Plan Assessment and Plan Displaced fem neck fracture 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
--- NOTE | 2018-04-08 10:08 | Physical Therapy Daily Note ---
PT Daily Note-Current Subjective Pt. agrees to Rx but states she has pain at 5/10 in hip. Requested pain meds and nurse responded. Pain Numeric Pain Scale: 5-Moderate Pain Location: Left Location Body Site: Hip Pain Description: Ache Mental Status Patient Orientation: Normal For Age Attachments: Other-See Comments (telemetry) Transfers Functional [place] Measure 0=Not Assessed/NA 4=Minimal Assistance 1=Total Assistance 5=Supervision or Setup 2=Maximal Assistance 6=Modified [place] 3=Moderate Assistance 7=Complete IndependenceIRFPAI Quality Coding Scale 6 Independent with activity with or without an assistive device 5 Patient requires set up or clean up by helper. Patient completes activity by themselves 4 Supervision or touching assist (CGA). [place] provide cues , steadying assist 3 The helper provides less than half the effort to complete the activity 2 The helper provides more than half the effort to complete the activity 1 Dependent. The helper does all the effort to complete an activity 7 Patient refused to complete or attempt activity 9 The patient did not perform the activity before the current illness or injury 88 Not attempted due to Medical conditions or safety concerns Transfers (B, C, W/C) (FIM): 6 Scootin Rollin Supine to/from Sit: 6 Sit to/from Stand: 6 Bed to/from Chair: 6 Weight Bearing Right Lower Extremity: Right Full Weight Bearing Left Lower Extremity: Left Weight Bearing/Tolerated Gait Training Does the Patient Walk?: Yes Gait (FIM): 5 Distance (FIM): 3=150 ft (x2) Gait Level of Assist: 5 Gait Persons Needed: 1 Gait Assistive Device: FWW backward walking no LOB, 360 degree turns left and right Exercises Supine Ex: Ankle pumps, Quad Set, Rolling, Glut sets, Heel Slides, Short Arc Quads, Scooting, Straight leg raise, Hip abd/add Supine Reps: 15 Assessment Current Status: Good Progress can enter and exit bed left or right PT Short Term Goals Short Term Goals Time Frame: Apr 03, 2018 Transfers (B,C,W/C) (FIM): 4 Gait (FIM): 4 Distance (FIM): 3=150 ft Gait Assistive Device: FWW PT Correction Goals Nutrition Teacher Goals PT Nutrition Teacher Goals Time Frame: Apr 17, 2018 Transfers (B,C,W/C) (FIM): 6 Sit to Lying (QC): 6 Lying-Sitting on Side/Bed(QC): 6 Sit to Stand (QC): 6 Rollin Roll Left to Right (QC): 6 Chair/Hun-bg-Yglmm Xfer(QC): 6 Car Transfer (QC): 6 Does the Patient Walk: Yes Gait (FIM): 6 Gait distance (FIM): 3=150 ft Walk 10 feet (QC): 6 Walk 10ft-Uneven Surface(QC): 6 Walk 50ft with 2 Turns (QC): 6 Walk 150 ft (QC): 6 Gait Assistive Device: FWW Does the Pt use WC or Scooter?: No Stairs (FIM): 5 # of Steps: 4 1 Step (curb) (QC): 6 4 Steps (QC): 6 12 Steps (QC): 88 Picking up an Object (QC): 88 PT Plan Treatment/Plan Treatment Plan: Continue Plan of Care Treatment Plan: Bed Mobility, Education, Functional Activity Attila, Functional Strength, Group Therapy, Gait, Safety, Therapeutic Exercise, Transfers Treatment Duration: Apr 17, 2018 Frequency: At least 5 of 7 days/Wk (IRF) Estimated Hrs Per Day: 1.5 hours per day Patient and/or Family Agrees t: Yes Safety Risks/Education Patient Education: Gait Training, Transfer Techniques, Correct Positioning, Disease Process, Safety Issues Teaching Recipient: Patient Teaching Methods: Demonstration, Discussion Response to Teaching: Verbalize Understanding, Return Demonstration, Reinforcement Needed Time/GCodes Time In: 900 Time Out: 1000 Total Billed Treatment Time: 60 Total Billed Treatment 1,GT20m,EX25m,FA15m G Codes Necessary: Yes ANA CABAN PTA Apr 08, 2018 10:08
[2018-04-08] MEDS: SPIRIVA RESPIMAT IH SCH ×2 (10:16→19:02)
--- NOTE | 2018-04-08 11:44 | Occupational Ther Daily Note ---
OT Current Status-Daily Note Subjective Pt seen in room, up in recliner, agreeable to OT. Pain not mentioned. Appearance Alert, cooperative Mental Status/Objective Functional [place] Measure 0=Not Assessed/NA 4=Minimal Assistance 1=Total Assistance 5=Supervision or Setup 2=Maximal Assistance 6=Modified [place] 3=Moderate Assistance 7=Complete [place] ADL-Treatment Pt did not want to shower today but agreed to wash up with warm bath pack. She washed and dried all [place] areas and chose not to wash feet. She also was able to change clothes with setup, using sock aid and dressing stick, FWW. She toileted with mod I, BSC over toilet, grab bars, FWW. Walked to and from bathroom and in bathroom with SBA, FWW. She followed hip precautions throughout. Functional [place] Measure 0=Not Assessed/NA 4=Minimal Assistance 1=Total Assistance 5=Supervision or Setup 2=Maximal Assistance 6=Modified [place] 3=Moderate Assistance 7=Complete IndependenceIRFPAI Quality Coding Scale 6 Independent with activity with or without an assistive device 5 Patient requires set up or clean up by helper. Patient completes activity by themselves 4 Supervision or touching assist (CGA). [place] provide cues , steadying assist 3 The helper provides less than half the effort to complete the activity 2 The helper provides more than half the effort to complete the activity 1 Dependent. The helper does all the effort to complete an activity 7 Patient refused to complete or attempt activity 9 The patient did not perform the activity before the current illness or injury 88 Not attempted due to Medical conditions or safety concerns Bathing (FIM): 5 (setup, bath pack. Washed and dried all parts) Upper Body (FIM): 5 (setup) Lower Body Dressing (FIM): 5 (Setup. No LOB when pulling pants up/down. Sock aid, dressing stick, FWW) Toileting (FIM): 6 (BSC over toilet, grab bar, FWW. Managed hygiene and clothing) Toilet/Commode Transfer (FIM): 6 (BSC over toilet, grab bar, FWW) Other Treatment Pt walked back to recliner with SBA, FWW. She did 15 reps bilat UE exercise with yellow theraband, demonstrating increased active range. She also did 15 reps bilat UE exercise with 2# weight, working on shoulders, elbows and forearms. To strengthen arms to help with transfers and to increase activity tolerance for being able to go home. Pt left up in recliner, all needs met. Education OT Patient Education: Exercise program, Modified ADL techniques, Purpose of tx/ functional activities Teaching Recipient: Patient Teaching Methods: Discussion Response to Teaching: Verbalize Understanding OT Short Term Goals Short Term Goals Transfers (B,C,W/C) (FIM): 4 1=Demonstrate adherence to instructed precautions during ADL tasks. 2=Patient will verbalize/demonstrate understanding of assistive devices/ modifications for ADL. 3=Patient will improve strength/tolerance for activity to enable patient to perform ADL's. OT Manager Chemical Goals Manager Chemical Goals Time Frame: Apr 17, 2018 1=Demonstrate adherence to instructed precautions during ADL tasks. 2=Patient will verbalize/demonstrate understanding of assistive devices/ modifications for ADL. 3=Patient will improve strength/tolerance for activity to enable patient to perform ADL's. OT Education/Plan Problem List/Assessment Pt would benefit from skilled OT to increase her independence in basic self care to allow her to safety return to her home after a fall with hip fx and repair Discharge Recommendations Plan/Recommendations: Continue POC Treatment Plan/Plan of Care Patient would benefit from OT for education, treatment and training to promote independence in ADL's, mobility, safety and/or upper extremity function for ADL' s. Plan of Care: ADL Retraining, Functional Mobility, Group Exercise/Act as Ind ( education, exercise, funct mobility, activity tolerance, socialization), UE Funct Exercise/Act, UE Neuromus Re-Ed/Coord, OTHER (energy conservation education) Treatment Duration: Apr 17, 2018 Frequency: At least 5 of 7 days/Wk (IRF) Estimated Hrs Per Day: 1.5 hours per day Agreement: Yes Rehab Potential: Fair Time/GCodes Start Time: 10:30 Stop Time: 11:30 Total Time Billed (hr/min): 60 Billed Treatment Time visit, 40 minute ADL, 20 minutes exercise RADHA LALA OT Apr 08, 2018 11:44
--- NOTE | 2018-04-08 12:51 | Diagnostic Imaging Report ---
INDICATION: Chest pain and shortness of breath. TECHNIQUE: The patient was administered 1 mCi of aerosolized technetium 99m DTPA and imaging over the chest was performed. Next, the patient was administered 5.2 mCi of technetium 99m MAA intravenously and imaging over the chest was performed. FINDINGS: There appears to be heterogeneous ventilation to both lungs. There is also somewhat heterogeneous perfusion to both lungs. There appears to be some esophageal activity. No definite medium or large sized ventilation/perfusion mismatches are seen. IMPRESSION: Heterogeneous ventilation and perfusion. No definite mismatches are seen. The findings would be consistent with a low probability for pulmonary embolism. Dictated by: Dictated on workstation # [id number]
--- NOTE | 2018-04-08 14:10 | Physical Therapy Daily Note ---
PT Daily Note-Current Subjective Pt. agreed to Rx. States she is looking for a hand splint that the OT recommended Pain Numeric Pain Scale: 0-No Pain Mental Status Patient Orientation: Normal For Age Transfers Functional [place] Measure 0=Not Assessed/NA 4=Minimal Assistance 1=Total Assistance 5=Supervision or Setup 2=Maximal Assistance 6=Modified [place] 3=Moderate Assistance 7=Complete IndependenceIRFPAI Quality Coding Scale 6 Independent with activity with or without an assistive device 5 Patient requires set up or clean up by helper. Patient completes activity by themselves 4 Supervision or touching assist (CGA). [place] provide cues , steadying assist 3 The helper provides less than half the effort to complete the activity 2 The helper provides more than half the effort to complete the activity 1 Dependent. The helper does all the effort to complete an activity 7 Patient refused to complete or attempt activity 9 The patient did not perform the activity before the current illness or injury 88 Not attempted due to Medical conditions or safety concerns TRFs all surfaces SBA Weight Bearing Right Lower Extremity: Right Full Weight Bearing Left Lower Extremity: Left Weight Bearing/Tolerated Gait Training Gait Assistive Device: FWW gait slow no LOB, 150 ft SBA Stair Training Stair Training: Handrails/: 2 handrails Stairs (FIM): 5 #of Steps: 4 Stairs: Pattern: Step to Level of Assist: 5 household exception Exercises Seated Therapy Exercises: Ankle pumps, Sit to stand, Long arc quads, Hip flexion, Hip abd/add Seated Reps: 15 PT Short Term Goals Short Term Goals Time Frame: Apr 03, 2018 Transfers (B,C,W/C) (FIM): 4 Gait (FIM): 4 Distance (FIM): 3=150 ft Gait Assistive Device: FWW PT Cane Furniture Maker Goals Shelter Goals PT Shelter Goals Time Frame: Apr 17, 2018 Transfers (B,C,W/C) (FIM): 6 Sit to Lying (QC): 6 Lying-Sitting on Side/Bed(QC): 6 Sit to Stand (QC): 6 Rollin Roll Left to Right (QC): 6 Chair/Dpl-ij-Ajyta Xfer(QC): 6 Car Transfer (QC): 6 Does the Patient Walk: Yes Gait (FIM): 6 Gait distance (FIM): 3=150 ft Walk 10 feet (QC): 6 Walk 10ft-Uneven Surface(QC): 6 Walk 50ft with 2 Turns (QC): 6 Walk 150 ft (QC): 6 Gait Assistive Device: FWW Does the Pt use WC or Scooter?: No Stairs (FIM): 5 # of Steps: 4 1 Step (curb) (QC): 6 4 Steps (QC): 6 12 Steps (QC): 88 Picking up an Object (QC): 88 PT Plan Treatment/Plan Treatment Plan: Continue Plan of Care Treatment Plan: Bed Mobility, Education, Functional Activity Attila, Functional Strength, Group Therapy, Gait, Safety, Therapeutic Exercise, Transfers Treatment Duration: Apr 17, 2018 Frequency: At least 5 of 7 days/Wk (IRF) Estimated Hrs Per Day: 1.5 hours per day Patient and/or Family Agrees t: Yes Safety Risks/Education Patient Education: Gait Training, Transfer Techniques, Steps, Correct Positioning, Safety Issues Teaching Recipient: Patient Teaching Methods: Demonstration, Discussion Response to Teaching: Verbalize Understanding, Return Demonstration, Reinforcement Needed Time/GCodes Time In: 1330 Time Out: 1400 Total Billed Treatment Time: 30 Total Billed Treatment 1,EX15m,GT15m G Codes Necessary: ANA Byrd ASSISTANT PASTRY CHEF Apr 08, 2018 14:09
--- NOTE | 2018-04-08 15:49 | Occupational Ther Daily Note ---
OT Current Status-Daily Note Subjective Pt seen in gym after PT, agreeable to OT. No pain mentioned. Appearance Alert, cooperative Mental Status/Objective Functional [place] Measure 0=Not Assessed/NA 4=Minimal Assistance 1=Total Assistance 5=Supervision or Setup 2=Maximal Assistance 6=Modified [place] 3=Moderate Assistance 7=Complete [place] ADL-Treatment Functional [place] Measure 0=Not Assessed/NA 4=Minimal Assistance 1=Total Assistance 5=Supervision or Setup 2=Maximal Assistance 6=Modified [place] 3=Moderate Assistance 7=Complete IndependenceIRFPAI Quality Coding Scale 6 Independent with activity with or without an assistive device 5 Patient requires set up or clean up by helper. Patient completes activity by themselves 4 Supervision or touching assist (CGA). [place] provide cues , steadying assist 3 The helper provides less than half the effort to complete the activity 2 The helper provides more than half the effort to complete the activity 1 Dependent. The helper does all the effort to complete an activity 7 Patient refused to complete or attempt activity 9 The patient did not perform the activity before the current illness or injury 88 Not attempted due to Medical conditions or safety concerns Other Treatment Pt did 15 minutes bilat UE exercise on arm bike, set at 15-20W resistance, working at steady pace. To strengthen arms to help with transfers and standing for ADLs. She was able to get up from chair with arms with a little struggle at midpoint. Walked back to room with SBA, FWW and was able to get both legs into bed. pt left up in be, all needs met. Education OT Patient Education: Exercise program, Purpose of tx/functional activities, Transfer techniques Teaching Recipient: Patient Teaching Methods: Discussion Response to Teaching: Verbalize Understanding OT Short Term Goals Short Term Goals Transfers (B,C,W/C) (FIM): 4 1=Demonstrate adherence to instructed precautions during ADL tasks. 2=Patient will verbalize/demonstrate understanding of assistive devices/ modifications for ADL. 3=Patient will improve strength/tolerance for activity to enable patient to perform ADL's. OT Fpc Goals Fpc Goals Time Frame: Apr 17, 2018 1=Demonstrate adherence to instructed precautions during ADL tasks. 2=Patient will verbalize/demonstrate understanding of assistive devices/ modifications for ADL. 3=Patient will improve strength/tolerance for activity to enable patient to perform ADL's. OT Education/Plan Problem List/Assessment Pt would benefit from skilled OT to increase her independence in basic self care to allow her to safety return to her home after a fall with hip fx and repair Discharge Recommendations Plan/Recommendations: Continue POC Treatment Plan/Plan of Care Patient would benefit from OT for education, treatment and training to promote independence in ADL's, mobility, safety and/or upper extremity function for ADL' s. Plan of Care: ADL Retraining, Functional Mobility, Group Exercise/Act as Ind ( education, exercise, funct mobility, activity tolerance, socialization), UE Funct Exercise/Act, UE Neuromus Re-Ed/Coord, OTHER (energy conservation education) Treatment Duration: Apr 17, 2018 Frequency: At least 5 of 7 days/Wk (IRF) Estimated Hrs Per Day: 1.5 hours per day Agreement: Yes Rehab Potential: Fair Time/GCodes Start Time: 14:00 Stop Time: 14:30 Total Time Billed (hr/min): 30 Billed Treatment Time visit, 30 minutes exercise RADHA LALA OT Apr 08, 2018 15:49
[2018-04-08 17:56] VITALS: BP 183/77
[2018-04-08] MEDS ORDERED: CATHETER FLUSH 10 ML SYR IV PRN (18:00)
[2018-04-08] MEDS: cloNIDine 0.1 MG (CATAPRES) TAB PO PRN (18:11)
[2018-04-08] MEDS: CATHETER FLUSH 10 ML SYR IV SCH (20:42)
[2018-04-09] MEDS: ACETAMINOPHEN 500 MG TAB (TYLENOL) PO PRN ×3 (02:13→18:05)
[2018-04-09] MEDS: cloNIDine 0.1 MG (CATAPRES) TAB PO PRN ×2 (02:21→08:49)
[2018-04-09 05:18] VITALS: BP 185/93
[2018-04-09] MEDS: MULTIVIT W/MINERALS TAB (THERAGRAN M) PO SCH (05:57)
[2018-04-09] MEDS: CATHETER FLUSH 10 ML SYR IV SCH ×3 (06:12→20:49)
[2018-04-09 06:31] VITALS: BP 181/83
--- NOTE | 2018-04-09 08:46 | PM & R (SOAP) Progress Note ---
Subjective This was a face to face visit with the patient. Date Seen by Provider: Apr 09, 2018 Time Seen by Provider: 08:05 Subjective/Events-last exam Patient was seen in her room this AM Patient SBA for transfers Progressing well with therapies Review of Systems Musculoskeletal: leg pain Objective Physician Exam Last Set of Vital Signs Vital Signs Date Time Temp Pulse Resp B/P (MAP) Pulse Ox O2 Delivery O2 Flow Rate FiO2 04/09/18 07:00 72 04/09/18 06:31 181/83 (115) 04/09/18 05:18 97.8 18 95 Room Air 04/05/18 06:19 0.00 Capillary Refill : Less Than 3 Seconds I&O Intake and Output 04/09/18 00:00 Intake Total 680 ml Balance 680 ml Intake Oral 680 ml # Voids 7 # Bowel Movements 2 General: Alert, Oriented X3, Cooperative, No Acute Distress HEENT: Atraumatic, PERRLA, EOMI, Mucous Memb Moist/[place] Neck: Supple, No JVD Lungs: Clear to Auscultation Heart: Normal S1, Normal S2, Other (tachycardia) Abdomen: Normal Bowel Sounds, Soft Extremities: No Clubbing, No Cyanosis, Other (trace edema left ankle) Skin: Other (incision healing well) Neuro: Normal Speech, Other (good strength BUES and RLE limited at left hip with guarding) Psych/Mental Status: Mental Status NL Results Lab Data Laboratory Tests 04/07/18 05:30: White Blood Count 6.9, Red Blood Count 2.79L, Hemoglobin 8.6L, Hematocrit 26L, Mean Corpuscular Volume 95, Mean Corpuscular Hemoglobin 31, Mean Corpuscular Hemoglobin Concent 33, Red Cell Distribution Width 15.3H, Platelet Count 283, Mean Platelet Volume 8.3, Sodium Level 136, Potassium Level 3.6, Chloride Level 101, Carbon Dioxide Level 28, Anion Gap 7, Blood Urea Nitrogen 22H, Creatinine 0.85, Estimat Glomerular Filtration Rate > 60, BUN/Creatinine Ratio 26, Glucose Level 87, Calcium Level 8.2L, Magnesium Level 1.7L Assessment/Plan Assessment and Plan Displaced fem neck fracture s/p bipolar replacement 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
[2018-04-09] MEDS: SENNOSIDES 8.6 MG (SENOKOT) TAB PO SCH ×2 (08:49→20:49)
[2018-04-09] MEDS: meTOprolol SUCCINATE 100 MG (TOPROL XL) TAB PO SCH ×2 (08:50→20:49)
[2018-04-09] MEDS: APIXABAN 5 MG (ELIQUIS) TABLET PO SCH ×2 (08:50→20:48)
[2018-04-09] MEDS: METOLAZONE 2.5 MG (ZAROXOLYN) TAB PO SCH (08:50)
[2018-04-09] MEDS: MAGNESIUM OXIDE (MAG-OX)400 MG TAB PO SCH ×2 (08:50→17:12)
[2018-04-09] MEDS: DOCUSATE SODIUM 100 MG (COLACE) CAP PO SCH ×2 (08:52→20:49)
--- NOTE | 2018-04-09 10:07 | Physical Therapy Daily Note ---
PT Daily Note-Current Subjective Pt. agrees to Rx. States she does'nt feel as well today as she did yesterday and would like to think about DCing on Thurs or Fri Pain Numeric Pain Scale: 0-No Pain Mental Status Patient Orientation: Normal For Age Transfers Functional [place] Measure 0=Not Assessed/NA 4=Minimal Assistance 1=Total Assistance 5=Supervision or Setup 2=Maximal Assistance 6=Modified [place] 3=Moderate Assistance 7=Complete IndependenceIRFPAI Quality Coding Scale 6 Independent with activity with or without an assistive device 5 Patient requires set up or clean up by helper. Patient completes activity by themselves 4 Supervision or touching assist (CGA). [place] provide cues , steadying assist 3 The helper provides less than half the effort to complete the activity 2 The helper provides more than half the effort to complete the activity 1 Dependent. The helper does all the effort to complete an activity 7 Patient refused to complete or attempt activity 9 The patient did not perform the activity before the current illness or injury 88 Not attempted due to Medical conditions or safety concerns Transfers (B, C, W/C) (FIM): 6 Scootin Rollin Supine to/from Sit: 6 Sit to/from Stand: 6 Weight Bearing Right Lower Extremity: Right Full Weight Bearing Left Lower Extremity: Left Weight Bearing/Tolerated Gait Training Does the Patient Walk?: Yes Gait (FIM): 5 Distance (FIM): 3=150 ft (x2) Gait Level of Assist: 5 Gait Persons Needed: 1 Gait Assistive Device: FWW slow, flexed at trunk, Stair Training Stair Training: Handrails/: 2 handrails Stairs (FIM): 5 #of Steps: 4 Stairs: Pattern: Step to Level of Assist: 5 SBA and no instruction needed this date Exercises Supine Ex: Bridging, Ankle pumps, Quad Set, Rolling, Glut sets, Heel Slides, Short Arc Quads, Scooting, Hip abd/add Supine Reps: 12 Seated Therapy Exercises: Ankle pumps, Sit to stand, Long arc quads, Hip abd/ add Seated Reps: 12 Assessment Current Status: Good Progress PT Short Term Goals Short Term Goals Time Frame: Apr 03, 2018 Transfers (B,C,W/C) (FIM): 4 Gait (FIM): 4 Distance (FIM): 3=150 ft Gait Assistive Device: FWW PT Crochet Machine Operator Goals Senior Living Goals PT Senior Living Goals Time Frame: Apr 17, 2018 Transfers (B,C,W/C) (FIM): 6 Sit to Lying (QC): 6 Lying-Sitting on Side/Bed(QC): 6 Sit to Stand (QC): 6 Rollin Roll Left to Right (QC): 6 Chair/Pst-ig-Pqjxj Xfer(QC): 6 Car Transfer (QC): 6 Does the Patient Walk: Yes Gait (FIM): 6 Gait distance (FIM): 3=150 ft Walk 10 feet (QC): 6 Walk 10ft-Uneven Surface(QC): 6 Walk 50ft with 2 Turns (QC): 6 Walk 150 ft (QC): 6 Gait Assistive Device: FWW Does the Pt use WC or Scooter?: No Stairs (FIM): 5 # of Steps: 4 1 Step (curb) (QC): 6 4 Steps (QC): 6 12 Steps (QC): 88 Picking up an Object (QC): 88 PT Plan Treatment/Plan Treatment Plan: Continue Plan of Care Treatment Plan: Bed Mobility, Education, Functional Activity Attila, Functional Strength, Group Therapy, Gait, Safety, Therapeutic Exercise, Transfers Treatment Duration: Apr 17, 2018 Frequency: At least 5 of 7 days/Wk (IRF) Estimated Hrs Per Day: 1.5 hours per day Patient and/or Family Agrees t: Yes Safety Risks/Education Patient Education: Gait Training, Transfer Techniques, Steps, Disease Process, Safety Issues Teaching Recipient: Patient Teaching Methods: Demonstration, Discussion Response to Teaching: Verbalize Understanding, Return Demonstration, Reinforcement Needed Time/GCodes Time In: 900 Time Out: 1000 Total Billed Treatment Time: 60 Total Billed Treatment 1,EX20m,FA25m,GT15m G Codes Necessary: ANA Byrd ALTERATIONS SUPERVISOR Apr 09, 2018 10:07
[2018-04-09] MEDS: SPIRIVA RESPIMAT IH SCH ×2 (10:17→19:03)
--- NOTE | 2018-04-09 11:19 | Progress Note-Standard ---
Standard Progress Note Progress Notes/Assess & Plan Date Seen by Provider: Apr 09, 2018 Time Seen by Provider: 11:19 Progress/Assessment & Plan NO complaints Vital Signs Date Time Temp Pulse Resp B/P (MAP) Pulse Ox O2 Delivery O2 Flow Rate FiO2 03/28/18 02:28 94 Nasal Cannula 2.00 03/27/18 21:00 96 Nasal Cannula 1.50 03/27/18 20:01 88 Room Air 03/27/18 17:54 98.5 90 16 122/74 (90) 91 Nasal Cannula 2.00 03/27/18 14:51 92 Nasal Cannula 1.50 03/27/18 10:50 Nasal Cannula 1.50 I & O 03/28/18 07:00 Intake Total 300 ml Output Total 150 ml Balance 150 ml L hip incision echymotic without erythema no calf tenderness s/p L hip bipolar PT/OT I will be out of town next week A [place] covering Final Diagnosis No complaints working with OT s/p L hip bipolar will FU as outpt anticipate DC later this week MALICK RUEDA MD Apr 09, 2018 11:19
--- NOTE | 2018-04-09 13:19 | Cardiology Progress Note ---
Cardiology SOAP Progress Note Subjective: No cardiac complaints. Elevated blood pressure. Objective: I&O/Vital Signs 04/09/18 04/09/18 04/09/18 04/09/18 05:18 06:31 07:00 10:17 Temp 97.8 Pulse 83 71 72 Resp 18 B/P (MAP) 185/93 (123) 181/83 (115) Pulse Ox 95 94 O2 Delivery Room Air Room Air 04/09/18 10:31 Temp 97.8 04/09/18 00:00 Intake Total 580 ml Balance 580 ml Weight (Pounds): 170 Weight (Ounces): 1.0 Weight (Calculated Kilograms): [id number] Constitutional: appears stated age, AAO x 3, well-developed, well-nourished Respiratory: No accessory muscle use, No respiratory distress, No chest tender , No chest expansion is symmetric; chest is bilaterally symmetric; No lungs clear to percussion; lungs clear to auscultation; No crackles, No rhonchi, No rales, No stridor, No wheezing, No pleural rub, No other Cardiovascular: regular rate-rhythm, tachycardia, S1 and S2 Gastrointestional: No tender, No soft, No round, No distended, No pulsatile mass, No organomegaly, No guarding, No rebound, No tenderness, No hernia, No mass, No audible bowel sounds, No abnormal bowel sounds, No abdominal bruits, No spleenomegaly, No other Extremities: No normal range of motion, No non-tender, No normal inspection, No pedal edema, No calf tenderness, No normal capillary refill, No pelvis stable , No calf tenderness, No inflammation, No pedal edema, No slow capillary refill , No swelling, No other, No abrasion, No clubbing, No cyanosis, No ecchymosis, No laceration, No no lower extremity edema bilateral, No significant edema, No tenderness, No wound Neurologic/Psychiatric: no motor/sensory deficits, alert, normal mood/affect, oriented x 3, power is 5/5 both on sides Skin: No normal color, No warm/dry, No cyanosis, No cool, No diaphoresis, No damp, No ecchymosis, No jaundice, No mottled, No pallor, No rash, No tattoos/ piercings, No ulcerations, No rash on exposed areas, No ulcerations on exposed areas, No other A/P: Assessment/Dx: Shortness of breath, tachycardia, atrial tachycardia/atrial fibrillation, Recent hip surgery, High suspicion for PE, under treatment Hypertension Plan: Shortness of breath, indeterminate VQ scan, patient was not in DVT prophylaxis. Severe allergy to contrast therefore CT angiography not performed on patient request. We therefore decided to treat the patient as PE with 7 days off Eliquis 10 mg twice a day. Changed to 5 mg twice a day from today. Ectopic atrial rhythm. Likely atrial tachycardia. Could be atrial fibrillation as well. Patient does not have history of atrial fibrillation but does tell me that she had irregular heart rhythm before. She will continue Eliquis. Increase metoprolol. Hypertension: Elevated blood pressure. We will increase metoprolol 100 mg twice a day. Continue when necessary Cat[place]. Shortness of breath: Much improved. Mild elevation of BNP. No florid congestive heart failure. Echocardiogram showed normal LV function. Shortness of breath is likely secondary to COPD. Thank you for your consultation. Please call me if you have any questions. Justine Plascencia MD, FACP, FACC, FSCAI, FHRS, CCDS Interventional Cardiology Cardiac Electrophysiology Vascular Medicine and Endovascular Interventions Carolina PLASCENCIA MD Apr 09, 2018 1:19 pm
--- NOTE | 2018-04-09 13:42 | Occupational Ther Daily Note ---
OT Current Status-Daily Note Subjective Pt seen in room, up in recliner, agreeable to OT. No pain mentioned. Appearance Alert, cooperative Mental Status/Objective Functional [place] Measure 0=Not Assessed/NA 4=Minimal Assistance 1=Total Assistance 5=Supervision or Setup 2=Maximal Assistance 6=Modified [place] 3=Moderate Assistance 7=Complete [place] ADL-Treatment Pt washed up with bath pack but did not complete full sponge bath. Did not change clothes but did walk to sink with SBA, FWW to brush teeth and hair. Functional [place] Measure 0=Not Assessed/NA 4=Minimal Assistance 1=Total Assistance 5=Supervision or Setup 2=Maximal Assistance 6=Modified [place] 3=Moderate Assistance 7=Complete IndependenceIRFPAI Quality Coding Scale 6 Independent with activity with or without an assistive device 5 Patient requires set up or clean up by helper. Patient completes activity by themselves 4 Supervision or touching assist (CGA). [place] provide cues , steadying assist 3 The helper provides less than half the effort to complete the activity 2 The helper provides more than half the effort to complete the activity 1 Dependent. The helper does all the effort to complete an activity 7 Patient refused to complete or attempt activity 9 The patient did not perform the activity before the current illness or injury 88 Not attempted due to Medical conditions or safety concerns Grooming (FIM): 6 (Mod I at sink, using FWW for balance) Other Treatment Pt walked to gym with SBA, FWW. She did 15 minutes bilat UE exercise on arm bike set at 20W resistance, taking a couple brief recovery breaks. She also did peg activity and graded clothespins, with 1# weight on each arm. To strengthen arms to help with transfers. Pt got up from chair with arms, with a little hesitation midpoint, and walked back to room with SBA, FWW. She was left up in recliner, all needs met. Education OT Patient Education: Exercise program, Progress toward Goal/Update tx plan, Purpose of tx/functional activities Teaching Recipient: Patient Teaching Methods: Discussion Response to Teaching: Verbalize Understanding OT Short Term Goals Short Term Goals Transfers (B,C,W/C) (FIM): 4 1=Demonstrate adherence to instructed precautions during ADL tasks. 2=Patient will verbalize/demonstrate understanding of assistive devices/ modifications for ADL. 3=Patient will improve strength/tolerance for activity to enable patient to perform ADL's. OT Custodial Goals Road Grader Goals Time Frame: Apr 17, 2018 1=Demonstrate adherence to instructed precautions during ADL tasks. 2=Patient will verbalize/demonstrate understanding of assistive devices/ modifications for ADL. 3=Patient will improve strength/tolerance for activity to enable patient to perform ADL's. OT Education/Plan Problem List/Assessment Pt would benefit from skilled OT to increase her independence in basic self care to allow her to safety return to her home after a fall with hip fx and repair Discharge Recommendations Plan/Recommendations: Continue POC Treatment Plan/Plan of Care Patient would benefit from OT for education, treatment and training to promote independence in ADL's, mobility, safety and/or upper extremity function for ADL' s. Plan of Care: ADL Retraining, Functional Mobility, Group Exercise/Act as Ind ( education, exercise, funct mobility, activity tolerance, socialization), UE Funct Exercise/Act, UE Neuromus Re-Ed/Coord, OTHER (energy conservation education) Treatment Duration: Apr 17, 2018 Frequency: At least 5 of 7 days/Wk (IRF) Estimated Hrs Per Day: 1.5 hours per day Agreement: Yes Rehab Potential: Fair Time/GCodes Start Time: 10:40 Stop Time: 11:40 Total Time Billed (hr/min): 60 Billed Treatment Time visit, 15 minutes ADL, 45 minutes exercise RADHA LALA OT Apr 09, 2018 13:42
--- NOTE | 2018-04-09 14:31 | Therapy Group Daily Note ---
Therapy Daily Group Note Patient Education Topic Home Safety, Other List Below (adapting to change) Exercises LE Seated Exercise, UE Exercise, Other (breathing techniques) Other/Notes Pt. participated in group PT OT session this date. Pt. ambulated from room and back with SBA FWW. Pt. was very social , introduced herself and shared an experience in life where she had to endure change and how it affected her. Focus of education encompassed how change is a challenge whether good or bad and that strengthening physically requires change at muscular cellular level as well as the change of creating new habits and focuses. Pts. shared what safety habits and changes they plan to implement upon return to home . Pts. lead the seated U&L extremity exercises utilizing written illustrated cards. Pt. to room after group with CGA. Nikky at hand. Start Time: 13:00 Stop Time: 14:05 Total Billed Treatment Time: 65 Total Billed Treatment 1,GRP ANA CABAN CONSUMER INSIGHT MANAGER Apr 09, 2018 14:31
[2018-04-09 16:53] VITALS: BP 152/76
[2018-04-09 20:50] VITALS: BP 160/92
[2018-04-09] MEDS ORDERED: meTOprolol SUCCINATE 100 MG (TOPROL XL) TAB PO SCH (21:00)
[2018-04-10] MEDS: cloNIDine 0.1 MG (CATAPRES) TAB PO PRN ×2 (01:44→08:14)
[2018-04-10 01:45] VITALS: BP 196/80
[2018-04-10] MEDS: ACETAMINOPHEN 500 MG TAB (TYLENOL) PO PRN ×3 (02:11→18:12)
[2018-04-10] MEDS: MULTIVIT W/MINERALS TAB (THERAGRAN M) PO SCH (07:04)
[2018-04-10] MEDS: CATHETER FLUSH 10 ML SYR IV SCH (07:06)
[2018-04-10 07:23] VITALS: BP 196/89
[2018-04-10 07:40] VITALS: BP 195/96
[2018-04-10] MEDS: DOCUSATE SODIUM 100 MG (COLACE) CAP PO SCH ×2 (07:45→21:01)
[2018-04-10] MEDS: MAGNESIUM OXIDE (MAG-OX)400 MG TAB PO SCH ×2 (07:45→18:13)
[2018-04-10] MEDS: APIXABAN 5 MG (ELIQUIS) TABLET PO SCH ×2 (07:45→20:52)
[2018-04-10] MEDS: METOLAZONE 2.5 MG (ZAROXOLYN) TAB PO SCH (07:46)
[2018-04-10] MEDS: SENNOSIDES 8.6 MG (SENOKOT) TAB PO SCH ×2 (07:46→21:01)
[2018-04-10] MEDS: meTOprolol SUCCINATE 100 MG (TOPROL XL) TAB PO SCH ×2 (07:47→20:52)
--- NOTE | 2018-04-10 08:06 | Cardiology Progress Note ---
Cardiology SOAP Progress Note Subjective: No cardiac complaints. Objective: I&O/Vital Signs 04/10/18 04/10/18 15:15 19:43 Temp 97.0 Pulse 72 Resp 18 B/P (MAP) 130/73 (92) Pulse Ox 95 93 O2 Delivery Room Air Room Air 04/10/18 00:00 Intake Total 650 ml Balance 650 ml Weight (Pounds): 170 Weight (Ounces): 1.0 Weight (Calculated Kilograms): [id number] Constitutional: appears stated age, AAO x 3, well-developed, well-nourished Respiratory: No accessory muscle use, No respiratory distress, No chest tender , No chest expansion is symmetric; chest is bilaterally symmetric; No lungs clear to percussion; lungs clear to auscultation; No crackles, No rhonchi, No rales, No stridor, No wheezing, No pleural rub, No other Cardiovascular: regular rate-rhythm, tachycardia, S1 and S2 Gastrointestional: No tender, No soft, No round, No distended, No pulsatile mass, No organomegaly, No guarding, No rebound, No tenderness, No hernia, No mass, No audible bowel sounds, No abnormal bowel sounds, No abdominal bruits, No spleenomegaly, No other Extremities: No normal range of motion, No non-tender, No normal inspection, No pedal edema, No calf tenderness, No normal capillary refill, No pelvis stable , No calf tenderness, No inflammation, No pedal edema, No slow capillary refill , No swelling, No other, No abrasion, No clubbing, No cyanosis, No ecchymosis, No laceration, No no lower extremity edema bilateral, No significant edema, No tenderness, No wound Neurologic/Psychiatric: no motor/sensory deficits, alert, normal mood/affect, oriented x 3, power is 5/5 both on sides Skin: No normal color, No warm/dry, No cyanosis, No cool, No diaphoresis, No damp, No ecchymosis, No jaundice, No mottled, No pallor, No rash, No tattoos/ piercings, No ulcerations, No rash on exposed areas, No ulcerations on exposed areas, No other A/P: Assessment/Dx: Shortness of breath, tachycardia, atrial tachycardia/atrial fibrillation, Recent hip surgery, High suspicion for PE, under treatment Hypertension Plan: Shortness of breath, indeterminate VQ scan, patient was not in DVT prophylaxis. Severe allergy to contrast therefore CT angiography not performed on patient request. We therefore decided to treat the patient as PE with 7 days off Eliquis 10 mg twice a day. Changed to 5 mg twice a day on 04/09/2018. I discussed with the patient that she will go home on Eliquis 5 mg twice a day but the patient refused to take oral anticoagulation as according to her she is easily bruised. I discussed with her the risk associated with not taking oral anticoagulation, however she is adamant that she does not want to be on Eliquis. Ectopic atrial rhythm. Likely atrial tachycardia. Could be atrial fibrillation as well. Patient does not have history of atrial fibrillation but does tell me that she had irregular heart rhythm before. She will continue Eliquis. On metoprolol 100 mg twice a day. Hypertension: Elevated blood pressure. Was on metoprolol 100 mg twice a day. Restarted on Atacand 32 mg daily since she was on Atacand as an outpatient. If her blood pressure is still not controlled on metoprolol and Atacand she may require a third agent. When I discussed with the patient she flatly refused taking any other medication except what she was on already at home. She tells me that her systolic blood pressure at home on the above medication can occasionally be systolic 170 mmHg. I told her that systolic blood pressure of 170 mmHg is significantly elevated. She responded that she is had high blood pressure since 1984 and it has always been in the 170s and it is fine with her. I told her that it was my responsibility to let her know that if she has uncontrolled blood pressure she could have adverse cardiac and vascular events associated with uncontrolled blood pressure including stroke and MS. Shortness of breath: Much improved. Mild elevation of BNP. No florid congestive heart failure. Echocardiogram showed normal LV function. Shortness of breath is likely secondary to COPD. I also offered the patient that I could follow-up as an outpatient since she does not follow with cardiology. However the patient would like to just follow with her primary care physician. Thank you for your consultation. Please call me if you have any questions. Justine Plascencia MD, FACP, FACC, FSCAI, FHRS, CCDS Interventional Cardiology Cardiac Electrophysiology Vascular Medicine and Endovascular Interventions Carolina PLASCENCIA MD Apr 10, 2018 8:06 am
[2018-04-10] MEDS ORDERED: LOSARTAN 50 MG (COZAAR) TAB PO SCH (08:09)
[2018-04-10 08:12] VITALS: BP 176/80
[2018-04-10] MEDS: SPIRIVA RESPIMAT IH SCH ×2 (08:44→19:43)
[2018-04-10] MEDS: CANDESARTAN 32 MG PO SCH (08:53)
[2018-04-10 08:54] VITALS: BP 147/78
--- NOTE | 2018-04-10 09:18 | PM & R (SOAP) Progress Note ---
Subjective This was a face to face visit with the patient. Date Seen by Provider: Apr 10, 2018 Time Seen by Provider: 08:15 Subjective/Events-last exam Patient was seen in her room this AM Patient Modifeid Independent for traansfers and progressing well with therapies but Blood pressure elevated this AM Now improved with adjustment in meds by cardiology Discussed case with RN Objective Physician Exam Last Set of Vital Signs Vital Signs Date Time Temp Pulse Resp B/P (MAP) Pulse Ox O2 Delivery O2 Flow Rate FiO2 04/10/18 08:54 72 147/78 (101) 04/10/18 08:46 92 Room Air 04/10/18 05:32 98.0 18 04/05/18 06:19 0.00 Capillary Refill : Less Than 3 Seconds I&O Intake and Output 04/10/18 00:00 Intake Total 800 ml Balance 800 ml Intake Oral 800 ml # Voids 6 General: Alert, Oriented X3, Cooperative, No Acute Distress HEENT: Atraumatic, PERRLA, EOMI, Mucous Memb Moist/[place] Neck: Supple, No JVD Lungs: Clear to Auscultation Heart: Normal S1, Normal S2, Other (tachycardia) Abdomen: Normal Bowel Sounds, Soft Extremities: No Clubbing, No Cyanosis, Other (trace edema left ankle) Skin: Other (incision healing well) Neuro: Normal Speech, Other (good strength BUES and RLE limited at left hip with guarding) Psych/Mental Status: Mental Status NL Assessment/Plan Assessment and Plan Displaced fem neck fracture s/p bipolar replacement DR Arcos HTN poorly controlled meds adjusted Postop resp insuffiency resolved Episode of tachycardia resolved Postop anemia Hypokalemia replaced Plan Continue Pt/OT Team Conference held yesterday-see report for full functional uopdate and POC Discharge remains set for tomorrow to home with HHC F/U with Cardiology prn Monitor Blood pressure with further adjustments as needed Patient utilizes her own med which isnt available here-she has obtained from her home supply hopefully this will stabilize BP Co-Morbidities that are continuing to impact the rehab process: (include details ) BRANNON HAYNES MD Apr 10, 2018 09:18
--- NOTE | 2018-04-10 10:14 | Physical Therapy Daily Note ---
PT Daily Note-Current Subjective Pt sitting in recliner upon arrival. Pt agrees to PT for FIM scoring for discharge tomorrow (04/11/18) Pain Location: No Pain Reported Mental Status Patient Orientation: Person, Place, Time, Situation Transfers Functional [place] Measure 0=Not Assessed/NA 4=Minimal Assistance 1=Total Assistance 5=Supervision or Setup 2=Maximal Assistance 6=Modified [place] 3=Moderate Assistance 7=Complete IndependenceIRFPAI Quality Coding Scale 6 Independent with activity with or without an assistive device 5 Patient requires set up or clean up by helper. Patient completes activity by themselves 4 Supervision or touching assist (CGA). [place] provide cues , steadying assist 3 The helper provides less than half the effort to complete the activity 2 The helper provides more than half the effort to complete the activity 1 Dependent. The helper does all the effort to complete an activity 7 Patient refused to complete or attempt activity 9 The patient did not perform the activity before the current illness or injury 88 Not attempted due to Medical conditions or safety concerns Transfers (B, C, W/C) (FIM): 6 Scootin Rollin Roll Left to Right (QC): 6 Supine to/from Sit: 6 Sit to/from Stand: 6 Sit to Lying (QC): 6 Sit to Stand (QC): 6 Chair/Abm-dd-Fuphu Xfer(QC): 6 Bed to/from Chair: 6 Car Transfer (QC): 6 Weight Bearing Right Lower Extremity: Right Full Weight Bearing Left Lower Extremity: Left Weight Bearing/Tolerated Gait Training Does the Patient Walk?: Yes Gait (FIM): 6 Distance (FIM): 3=150 ft Distance: 250' Walk 10 feet (QC): 6 Walk 50 ft with 2 Turns(QC): 6 Walk 150 ft (QC): 6 Walking 10ft/uneven surface-QC: 6 Gait Level of Assist: 6 Gait Persons Needed: 1 Gait Assistive Device: FWW Pt has slow daric but endurance & SOA have improved. Wheelchair Training Does the Pt Use a Wheelchair?: No Stair Training Stair Training: Handrails/: 2 handrails Stairs (FIM): 3 #of Steps: 8 1 Step (curb) (QC): 6 4 Steps (QC): 6 12 Steps (QC): 88 Stairs: Pattern: Step to Level of Assist: 6 Pt fatigues after 2 sets of 4 stairs (8 stairs), 12 were not attempted. Pt has ramp to enter house. Balance Picking up an Object (QC): 88 Special Test Comments Pt reports not bending over at home, uses traffic control operator so did not attempt at this time. Treatments Pt completes bed mobility at Mod I, then transfers Supine to EOB to Standing at Mod I. Pt ambulates in hallway using FWW at Mod I. Pt completes 2 sets of 4 stairs as well as walking across varying surface at Mod I. Pt completes car transfer at Mod I, lifting LLE into car. Pt uses restroom and returns to recliner to rest at end of tx. Pt has all needs met, including call light in hand. Assessment Pt has improved with strength, endurance and SOA during transfers and ambulation. PT Short Term Goals Short Term Goals Time Frame: Apr 03, 2018 Transfers (B,C,W/C) (FIM): 4 Gait (FIM): 4 Distance (FIM): 3=150 ft Gait Assistive Device: FWW PT Remote Encoding Operations Supervisor Goals Mcfp Goals PT Remote Encoding Operations Supervisor Goals Time Frame: Apr 17, 2018 Transfers (B,C,W/C) (FIM): 6 Sit to Lying (QC): 6 Lying-Sitting on Side/Bed(QC): 6 Sit to Stand (QC): 6 Rollin Roll Left to Right (QC): 6 Chair/Mgb-yw-Fksbd Xfer(QC): 6 Car Transfer (QC): 6 Does the Patient Walk: Yes Gait (FIM): 6 Gait distance (FIM): 3=150 ft Walk 10 feet (QC): 6 Walk 10ft-Uneven Surface(QC): 6 Walk 50ft with 2 Turns (QC): 6 Walk 150 ft (QC): 6 Gait Assistive Device: FWW Does the Pt use WC or Scooter?: No Stairs (FIM): 5 # of Steps: 4 1 Step (curb) (QC): 6 4 Steps (QC): 6 12 Steps (QC): 88 Picking up an Object (QC): 88 PT Plan Problem List Problem List: Activity Tolerance Treatment/Plan Treatment Plan: Continue Plan of Care Treatment Plan: Bed Mobility, Education, Functional Activity [place], Functional Strength, Group Therapy, Gait, Safety, Therapeutic Exercise, Transfers Treatment Duration: Apr 17, 2018 Frequency: At least 5 of 7 days/Wk (IRF) Estimated Hrs Per Day: 1.5 hours per day Patient and/or Family Agrees t: Yes Safety Risks/Education Patient Education: Transfer Techniques, Steps, Correct Positioning, Safety Issues Teaching Recipient: Patient Teaching Methods: Discussion Response to Teaching: Verbalize Understanding Time/GCodes Time In: 900 Time Out: 1000 Total Billed Treatment Time: 60 Total Billed Treatment 1, GT (15m), FA (15m) & EX x2 (30m) G Codes Necessary: HÉCTOR Cao QUARRYING SPECIALIST Apr 10, 2018 10:14
--- NOTE | 2018-04-10 11:22 | Occupational Ther Daily Note ---
OT Current Status-Daily Note Subjective Pt seen in room, up in recliner, agreeable to OT. Mentioned it was time for pain meds later in tx and nursing notified. Appearance Alert, cooperative Mental Status/Objective Functional [place] Measure 0=Not Assessed/NA 4=Minimal Assistance 1=Total Assistance 5=Supervision or Setup 2=Maximal Assistance 6=Modified [place] 3=Moderate Assistance 7=Complete [place] Attachments: Saline Lock (covered for shower) ADL-Treatment Pt agreed to ADLs. Walked without help, FWW, to bathroom, then toileted, showered, dressed, groomed all mod I. Pt followed hip precautions during ADLs. Functional [place] Measure 0=Not Assessed/NA 4=Minimal Assistance 1=Total Assistance 5=Supervision or Setup 2=Maximal Assistance 6=Modified [place] 3=Moderate Assistance 7=Complete IndependenceIRFPAI Quality Coding Scale 6 Independent with activity with or without an assistive device 5 Patient requires set up or clean up by helper. Patient completes activity by themselves 4 Supervision or touching assist (CGA). [place] provide cues , steadying assist 3 The helper provides less than half the effort to complete the activity 2 The helper provides more than half the effort to complete the activity 1 Dependent. The helper does all the effort to complete an activity 7 Patient refused to complete or attempt activity 9 The patient did not perform the activity before the current illness or injury 88 Not attempted due to Medical conditions or safety concerns Eating (FIM): 6 (Pt is able to open packages, cut up food, get a drink, feed herself without assistance or AD except has dentures which she uses all the time to eat.) Eating (QC): 6 Grooming (FIM): 6 (Brushed hair. Washed face and hands in shower. Able to stand at counter with FWW for balance and energy conservation) Oral Hygiene (QC): 6 Bathing (FIM): 6 (Washed and dried all parts, following hip precautions. Long handled sponge, shower bench, grab bars, hand held shower. ) Shower/Bathe Self (QC): 6 Upper Body (FIM): 6 (Retrieved clean clothes and put dirty ones away, carrying them on walker. Doffed and donned shirt without help) Upper Body Dressing (QC): 6 Lower Body Dressing (FIM): 6 (Retrieved clean clothes and put dirty ones away, carrying them on FWW. Doffed and donned clothes, including slipper socks, using dressing stick and sock aid, following hip precautions. FWW) Lower Body Dressing (QC): 6 On/Off Footwear (QC): 6 Toileting (FIM): 6 (Managed clothing and hygiene, BSC over toilet, grab bar, FWW. ) Toileting Hygiene (QC): 6 Toilet/Commode Transfer (FIM): 6 (On/off BSC over toilet, with grab bar and FWW ) Toilet Transfer (QC): 6 Shower Transfer(FIM): 6 (In/out of shower and on/off shower bench, using FWW and grab bar) Other Treatment Pt walked to gym with FWW and no LOB. Able to get up and down from chair with arms, moving slowly but safely and no LOB observed. Pt did 15 minutes exercise with arm bike set at 20-25W resistance (increased resistance), to strengthen arms to help with transfers and standing during ADLs. Got up from chair slowly but needed no help. Walked back to room and was left up in recliner, all needs met. Education OT Patient Education: Purpose of tx/functional activities Teaching Recipient: Patient Teaching Methods: Discussion Response to Teaching: Verbalize Understanding OT Short Term Goals Short Term Goals Transfers (B,C,W/C) (FIM): 4 1=Demonstrate adherence to instructed precautions during ADL tasks. 2=Patient will verbalize/demonstrate understanding of assistive devices/ modifications for ADL. 3=Patient will improve strength/tolerance for activity to enable patient to perform ADL's. OT Sped Teacher Goals Alf Goals Time Frame: Apr 17, 2018 1=Demonstrate adherence to instructed precautions during ADL tasks. 2=Patient will verbalize/demonstrate understanding of assistive devices/ modifications for ADL. 3=Patient will improve strength/tolerance for activity to enable patient to perform ADL's. OT Education/Plan Problem List/Assessment Pt would benefit from skilled OT to increase her independence in basic self care to allow her to safety return to her home after a fall with hip fx and repair Discharge Recommendations Plan/Recommendations: Continue POC Treatment Plan/Plan of Care Patient would benefit from OT for education, treatment and training to promote independence in ADL's, mobility, safety and/or upper extremity function for ADL' s. Plan of Care: ADL Retraining, Functional Mobility, Group Exercise/Act as Ind ( education, exercise, funct mobility, activity tolerance, socialization), UE Funct Exercise/Act, UE Neuromus Re-Ed/Coord, OTHER (energy conservation education) Treatment Duration: Apr 17, 2018 Frequency: At least 5 of 7 days/Wk (IRF) Estimated Hrs Per Day: 1.5 hours per day Agreement: Yes Rehab Potential: Fair Time/GCodes Start Time: 10:00 Stop Time: 11:05 Total Time Billed (hr/min): 65 Billed Treatment Time visit, 45 minutes ADL, 20 minutes exercise RADHA LALA OT Apr 10, 2018 11:22
--- NOTE | 2018-04-10 14:07 | Occupational Ther Daily Note ---
OT Current Status-Daily Note Subjective Pt seen in gym, agreeable to OT. Needed to toilet. No pain mentioned. Appearance Alert, cooperative Mental Status/Objective Functional [place] Measure 0=Not Assessed/NA 4=Minimal Assistance 1=Total Assistance 5=Supervision or Setup 2=Maximal Assistance 6=Modified [place] 3=Moderate Assistance 7=Complete [place] ADL-Treatment Functional [place] Measure 0=Not Assessed/NA 4=Minimal Assistance 1=Total Assistance 5=Supervision or Setup 2=Maximal Assistance 6=Modified [place] 3=Moderate Assistance 7=Complete IndependenceIRFPAI Quality Coding Scale 6 Independent with activity with or without an assistive device 5 Patient requires set up or clean up by helper. Patient completes activity by themselves 4 Supervision or touching assist (CGA). [place] provide cues , steadying assist 3 The helper provides less than half the effort to complete the activity 2 The helper provides more than half the effort to complete the activity 1 Dependent. The helper does all the effort to complete an activity 7 Patient refused to complete or attempt activity 9 The patient did not perform the activity before the current illness or injury 88 Not attempted due to Medical conditions or safety concerns Other Treatment Up from chair with arms with a little effort. Pt walked back to room with FWW, no help and no LOB observed. Pt toileted mod I and walked to recliner. Pt provided with written home program of bilat UE exercises, using yellow theraband. Pt educ on the 5 different exercises and using pictures as cues to do them correctly. Pt able to follow instructions and do exercises with occasional cue to do exercise correctly. Pt did 15 reps each ex, to strengthen arms to help with getting up and down and with ADLs. Pt left up in recliner, all questions answered and all needs met. Education OT Patient Education: Home exercise program, Purpose of tx/functional activities Teaching Recipient: Patient Teaching Methods: Demonstration, Discussion Response to Teaching: Verbalize Understanding, Return Demonstration OT Short Term Goals Short Term Goals Transfers (B,C,W/C) (FIM): 4 1=Demonstrate adherence to instructed precautions during ADL tasks. 2=Patient will verbalize/demonstrate understanding of assistive devices/ modifications for ADL. 3=Patient will improve strength/tolerance for activity to enable patient to perform ADL's. OT Retirement Goals Financial Services Assistant Goals Time Frame: Apr 17, 2018 Eating (FIM): 6 (met 8-9-18) Eating (QC): 6 (met 04-10-18) Groomin (met 04-10-18) Oral Hygiene (QC): 6 (met 04-10-18) Bathing(FIM): 5 (met 04-10-18) Shower/Bathe Self (QC): 5 (met 04-10-18) Upper Body Dressing(FIM): 6 (met 04-10-18) Upper Body Dressing (QC): 6 (met 04-10-18) Lower Body Dressing(FIM): 6 (met 04-10-18) Lower Body Dressing (QC): 6 (met 04-10-18) On/Off Footwear (QC): 6 (met 04-10-18) Toileting(FIM): 6 (met 04-10-18) Toileting Hygiene (QC): 6 (met 04-10-18) Toilet/Commode Transfer(FIM): 6 (met 04-10-18) Toilet/Commode Transfer (QC): 6 (met 04-10-18) Shower Transfer(FIM): 5 (met 04-10-18) 1=Demonstrate adherence to instructed precautions during ADL tasks. 2=Patient will verbalize/demonstrate understanding of assistive devices/ modifications for ADL. 3=Patient will improve strength/tolerance for activity to enable patient to perform ADL's. OT Education/Plan Problem List/Assessment Pt would benefit from skilled OT to increase her independence in basic self care to allow her to safety return to her home after a fall with hip fx and repair Discharge Recommendations Plan/Recommendations: Continue POC (anticipate DC to home tomorrow) Treatment Plan/Plan of Care Patient would benefit from OT for education, treatment and training to promote independence in ADL's, mobility, safety and/or upper extremity function for ADL' s. Plan of Care: ADL Retraining, Functional Mobility, Group Exercise/Act as Ind ( education, exercise, funct mobility, activity tolerance, socialization), UE Funct Exercise/Act, UE Neuromus Re-Ed/Coord, OTHER (energy conservation education) Treatment Duration: Apr 17, 2018 Frequency: At least 5 of 7 days/Wk (IRF) Estimated Hrs Per Day: 1.5 hours per day Agreement: Yes Rehab Potential: Fair Time/GCodes Start Time: 13:30 Stop Time: 13:55 Total Time Billed (hr/min): 25 Billed Treatment Time visit, 25 minutes exercise RADHA LALA OT Apr 10, 2018 14:07
--- NOTE | 2018-04-10 14:11 | Physical Therapy Daily Note ---
PT Daily Note-Current Subjective Pt sitting in recliner upon arrival. Pt agrees to PT. Pain Numeric Pain Scale: 5-Moderate Pain Location: Left Location Body Site: Hip Pain Description: Ache Mental Status Patient Orientation: Person, Place, Time, Situation Transfers Functional [place] Measure 0=Not Assessed/NA 4=Minimal Assistance 1=Total Assistance 5=Supervision or Setup 2=Maximal Assistance 6=Modified [place] 3=Moderate Assistance 7=Complete IndependenceIRFPAI Quality Coding Scale 6 Independent with activity with or without an assistive device 5 Patient requires set up or clean up by helper. Patient completes activity by themselves 4 Supervision or touching assist (CGA). [place] provide cues , steadying assist 3 The helper provides less than half the effort to complete the activity 2 The helper provides more than half the effort to complete the activity 1 Dependent. The helper does all the effort to complete an activity 7 Patient refused to complete or attempt activity 9 The patient did not perform the activity before the current illness or injury 88 Not attempted due to Medical conditions or safety concerns Scootin Sit to/from Stand: 6 Sit to Stand (QC): 6 Weight Bearing Right Lower Extremity: Right Full Weight Bearing Left Lower Extremity: Left Weight Bearing/Tolerated Gait Training Does the Patient Walk?: Yes Distance (FIM): 3=150 ft Distance: 250' Walk 10 feet (QC): 6 Walk 50 ft with 2 Turns(QC): 6 Walk 150 ft (QC): 6 Gait Level of Assist: 6 Gait Persons Needed: 1 Gait Assistive Device: FWW Pt has slow darci but endurance/activity tolerance has improved. Wheelchair Training Does the Pt Use a Wheelchair?: No Exercises NuStep Minutes: 10 NuStep Workload: 3 Treatments P transfers from recliner to standing using FWW at Mod I. Pt uses restroom before tx. Pt ambulates in hallway using FWW at Mod I. Pt uses NuStep for 10m at WL 3. Pt ambulates again in hallway before returning to [facility] for OT tx. Pt has all needs met at end of tx. Assessment Current Status: Good Progress Pt has improved with strength, endurance and safety for transfers & ambulation. PT Short Term Goals Short Term Goals Time Frame: Apr 03, 2018 Transfers (B,C,W/C) (FIM): 4 Gait (FIM): 4 Distance (FIM): 3=150 ft Gait Assistive Device: FWW PT Boiler Mechanic Goals Boiler Mechanic Goals PT Assisted Goals Time Frame: Apr 17, 2018 Transfers (B,C,W/C) (FIM): 6 Sit to Lying (QC): 6 Lying-Sitting on Side/Bed(QC): 6 Sit to Stand (QC): 6 Rollin Roll Left to Right (QC): 6 Chair/Txo-gg-Ysras Xfer(QC): 6 Car Transfer (QC): 6 Does the Patient Walk: Yes Gait (FIM): 6 Gait distance (FIM): 3=150 ft Walk 10 feet (QC): 6 Walk 10ft-Uneven Surface(QC): 6 Walk 50ft with 2 Turns (QC): 6 Walk 150 ft (QC): 6 Gait Assistive Device: FWW Does the Pt use WC or Scooter?: No Stairs (FIM): 5 # of Steps: 4 1 Step (curb) (QC): 6 4 Steps (QC): 6 12 Steps (QC): 88 Picking up an Object (QC): 88 PT Plan Problem List Problem List: Activity Tolerance Treatment/Plan Treatment Plan: Continue Plan of Care Treatment Plan: Bed Mobility, Education, Functional Activity Attila, Functional Strength, Group Therapy, Gait, Safety, Therapeutic Exercise, Transfers Treatment Duration: Apr 17, 2018 Frequency: At least 5 of 7 days/Wk (IRF) Estimated Hrs Per Day: 1.5 hours per day Patient and/or Family Agrees t: Yes Safety Risks/Education Patient Education: Gait Training, Transfer Techniques, Correct Positioning, Safety Issues Teaching Recipient: Patient Teaching Methods: Discussion Response to Teaching: Verbalize Understanding Time/GCodes Time In: 1300 Time Out: 1330 Total Billed Treatment Time: 30 Total Billed Treatment 1, GT (15m) & EX (15m) G Codes Necessary: No HÉCTOR DE LEÓN FIBERGLASS QUALITY TECHNICIAN Apr 10, 2018 14:11
[2018-04-10] MEDS ORDERED: MAGN400T6 PO (14:16)
[2018-04-10] MEDS ORDERED: APIX5TAB PO (14:16)
[2018-04-10 15:15] VITALS: BP 130/73
[2018-04-11 02:40] VITALS: BP 190/96
[2018-04-11] MEDS: ACETAMINOPHEN 500 MG TAB (TYLENOL) PO PRN (02:40)
[2018-04-11] MEDS: cloNIDine 0.1 MG (CATAPRES) TAB PO PRN (02:40)
[2018-04-11] MEDS: MULTIVIT W/MINERALS TAB (THERAGRAN M) PO SCH (03:54)
[2018-04-11 05:25] VITALS: BP 160/73
[2018-04-11 07:02] LABS: ALANINE AMINOTRANSFERASE 15 U/L (0-55); ALBUMIN 2.3 GM/DL (3.2-4.5); ALKALINE PHOSPHATASE 100 U/L (40-136); BILIRUBIN,TOTAL 0.5 MG/DL (0.1-1.0); BUN/CREATININE RATIO 32; CALCIUM 8.5 MG/DL (8.5-10.1); CARBON DIOXIDE 27 MMOL/L (21-32); CHLORIDE 104 MMOL/L (98-107); CREATININE SERUM 0.72 MG/DL (0.60-1.30); GFR ESTIMATED > 60; GLUCOSE 91 MG/DL (70-105); POTASSIUM 3.4 MMOL/L (3.6-5.0); SODIUM 137 MMOL/L (135-145); TOTAL PROTEIN 5.7 GM/DL (6.4-8.2)
--- NOTE | 2018-04-11 08:15 | PM & R (SOAP) Progress Note ---
Subjective This was a face to face visit with the patient. Date Seen by Provider: Apr 11, 2018 Time Seen by Provider: 08:00 Subjective/Events-last exam Patient was seen in her room this AM Discussed case with RN Yu low replacement ordered Has progressed well Objective Physician Exam Last Set of Vital Signs Vital Signs Date Time Temp Pulse Resp B/P (MAP) Pulse Ox O2 Delivery O2 Flow Rate FiO2 04/11/18 05:25 69 160/73 (102) 04/11/18 05:16 97.8 20 97 Room Air 04/05/18 06:19 0.00 Capillary Refill : Less Than 3 Seconds I&O Intake and Output 04/11/18 00:00 Intake Total 750 ml Balance 750 ml Intake Oral 750 ml # Voids 8 # Bowel Movements 2 General: Alert, Oriented X3, Cooperative, No Acute Distress HEENT: Atraumatic, PERRLA, EOMI, Mucous Memb Moist/[place] Neck: Supple, No JVD Lungs: Clear to Auscultation Heart: Normal S1, Normal S2, Other (tachycardia) Abdomen: Normal Bowel Sounds, Soft Extremities: No Clubbing, No Cyanosis, Other (trace edema left ankle) Skin: Other (incision healing well) Neuro: Normal Speech, Other (good strength BUES and RLE limited at left hip with guarding) Psych/Mental Status: Mental Status NL Results Lab Data Laboratory Tests 04/11/18 05:21: Sodium Level 137, Potassium Level 3.4L, Chloride Level 104, Carbon Dioxide Level 27, Anion Gap 6, Blood Urea Nitrogen 23H, Creatinine 0.72, Estimat Glomerular Filtration Rate > 60, BUN/Creatinine Ratio 32, Glucose Level 91, Calcium Level 8.5, Corrected Calcium 9.9, Total Bilirubin 0.5, Aspartate Amino Transf (AST/SGOT) 33, Alanine Aminotransferase (ALT/SGPT) 15, Alkaline Phosphatase 100, Total Protein 5.7L, Albumin 2.3L Assessment/Plan Assessment and Plan Home today with family and HHC F/U with PCP and ortho Replace K see orders Co-Morbidities that are continuing to impact the rehab process: (include details ) BRANNON HAYNES MD Apr 11, 2018 08:15
[2018-04-11] MEDS: MAGNESIUM OXIDE (MAG-OX)400 MG TAB PO SCH (08:19)
[2018-04-11] MEDS: METOLAZONE 2.5 MG (ZAROXOLYN) TAB PO SCH (08:19)
[2018-04-11] MEDS: DOCUSATE SODIUM 100 MG (COLACE) CAP PO SCH (08:20)
[2018-04-11] MEDS: APIXABAN 5 MG (ELIQUIS) TABLET PO SCH (08:20)
[2018-04-11] MEDS: SENNOSIDES 8.6 MG (SENOKOT) TAB PO SCH (08:20)
[2018-04-11] MEDS: CANDESARTAN 32 MG PO SCH (08:21)
[2018-04-11] MEDS: meTOprolol SUCCINATE 100 MG (TOPROL XL) TAB PO SCH (08:21)
[2018-04-11] MEDS ORDERED: KCL 20 MEQ TAB (K-DUR) PO NR (08:27)
--- NOTE | 2018-04-11 08:47 | Therapy Team Discharge Summary ---
Therapy Discharge Summary Discharge Recommendations Date of Discharge April 11, 2018 Therapy D/C Recommendations: Physical Therapy Home Care Occupational Therapy Pt was seen for skilled OT to increase her independence in basic self care to allow her to safely return home after a fall and total hip replacement. On admission she was modified indep with eating, setup for grooming and upper body dressing, min assist toilet transfer, CGA toileting, mod assist bathing and max assist lower body dressing, limited by hip precautions. By discharge she had progressed to modified independent with all basic ADLs, using dressing stick, sock aid, BSC over toilet, grab bars, shower bench, hand held shower and FWW. See tx plan for goals met. Pt provided with home exercise program for UE strengthening. DC OT Decreased Activ Tolerance, Decreased UE Strength, Dependent Transfers, Impaired Bed Mobility, Impaired Self-Care Skills PT Printing Estimator Goals Alf Goals PT Printing Estimator Goals Time Frame: Apr 17, 2018 Transfers (B,C,W/C) (FIM): 6 Roll Left to Right (QC): 6 Sit to Lying (QC): 6 Lying-Sitting on Side/Bed(QC): 6 Sit to Stand (QC): 6 Chair/Rnn-aj-Gsuxq Xfer(QC): 6 Car Transfer (QC): 6 Does the Patient Walk: Yes Gait (FIM): 6 Gait distance (FIM): 3=150 ft Walk 10 feet (QC): 6 Walk 10ft-Uneven Surface(QC): 6 Walk 50ft with 2 Turns (QC): 6 Walk 150 ft (QC): 6 Gait Assistive Device: FWW Does the Pt use WC or Scooter?: No Stairs (FIM): 5 # of Steps: 4 1 Step (curb) (QC): 6 4 Steps (QC): 6 12 Steps (QC): 88 Picking up an Object (QC): 88 OT Printing Estimator Goals Printing Estimator Goals Time Frame: Apr 17, 2018 Eating (FIM): 6 (met 8-9-18) Eating (QC): 6 (met 8-9-18) Oral Hygiene (QC): 6 (met 8-9-18) Grooming(FIM): 6 (met 8-9-18) Bathing(FIM): 5 (met 8-9-18) Shower/Bathe Self (QC): 5 (met 8-9-18) Upper Body Dressing(FIM): 6 (met 18) Upper Body Dressing (QC): 6 (met 04-10-18) Lower Body Dressing(FIM): 6 (met 04-10-18) Lower Body Dressing (QC): 6 (met 04-10-18) On/Off Footwear (QC): 6 (met 04-10-18) Toileting(FIM): 6 (met 04-10-18) Toileting Hygiene (QC): 6 (met 04-10-18) Toilet/Commode Transfer(FIM): 6 (met 04-10-18) Toilet/Commode Transfer (QC): 6 (met 04-10-18) Shower Transfer(FIM): 5 (met 04-10-18) 1=Demonstrate adherence to instructed precautions during ADL tasks. 2=Patient will verbalize/demonstrate understanding of assistive devices/ modifications for ADL. 3=Patient will improve strength/tolerance for activity to enable patient to perform ADL's. Speech Printing Estimator Goals Alf Goals No goals established as no skilled ST is indicated. RADHA LALA OT Apr 11, 2018 08:47
--- NOTE | 2018-04-11 09:25 | Cardiology Progress Note ---
Cardiology SOAP Progress Note Subjective: No cardiac complaints. Objective: I&O/Vital Signs 04/11/18 04/11/18 04/11/18 09:37 12:52 12:53 Temp 97.5 Pulse 78 78 Resp 18 18 B/P (MAP) 139/84 (102) 139/84 Pulse Ox 94 94 94 O2 Delivery Room Air Room Air Room Air 04/11/18 00:00 Intake Total 600 ml Balance 600 ml Weight (Pounds): 163 Weight (Ounces): 3.2 Weight (Calculated Kilograms): 74.556048 Constitutional: appears stated age, AAO x 3, well-developed, well-nourished Respiratory: No accessory muscle use, No respiratory distress, No chest tender , No chest expansion is symmetric; chest is bilaterally symmetric; No lungs clear to percussion; lungs clear to auscultation; No crackles, No rhonchi, No rales, No stridor, No wheezing, No pleural rub, No other Cardiovascular: regular rate-rhythm, tachycardia, S1 and S2 Gastrointestional: No tender, No soft, No round, No distended, No pulsatile mass, No organomegaly, No guarding, No rebound, No tenderness, No hernia, No mass, No audible bowel sounds, No abnormal bowel sounds, No abdominal bruits, No spleenomegaly, No other Extremities: No normal range of motion, No non-tender, No normal inspection, No pedal edema, No calf tenderness, No normal capillary refill, No pelvis stable , No calf tenderness, No inflammation, No pedal edema, No slow capillary refill , No swelling, No other, No abrasion, No clubbing, No cyanosis, No ecchymosis, No laceration, No no lower extremity edema bilateral, No significant edema, No tenderness, No wound Neurologic/Psychiatric: no motor/sensory deficits, alert, normal mood/affect, oriented x 3, power is 5/5 both on sides Skin: No normal color, No warm/dry, No cyanosis, No cool, No diaphoresis, No damp, No ecchymosis, No jaundice, No mottled, No pallor, No rash, No tattoos/ piercings, No ulcerations, No rash on exposed areas, No ulcerations on exposed areas, No other Results/Procedures: Labs Laboratory Tests 04/11/18 05:21: Sodium Level 137, Potassium Level 3.4L, Chloride Level 104, Carbon Dioxide Level 27, Anion Gap 6, Blood Urea Nitrogen 23H, Creatinine 0.72, Estimat Glomerular Filtration Rate > 60, BUN/Creatinine Ratio 32, Glucose Level 91, Calcium Level 8.5, Corrected Calcium 9.9, Total Bilirubin 0.5, Aspartate Amino Transf (AST/SGOT) 33, Alanine Aminotransferase (ALT/SGPT) 15, Alkaline Phosphatase 100, Total Protein 5.7L, Albumin 2.3L A/P: Assessment/Dx: Shortness of breath, tachycardia, atrial tachycardia/atrial fibrillation, Recent hip surgery, High suspicion for PE, under treatment Hypertension Plan: Shortness of breath, indeterminate VQ scan, patient was not in DVT prophylaxis. Severe allergy to contrast therefore CT angiography not performed on patient request. We therefore decided to treat the patient as PE with 7 days off Eliquis 10 mg twice a day. Changed to 5 mg twice a day on 04/09/2018. I discussed with the patient that she will go home on Eliquis 5 mg twice a day but the patient refused to take oral anticoagulation as according to her she is easily bruised. I discussed with her the risk associated with not taking oral anticoagulation, however she is adamant that she does not want to be on Eliquis. Ectopic atrial rhythm. Likely atrial tachycardia. Could be atrial fibrillation as well. Patient does not have history of atrial fibrillation but does tell me that she had irregular heart rhythm before. She will continue Eliquis. On metoprolol 100 mg twice a day. Hypertension: Elevated blood pressure. Was on metoprolol 100 mg twice a day. Restarted on Atacand 32 mg daily since she was on Atacand as an outpatient. If her blood pressure is still not controlled on metoprolol and Atacand she may require a third agent. When I discussed with the patient she flatly refused taking any other medication except what she was on already at home. She tells me that her systolic blood pressure at home on the above medication can occasionally be systolic 170 mmHg. I told her that systolic blood pressure of 170 mmHg is significantly elevated. She responded that she is had high blood pressure since 1984 and it has always been in the 170s and it is fine with her. I told her that it was my responsibility to let her know that if she has uncontrolled blood pressure she could have adverse cardiac and vascular events associated with uncontrolled blood pressure including stroke and DE. Shortness of breath: Much improved. Mild elevation of BNP. No florid congestive heart failure. Echocardiogram showed normal LV function. Shortness of breath is likely secondary to COPD. I also offered the patient that I could follow-up as an outpatient since she does not follow with cardiology. However the patient would like to just follow with her primary care physician. Thank you for your consultation. Please call me if you have any questions. Justine Plascencia MD, FACP, FACC, FSCAI, FHRS, CCDS Interventional Cardiology Cardiac Electrophysiology Vascular Medicine and Endovascular Interventions Carolina PLASCENCIA MD Apr 11, 2018 09:25
[2018-04-11] MEDS: SPIRIVA RESPIMAT IH SCH (09:37)
[2018-04-11 12:52] VITALS: BP 139/84
[2018-04-11 12:53] VITALS: BP 139/84
--- NOTE | 2018-04-11 15:28 | Therapy Team Discharge Summary ---
Therapy Discharge Summary Discharge Recommendations Date of Discharge Apr 11, 2018 at 13:00 Therapy D/C Recommendations: Physical Therapy Home Care Physical Therapy Patient came to rehab with a left hip fracture. Upon evaluation patient performed bed mobility and transfers with mod/max assist, ambulated 10' with a rolling walker with min assist, no stairs at this time. Patient has been performing bed mobility and transfer training, balance and endurance training, functional strengthening, stair training, gait training, and education. Patient has made good progress and has met all of her correction goals. Now, patient performs bed mobility and transfers with mod I, car transfer mod I, ambulates 250' with a rolling walker with mod I (including 50' with at least 2 turns of 90 degrees and 10' over an uneven surface), and can go up and down 8 steps using 2 handrails with mod I. Patient was discharged from this facility today and will be discharged from PT at this time. Occupational Therapy Decreased Activ Tolerance, Decreased UE Strength, Dependent Transfers, Impaired Bed Mobility, Impaired Self-Care Skills PT Usp Goals Usp Goals PT Usp Goals Time Frame: Apr 17, 2018 Transfers (B,C,W/C) (FIM): 6 Roll Left to Right (QC): 6 Sit to Lying (QC): 6 Lying-Sitting on Side/Bed(QC): 6 Sit to Stand (QC): 6 Chair/Vec-[place] Xfer(QC): 6 Car Transfer (QC): 6 Does the Patient Walk: Yes Gait (FIM): 6 Gait distance (FIM): 3=150 ft Walk 10 feet (QC): 6 Walk 10ft-Uneven Surface(QC): 6 Walk 50ft with 2 Turns (QC): 6 Walk 150 ft (QC): 6 Gait Assistive Device: FWW Does the Pt use WC or Scooter?: No Stairs (FIM): 5 # of Steps: 4 1 Step (curb) (QC): 6 4 Steps (QC): 6 12 Steps (QC): 88 Picking up an Object (QC): 88 OT Senior Test Engineer Goals Senior Test Engineer Goals Time Frame: Apr 17, 2018 Eating (FIM): 6 (met 8-9-18) Eating (QC): 6 (met 8-9-18) Oral Hygiene (QC): 6 (met 8-9-18) Grooming(FIM): 6 (met 8-9-18) Bathing(FIM): 5 (met 04-10-18) Shower/Bathe Self (QC): 5 (met 04-10-18) Upper Body Dressing(FIM): 6 (met 04-10-18) Upper Body Dressing (QC): 6 (met 04-10-18) Lower Body Dressing(FIM): 6 (met 04-10-18) Lower Body Dressing (QC): 6 (met 04-10-18) On/Off Footwear (QC): 6 (met 04-10-18) Toileting(FIM): 6 (met 04-10-18) Toileting Hygiene (QC): 6 (met 04-10-18) Toilet/Commode Transfer(FIM): 6 (met 04-10-18) Toilet/Commode Transfer (QC): 6 (met 04-10-18) Shower Transfer(FIM): 5 (met 04-10-18) 1=Demonstrate adherence to instructed precautions during ADL tasks. 2=Patient will verbalize/demonstrate understanding of assistive devices/ modifications for ADL. 3=Patient will improve strength/tolerance for activity to enable patient to perform ADL's. Speech Senior Test Engineer Goals Usp Goals No goals established as no skilled ST is indicated. JANEY CHACKO PT Apr 11, 2018 15:28
== END 2018-04-11 13:00 | disposition home or self-care (01) | DRG 560 ==
PROVIDERS: ADMIT Physical Medicine & Rehabilitation; ATTEND Physical Medicine & Rehabilitation
DX: S72.002D Fracture of unspecified part of neck of left femur, subsequent encounter for closed fracture with routine healing (principal); I47.1 Supraventricular tachycardia; I12.9 Hypertensive chronic kidney disease with stage 1 through stage 4 chronic kidney disease, or unspecified chronic kidney disease; N18.9 Chronic kidney disease, unspecified; J44.9 Chronic obstructive pulmonary disease, unspecified; E87.6 Hypokalemia; D64.9 Anemia, unspecified; E83.42 Hypomagnesemia; E83.51 Hypocalcemia; R06.89 Other abnormalities of breathing; Z99.81 Dependence on supplemental oxygen; W19.XXXA Unspecified fall, initial encounter; Y92.009 Unspecified place in unspecified non-institutional (private) residence as the place of occurrence of the external cause
CPT/HCPCS: 36415; 71046; 78582; 80048; 80053; 82962; 83735; 83880; 84484; 85025; 85027; 85379; 93005; 93306; 93970; 94640; 94760

== ENCOUNTER 2022-01-03 15:26 | Emergency (ER) | payer MEDICARE, OTHER ==
[~2022-01-03] VITALS: Ht 165 cm; Wt 57.6 kg
[~2022-01-03 15:26] MED LIST changes: +APIX5TAB PO; +CAND32TA19 PO; -CAND32TA2 PO; +MGX400T PO
--- NOTE | 2022-01-03 15:58 | ED Integumentary General ---
General Chief Complaint: Bite-Animal/Human/Insect Stated Complaint: BITTEN BY SPIDER Source: patient, family Exam Limitations: no limitations History of Present Illness Date Seen by Provider: January 03, 2022 Time Seen by Provider: 15:43 Initial Comments Patient is an 86-year-old female who presents to the emergency department today with a chief complaint of a possible spider bite to her right mid back. Patient had sudden onset of pain in the right mid back yesterday. She developed a rash. She has been rubbing the area with alcohol to try and alleviate the symptoms. She is on Eliquis. She denies fevers or chills. She denies excessive cough or shortness of breath. She is nauseous secondary to the pain and she is d eveloping a headache due to the pain. She has never had anything like this before. She has not had her shingles vaccination. No other constitutional symptoms such as URI issues, diarrhea, problems with urination. She has had tramadol in the past for pain. She has multiple medication allergies. She has never had antiviral therapy. The area is extremely sore to the touch and seems to radiate around her right flank and into the right mid abdomen. All other review of systems reviewed and negative except as stated. Timing/Duration: yesterday Severity: severe Location: torso (right flank) Associated Symptoms: other (severe pain) Allergies and Home Medications Allergies Coded Allergies: iodine (Verified Allergy, Severe, RASH, 03/23/18) prednisone (Verified Allergy, Mild, RASH, 03/23/18) Sulfa (Sulfonamide Antibiotics) (Verified Allergy, Unknown, 03/23/18) amlodipine (Verified Allergy, Unknown, SWOLLEN LEGS AND FEET,PAIN IN HEAD UP TO 3 TIMES IN NIGHT, 03/23/18) amoxicillin (Verified Allergy, Unknown, 03/23/18) azithromycin (Verified Allergy, Unknown, 03/23/18) benazepril (Verified Allergy, Unknown, SEVERE HEADACHE, 03/23/18) cefaclor (Verified Allergy, Unknown, 03/23/18) cephalexin (Verified Allergy, Unknown, 03/23/18) cortisone (Verified Allergy, Unknown, 03/23/18) doxycycline (Verified Allergy, Unknown, 03/23/18) egg (Verified Allergy, Unknown, 03/23/18) griseofulvin (Verified Allergy, Unknown, 03/23/18) levofloxacin (Verified Allergy, Unknown, FACIAL FLUSHING, DIARRHEA AND LEG CRAMPS, 03/23/18) oxaprozin (Verified Allergy, Unknown, 03/23/18) propoxyphene (Verified Allergy, Unknown, SEVERE PAIN IN HEAD, 03/23/18) tetracycline (Verified Allergy, Unknown, 03/23/18) verapamil (Verified Allergy, Unknown, 03/23/18) chlorpheniramine (Verified Adverse Reaction, Unknown, HEART PAPILATIONS AND HYPERTENSION, 03/23/18) dextromethorphan (Verified Adverse Reaction, Unknown, HEART PAPILATIONS AND HYPERTENSION, 03/23/18) Uncoded Allergies: ALL EYE DROPS (Adverse Reaction, Unknown, MAKE EYES SWELL SHUT, 12/15/09) Patient Home Medication List Home Medication List Reviewed: Yes Apixaban (Eliquis) 5 Mg Tablet, 5 MG PO BID Prescribed by: BRANNON HAYNES on 04/10/18 1416 Candesartan Cilexetil (Atacand) 32 Mg Tablet, 32 MG PO DAILY, (Reported) Entered as Reported by: ACOSTA MACKAY on 03/24/18 0932 Magnesium Oxide (Magnesium Oxide) 400 Mg Tablet, 400 MG PO BIDPC Prescribed by: BRANNON HAYNES on 04/10/18 1416 Metolazone (Metolazone) 2.5 Mg Tablet, 2.5 MG PO DAILY, (Reported) Entered as Reported by: ACOSTA MACKAY on 03/24/18 0932 Metoprolol Succinate (Toprol Xl) 100 Mg Tab.er.24h, 100 MG PO BID, (Reported) Entered as Reported by: ACOSTA MACKAY on 03/24/18 0932 Ondansetron (Ondansetron Odt) 4 Mg Tab.rapdis, 4 MG PO Q8H PRN for nausea Prescribed by: YOBANY OCHOA on 01/03/22 1617 Tiotropium [place] (Spiriva Respimat 2.5MCG/ACTUATION) 4 Gm Mist.inhal, 2 PUFF INH DAILY, (Reported) Entered as Reported by: CE BOYCE on 03/23/18 1249 Valacyclovir HCl (Valacyclovir) 1,000 Mg Tablet, 1,000 MG PO TID Prescribed by: YOBANY OCHOA on 01/03/22 1617 Review of Systems Review of Systems Constitutional: see HPI EENTM: no symptoms reported Respiratory: short of breath (chronic) Cardiovascular: no symptoms reported Gastrointestinal: no symptoms reported Genitourinary: no symptoms reported : No Musculoskeletal: back pain (Right mid back at the area of rash) Skin: rash Psychiatric/Neurological: Headache All Other Systems Reviewed Negative Unless Noted: Yes Past Fbvpqkv-Qjsgpq-Lvnusk Hx Patient Social History Tobacco Use?: No Use of E-Cig and/or Vaping dev: No Substance use?: No Alcohol Use?: No Pt feels they are or have been: No Immunizations Up To Date Tetanus Booster (TDap): Unknown PED Vaccines UTD: No Influenza Vaccine Up-to-Date: No; Not Current Seasonal Allergies Seasonal Allergies: Yes Past Medical History Surgery/Hospitalization HX: COPD, EMPHYSEMA, LUPUS Surgeries: Yes (tonsilectomy, appedenctomy, adenoidectomy) Respiratory: Yes Emphysema Currently Using CPAP: No Currently Using BIPAP: No Cardiac: Yes (PROLAPSED MITRAL VALVE) High Cholesterol, Hypertension Neurological: No Reproductive Disorders: No Female Reproductive Disorders: Denies Sexually Transmitted Disease: No HIV/AIDS: No Genitourinary: No Bladder Infection Gastrointestinal: No Chronic Constipation Musculoskeletal: No Arthritis, Fractures Endocrine: Yes HEENT: No Loss of Vision: Denies Hearing Impairment: Denies Cancer: No Did You Recieve Any Treatments: No Psychosocial: No Integumentary: No Blood Disorders: No Adverse Reaction/Blood Tranf: No Family Medical History Patient reports no known family medical history. Hypertension Physical Exam Vital Signs Vital Signs - First Documented 01/03/22 15:35 Temp 36.2 Pulse 89 Resp 20 B/P (MAP) 174/107 (129) Pulse Ox 93 O2 Delivery Room Air Capillary Refill : General Appearance: no apparent distress, thin HEENT: PERRL/EOMI Neck: full range of motion Cardiovascular: regular rate, rhythm Respiratory: no respiratory distress, no accessory muscle use, crackles (bilateral lower lung reid; no distress; no increased work of breathing) Gastrointestinal: normal bowel sounds, non tender Extremities: normal range of motion, non-tender, normal inspection, no pedal edema Neurologic/Psychiatric: alert, normal mood/affect, oriented x 3 Skin: warm/dry, other (erythematous area right mid back with hemorrhagic linear markings (appears where she has rubbed it). No central nidus of bite. no fluctuance. Very tender to palpation. Area of tenderness extends around anteriorly. No obvious blistering.) Progress/Results/Core Measures Results/Orders My Orders Orders - YOBANY OCHOA MD Hydrocodone/Apap 5/325 Tablet (Lortab 5 (01/03/22 16:15) Lidocaine 4% Patch (Salonpas 4% Patch) (01/04/22 09:00) Ondansetron Oral Dissolve Tab (Zofran (01/03/22 16:15) Valacyclovir Tablet (Valtrex Tablet) (01/03/22 16:02) Medications Given in ED Current Medications Medications Dose Ordered Sig/Thiago Route Start Time Stop Time Status Last Admin Dose Admin Acetaminophen/ Hydrocodone Bitart 1 ea ONCE ONCE PO 01/03/22 16:15 01/03/22 16:16 DC 01/03/22 16:12 1 EA Ondansetron HCl 4 mg ONCE ONCE PO 01/03/22 16:15 01/03/22 16:16 DC 01/03/22 16:12 4 MG Vital Signs/I&O 01/03/22 15:35 Temp 36.2 Pulse 89 Resp 20 B/P (MAP) 174/107 (129) Pulse Ox 93 O2 Delivery Room Air Progress Progress Note : Time: 16:23 Progress Note Discussed plan of care with the patient. I suspect that this may be an early presentation of shingles. She has pain consistent with such although she does not have any blistering or open wounds as of yet. She is not shingles vaccinated. We will treat her pain and go ahead and start her on valacyclovir. She has follow-up scheduled with Dr. Vora on Saturday. I instructed on discharge instructions for them not to place lidocaine patches over any blisters that may form or open wounds. She has been given her first dose of valacyclovir as well as hydrocodone here in the emergency department so that we can monitor for any adverse effects as she has so many medication allergies. Her vital signs are stable. She has no other clinical or objective findings to warrant further testing from the emergency department at this time. I do not suspect a spider bite as there is no obvious evidence of a bite. The linear type hemorrhagic areas in the middle of the rash are likely from her rubbing the area with alcohol and her anticoagulated status on Eliquis. I have talked to the family member at the bedside about my thoughts. She is comfortable with plan of care. All questions have been sought and answered. Departure Impression Primary Impression: Rash of back Disposition: 01 HOME, SELF-CARE Condition: Stable Departure-Patient Inst. Decision time for Depature: 16:01 Referrals: ASHLEY VORA MD (PCP/Family) Primary Care Physician Patient Instructions: Shingles (DC), Skin Rash ED Add. Discharge Instructions: Use the lidocaine patches (available over the counter) and apply to the affected area as directed on the packaging. Do not apply the patches if she has blisters or open wounds that form. Pain medications as needed every 6 hours. These medications can make you sleepy and cause balance and coordination issues. You should also take stool softeners daily while you are taking pain medications. Nausea medications every 8 hours as needed. Take the Valacyclovir 100mg 3 times a day for 7 days to help with healing and to improve pain. Drink increased water over the next week to avoid dehydration as your body flights the virus. Flavor it with fruit to make it more appealing. Please follow up with Dr Vora on Saturday as scheduled. Scripts Hydrocodone/Acetaminophen (Hydrocodone-Acetamin 5-325 mg) 5 Mg-325 Mg Tablet 1 TAB PO Q6H PRN for PAIN-MODERATE (5-7), #20 TAB Prov: YOBANY OCHOA MD 01/03/22 Ondansetron (Ondansetron Odt) 4 Mg Tab.rapdis 4 MG PO Q8H PRN for nausea, #20 TAB Prov: YOBANY OCHOA MD 01/03/22 Valacyclovir HCl (Valacyclovir) 1,000 Mg Tablet 1000 MG PO TID for 7 Days, #21 TAB Prov: YOBANY OCHOA MD 01/03/22 Images Torso/Trunk 1 - Rash, Tenderness 2 - Other-See Progress Note Progress area of slight erythema right posterior back with central linear appearing hemorrhagic rash (from being rubbed) Copy Copies To 1: ASHLEY VORA MD, KATHRYN M MD January 03, 2022 15:58
[2022-01-03] MEDS ORDERED: VALACYCLOVIR 500 MG TAB (VALTREX) PO STA (16:02)
[2022-01-03] MEDS ORDERED: ONDANSETRON 4 MG (ZOFRAN) ORAL DISSOLVE TAB PO ONE (16:15)
[2022-01-03] MEDS ORDERED: HYDROcodone/APAP 5 MG/325 MG (LORTAB) TAB PO ONE (16:15)
[2022-01-03] MEDS ORDERED: VALA10007 PO (16:17)
[2022-01-03] MEDS ORDERED: ONDA4TAB11 PO (16:17)
[2022-01-03] MEDS ORDERED: ACHD5005 PO (17:03)
[2022-01-03 17:16] VITALS: BP 115/60
[2022-01-04] MEDS ORDERED: LIDOCAINE 4% (SALONPAS) PATCH TOP SCH (09:00)
== END 2022-01-03 17:18 | disposition home or self-care (01) ==
LOC: EDUNIT# 15:26 → ER 15:29
DX: R21 Rash and other nonspecific skin eruption (principal)
CPT/HCPCS: 99283

== ENCOUNTER 2022-07-31 17:44 | Inpatient (IN) | payer MEDICARE, OTHER ==
[~2022-07-31] VITALS: Ht 167.7 cm; Wt 85.3 kg
[~2022-07-31 17:44] MED LIST changes: +ACHD5005 PO; +VALA10007 PO
--- NOTE | 2022-07-31 18:16 | ED Lower Extremity ---
General Chief Complaint: Trauma-Non Activation Stated Complaint: FALL Nursing Triage Note: PT TO [facility] 2 BY [facility] WITH CC OF A SAME LEVEL FALL, RT HIP PAIN AND LAC TO RT POSTERIOR HEAD THAT NEEDS REPAIRED, PT DENIES NECK PAIN ON PALPATION, HX OF LT HIP FX, 100 MCG FENTANYL AND 4 MG ZOFRAN BY EMS Source: patient Exam Limitations: no limitations History of Present Illness Date Seen by Provider: Jul 31, 2022 Time Seen by Provider: 18:03 Initial Comments This is an 86-year-old female who presented to the ER via [facility] for complaints of right hip pain after a same level fall in her kitchen. States that she hit the right side of her head on a metal strip between the doorway. N o known loss of consciousness. States that she is been having intermittent episodes of vertigo recently and while she is in the kitchen she experienced a episode and fell to the ground. Pain is localized to her right hip, worse with movement. She was given fentanyl 100 mcg per EMS prior to arrival as well as Zofran 4 mg IV push. At this time she is comfortable. She denies headache or neck pain. She does have a small hematoma on the right side of her head, bleeding stopped prior to arrival. She is not on any anticoagulants or antiplatelet medications. Allergies and Home Medications Allergies Coded Allergies: iodine (Verified Allergy, Severe, RASH, 03/23/18) prednisone (Verified Allergy, Mild, RASH, 03/23/18) Sulfa (Sulfonamide Antibiotics) (Verified Allergy, Unknown, 03/23/18) amlodipine (Verified Allergy, Unknown, SWOLLEN LEGS AND FEET,PAIN IN HEAD UP TO 3 TIMES IN NIGHT, 03/23/18) amoxicillin (Verified Allergy, Unknown, 03/23/18) azithromycin (Verified Allergy, Unknown, 03/23/18) benazepril (Verified Allergy, Unknown, SEVERE HEADACHE, 03/23/18) cefaclor (Verified Allergy, Unknown, 03/23/18) cephalexin (Verified Allergy, Unknown, 03/23/18) cortisone (Verified Allergy, Unknown, 03/23/18) doxycycline (Verified Allergy, Unknown, 03/23/18) egg (Verified Allergy, Unknown, 03/23/18) griseofulvin (Verified Allergy, Unknown, 03/23/18) levofloxacin (Verified Allergy, Unknown, FACIAL FLUSHING, DIARRHEA AND LEG CRAMPS, 03/23/18) oxaprozin (Verified Allergy, Unknown, 03/23/18) propoxyphene (Verified Allergy, Unknown, SEVERE PAIN IN HEAD, 03/23/18) tetracycline (Verified Allergy, Unknown, 03/23/18) verapamil (Verified Allergy, Unknown, 03/23/18) chlorpheniramine (Verified Adverse Reaction, Unknown, HEART PAPILATIONS AND HYPERTENSION, 03/23/18) dextromethorphan (Verified Adverse Reaction, Unknown, HEART PAPILATIONS AND HYPERTENSION, 03/23/18) Uncoded Allergies: ALL EYE DROPS (Adverse Reaction, Unknown, MAKE EYES SWELL SHUT, 12/15/09) Patient Home Medication List Home Medication List Reviewed: Yes Apixaban (Eliquis) 5 Mg Tablet, 5 MG PO BID Prescribed by: BRANNON HAYNES on 04/10/18 1416 Candesartan Cilexetil (Atacand) 32 Mg Tablet, 32 MG PO DAILY, (Reported) Entered as Reported by: ACOSTA MACKAY on 03/24/18 0932 Hydrocodone/Acetaminophen (Hydrocodone-Acetamin 5-325 mg) 5 Mg-325 Mg Tablet, 1 TAB PO Q6H PRN for PAIN-MODERATE (5-7) Prescribed by: YOBANY OCHOA on 01/03/22 1705 Magnesium Oxide (Magnesium Oxide) 400 Mg Tablet, 400 MG PO BIDPC Prescribed by: BRANNON HAYNES on 04/10/18 1416 Metolazone (Metolazone) 2.5 Mg Tablet, 2.5 MG PO DAILY, (Reported) Entered as Reported by: ACOSTA MACKAY on 03/24/18 0932 Metoprolol Succinate (Toprol Xl) 100 Mg Tab.er.24h, 100 MG PO BID, (Reported) Entered as Reported by: ACOSTA MACKAY on 03/24/18 0932 Ondansetron (Ondansetron Odt) 4 Mg Tab.rapdis, 4 MG PO Q8H PRN for nausea Prescribed by: YOBANY OCHOA on 01/03/22 1617 Tiotropium [place] (Spiriva Respimat 2.5MCG/ACTUATION) 4 Gm Mist.inhal, 2 PUFF I NH DAILY, (Reported) Entered as Reported by: CE BOYCE on 03/23/18 1249 Valacyclovir HCl (Valacyclovir) 1,000 Mg Tablet, 1,000 MG PO TID Prescribed by: YOBANY OCHOA on 01/03/22 1617 Review of Systems Constitutional: see HPI Past Uhihytk-Cmrerw-Lxafwb Hx Patient Social History Tobacco Use?: No Substance use?: No Alcohol Use?: No Immunizations Up To Date Tetanus Booster (TDap): Unknown PED Vaccines UTD: No Seasonal Allergies Seasonal Allergies: Yes Past Medical History Surgery/Hospitalization HX: COPD, EMPHYSEMA, LUPUS Surgeries: Yes (tonsilectomy, appedenctomy, adenoidectomy) Respiratory: Yes Emphysema Currently Using CPAP: No Currently Using BIPAP: No Cardiac: Yes (PROLAPSED MITRAL VALVE) High Cholesterol, Hypertension Neurological: No Reproductive Disorders: No Female Reproductive Disorders: Denies Sexually Transmitted Disease: No HIV/AIDS: No Genitourinary: No Bladder Infection Gastrointestinal: No Chronic Constipation Musculoskeletal: No Arthritis, Fractures Endocrine: Yes HEENT: No Loss of Vision: Denies Hearing Impairment: Denies Cancer: No Did You Recieve Any Treatments: No Psychosocial: No Integumentary: No Blood Disorders: No Adverse Reaction/Blood Tranf: No Family Medical History Patient reports no known family medical history. Hypertension Physical Exam Vital Signs Vital Signs - First Documented 07/31/22 17:50 Temp 36.4 Pulse 73 Resp 18 B/P (MAP) 171/88 (115) Pulse Ox 96 O2 Delivery Room Air Capillary Refill : Less Than 3 Seconds Height, Weight, BMI Height: 5'6.00" Weight: 163lbs. 3.2oz. 74.371842ml; 20.00 BMI Method:Stated General Appearance: WD/WN, no apparent distress HEENT: PERRL/EOMI, normal ENT inspection Neck: non-tender, full range of motion, normal inspection Cardiovascular: regular rate, rhythm, no murmur Respiratory: chest non-tender, lungs clear, normal breath sounds, no respiratory distress, no accessory muscle use Gastrointestinal: normal bowel sounds, non tender, soft Hips: right hip bone tenderness, right hip limited range of motion, right hip soft tissue tenderness Knees: bilateral knee non-tender, bilateral knee normal inspection, bilateral knee normal range of motion, bilateral knee no evidence of injury Ankles: bilateral ankle non-tender, bilateral ankle normal inspection, bilateral ankle normal range of motion, bilateral ankle no evidence of injury Feet: bilateral foot non-tender, bilateral foot normal inspection, bilateral foot normal range of motion, bilateral foot no evidence of injury Neurologic/Tendon: normal sensation, normal motor functions, responds to pain Neurologic/Psychiatric: no motor/sensory deficits, alert, normal mood/affect, o riented x 3 Skin: normal color, warm/dry Progress/Results/Core Measures Results/Orders Lab Results Laboratory Tests Test 07/31/22 17:54 Range/Units White Blood Count 10.7 4.3-11.0 10^3/uL Red Blood Count 4.35 3.80-5.11 10^6/uL Hemoglobin 13.6 11.5-16.0 g/dL Hematocrit 41 35-52 % Mean Corpuscular Volume 94 80-99 fL Mean Corpuscular Hemoglobin 31 25-34 pg Mean Corpuscular Hemoglobin Concent 33 32-36 g/dL Red Cell Distribution Width 13.4 10.0-14.5 % Platelet Count 209 130-400 10^3/uL Mean Platelet Volume 9.3 9.0-12.2 fL Immature Granulocyte % (Auto) 0 % Neutrophils (%) (Auto) 56 42-75 % Lymphocytes (%) (Auto) 25 12-44 % Monocytes (%) (Auto) 15 H 0-12 % Eosinophils (%) (Auto) 4 0-10 % Basophils (%) (Auto) 0 0-10 % Neutrophils # (Auto) 6.0 1.8-7.8 10^3/uL Lymphocytes # (Auto) 2.7 1.0-4.0 10^3/uL Monocytes # (Auto) 1.6 H 0.0-1.0 10^3/uL Eosinophils # (Auto) 0.4 H 0.0-0.3 10^3/uL Basophils # (Auto) 0.0 0.0-0.1 10^3/uL Immature Granulocyte # (Auto) 0.0 0.0-0.1 10^3/uL Sodium Level 138 135-145 MMOL/L Potassium Level 2.8 L 3.6-5.0 MMOL/L Chloride Level 101 98-107 MMOL/L Carbon Dioxide Level 23 21-32 MMOL/L Anion Gap 14 5-14 MMOL/L Blood Urea Nitrogen 25 H 7-18 MG/DL Creatinine 0.75 0.60-1.30 MG/DL Estimat Glomerular Filtration Rate 78 BUN/Creatinine Ratio 33 Glucose Level 136 H 70-105 MG/DL Calcium Level 8.2 L 8.5-10.1 MG/DL Corrected Calcium 9.4 8.5-10.1 MG/DL Total Bilirubin 0.9 0.1-1.0 MG/DL Aspartate Amino Transf (AST/SGOT) 40 H 5-34 U/L Alanine Aminotransferase (ALT/SGPT) 23 0-55 U/L Alkaline Phosphatase 101 40-136 U/L Total Protein 7.0 6.4-8.2 GM/DL Albumin 2.5 L 3.2-4.5 GM/DL My Orders Orders - JAVIER DOVER SHIRT HEMMER Pelvis With Right Hip 2-3views (07/31/22 18:07) Chest 1 View, Ap/Pa Only (07/31/22 18:07) Ct Head/Cervical Spine Wo (07/31/22 18:07) Cbc With Automated Diff (07/31/22 18:07) Comprehensive Metabolic Panel (07/31/22 18:07) Benavides Cath (07/31/22 18:07) Fentanyl Inj (Sublimaze Injection) (07/31/22 19:30) Vital Signs/I&O 07/31/22 17:50 Temp 36.4 Pulse 73 Resp 18 B/P (MAP) 171/88 (115) Pulse Ox 96 O2 Delivery Room Air Blood Pressure Mean: 115 Progress Progress Note : Progress Note Patient examined and in no acute distress. She is comfortable after receiving fentanyl and Zofran in route to hospital. We will go ahead and obtain imaging of her right hip and pelvis as well as obtain a chest x-ray and CT head and cervical spine without contrast. Bleeding is controlled, cleansed site with chlorhexidine and saline wash. Tolerated well. Departure Communication (Admissions) Time/Spoke to Admitting Phy: 19:12 Dr. Degroot Time/Spoke to Consulting Phy: 18:56 Dr. Arcos Impression Primary Impression: Fall on same level Additional Impressions: Traumatic hematoma of scalp Subcapital fracture of right femur Disposition: ADMITTED INPATIENT Condition: Stable Admissions Decision to Admit Reason: Admit from ER (Trauma) Decision to Admit/Date: Jul 31, 2022 Time/Decision to Admit Time: 18:40 Departure-Patient Inst. Referrals: ASHLEY VORA MD (PCP/Family) Primary Care Physician JAVIER DOVER SHIRT HEMMER Jul 31, 2022 18:16
[2022-07-31 18:20] LABS: BASOPHILS % (AUTO) 0 % (0-10); EOSINOPHILS # (AUTO) 0.4 10^3/uL (0.0-0.3); EOSINOPHILS % (AUTO) 4 % (0-10); HEMATOCRIT 41 % (35-52); HEMOGLOBIN 13.6 g/dL (11.5-16.0); LYMPHOCYTES # (AUTO) 2.7 10^3/uL (1.0-4.0); LYMPHOCYTES % (AUTO) 25 % (12-44); MEAN CORPUSCULAR HEMOGLOBIN 31 pg (25-34); MEAN CORPUSCULAR HGB CONC 33 g/dL (32-36); MEAN CORPUSCULAR VOLUME 94 fL (80-99); MEAN PLATELET VOLUME 9.3 fL (9.0-12.2); MONOCYTES # (AUTO) 1.6 10^3/uL (0.0-1.0); MONOCYTES % (AUTO) 15 % (0-12); NEUTROPHILS % (AUTO) 56 % (42-75); PLATELET COUNT 209 10^3/uL (130-400); WHITE BLOOD COUNT 10.7 10^3/uL (4.3-11.0)
[2022-07-31 18:34] LABS: ALBUMIN 2.5 GM/DL (3.2-4.5); BILIRUBIN,TOTAL 0.9 MG/DL (0.1-1.0); CALCIUM 8.2 MG/DL (8.5-10.1); CREATININE SERUM 0.75 MG/DL (0.60-1.30); POTASSIUM 2.8 MMOL/L (3.6-5.0)
--- NOTE | 2022-07-31 18:43 | Diagnostic Imaging Report ---
PROCEDURE: CT head and CT cervical spine without contrast. TECHNIQUE: Multiple contiguous axial images were obtained through the brain and cervical spine without the use of intravenous contrast. Sagittal and coronal reformations through the cervical spine were then performed. Auto Exposure Controls were utilized during the CT exam to meet ALARA standards for radiation dose reduction. INDICATION: Fall. Head laceration and head and neck pain. FINDINGS: There is a soft tissue hematoma overlying the lateral aspect of the right parietal calvarium. There is no underlying calvarial fracture. The intracranial contents demonstrate age-related volume loss. There is no acute hemorrhage. There is no subarachnoid hemorrhage or extra-axial hematoma. There are no findings of mass effect. There is no hydrocephalus. There is no territorial loss of huerta-white differentiation or evidence of vasogenic edema. The basilar cisterns are patent. The posterior fossa demonstrates no acute process. There are atherosclerotic calcifications evident within the vessels at the skull base. The mastoids are clear. There is some mucosal thickening in the right maxillary sinus. There is no facial fracture evident or fluid within the paranasal sinuses. The orbital contents are unremarkable. Cervical spine demonstrate multilevel degenerative endplate changes. There is a degenerative anterolisthesis of C7 on T1 due to facet arthropathy. Craniocervical junction relationships appear maintained. There are normal relationships of the lateral masses of C1 and C2. The facets are normally aligned. There is no facet joint or disc space widening. Vertebral body heights are maintained. There is no acute cervical spine fracture evident. The soft tissues of the neck demonstrate no acute process. There are advanced calcifications at the carotid bifurcations. The lung apices appear clear. IMPRESSION: 1. Right parietal scalp laceration without underlying calvarial fracture. 2. Age-related volume loss without acute intracranial abnormality. There is no intracranial hemorrhage. 3. No blood evident within the paranasal sinuses or identified facial fracture. 4. Advanced background degenerative features within the cervical spine without findings of acute fracture or traumatic malalignment. 5. Atherosclerosis. Dictated by: Dictated on workstation # [id number]
--- NOTE | 2022-07-31 18:47 | Diagnostic Imaging Report ---
INDICATION: Fall. Right hip pain. COMPARISON: 03/23/2018. FINDINGS: There is an acute right-sided subcapital femoral neck fracture without significant displacement. There is no dislocation of the femoral head. Prior left hip arthroplasty is noted and unremarkable. The pelvic ring is intact. There is no pelvic diastasis. IMPRESSION: 1. Acute subcapital right femoral neck fracture without significant displacement. 2. Prior left hip arthroplasty appears unremarkable. 3. The pelvic ring appears intact. Dictated by: Dictated on workstation # [id number]
--- NOTE | 2022-07-31 18:47 | Diagnostic Imaging Report ---
INDICATION: Fall. Hip pain. Correlation is made with a prior CT abdomen and pelvis from January 20, 2016 and prior chest radiograph from 04/03/2018. FINDINGS: Air-filled blebs at the left lung base are unchanged from prior exam. There is no new airspace consolidation or evidence of pneumonia. There is no effusion. There is no pneumothorax. There is stable enlargement of the cardiac silhouette without evidence of current edema or failure. No rib fracture is evident. IMPRESSION: Stable chest. No new or acute cardiopulmonary process demonstrated. Dictated by: Dictated on workstation # [id number]
[2022-07-31] MEDS ORDERED: fentaNYL INJ 100 MCG/2 ML AMP IVP ONE (19:30)
[2022-07-31 20:29] VITALS: BP 146/65
[2022-07-31] MEDS ORDERED: polyethylene glycoL POWDER 17 GM (MIRALAX) PACK PO PRN (20:30)
[2022-07-31] MEDS ORDERED: diphenhydrAMINE 25 MG TAB (BENADRYL) PO PRN (20:30)
[2022-07-31] MEDS ORDERED: ONDANSETRON 4 MG (ZOFRAN) ORAL DISSOLVE TAB PO PRN (20:30)
[2022-07-31] MEDS ORDERED: BISACODYL 10 MG SUPP (DULCOLAX) PR PRN (20:30)
[2022-07-31] MEDS ORDERED: LACTULOSE SYRUP 10GM/15ML (ENULOSE) 30ML UDC PO PRN (20:30)
[2022-07-31] MEDS ORDERED: MAGNESIUM 1 GM/100 ML IVPB 100 ML IV ONE ×2 (20:30→20:57)
[2022-07-31] MEDS ORDERED: CALCIUM CARBONATE 500 MG (TUMS) TAB.CHEW PO PRN (20:30)
[2022-07-31] MEDS ORDERED: ALPRAZolam 0.25 MG (XANAX) TAB PO PRN (20:30)
[2022-07-31] MEDS ORDERED: MELATONIN 3 MG TABLET PO PRN (20:30)
[2022-07-31] MEDS ORDERED: diphenhydrAMINE 50 MG/ML INJ (BENADRYL) IVP PRN (20:30)
[2022-07-31] MEDS ORDERED: ONDANSETRON 4 MG/2 ML (SDV) Z0FRAN IV PRN (20:30)
[2022-07-31] MEDS ORDERED: MILK OF MAGNESIA 400 MG/5 ML 30 ML UDC PO PRN (20:30)
[2022-07-31] MEDS ORDERED: ANTACID SUSP 30 ML UDC (MYLANTA) PO PRN (20:30)
[2022-07-31] MEDS ORDERED: ACETAMINOPHEN 325 MG TABLET PO PRN (20:30)
[2022-07-31] MEDS: DOCUSATE SODIUM 100 MG (COLACE) CAP PO SCH (20:53)
[2022-07-31] MEDS: SENNOSIDES 8.6 MG (SENOKOT) TAB PO SCH (20:53)
[2022-07-31] MEDS ORDERED: POTASSIUM CL 10MEQ/50ML IVPB 50 ML IV ONE (20:56)
[2022-07-31] MEDS ORDERED: NS IV 1000 ML 1,000 ML ONE (20:56)
[2022-07-31] MEDS ORDERED: HYDROmorphone 2 MG/ML VIAL (DILAUDID) ONE (20:58)
[2022-07-31] MEDS: HYDROmorphone 2 MG/ML VIAL (DILAUDID) IV PRN (21:05)
[2022-07-31] MEDS: NS IV 1000 ML 1,000 ML IV SCH (21:08)
[2022-07-31] MEDS: POTASSIUM CL 10MEQ/50ML IVPB 50 ML IV SCH ×2 (21:09→22:12)
[2022-07-31] MEDS ORDERED: ONDANSETRON 4 MG/2 ML (SDV) Z0FRAN ONE (21:18)
[2022-07-31 22:57] VITALS: BP 146/65
[2022-07-31 23:00] VITALS: BP 122/74
[2022-07-31] MEDS ORDERED: RT-ALBUTEROL SULF 2.5 MG/3 ML PRE-MIX VIAL INH PRN (23:30)
[2022-08-01] VITALS (16 sets, daily range): BP systolic 72–130; BP diastolic 42–63
[2022-08-01] MEDS: HYDROmorphone 2 MG/ML VIAL (DILAUDID) IV PRN ×5 (00:02→17:07)
[2022-08-01] MEDS: POTASSIUM CL 10MEQ/50ML IVPB 50 ML IV SCH ×2 (00:02→00:03)
[2022-08-01 06:49] LABS: BASOPHILS % (AUTO) 0 % (0-10); EOSINOPHILS % (AUTO) 0 % (0-10); HEMATOCRIT 40 % (35-52); HEMOGLOBIN 13.1 g/dL (11.5-16.0); LYMPHOCYTES # (AUTO) 1.3 10^3/uL (1.0-4.0); LYMPHOCYTES % (AUTO) 10 % (12-44); MEAN CORPUSCULAR HEMOGLOBIN 32 pg (25-34); MEAN CORPUSCULAR HGB CONC 33 g/dL (32-36); MEAN CORPUSCULAR VOLUME 96 fL (80-99); MEAN PLATELET VOLUME 9.7 fL (9.0-12.2); MONOCYTES # (AUTO) 1.5 10^3/uL (0.0-1.0); MONOCYTES % (AUTO) 12 % (0-12); NEUTROPHILS # (AUTO) 9.9 10^3/uL (1.8-7.8); NEUTROPHILS % (AUTO) 77 % (42-75); PLATELET COUNT 176 10^3/uL (130-400); WHITE BLOOD COUNT 12.8 10^3/uL (4.3-11.0)
--- NOTE | 2022-08-01 07:09 | Progress Note-Post Operative ---
Post-Operative Progess Note Surgeon (s)/Cold Roller (s) Surgeon MALICK RUEDA MD Cold Roller: Raymond Forbes Pre-Operative Diagnosis right femoral neck fracture Post-Operative Diagnosis right femoral neck fracture Procedure & Operative Findings Date of Procedure 08/01/22 Procedure Performed/Findings right hip bipolar Anesthesia Type GETA Estimated Blood Loss Estimated blood loss (mL): 200ml Specimens/Packing Specimens Removed none Packing: none MALICK RUEDA MD Aug 01, 2022 07:09
--- NOTE | 2022-08-01 07:09 | Progress Note-Pre Operative ---
Pre-Operative Progress Note Date of Available H&P: Aug 01, 2022 Date H&P Reviewed: Aug 01, 2022 Time H&P Reviewed: 07:09 Changes from last HP none Pre-Operative Diagnosis: right femoral neck fracture MALICK RUEDA MD Aug 01, 2022 07:09
[2022-08-01 07:22] LABS: ALBUMIN 2.4 GM/DL (3.2-4.5); BILIRUBIN,TOTAL 0.9 MG/DL (0.1-1.0); CALCIUM 8.2 MG/DL (8.5-10.1); CREATININE SERUM 0.79 MG/DL (0.60-1.30); POTASSIUM 4.3 MMOL/L (3.6-5.0); TOTAL PROTEIN 6.9 GM/DL (6.4-8.2)
[2022-08-01] MEDS: RT-ALBUTEROL SULF 2.5 MG/3 ML PRE-MIX VIAL INH SCH ×2 (07:45→21:12)
[2022-08-01] MEDS: SENNOSIDES 8.6 MG (SENOKOT) TAB PO SCH ×2 (08:16→20:17)
[2022-08-01] MEDS: DOCUSATE SODIUM 100 MG (COLACE) CAP PO SCH ×2 (08:16→20:16)
[2022-08-01] MEDS: NS IV 1000 ML 1,000 ML IV SCH ×2 (08:39→21:14)
--- NOTE | 2022-08-01 09:35 | CONSULTATION REPORT ---
DATE OF SERVICE: 08/01/2022 INPATIENT CONSULTATION REASON FOR CONSULTATION: Displaced right femoral neck fracture. HISTORY OF PRESENT ILLNESS: The patient is an 86-year-old female who fell at home in her kitchen. She was found to have a displaced femoral neck fracture on the right, for which I was consulted. She denies any antecedent pain. PAST MEDICAL HISTORY: Hypertension, COPD, lupus. ALLERGIES: Noted. ORTHOPEDIC EXAMINATION: The right lower extremity demonstrates symmetric pulses to the left with intact dorsiflexion and plantarflexion of the toes. She is tender over the lateral aspect of the hip. She has pain with internal and external rotation of the hip. No gross shortening is noted. Radiographs reveal a closed displaced right femoral neck fracture. IMPRESSION: Closed displaced right femoral neck fracture. PLAN: Right hip bipolar replacement. I discussed risks, benefits, options, ramifications and recovery with the patient. She understands and wishes to proceed. Job ID: [id number] DocumentID: [id number] Dictated Date: 08/01/2022 07:13:33 Client Application Support Engineer Date: 08/01/2022 09:33:00 Dictated By: MALICK RUEDA MD
--- NOTE | 2022-08-01 09:57 | History & Physical-Hospitalist ---
History of Present Illness HPI/Chief Complaint CC: Right hip fracture HPI: This is an 86 yr old female who sustained a mechanical fall and suffered a right hip fracture. Dr. Arcos will perform the repair today. She is complaining of dry mouth. Daughter is at the bedside. Checked meds and labs. Ready for surgery. Source: patient, family Exam Limitations: no limitations Date Seen 08/01/22 Time Seen by a Provider: 10:00 Attending Physician Bry Pickard MD PCP Admitting Physician: Halley Degroot DO Attending Physician: Halley Degroot DO Referring Physician Date of Admission Jul 31, 2022 at 19:26 Home Medications & Allergies Home Medications Reviewed patient Home Medication Reconciliation performed by pharmacy medication reconciliations waste management recycling technician and/or nursing. Patients Allergies have been reviewed. Allergies Allergies Coded Allergies iodine (Verified Allergy, Severe, RASH, 03/23/18) prednisone (Verified Allergy, Mild, RASH, 03/23/18) Sulfa (Sulfonamide Antibiotics) (Verified Allergy, Unknown, 03/23/18) amlodipine (Verified Allergy, Unknown, SWOLLEN LEGS AND FEET,PAIN IN HEAD UP T O 3 TIMES IN NIGHT, 03/23/18) amoxicillin (Verified Allergy, Unknown, 03/23/18) azithromycin (Verified Allergy, Unknown, 03/23/18) benazepril (Verified Allergy, Unknown, SEVERE HEADACHE, 03/23/18) cefaclor (Verified Allergy, Unknown, 03/23/18) cephalexin (Verified Allergy, Unknown, 03/23/18) cortisone (Verified Allergy, Unknown, 03/23/18) doxycycline (Verified Allergy, Unknown, 03/23/18) egg (Verified Allergy, Unknown, 03/23/18) griseofulvin (Verified Allergy, Unknown, 03/23/18) levofloxacin (Verified Allergy, Unknown, FACIAL FLUSHING, DIARRHEA AND LEG CRAMPS, 03/23/18) oxaprozin (Verified Allergy, Unknown, 03/23/18) propoxyphene (Verified Allergy, Unknown, SEVERE PAIN IN HEAD, 03/23/18) tetracycline (Verified Allergy, Unknown, 03/23/18) verapamil (Verified Allergy, Unknown, 03/23/18) chlorpheniramine (Verified Adverse Reaction, Unknown, HEART PAPILATIONS AND HYPERTENSION, 03/23/18) dextromethorphan (Verified Adverse Reaction, Unknown, HEART PAPILATIONS AND HYPERTENSION, 03/23/18) Uncoded Allergies ALL EYE DROPS ( Adverse Reaction, Unknown, MAKE EYES SWELL SHUT, 12/15/09) Past [id number]-[id number]-Ycyiah Hx Patient Social History Marrital Status: single Employed/Student: retired Tobacco Use?: No Smoking Status: Never a Smoker Smokeless Tobacco Frequency: Never a User Use of E-Cig and/or Vaping dev: No Substance use?: No Alcohol Use?: No Pt feels they are or have been: No Immunizations Up To Date Tetanus Booster (TDap): Unknown Hepatitis A: No Hepatitis B: No PED Vaccines UTD: No Seasonal Allergies Seasonal Allergies: Yes Current Status Advance Directives: No Communicates: Verbally Primary Language: Armenian Preferred Spoken Language: Armenian Is interpretation needed?: No Implanted or Applied Medical D: Orthopedic hardware Past Medical History Emphysema Currently Using CPAP: No Currently Using BIPAP: No High Cholesterol, Hypertension Sexually Transmitted Disease: No HIV/AIDS: No Bladder Infection Chronic Constipation Arthritis, Fractures Loss of Vision: Denies Hearing Impairment: Denies Did You Recieve Any Treatments: No Blood Disorders: No Adverse Reaction/Blood Tranf: No Family Medical History Patient reports no known family medical history. Hypertension Review of Systems Constitutional: see HPI EENTM: no symptoms reported Respiratory: no symptoms reported Cardiovascular: no symptoms reported Gastrointestinal: no symptoms reported Genitourinary: no symptoms reported Musculoskeletal: back pain, joint pain Skin: no symptoms reported Psychiatric/Neurological: No Symptoms Reported All Other Systems Reviewed Negative Unless Noted: Yes Physical Exam Physical Exam Vital Signs Vital Signs - First Documented 07/31/22 07/31/22 17:50 20:00 Temp 36.4 Pulse 73 Resp 18 B/P (MAP) 171/88 (115) Pulse Ox 96 O2 Delivery Room Air O2 Flow Rate 3.00 Capillary Refill : Less Than 3 Seconds Height, Weight, BMI Height: 5'6.00" Weight: 163lbs. 3.2oz. [id number]; 21.47 BMI Method:Stated General Appearance: WD/WN, Anxious, Chronically ill, Mild Distress Eyes: Right Eye Normal Inspection, Right Eye PERRL HEENT: PERRL/EOMI, Normal ENT Inspection, Pharynx Normal, Moist Mucous Membr anes Neck: Full Range of Motion, Normal Inspection, Non Tender Respiratory: Chest Non Tender, Lungs Clear, Normal Breath Sounds, No Accessory Muscle Use, No Respiratory Distress Cardiovascular: Regular Rate, Rhythm, No Edema, No Gallop, No JVD, No Murmur, Normal Peripheral Pulses Gastrointestinal: Normal Bowel Sounds, No Organomegaly, No Pulsatile Mass, Non Tender, Soft Back: Normal Inspection, No CVA Tenderness Extremity: Normal Capillary Refill, Normal Inspection, Normal Range of Motion (except right leg), Non Tender, No Calf Tenderness, No Pedal Edema Neurologic/Psychiatric: Alert, Oriented x3, No Motor/Sensory Deficits, Normal Mood/Affect Skin: Normal Color, Warm/Dry Lymphatic: No Adenopathy Results Results/Procedures Labs Laboratory Tests 07/31/22 17:54 08/01/22 06:12 Patient resulted labs reviewed. Assessment/Plan Admission Diagnosis Assessment: Right hip fracture Falls Advanced age HTN HLP Plan: Monitor pain IVF Proceed to surgery Admission Status: Inpatient Order (span 2 midnights) Reason for Inpatient Admission: hip fx Diagnosis/Problems Diagnosis/Problems (1) Subcapital fracture of right femur (2) Fall on same level (3) Traumatic hematoma of scalp (4) Hypotensive episode Status: Resolved Resolution Date/Time: 03/27/18 @ 10:57 Clinical Quality Measures DVT/VTE Risk/Contraindication: Contraindications-Pharm: Other *list below* Other: or HALLEY DEGROOT DO Aug 01, 2022 09:57
[2022-08-01] MEDS ORDERED: MECL-149 PO (10:57)
[2022-08-01] MEDS ORDERED: METO2.5T PO (10:57)
[2022-08-01] MEDS ORDERED: ACET-2267 PO (10:57)
[2022-08-01] MEDS ORDERED: CAND32TA19 PO (10:57)
[2022-08-01] MEDS ORDERED: BUPIVACAINE 0.5% 30 ML (SENSORCAINE) VIAL ONE (11:49)
[2022-08-01] MEDS ORDERED: CLINDAMYCIN 600 MG/50 ML IVPB 50 ML IV ONE ×2 (11:58→12:30)
[2022-08-01] MEDS ORDERED: ROCURONIUM 10 MG/ML 5 ML SYRINGE IV ONE (12:08)
[2022-08-01] MEDS ORDERED: proPOfol 200 MG/20 ML (DIPRIVAN) VIAL IV ONE (12:08)
[2022-08-01] MEDS ORDERED: LIDOCAINE PF 2% 5 ML (XYLOCAINE) VIAL ONE (12:08)
[2022-08-01] MEDS ORDERED: fentaNYL INJ 100 MCG/2 ML AMP ONE (12:08)
[2022-08-01] MEDS ORDERED: SUCCINYLCHOLINE INJ 20 MG/1 ML 10 ML VIAL ONE (12:08)
[2022-08-01] MEDS ORDERED: TEMAZEPAM 15 MG (RESTORIL) CAP PO PRN (12:15)
[2022-08-01] MEDS ORDERED: LACTATED RINGERS 1,000 ML IV PRN (12:15)
[2022-08-01] MEDS ORDERED: diphenhydrAMINE 50 MG/ML INJ (BENADRYL) IVP PRN (12:15)
[2022-08-01] MEDS ORDERED: ONDANSETRON 4 MG/2 ML (SDV) Z0FRAN IVP PRN (12:15)
[2022-08-01] MEDS ORDERED: HYDROmorphone 2 MG/ML VIAL (DILAUDID) IVP ONE (12:15)
[2022-08-01] MEDS ORDERED: ACETAMINOPHEN 325 MG TABLET PO PRN (12:15)
[2022-08-01] MEDS ORDERED: ONDANSETRON 4 MG/2 ML (SDV) Z0FRAN ONE (12:28)
[2022-08-01] MEDS ORDERED: BUPIVACAINE 0.5% 30 ML (SENSORCAINE) VIAL INJ ONE (12:46)
[2022-08-01] MEDS ORDERED: SEVOFLURANE (ULTANE) 15 ML INHAL SOLN ONE (13:24)
[2022-08-01] MEDS ORDERED: ROPIVACAINE 5MG/ML 30ML VIAL ONE (13:44)
--- NOTE | 2022-08-01 14:13 | Anesthesia-General Post-Op ---
General Patient Condition Mental Status/LOC: Same as Preop Cardiovascular: Satisfactory Nausea/Vomiting: Absent Respiratory: Satisfactory Pain: Controlled Complications: Absent Post Op Complications Complications None Follow Up Care/Instructions Patient Instructions None needed. Anesthesia/Patient Condition Patient Condition Patient is doing well, no complaints, stable vital signs, no apparent adverse anesthesia problems. No complications reported per nursing. TRAN VALENZUELA CRNA Aug 01, 2022 14:13
[2022-08-01] MEDS ORDERED: morphine INJ 10 MG/ML 1ML (SYR OR VIAL) IVP ONE (14:15)
--- NOTE | 2022-08-01 15:21 | Physical Therapy Progress Note ---
Therapy Progress Note Attempted to see patient for PT initial evaluation. Patient demonstrates significant difficulty opening her eyes and responding to questions. Patients family member reports the patient just returned from surgery ~15 minutes ago. This therapist discussed with nursing and decided to wait till tomorrow to begin therapy and progress per patient tolerance. EARNEST MCDOWELL PT Aug 01, 2022 15:21
--- NOTE | 2022-08-01 15:46 | Diagnostic Imaging Report ---
INDICATION: Postop. FINDINGS: Right hip replacement performed, projecting in anatomic alignment at frontal radiograph. The residual bony structures appeared intact. IMPRESSION: Good appearance of the postop right hip. Dictated by: Dictated on workstation # [id number]
[2022-08-01] MEDS ORDERED: CEFUROXIME INJECTION 750 MG in NS (IVPB) 50 ML IV SCH (20:15)
[2022-08-01] MEDS: NS (IVPB) 250 ML IV PRN ×2 (20:42→23:53)
[2022-08-01] MEDS ORDERED: NS IV 1000 ML 1,000 ML IV SCH (21:00)
[2022-08-01] MEDS: CLINDAMYCIN 600 MG/50 ML IVPB 50 ML IV SCH (21:48)
--- NOTE | 2022-08-02 00:43 | OPERATIVE REPORT ---
DATE OF SERVICE: 08/01/2022 PREOPERATIVE DIAGNOSIS: Closed, displaced right femoral neck fracture. POSTOPERATIVE DIAGNOSIS: Closed, displaced right femoral neck fracture. PROCEDURE: Right hip bipolar replacement. SURGEON: Beck Rueda MD. SYSTEMS MANAGEMENT CONSULTANT: Raymond Forbes, who assisted throughout the procedure and closed the incision. ANESTHESIA: General endotracheal. ESTIMATED BLOOD LOSS: 200 mL. DRAINS: None. COMPLICATIONS: None. POSTOPERATIVE PLAN: Routine hip protocol with weightbearing as tolerated. MATERIALS: MicroPort press-fit 13.5 stem with a 3.5 neck and 46 liner. The patient was transferred to recovery room awake and in stable condition. STATEMENT OF MEDICAL NECESSITY: The patient is an 86-year-old female, who fell at home yesterday evening and was found to have a displaced right femoral neck fracture. The patient was counseled regarding treatment options and elected to proceed with surgical intervention. DESCRIPTION OF PROCEDURE: After risks and benefits of the procedure were discussed and questions were answered, an informed consent was signed and placed in the chart. The operative site was confirmed in the preoperative holding area and initialed by surgeon and initialed by the surgeon. The patient was then transported to the operating room and after adequate levels of general endotracheal anesthetic was obtained, a timeout was called, confirming the operative site. The patient was then carefully placed in the left lateral decubitus position, being careful to place an axillary roll and pad all bony prominences. The right hip and lower extremity were prepped and draped in the usual sterile fashion. A standard lateral approach was utilized. Hemostasis was obtained with cautery. The iliotibial band was incised in line with the incision. The abductor was released from its greater trochanter attachment leaving a 2 cm cuff for later reattachment. Hip capsulotomy was performed. The fracture site was identified. The femoral head was removed without difficulty. The acetabulum was irrigated and all loose bodies were removed. The femur was then prepared. The femoral cut neck was completed with a saw and then prepared with the box chisel followed by sequential hand reamed up to a 13.5. This was then broached up to a 13.5 with good fill noted. The broach was used as a trial. A 3.5 neck with 46 liner was placed. Hip was reduced and found to be stable in all planes with no impingement noted, no instability noted. The hip was then reduced. The trials were removed. The joint was further irrigated with pulse lavage. The proximal femur was closely inspected for any fracture lines, none were evident. The stem was then placed in 15 degrees of anteversion in a press-fit fashion. Good fill was noted. The superior aspect was irrigated and dried and the head liner combination was placed. The hip was reduced after closely inspecting the acetabulum. The hip was taken through range of motion with no instability noted and no impingement noted. The wound was copiously irrigated. The capsule and abductors were reapproximated using #5 Tevdek in [id number] interrupted fashion. The wound was further irrigated. The iliotibial band was closed in a running fashion with #1 Vicryl. A 0 Vicryl was used for the deep subcutaneous layer, 2-0 Vicryl for the superficial subcutaneous layer, jose used on the skin. The incision was infiltrated with plain Marcaine. A soft dressing was applied and the patient was transferred to the recovery room awake and stable condition. Job ID: [id number] DocumentID: [id number] Dictated Date: 08/01/2022 13:29:52 Instrument Tester Date: 08/02/2022 00:42:00 Dictated By: BECK RUDEA MD
[2022-08-02] MEDS: NS IV 1000 ML 1,000 ML IV SCH ×6 (01:15→20:21)
[2022-08-02 01:40] VITALS: BP 72/46
[2022-08-02 03:24] VITALS: BP 79/50
[2022-08-02 04:25] VITALS: BP 82/52
[2022-08-02 04:42] LABS: BASOPHILS % (AUTO) 0 % (0-10); EOSINOPHILS # (AUTO) 0.1 10^3/uL (0.0-0.3); EOSINOPHILS % (AUTO) 0 % (0-10); HEMATOCRIT 34 % (35-52); HEMOGLOBIN 10.6 g/dL (11.5-16.0); LYMPHOCYTES # (AUTO) 1.3 10^3/uL (1.0-4.0); LYMPHOCYTES % (AUTO) 9 % (12-44); MEAN CORPUSCULAR HEMOGLOBIN 32 pg (25-34); MEAN CORPUSCULAR HGB CONC 31 g/dL (32-36); MEAN CORPUSCULAR VOLUME 101 fL (80-99); MEAN PLATELET VOLUME 9.7 fL (9.0-12.2); MONOCYTES % (AUTO) 14 % (0-12); NEUTROPHILS # (AUTO) 11.1 10^3/uL (1.8-7.8); NEUTROPHILS % (AUTO) 77 % (42-75); PLATELET COUNT 156 10^3/uL (130-400); WHITE BLOOD COUNT 14.4 10^3/uL (4.3-11.0)
[2022-08-02 05:00] LABS: NEUTROPHILS % (MANUAL) 81 %
[2022-08-02 05:01] LABS: BAND NEUTROPHILS 2 %; BASOPHILS % (MANUAL) 0 %; EOSINOPHILS % (MANUAL) 0 %; LYMPHOCYTES % (MANUAL) 9 %; MONOCYTES % (MANUAL) 8 %; POIKILOCYTOSIS SLIGHT; TOXIC GRANULATION/VACUOLAZATIO 1+
[2022-08-02 05:03] LABS: ALBUMIN 1.9 GM/DL (3.2-4.5); POTASSIUM 4.3 MMOL/L (3.6-5.0)
[2022-08-02 05:06] LABS: TOTAL PROTEIN 5.5 GM/DL (6.4-8.2)
[2022-08-02 05:08] LABS: BILIRUBIN,TOTAL 0.6 MG/DL (0.1-1.0)
[2022-08-02 05:09] LABS: CREATININE SERUM 1.55 MG/DL (0.60-1.30)
[2022-08-02] MEDS: CLINDAMYCIN 600 MG/50 ML IVPB 50 ML IV SCH (05:15)
[2022-08-02 05:18] VITALS: BP 86/57
[2022-08-02] MEDS: MULTIVIT W/MINERALS TAB (THERAGRAN M) PO SCH (05:25)
[2022-08-02] MEDS ORDERED: ALBUMIN 25% 25 GM/100 ML 100 ML IV ONE (05:45)
[2022-08-02] MEDS ORDERED: TRM50T PO (07:45)
[2022-08-02] MEDS: RT-ALBUTEROL SULF 2.5 MG/3 ML PRE-MIX VIAL INH SCH ×2 (07:49→19:57)
--- NOTE | 2022-08-02 07:57 | Progress Note ---
Standard Progress Note Progress Notes/Assess & Plan Date Seen by a Provider: Aug 02, 2022 Time Seen by a Provider: 07:55 Progress/Assessment & Plan no complaints Laboratory Tests Test 08/02/22 04:35 08/02/22 06:00 Range/Units White Blood Count 14.4 H 4.3-11.0 10^3/uL Red Blood Count 3.35 L 3.80-5.11 10^6/uL Hemoglobin 10.6 L 11.5-16.0 g/dL Hematocrit 34 L 35-52 % Mean Corpuscular Volume 101 H 80-99 fL Mean Corpuscular Hemoglobin 32 25-34 pg Mean Corpuscular Hemoglobin Concent 31 L 32-36 g/dL Red Cell Distribution Width 13.9 10.0-14.5 % Platelet Count 156 130-400 10^3/uL Mean Platelet Volume 9.7 9.0-12.2 fL Immature Granulocyte % (Auto) 0 % Neutrophils (%) (Auto) 77 H 42-75 % Lymphocytes (%) (Auto) 9 L 12-44 % Monocytes (%) (Auto) 14 H 0-12 % Eosinophils (%) (Auto) 0 0-10 % Basophils (%) (Auto) 0 0-10 % Neutrophils # (Auto) 11.1 H 1.8-7.8 10^3/uL Lymphocytes # (Auto) 1.3 1.0-4.0 10^3/uL Monocytes # (Auto) 2.0 H 0.0-1.0 10^3/uL Eosinophils # (Auto) 0.1 0.0-0.3 10^3/uL Basophils # (Auto) 0.0 0.0-0.1 10^3/uL Immature Granulocyte # (Auto) 0.1 0.0-0.1 10^3/uL Neutrophils % (Manual) 81 % Lymphocytes % (Manual) 9 % Monocytes % (Manual) 8 % Eosinophils % (Manual) 0 % Basophils % (Manual) 0 % Band Neutrophils 2 % Toxic Granulation 1+ Poikilocytosis SLIGHT Sodium Level 135 135-145 MMOL/L Potassium Level 4.3 3.6-5.0 MMOL/L Chloride Level 108 H 98-107 MMOL/L Carbon Dioxide Level 14 L 21-32 MMOL/L Anion Gap 13 5-14 MMOL/L Blood Urea Nitrogen 33 H 7-18 MG/DL Creatinine 1.55 H 0.60-1.30 MG/DL Estimat Glomerular Filtration Rate 33 BUN/Creatinine Ratio 21 Glucose Level 94 70-105 MG/DL Calcium Level 7.0 L 8.5-10.1 MG/DL Corrected Calcium 8.7 8.5-10.1 MG/DL Total Bilirubin 0.6 0.1-1.0 MG/DL Aspartate Amino Transf (AST/SGOT) 29 5-34 U/L Alanine Aminotransferase (ALT/SGPT) 15 0-55 U/L Alkaline Phosphatase 71 40-136 U/L Total Protein 5.5 L 6.4-8.2 GM/DL Albumin 1.9 L 3.2-4.5 GM/DL Procalcitonin 0.34 H <0.10 NG/ML Lactic Acid Level 4.47 *H 0.50-2.00 MMOL/L Vital Signs Date Time Temp Pulse Resp B/P (MAP) Pulse Ox O2 Delivery O2 Flow Rate FiO2 08/02/22 07:52 96 Nasal Cannula 3.00 08/02/22 05:18 103 86/57 (67) 08/02/22 04:25 97 82/52 (62) 08/02/22 03:24 35.7 99 18 79/50 (60) 94 Nasal Cannula 3.00 08/02/22 01:40 93 72/46 (55) 08/01/22 23:41 35.8 89 18 84/54 (64) 94 Nasal Cannula 3.00 08/01/22 22:00 78/47 (57) 08/01/22 21:12 96 Nasal Cannula 3.00 08/01/22 20:30 81 78/48 (58) 08/01/22 20:19 Nasal Cannula 3.00 08/01/22 19:17 36.3 77 18 82/42 (55) 94 Nasal Cannula 3.00 08/01/22 15:32 35.5 80 18 111/59 (76) 95 Nasal Cannula 3.00 08/01/22 14:48 35.8 84 16 120/60 (80) 90 Nasal Cannula 3.00 08/01/22 14:40 Nasal Cannula 3.00 08/01/22 14:30 36.7 12 101/63 (76) 96 Nasal Cannula 3.00 08/01/22 14:25 Nasal Cannula 3.00 08/01/22 14:20 12 87/47 (60) 96 OxyMask 10.00 08/01/22 14:10 OxyMask 10.00 08/01/22 14:10 12 85/47 (60) 96 OxyMask 10.00 08/01/22 14:00 12 75/49 (58) 96 OxyMask 10.00 08/01/22 13:55 OxyMask 10.00 08/01/22 13:50 11 72/43 (53) 96 OxyMask 10.00 08/01/22 13:41 12 82/43 (56) 96 OxyMask 10.00 08/01/22 13:38 36.3 16 83/49 (60) 100 OxyMask 10.00 08/01/22 13:38 OxyMask 10.00 08/01/22 11:45 36.3 76 16 101/54 (70) 95 Nasal Cannula 3.00 08/01/22 08:00 96 Nasal Cannula 3.00 I & O 08/02/22 07:00 Intake Total 3710 ml Output Total 260 ml Balance 3450 ml RLE-dressing intact intact DF and PF of toes and ankle sensation intact throughout pulses equal radiographs--HW well positioned without fx s/p R hip bipolar mobilize when medically able Focused Exam Lactate Level 08/02/22 06:00: Lactic Acid Level 4.47*H Lactic Acid Level Laboratory Tests Test 08/02/22 06:00 Lactic Acid Level 4.47 MMOL/L (0.50-2.00) *H MALICK RUEDA MD Aug 02, 2022 07:57
[2022-08-02] MEDS ORDERED: ENOXAPARIN 40 MG/0.4 ML (LOVENOX) SYR SC SCH (08:00)
[2022-08-02 08:46] VITALS: BP 86/52
[2022-08-02 09:03] VITALS: BP 89/50
[2022-08-02] MEDS: MIDODRINE 10 MG (PROAMATINE) TAB PO SCH ×3 (09:40→20:17)
[2022-08-02] MEDS: ENOXAPARIN INJECTION 30 MG/0.3 ML SYR SC SCH (09:41)
--- NOTE | 2022-08-02 09:49 | Occ Therapy Progress Note ---
Therapy Progress Note OT orders received and chart reviewed. OT visited with RN who requests pt to be on hold from OT on this date due to decreasing lactic levels. OT will continue to monitor pt status and initiate skilled tx when pt is more medically stable and able to actively participate in skilled therapy. OT will check back tomorrow. HUMERA HERZOG OT Aug 02, 2022 09:49
[2022-08-02] MEDS: SENNOSIDES 8.6 MG (SENOKOT) TAB PO SCH ×2 (09:51→20:17)
[2022-08-02] MEDS: DOCUSATE SODIUM 100 MG (COLACE) CAP PO SCH ×2 (09:51→20:17)
[2022-08-02] MEDS ORDERED: NS IV 500 ML 500 ML IV PRN (10:15)
[2022-08-02] MEDS ORDERED: NOREPINEPHRINE 8 MG/250 ML 250 ML IV ONE (10:18)
[2022-08-02] MEDS: NOREPINEPHRINE 8 MG/250 ML 250 ML IV SCH (10:27)
--- NOTE | 2022-08-02 10:27 | Physical Therapy Progress Note ---
Therapy Progress Note Patient on Hold and transferred to ICU due to decline in medical status. PT will require new orders to initiate treatment when patient is deemed medically stable and able to actively participate with skilled therapy. BRITTNEY MCNULTY PT Aug 02, 2022 10:27
[2022-08-02] MEDS ORDERED: MECLIZINE 25 MG (ANTIVERT) TAB PO PRN (10:30)
[2022-08-02] MEDS ORDERED: NON-FORMULARY MEDICATION 1 EA EA (Tiotropium Bromide (Spiriva Respimat 2.5MCG/ACTUATION) 2 INH PRN (10:30)
[2022-08-02 10:58] LABS: ALBUMIN 2.5 GM/DL (3.2-4.5); BILIRUBIN,TOTAL 0.8 MG/DL (0.1-1.0); CALCIUM 6.7 MG/DL (8.5-10.1); CREATININE SERUM 1.85 MG/DL (0.60-1.30); POTASSIUM 4.7 MMOL/L (3.6-5.0); TOTAL PROTEIN 5.6 GM/DL (6.4-8.2)
[2022-08-02 11:00] LABS: ABG BASE EXCESS -12.1 MMOL/L (-2.5-2.5); ABG OXYGEN SATURATION 97 % (94-100); ABG PCO2 38 MMHG (35-45); ABG PO2 91 MMHG (79-93); ABG TCO2 15.4 MMOL/L (21.0-31.0)
[2022-08-02 11:03] LABS: PATIENT TEMP 37.6; VENTILATOR NO
--- NOTE | 2022-08-02 11:06 | Tele-ICU Progress Note ---
Subjective Date Seen by a Provider: Aug 02, 2022 Subjective/Events-last exam This virtual visit was conducted using real time audio/video. Thank you for asking us to see this patient for respiratory insufficiency, afib and hypotension post op R THR 08/01/2022. Suffered fall in kitchen. Transferred from floor. Recent events: PMH: COPD, SLE, mitral valve prolapse, HL, HTN SH: smoking history F FH: Non-contributory ROS: limited by patient's clinical condition. PE: Poorly responsive. 140-150 Afib. 78/58 on Levo. O2 sat: poor waveform. HEENT: No obvious masses, adenopathy or JVD. Chest: Diminished on auscultation. CV: RRR S1 S2 No murmur or added sounds. Abd: Non-tender. Bowel sounds Y. : Unremarkable. Benavides Y. PHLEBOTOMY PROGRAM COORDINATOR/psychiatric: Grossly intact. No obvious focal findings. Extremities: No edema. Capillary refill < 3 seconds. Skin: unremarkable. Results: Elevated WCC 14.4, BUN 33, Creat 1.55, Lact 3.74. Decreased Hb 10.6, Alb 1.9. BG: pending. CXR: Clear.. Available chart/ vitals / labs / images reviewed. Video assessment done using teleICU camera, rest of exam as per RN. A/P: Respiratory insufficiency: Continue present management with O2, incruse, PRN Albuterol Monitor for increasing oxygenation needs and/or need for intubation. Critical Care: critically ill patient with afib/RVR, hypotension. Cont . IVF, Levophed. Discussed with RADHA Bravo. Asked RN to reach out to eICU if any questions or concerns later. Time spent with patient/coordination of care with other health professionals (mins): 30 Sepsis Event Evaluation Height, Weight, BMI Height: 5'6.00" Weight: 163lbs. 3.2oz. [id number]; 21.47 BMI Method:Stated Focused Exam Lactate Level 08/02/22 06:00: Lactic Acid Level 4.47*H 08/02/22 08:00: Lactic Acid Level 3.74*H Lactic Acid Level Laboratory Tests Test 08/02/22 08:00 Lactic Acid Level 3.74 MMOL/L (0.50-2.00) *H Exam Exam Patient acknowledged, consented, and participated in this virtual visit which was conducted using real time audio/video Vital Signs Date Time Temp Pulse Resp B/P (MAP) Pulse Ox O2 Delivery O2 Flow Rate FiO2 08/02/22 09:03 110 89/50 (63) 08/02/22 08:46 35.8 104 16 86/52 (63) 96 Nasal Cannula 3.00 08/02/22 08:00 Nasal Cannula 3.00 08/02/22 07:52 96 Nasal Cannula 3.00 08/02/22 05:18 103 86/57 (67) 08/02/22 04:25 97 82/52 (62) 08/02/22 03:24 35.7 99 18 79/50 (60) 94 Nasal Cannula 3.00 08/02/22 01:40 93 72/46 (55) 08/01/22 23:41 35.8 89 18 84/54 (64) 94 Nasal Cannula 3.00 08/01/22 22:00 78/47 (57) 08/01/22 21:12 96 Nasal Cannula 3.00 08/01/22 20:30 81 78/48 (58) 08/01/22 20:19 Nasal Cannula 3.00 08/01/22 19:17 36.3 77 18 82/42 (55) 94 Nasal Cannula 3.00 08/01/22 15:32 35.5 80 18 111/59 (76) 95 Nasal Cannula 3.00 08/01/22 14:48 35.8 84 16 120/60 (80) 90 Nasal Cannula 3.00 08/01/22 14:40 Nasal Cannula 3.00 08/01/22 14:30 36.7 12 101/63 (76) 96 Nasal Cannula 3.00 08/01/22 14:25 Nasal Cannula 3.00 08/01/22 14:20 12 87/47 (60) 96 OxyMask 10.00 08/01/22 14:10 OxyMask 10.00 08/01/22 14:10 12 85/47 (60) 96 OxyMask 10.00 08/01/22 14:00 12 75/49 (58) 96 OxyMask 10.00 08/01/22 13:55 OxyMask 10.00 08/01/22 13:50 11 72/43 (53) 96 OxyMask 10.00 08/01/22 13:41 12 82/43 (56) 96 OxyMask 10.00 08/01/22 13:38 36.3 16 83/49 (60) 100 OxyMask 10.00 08/01/22 13:38 OxyMask 10.00 08/01/22 11:45 36.3 76 16 101/54 (70) 95 Nasal Cannula 3.00 I & O 08/02/22 07:00 Intake Total 3710 ml Output Total 260 ml Balance 3450 ml Height & Weight Height: 5'6.00" Weight: 163lbs. 3.2oz. 74.192518pp; 21.47 BMI Method:Stated General Appearance: WD/WN, Anxious, Chronically ill, Mild Distress HEENT: PERRL/EOMI, Normal ENT Inspection, Pharynx Normal, Moist Mucous Membranes Neck: Full Range of Motion, Normal Inspection, Non Tender Respiratory: Chest Non Tender, Lungs Clear, Normal Breath Sounds, No Accessory Muscle Use, No Respiratory Distress Cardiovascular: Regular Rate, Rhythm, No Edema, No Gallop, No JVD, No Murmur, Normal Peripheral Pulses Capillary Refill: Less Than 3 Seconds Gastrointestinal: normal bowel sounds, non tender, soft Extremity: Normal Capillary Refill, Normal Inspection, Normal Range of Motion (except right leg), Non Tender, No Calf Tenderness, No Pedal Edema Neurologic/Psychiatric: Alert, Oriented x3, No Motor/Sensory Deficits, Normal Mood/Affect Skin: Normal Color, Warm/Dry Lymphatic: No Adenopathy Results Lab Laboratory Tests 07/31/22 17:54 08/01/22 06:12 08/02/22 04:35 Assessment/Plan Assessment/Plan See free text. Critical Care: Critically Ill Patient MAX RAMSEY MD Aug 02, 2022 11:06
--- NOTE | 2022-08-02 11:07 | Consultation - Surgery ---
History of Present Illness History of Present Illness Patient Consulted On(virgil/time) 08/02/22 10:59 Time Seen by Provider: 10:26 History of Present Illness Surgery asked to consult regarding "Hypovolemic Shock", s/p hip surgery. HPI per ED: This is an 86-year-old female who presented to the ER via [facility] for complaints of right hip pain after a same level fall in her kitchen. States that she hit the right side of her head on a metal strip between the doorway. No known loss of consciousness. States that she is been having intermittent episodes of vertigo recently and while she is in the kitchen she experienced a episode and fell to the ground. Pain is localized to her right hip, worse with movement. She was given fentanyl 100 mcg per EMS prior to arrival as well as Zofran 4 mg IV push. At this time she is comfortable. She denies headache or neck pain. She does have a small hematoma on the right side of her head, bleeding stopped prior to arrival. She is not on any anticoagulants or antiplatelet medications. When I saw pt this am she was in severe distress; hypotensive, tachcycardic, tachypnic but talking and complaining of SOB. She had an orthopedic surgical repair of right hip yesterday. Has not been putting out any urine and looked much worse this am; transferred emergently up to the ICU. I was asked to put in central line for pressor support; need central access for Levophed. Allergies and Home Medications Allergies Coded Allergies: iodine (Verified Allergy, Severe, RASH, 03/23/18) prednisone (Verified Allergy, Mild, RASH, 03/23/18) Sulfa (Sulfonamide Antibiotics) (Verified Allergy, Unknown, 03/23/18) amlodipine (Verified Allergy, Unknown, SWOLLEN LEGS AND FEET,PAIN IN HEAD UP TO 3 TIMES IN NIGHT, 03/23/18) amoxicillin (Verified Allergy, Unknown, 03/23/18) azithromycin (Verified Allergy, Unknown, 03/23/18) benazepril (Verified Allergy, Unknown, SEVERE HEADACHE, 03/23/18) cefaclor (Verified Allergy, Unknown, 03/23/18) cephalexin (Verified Allergy, Unknown, 03/23/18) cortisone (Verified Allergy, Unknown, 03/23/18) doxycycline (Verified Allergy, Unknown, 03/23/18) egg (Verified Allergy, Unknown, 03/23/18) griseofulvin (Verified Allergy, Unknown, 03/23/18) levofloxacin (Verified Allergy, Unknown, FACIAL FLUSHING, DIARRHEA AND LEG CRAMPS, 03/23/18) oxaprozin (Verified Allergy, Unknown, 03/23/18) propoxyphene (Verified Allergy, Unknown, SEVERE PAIN IN HEAD, 03/23/18) tetracycline (Verified Allergy, Unknown, 03/23/18) verapamil (Verified Allergy, Unknown, 03/23/18) chlorpheniramine (Verified Adverse Reaction, Unknown, HEART PAPILATIONS AND HYPERTENSION, 03/23/18) dextromethorphan (Verified Adverse Reaction, Unknown, HEART PAPILATIONS AND HYPERTENSION, 03/23/18) Uncoded Allergies: ALL EYE DROPS (Adverse Reaction, Unknown, MAKE EYES SWELL SHUT, 12/15/09) Patient Home Medication List Home Medication List Reviewed: Yes Acetaminophen (Tylenol Extra Strength) 500 Mg Tablet, 1,000 MG PO Q8H PRN for PAIN-MILD (1-4), (Reported) Entered as Reported by: AFCUNDO MIRANDA on 08/01/221056 Last Action: Held Candesartan Cilexetil (Atacand) 32 Mg Tablet, 32 MG PO DAILY, (Reported) Entered as Reported by: FACUNDO MIRANDA on 08/01/221056 Last Action: Held Meclizine HCl (Meclizine HCl) 25 Mg Tablet, 25 MG PO Q8H PRN for VERTIGO, (Reported) Entered as Reported by: FACUNDO MIRANDA on 08/01/221056 Last Action: Continued Metolazone (Metolazone) 2.5 Mg Tablet, 2.5 MG PO DAILY, (Reported) Entered as Reported by: FACUNDO MIRANDA on 08/01/221056 Last Action: Held Metoprolol Succinate (Toprol Xl) 100 Mg Tab.er.24h, 100 MG PO BID, (Reported) Entered as Reported by: ACOSTA MACKAY on 03/24/18 0932 Last Action: Continued Tiotropium Selfridge (Spiriva Respimat 2.5MCG/ACTUATION) 2.5 Mcg/Actuation Mist.inhal, 1-2 PUFF INH BID PRN for SHORTNESS OF BREATH, (Reported) Entered as Reported by: CE BOYCE on 03/23/18 1249 Last Action: Converted Tramadol HCl (Tramadol HCl) 50 Mg Tablet, 50 MG PO Q6H, (Reported) Entered as Reported by: IDALIA WRIGHT on 08/02/22 0710 Last Action: Continued Discontinued Medications Apixaban (Eliquis) 5 Mg Tablet, 5 MG PO BID Discontinued Reason: No Longer Taking Prescribed by: BRANNON HAYNES on 04/10/18 1416 Last Action: Discontinued Candesartan Cilexetil (Atacand) 32 Mg Tablet, 32 MG PO DAILY, (Reported) Discontinued Reason: No Longer Taking Entered as Reported by: ACOSTA MACKAY on 03/24/18 0932 Last Action: Discontinued Hydrocodone/Acetaminophen (Hydrocodone-Acetamin 5-325 mg) 5 Mg-325 Mg Tablet, 1 TAB PO Q6H PRN for PAIN-MODERATE (5-7) Discontinued Reason: No Longer Taking Prescribed by: YOBANY OCHOA on 01/03/22 1705 Last Action: Discontinued Magnesium Oxide (Magnesium Oxide) 400 Mg Tablet, 400 MG PO BIDPC Discontinued Reason: No Longer Taking Prescribed by: BRANNON HAYNES on 04/10/18 1416 Last Action: Discontinued Metolazone (Metolazone) 2.5 Mg Tablet, 2.5 MG PO DAILY, (Reported) Discontinued Reason: No Longer Taking Entered as Reported by: ACOSTA MACKAY on 03/24/1832 Last Action: Discontinued Ondansetron (Ondansetron Odt) 4 Mg Tab.rapdis, 4 MG PO Q8H PRN for nausea Discontinued Reason: No Longer Taking Prescribed by: YOBANY OCHOA on 01/03/221616 Last Action: Discontinued Valacyclovir HCl (Valacyclovir) 1,000 Mg Tablet, 1,000 MG PO TID Discontinued Reason: No Longer Taking Prescribed by: YOBANY OCHOA on 01/03/221616 Last Action: Discontinued Past Vtwlkrb-Atztwz-Szbtpl Hx Patient Social History Smoking Status: Never a Smoker Recent Hopitalizations: No Alcohol Use?: No Have you traveled recently?: No Immunizations Up To Date Tetanus Booster (TDap): Unknown PED Vaccines UTD: No Seasonal Allergies Seasonal Allergies: Yes Surgeries History of Surgeries: Yes (tonsilectomy, appedenctomy, adenoidectomy) Respiratory History of Respiratory Disorde: Yes Respiratory Disorders: Emphysema Cardiovascular History of Cardiac Disorders: Yes (PROLAPSED MITRAL VALVE) Cardiac Disorders: High Cholesterol, Hypertension Neurological History of Neurological Disord: No Reproductive System Hx Reproductive Disorders: No Sexually Transmitted Disease: No HIV/AIDS: No Female Reproductive Disorders: Denies Genitourinary History of Genitourinary Disor: No Genitourinary Disorders: Bladder Infection Gastrointestinal History of Gastrointestinal Di: No Gastrointestinal Disorders: Chronic Constipation Musculoskeletal History of Musculoskeletal Dis: No Musculoskeletal Disorders: Arthritis, Fractures Endocrine History of Endocrine Disorders: Yes HEENT History of HEENT Disorders: No Loss of Vision: Denies Hearing Impairment: Denies Cancer History of Cancer: No Psychosocial History of Psychiatric Problem: No Integumentary History of Skin or Integumenta: No Blood Transfusions History of Blood Disorders: No Adverse Reaction to a Blood Tr: No Family Medical History Significant Family History: Hypertension Family Medial History: Patient reports no known family medical history. Review of Systems-General Constitutional: diaphoresis, malaise, weakness EENTM: blurred vision; No mouth swelling, No epistaxis, No throat swelling Respiratory: cough, dyspnea on exertion; No hemoptysis; short of breath Cardiovascular: No chest pain, No palpitations Gastrointestinal: No abdominal pain, No nausea, No vomiting Genitourinary: decreased output; No dysuria, No hematuria Musculoskeletal: joint pain, joint swelling, muscle stiffness, muscle cramps Skin: No change in color, No change in hair/nails Psychiatric/Neurological: Anxiety; Denies Depressed, Denies Seizure Physical Exam-General Problems Physical Exam Vital Signs Vital Signs - First Documented 07/31/22 07/31/22 17:50 20:00 Temp 36.4 Pulse 73 Resp 18 B/P (MAP) 171/88 (115) Pulse Ox 96 O2 Delivery Room Air O2 Flow Rate 3.00 Capillary Refill : Less Than 3 SecondsLess Than 3 Seconds General Appearance: severe distress, thin Eyes: Bilateral Eye PERRL, Bilateral Eye EOMI HEENT: pharynx normal; No scleral icterus (R), No scleral icterus (L) Neck: non-tender, supple Respiratory: chest non-tender, respiratory distress, decreased breath sounds, accessory muscle use, crackles Cardiovascular: no murmur, tachycardia Gastrointestinal: non tender, soft, no organomegaly Extremities: no calf tenderness, pedal edema, other (hip sx - bandage in place) Neurologic/Psychiatric: alert Skin: cool; No jaundice, No mottled; pallor Lymphatic: no adenopathy (neck, axilla or groin) Data Review Labs Laboratory Tests 08/02/22 04:35: White Blood Count 14.4H, Red Blood Count 3.35L, Hemoglobin 10.6L, Hematocrit 34L , Mean Corpuscular Volume 101H, Mean Corpuscular Hemoglobin 32, Mean Corpuscular Hemoglobin Concent 31L, Red Cell Distribution Width 13.9, Platelet Count 156, Mean Platelet Volume 9.7, Immature Granulocyte % (Auto) 0, Neutrophils (%) (Auto) 77H, Lymphocytes (%) (Auto) 9L, Monocytes (%) (Auto) 14H, Eosinophils (%) (Auto) 0, Basophils (%) (Auto) 0, Neutrophils # (Auto) 11.1H, Lymphocytes # (Auto) 1.3, Monocytes # (Auto) 2.0H, Eosinophils # (Auto) 0.1, Basophils # (Auto) 0.0, Immature Granulocyte # (Auto) 0.1, Neutrophils % (Manual) 81, Lymphocytes % (Manual) 9, Monocytes % (Manual) 8, Eosinophils % (Manual) 0, Basophils % (Manual) 0, Band Neutrophils 2, Toxic Granulation 1+, Poikilocytosis SLIGHT, Sodium Level 135, Potassium Level 4.3, Chloride Level 108H, Carbon Dioxide Level 14L, Anion Gap 13, Blood Urea Nitrogen 33H, Creatinine 1.55H, Estimat Glomerular Filtration Rate 33, BUN/Creatinine Ratio 21, Glucose Level 94, Calcium Level 7.0L, Corrected Calcium 8.7, Total Bilirubin 0.6, Aspartate Amino Transf (AST/SGOT) 29, Alanine Aminotransferase (ALT/SGPT) 15, Alkaline Phosphatase 71, Total Protein 5.5L, Albumin 1.9L, Procalcitonin 0.34H 08/02/22 06:00: Lactic Acid Level 4.47*H 08/02/22 08:00: Lactic Acid Level 3.74*H 08/02/22 10:29: Sodium Level 138, Potassium Level 4.7, Chloride Level 109H, Carbon Dioxide Level 15L, Anion Gap 14, Blood Urea Nitrogen 33H, Creatinine 1.85H, Estimat Glomerular Filtration Rate 27, BUN/Creatinine Ratio 18, Glucose Level 100, Calcium Level 6.7L, Corrected Calcium 7.9L, Total Bilirubin 0.8, Aspartate Amino Transf (AST/SGOT) 29, Alanine Aminotransferase (ALT/SGPT) 16, Alkaline Phosphatase 65, Total Protein 5.6L, Albumin 2.5L 08/02/22 10:57: Radiology Date of Exam:07/31/22 CHEST 1 VIEW, AP/PA ONLY INDICATION: Fall. Hip pain. Correlation is made with a prior CT abdomen and pelvis from January 20, 2016 and prior chest radiograph from 04/03/2018. FINDINGS: Air-filled blebs at the left lung base are unchanged from prior exam. There is no new airspace consolidation or evidence of pneumonia. There is no effusion. There is no pneumothorax. There is stable enlargement of the cardiac silhouette without evidence of current edema or failure. No rib fracture is evident. IMPRESSION: Stable chest. No new or acute cardiopulmonary process demonstrated. Dictated by: Dictated on workstation # [id number] Dict: 07/31/221841 Trans: 07/31/221925 [facility] [id number] Interpreted by: MORGAN MENDIOLA MD Electronically signed by: MORGAN MENDIOLA MD 07/31/221925 Date of Exam:07/31/22 CT HEAD/CERVICAL SPINE WO PROCEDURE: CT head and CT cervical spine without contrast. TECHNIQUE: Multiple contiguous axial images were obtained through the brain and cervical spine without the use of intravenous contrast. Sagittal and coronal reformations through the cervical spine were then performed. Auto Exposure Controls were utilized during the CT exam to meet ALARA standards for radiation dose reduction. INDICATION: Fall. Head laceration and head and neck pain. FINDINGS: There is a soft tissue hematoma overlying the lateral aspect of the right parietal calvarium. There is no underlying calvarial fracture. The intracranial contents demonstrate age-related volume loss. There is no acute hemorrhage. There is no subarachnoid hemorrhage or extra-axial hematoma. There are no findings of mass effect. There is no hydrocephalus. There is no territorial loss of huerta-white differentiation or evidence of vasogenic edema. The basilar cisterns are patent. The posterior fossa demonstrates no acute process. There are atherosclerotic calcifications evident within the vessels at the skull base. The mastoids are clear. There is some mucosal thickening in the right maxillary sinus. There is no facial fracture evident or fluid within the paranasal sinuses. The orbital contents are unremarkable. Cervical spine demonstrate multilevel degenerative endplate changes. There is a degenerative anterolisthesis of C7 on T1 due to facet arthropathy. Craniocervical junction relationships appear maintained. There are normal relationships of the lateral masses of C1 and C2. The facets are normally aligned. There is no facet joint or disc space widening. Vertebral body heights are maintained. There is no acute cervical spine fracture evident. The soft tissues of the neck demonstrate no acute process. There are advanced calcifications at the carotid bifurcations. The lung apices appear clear. IMPRESSION: 1. Right parietal scalp laceration without underlying calvarial fracture. 2. Age-related volume loss without acute intracranial abnormality. There is no intracranial hemorrhage. 3. No blood evident within the paranasal sinuses or identified facial fracture. 4. Advanced background degenerative features within the cervical spine without findings of acute fracture or traumatic malalignment. 5. Atherosclerosis. Dictated by: Dictated on workstation # [id number] Dict: 07/31/22 1833 Trans: 07/31/221925 [id number] Interpreted by: MORGAN MENDIOLA MD Electronically signed by: MORGAN MENDIOLA MD 07/31/221925 Assessment/Plan Assessment/Plan Assessment/Plan Hypotension Oliguria Right hip fracture HTN Trauma - Same level fall Scalp hematoma Calvarial Fracture Pt was just made a DNR, but they want aggressive support. I will place a central line with US guidance to assist and allow them to give Levophed for BP support. This is emergent. Clinical Quality Measures DVT/VTE Risk/Contraindication: Contraindications-Pharm: Other *list below* Other: or BRANNON BYRD DO Aug 02, 2022 11:07
--- NOTE | 2022-08-02 11:18 | Progress Note-Post Operative ---
Post-Operative Progess Note Surgeon (s)/Stone Unloader (s) Surgeon BRANNON BYRD DO Stone Unloader: none Pre-Operative Diagnosis Hypotension, Hypovolemic shock Post-Operative Diagnosis same Procedure & Operative Findings Date of Procedure 08/02/22 Procedure Performed/Findings Central line insertion with US guidance The patient was in their bed in the ICU, was prepped and draped in a sterile fashion. A surgical pause was performed. Ultrasound was used to locate the internal jugular vein. Once located anesthetic was infiltrated above it. Using an 18 gauge finder needle and watching with the US; the right internal jugular vein was accessed. Dark non- pulsatile blood was withdrawn. The wire was inserted. US assured proper placement. The needle was removed. A [#11] blade scalpel was used to make a stab incision along the guidewire. Dilator sheath was then advanced over the wire using Seldinger technique and the dilator was removed. The Groshong catheter was inserted over the guide wire using the Seldinger technique. The Groshong wire was removed. The catheter was then accessed in all three ports without difficulty. Good flash of blood was seen and it was then flushed with saline. The catheter was sutured in place with 3-0 silk on a curved needle. The area was then washed and dried. Sterile dressing was placed over incision. The patient tolerated the procedure well without complication. Anesthesia Type local lidocaine Estimated Blood Loss Estimated blood loss (mL): less than 5ml Specimens/Packing Specimens Removed none Packing: none BRANNON BYRD DO Aug 02, 2022 11:18
--- NOTE | 2022-08-02 11:32 | Diagnostic Imaging Report ---
INDICATION: Hypoxemia. Portable chest 10:41 AM Right IJ central line tip projects over the SVC. Heart size and pulmonary vascularity are normal. Lungs are clear. There are no effusions or pneumothoraces. There are 2 pneumatoceles in the left lung base. IMPRESSION: No acute abnormalities in the chest. No change compared to 07/31/2022. Dictated by: Dictated on workstation # [id number]
--- NOTE | 2022-08-02 12:34 | Progress Note - Hospitalist ---
[facility]34: Subjective HPI/CC On Admission Date Seen by Provider: Aug 02, 2022 Time Seen by Provider: 10:30 CC: Right hip fracture HPI: This is an 86 yr old female who sustained a mechanical fall and suffered a right hip fracture. Dr. Arcos performed surgery 08/01. She is complaining of dry mouth. Daughter is at the bedside. Checked meds and labs.. Subjective/Events-last exam Overnight, pt was hypotensive so was given 6500 mL of fluid and started on albumin. She is still not producing urine. Today she reports pain of her hip at a 9/10 in severity after having right hip replacement done by Dr. Arcos 07/31. Review of Systems General: No Chills, No Night Sweats HEENT: No Head Aches, No Visual Changes Pulmonary: No Dyspnea, No Cough Cardiovascular: No: Chest Pain, Palpitations Gastrointestinal: No: Nausea, Vomiting Genitourinary: No Dysuria, No Frequency Musculoskeletal: leg pain (right hip pain); No: neck pain Neurological: No: Weakness, Numbness Focused Exam Lactate Level 08/02/22 06:00: Lactic Acid Level 4.47*H 08/02/22 08:00: Lactic Acid Level 3.74*H Objective Exam Vital Signs Vital Signs Date Time Temp Pulse Resp B/P (MAP) Pulse Ox O2 Delivery O2 Flow Rate FiO2 08/02/22 12:48 141 20 87/69 (75) 99 Nasal Cannula 6.00 08/02/22 11:21 37.1 Capillary Refill : Less Than 3 SecondsLess Than 3 Seconds General Appearance: Chronically ill, Mild Distress HEENT: PERRL/EOMI, Pharynx Normal Neck: Non Tender, Supple Respiratory: Chest Non Tender, Lungs Clear, Normal Breath Sounds, No Accessory Muscle Use Cardiovascular: No Edema, No JVD, Tachycardia Gastrointestinal: Normal Bowel Sounds, Non Tender, Soft Back: Normal Inspection, No CVA Tenderness Extremity: Normal Inspection, Non Tender, Slow Capillary Refill Neurologic/Psychiatric: No Motor/Sensory Deficits, Disoriented Skin: Warm/Dry, Pallor Lymphatic: No Adenopathy Results/Procedures Lab Laboratory Tests 08/02/22 04:35 08/02/22 10:29 Patient resulted labs reviewed. Assessment/Plan Assessment and Plan Assess & Plan/Chief Complaint Hypovolemic shock Lactic acidosis- no evidence of sepsis Oliguria S/p right hip replacement HLD Advanced age Falls Surgery consulted to start central line for delivery of Levofed No new medications will be started and she is DNR status per conversations with family Still no urine Obtain EKG and ABG Monitor labs and vitals Clinical Quality Measures DVT/VTE Risk/Contraindication: Contraindications-Pharm: Other *list below* Other: or HALLEY MCDONOUGH DO 08/03/22 0445: Subjective Subjective/Events-last exam Extensive management required overnight Aggressive IV fluids given for hypovolemia Albumin at 2.5 on admission resulted in third spacing of fluid Spoke with family in depth in addition to grandson who is a physician at DNR order placed Levophed initiated Prognosis poor Oliguria noted Objective Exam General Appearance: Chronically ill, Moderate Distress, Other (Great) Respiratory: Lungs Clear, Normal Breath Sounds Cardiovascular: Regular Rate, Rhythm Assessment/Plan Assessment and Plan Assess & Plan/Chief Complaint Levophed IV fluids Patient needs comfort care Supervisory-Addendum Brief Verification & Attestation Participated in pt care: history, MDM, physical Personally performed: exam, history, MDM, supervision of care Care discussed with: Medical Student Procedures: n/a Results interpretation: Verified all documentation Verification and Attestation of Medical Student E/M Service A medical student performed and documented this service in my presence. I reviewed and verified all information documented by the medical student and made modifications to such information, when appropriate. I personally performed the physical exam and medical decision making. Halley Mcdonough Aug 03, 2022,04:43 JOAQUIN SPANGLER Aug 02, 2022 12:34 HALLEY MCDONOUGH DO Aug 03, 2022 04:45
[2022-08-02] MEDS: ALBUMIN 25% 25 GM/100 ML 100 ML IV SCH ×3 (12:40→21:41)
[2022-08-02] MEDS: HYDROmorphone 2 MG/ML VIAL (DILAUDID) IV PRN ×3 (12:42→21:28)
--- NOTE | 2022-08-02 13:43 | Occ Therapy Progress Note ---
Therapy Progress Note Pt transferred to ICU due to decline in medical status. OT will require new orders to initiate tx when pt is more medically stable and able to actively participate in skilled therapy. D/C from OT due to decline in medical status. HUMERA HERZOG OT Aug 02, 2022 13:43
[2022-08-02] MEDS ORDERED: meTOprolol SUCCINATE 100 MG (TOPROL XL) TAB PO SCH (21:00)
[2022-08-02 22:00] LABS: BILIRUBIN,URINE 1+ (NEGATIVE); CLARITY,URINE CLEAR; COLOR,URINE ORANGE; GLUCOSE, URINE (UA) TRACE (NEGATIVE); KETONES,URINE TRACE (NEGATIVE); LEUKOCYTE ESTERASE ,URINE NEGATIVE (NEGATIVE); NITRITE,URINE NEGATIVE (NEGATIVE); PROTEIN,URINE 3+ (NEGATIVE)
[2022-08-02 22:06] LABS: BACTERIA,URINE LARGE /HPF; WBC,URINE 0-2 /HPF
[2022-08-03 02:52] VITALS: BP 89/59
[2022-08-03] MEDS: NOREPINEPHRINE 8 MG/250 ML 250 ML IV SCH (02:52)
[2022-08-03] MEDS: HYDROmorphone 2 MG/ML VIAL (DILAUDID) IV PRN ×2 (03:53→06:42)
[2022-08-03 04:58] LABS: BASOPHILS % (AUTO) 0 % (0-10); EOSINOPHILS % (AUTO) 0 % (0-10); HEMATOCRIT 27 % (35-52); HEMOGLOBIN 8.8 g/dL (11.5-16.0); LYMPHOCYTES # (AUTO) 1.1 10^3/uL (1.0-4.0); LYMPHOCYTES % (AUTO) 7 % (12-44); MEAN CORPUSCULAR HEMOGLOBIN 32 pg (25-34); MEAN CORPUSCULAR HGB CONC 32 g/dL (32-36); MEAN CORPUSCULAR VOLUME 99 fL (80-99); MEAN PLATELET VOLUME 10.1 fL (9.0-12.2); MONOCYTES # (AUTO) 2.5 10^3/uL (0.0-1.0); MONOCYTES % (AUTO) 17 % (0-12); NEUTROPHILS # (AUTO) 11.1 10^3/uL (1.8-7.8); NEUTROPHILS % (AUTO) 75 % (42-75); PLATELET COUNT 183 10^3/uL (130-400); WHITE BLOOD COUNT 14.8 10^3/uL (4.3-11.0)
[2022-08-03 05:10] LABS: ALBUMIN 3.4 GM/DL (3.2-4.5)
[2022-08-03 05:12] LABS: CALCIUM 6.9 MG/DL (8.5-10.1)
[2022-08-03 05:13] LABS: TOTAL PROTEIN 5.8 GM/DL (6.4-8.2)
[2022-08-03 05:15] LABS: BILIRUBIN,TOTAL 1.1 MG/DL (0.1-1.0)
[2022-08-03 05:16] LABS: CREATININE SERUM 2.74 MG/DL (0.60-1.30); PHOSPHORUS 5.5 MG/DL (2.3-4.7)
[2022-08-03 05:19] LABS: MAGNESIUM 1.4 MG/DL (1.6-2.4)
[2022-08-03] MEDS: MAGNESIUM 1 GM/100 ML IVPB 100 ML IV SCH ×2 (05:34→06:41)
[2022-08-03] MEDS: ALBUMIN 25% 25 GM/100 ML 100 ML IV SCH (05:42)
[2022-08-03] MEDS ORDERED: POTASSIUM CL 10MEQ/50ML IVPB 50 ML IV SCH (06:00)
[2022-08-03] MEDS ORDERED: MAGNESIUM 1 GM/100 ML IVPB 100 ML IV SCH (06:00)
[2022-08-03] MEDS ORDERED: KCL 20 MEQ TAB (K-DUR) PO SCH (06:00)
[2022-08-03] MEDS: MULTIVIT W/MINERALS TAB (THERAGRAN M) PO SCH (06:25)
--- NOTE | 2022-08-03 07:06 | Progress Note ---
Standard Progress Note Progress Notes/Assess & Plan Date Seen by a Provider: Aug 03, 2022 Time Seen by a Provider: 07:05 Progress/Assessment & Plan no complaints Laboratory Tests Test 08/02/22 04:35 08/02/22 06:00 Range/Units White Blood Count 14.4 H 4.3-11.0 10^3/uL Red Blood Count 3.35 L 3.80-5.11 10^6/uL Hemoglobin 10.6 L 11.5-16.0 g/dL Hematocrit 34 L 35-52 % Mean Corpuscular Volume 101 H 80-99 fL Mean Corpuscular Hemoglobin 32 25-34 pg Mean Corpuscular Hemoglobin Concent 31 L 32-36 g/dL Red Cell Distribution Width 13.9 10.0-14.5 % Platelet Count 156 130-400 10^3/uL Mean Platelet Volume 9.7 9.0-12.2 fL Immature Granulocyte % (Auto) 0 % Neutrophils (%) (Auto) 77 H 42-75 % Lymphocytes (%) (Auto) 9 L 12-44 % Monocytes (%) (Auto) 14 H 0-12 % Eosinophils (%) (Auto) 0 0-10 % Basophils (%) (Auto) 0 0-10 % Neutrophils # (Auto) 11.1 H 1.8-7.8 10^3/uL Lymphocytes # (Auto) 1.3 1.0-4.0 10^3/uL Monocytes # (Auto) 2.0 H 0.0-1.0 10^3/uL Eosinophils # (Auto) 0.1 0.0-0.3 10^3/uL Basophils # (Auto) 0.0 0.0-0.1 10^3/uL Immature Granulocyte # (Auto) 0.1 0.0-0.1 10^3/uL Neutrophils % (Manual) 81 % Lymphocytes % (Manual) 9 % Monocytes % (Manual) 8 % Eosinophils % (Manual) 0 % Basophils % (Manual) 0 % Band Neutrophils 2 % Toxic Granulation 1+ Poikilocytosis SLIGHT Sodium Level 135 135-145 MMOL/L Potassium Level 4.3 3.6-5.0 MMOL/L Chloride Level 108 H 98-107 MMOL/L Carbon Dioxide Level 14 L 21-32 MMOL/L Anion Gap 13 5-14 MMOL/L Blood Urea Nitrogen 33 H 7-18 MG/DL Creatinine 1.55 H 0.60-1.30 MG/DL Estimat Glomerular Filtration Rate 33 BUN/Creatinine Ratio 21 Glucose Level 94 70-105 MG/DL Calcium Level 7.0 L 8.5-10.1 MG/DL Corrected Calcium 8.7 8.5-10.1 MG/DL Total Bilirubin 0.6 0.1-1.0 MG/DL Aspartate Amino Transf (AST/SGOT) 29 5-34 U/L Alanine Aminotransferase (ALT/SGPT) 15 0-55 U/L Alkaline Phosphatase 71 40-136 U/L Total Protein 5.5 L 6.4-8.2 GM/DL Albumin 1.9 L 3.2-4.5 GM/DL Procalcitonin 0.34 H <0.10 NG/ML Lactic Acid Level 4.47 *H 0.50-2.00 MMOL/L Vital Signs Date Time Temp Pulse Resp B/P (MAP) Pulse Ox O2 Delivery O2 Flow Rate FiO2 08/02/22 07:52 96 Nasal Cannula 3.00 08/02/22 05:18 103 86/57 (67) 08/02/22 04:25 97 82/52 (62) 08/02/22 03:24 35.7 99 18 79/50 (60) 94 Nasal Cannula 3.00 08/02/22 01:40 93 72/46 (55) 08/01/22 23:41 35.8 89 18 84/54 (64) 94 Nasal Cannula 3.00 08/01/22 22:00 78/47 (57) 08/01/22 21:12 96 Nasal Cannula 3.00 08/01/22 20:30 81 78/48 (58) 08/01/22 20:19 Nasal Cannula 3.00 08/01/22 19:17 36.3 77 18 82/42 (55) 94 Nasal Cannula 3.00 08/01/22 15:32 35.5 80 18 111/59 (76) 95 Nasal Cannula 3.00 08/01/22 14:48 35.8 84 16 120/60 (80) 90 Nasal Cannula 3.00 08/01/22 14:40 Nasal Cannula 3.00 08/01/22 14:30 36.7 12 101/63 (76) 96 Nasal Cannula 3.00 08/01/22 14:25 Nasal Cannula 3.00 08/01/22 14:20 12 87/47 (60) 96 OxyMask 10.00 08/01/22 14:10 OxyMask 10.00 08/01/22 14:10 12 85/47 (60) 96 OxyMask 10.00 08/01/22 14:00 12 75/49 (58) 96 OxyMask 10.00 08/01/22 13:55 OxyMask 10.00 08/01/22 13:50 11 72/43 (53) 96 OxyMask 10.00 08/01/22 13:41 12 82/43 (56) 96 OxyMask 10.00 08/01/22 13:38 36.3 16 83/49 (60) 100 OxyMask 10.00 08/01/22 13:38 OxyMask 10.00 08/01/22 11:45 36.3 76 16 101/54 (70) 95 Nasal Cannula 3.00 08/01/22 08:00 96 Nasal Cannula 3.00 I & O 08/02/22 07:00 Intake Total 3710 ml Output Total 260 ml Balance 3450 ml RLE-dressing intact intact DF and PF of toes and ankle sensation intact throughout pulses equal radiographs--HW well positioned without fx s/p R hip bipolar mobilize when medically able Final Diagnosis events noted Vital Signs Date Time Temp Pulse Resp B/P (MAP) Pulse Ox O2 Delivery O2 Flow Rate FiO2 08/03/22 06:00 96 16 107/75 (86) 98 Nasal Cannula 9.00 08/03/22 05:00 110 14 115/45 (68) 92 Nasal Cannula 9.00 08/03/22 04:00 97 Nasal Cannula 8.00 08/03/22 04:00 109 23 109/67 (81) 90 Nasal Cannula 9.00 08/03/22 03:53 36.8 08/03/22 03:00 105 23 133/84 (100) 98 Nasal Cannula 9.00 08/03/22 02:52 89/59 08/03/22 02:00 102 34 126/77 (93) 97 Nasal Cannula 9.00 08/03/22 01:00 117 08/03/22 01:00 102 20 125/83 (97) 96 Nasal Cannula 9.00 08/03/22 00:00 97 Nasal Cannula 8.00 08/03/22 00:00 36.8 12/2/22 00:00 109 14 106/71 (83) 97 Nasal Cannula 9.00 08/02/22 23:00 109 14 121/67 (85) 96 Nasal Cannula 9.00 08/02/22 22:00 116 14 109/70 (83) 97 Nasal Cannula 9.00 08/02/22 21:00 114 19 124/74 (91) 98 Nasal Cannula 9.00 08/02/22 20:20 118 120/67 08/02/22 20:02 94 Nasal Cannula 8.00 08/02/22 20:00 112 17 130/80 (97) 98 Nasal Cannula 9.00 08/02/22 20:00 95 Nasal Cannula 8.00 08/02/22 20:00 36.9 08/02/22 19:06 Nasal Cannula 9.00 08/02/22 19:00 115 08/02/22 19:00 112 15 126/71 (89) 100 Nasal Cannula 6.00 08/02/22 18:00 115 14 116/67 (83) 91 Nasal Cannula 6.00 08/02/22 17:00 124 20 115/71 (86) 99 Nasal Cannula 6.00 08/02/22 16:00 147 18 98/68 (78) 94 Nasal Cannula 6.00 08/02/22 16:00 37.0 08/02/22 15:25 99 Nasal Cannula 6.00 08/02/22 15:00 149 17 80/51 (61) 99 Nasal Cannula 6.00 08/02/22 14:00 154 12 80/38 (52) 99 Nasal Cannula 6.00 08/02/22 13:00 163 15 83/64 (70) 99 Nasal Cannula 6.00 08/02/22 13:00 168 08/02/22 12:48 141 20 87/69 (75) 99 Nasal Cannula 6.00 08/02/22 12:35 99 Nasal Cannula 6.00 08/02/22 12:00 149 18 78/64 (69) 96 Nasal Cannula 10.00 08/02/22 11:36 100 Nasal Cannula 6.00 08/02/22 11:30 154 08/02/22 11:21 37.1 154 8 109/90 (96) Nasal Cannula 10.00 08/02/22 11:00 144 20 99/86 (90) 92 Nasal Cannula 10.00 08/02/22 10:40 Nasal Cannula 3.00 08/02/22 10:30 137 17 77/60 (66) Nasal Cannula 3.00 08/02/22 10:27 81/46 08/02/22 09:03 110 89/50 (63) 08/02/22 08:46 35.8 104 16 86/52 (63) 96 Nasal Cannula 3.00 08/02/22 08:00 Nasal Cannula 3.00 08/02/22 07:52 96 Nasal Cannula 3.00 I & O 08/03/22 07:00 Intake Total 2675 ml Output Total 41 ml Balance 2634 ml Laboratory Tests Test 08/02/22 08:00 08/02/22 10:29 08/02/22 10:57 08/02/22 21:07 Range/Units Lactic Acid Level 3.74 *H 0.50-2.00 MMOL/L Sodium Level 138 135-145 MMOL/L Potassium Level 4.7 3.6-5.0 MMOL/L Chloride Level 109 H 98-107 MMOL/L Carbon Dioxide Level 15 L 21-32 MMOL/L Anion Gap 14 5-14 MMOL/L Blood Urea Nitrogen 33 H 7-18 MG/DL Creatinine 1.85 H 0.60-1.30 MG/DL Estimat Glomerular Filtration Rate 27 BUN/Creatinine Ratio 18 Glucose Level 100 70-105 MG/DL Calcium Level 6.7 L 8.5-10.1 MG/DL Corrected Calcium 7.9 L 8.5-10.1 MG/DL Total Bilirubin 0.8 0.1-1.0 MG/DL Aspartate Amino Transf (AST/SGOT) 29 5-34 U/L Alanine Aminotransferase (ALT/SGPT) 16 0-55 U/L Alkaline Phosphatase 65 40-136 U/L B-Type Natriuretic Peptide 280.4 H <100.0 PG/ML Total Protein 5.6 L 6.4-8.2 GM/DL Albumin 2.5 L 3.2-4.5 GM/DL Blood Gas Puncture Site R WRIST Blood Gas Patient Temperature 37.6 Arterial Blood pH 7.20 *L 7.37-7.43 Arterial Blood Partial Pressure CO2 38 35-45 MMHG Arterial Blood Partial Pressure O2 91 79-93 MMHG Arterial Blood HCO3 14 *L 23-27 MMOL/L Arterial Blood Total CO2 15.4 L 21.0-31.0 MMOL/L Arterial Blood Oxygen Saturation 97 94-100 % Arterial Blood Base Excess -12.1 L -2.5-2.5 MMOL/L Michael Test UNK Blood Gas Ventilator Setting NO Blood Gas Inspired Oxygen UNK Urine Color ORANGE Urine Clarity CLEAR Urine pH 5.0 5-9 Urine Specific [place] >=1.030 1.016-1.022 Urine Protein 3+ H NEGATIVE Urine Glucose (UA) TRACE H NEGATIVE Urine Ketones TRACE H NEGATIVE Urine Nitrite NEGATIVE NEGATIVE Urine Bilirubin 1+ H NEGATIVE Urine Urobilinogen 0.2 < = 1.0 MG/DL Urine Leukocyte Esterase NEGATIVE NEGATIVE Urine RBC (Auto) 3+ H NEGATIVE Urine RBC 5-10 H /HPF Urine WBC 0-2 /HPF Urine Squamous Epithelial Cells NONE /HPF Urine Crystals NONE /LPF Urine Bacteria LARGE H /HPF Urine Casts NONE /LPF Urine Mucus NEGATIVE /LPF Urine Culture Indicated YES Test 08/03/22 04:39 Range/Units White Blood Count 14.8 H 4.3-11.0 10^3/uL Red Blood Count 2.77 L 3.80-5.11 10^6/uL Hemoglobin 8.8 L 11.5-16.0 g/dL Hematocrit 27 L 35-52 % Mean Corpuscular Volume 99 80-99 fL Mean Corpuscular Hemoglobin 32 25-34 pg Mean Corpuscular Hemoglobin Concent 32 32-36 g/dL Red Cell Distribution Width 14.3 10.0-14.5 % Platelet Count 183 130-400 10^3/uL Mean Platelet Volume 10.1 9.0-12.2 fL Immature Granulocyte % (Auto) 1 % Neutrophils (%) (Auto) 75 42-75 % Lymphocytes (%) (Auto) 7 L 12-44 % Monocytes (%) (Auto) 17 H 0-12 % Eosinophils (%) (Auto) 0 0-10 % Basophils (%) (Auto) 0 0-10 % Neutrophils # (Auto) 11.1 H 1.8-7.8 10^3/uL Lymphocytes # (Auto) 1.1 1.0-4.0 10^3/uL Monocytes # (Auto) 2.5 H 0.0-1.0 10^3/uL Eosinophils # (Auto) 0.0 0.0-0.3 10^3/uL Basophils # (Auto) 0.0 0.0-0.1 10^3/uL Immature Granulocyte # (Auto) 0.1 0.0-0.1 10^3/uL Sodium Level 136 135-145 MMOL/L Potassium Level 4.0 3.6-5.0 MMOL/L Chloride Level 111 H 98-107 MMOL/L Carbon Dioxide Level 11 L 21-32 MMOL/L Anion Gap 14 5-14 MMOL/L Blood Urea Nitrogen 42 H 7-18 MG/DL Creatinine 2.74 #H 0.60-1.30 MG/DL Estimat Glomerular Filtration Rate 17 BUN/Creatinine Ratio 15 Glucose Level 128 H 70-105 MG/DL Calcium Level 6.9 L 8.5-10.1 MG/DL Corrected Calcium 7.4 L 8.5-10.1 MG/DL Phosphorus Level 5.5 H 2.3-4.7 MG/DL Magnesium Level 1.4 L 1.6-2.4 MG/DL Total Bilirubin 1.1 H 0.1-1.0 MG/DL Aspartate Amino Transf (AST/SGOT) 46 H 5-34 U/L Alanine Aminotransferase (ALT/SGPT) 17 0-55 U/L Alkaline Phosphatase 50 40-136 U/L Total Protein 5.8 L 6.4-8.2 GM/DL Albumin 3.4 3.2-4.5 GM/DL R hip incision clean and dry s/p R hip bipolar mobilize when medically able Focused Exam Lactate Level 08/02/22 06:00: Lactic Acid Level 4.47*H 08/02/22 08:00: Lactic Acid Level 3.74*H MALICK RUEDA MD Aug 03, 2022 07:06
[2022-08-03] MEDS: RT-ALBUTEROL SULF 2.5 MG/3 ML PRE-MIX VIAL INH SCH (07:24)
--- NOTE | 2022-08-03 07:36 | Physical Therapy Progress Note ---
Therapy Progress Note Due to declined in medical status and transfer to ICU, PT will require new orders to initiate treatment when patient is deemed medically stable and able to actively participate with skilled PT. BRITTNEY MCNULTY PT Aug 03, 2022 07:36
[2022-08-03] MEDS ORDERED: UMECLIDINIUM BROMIDE (INCRUSE ELLIPTA) 7'S IH SCH (08:00)
--- NOTE | 2022-08-03 08:10 | Tele-ICU Progress Note ---
Subjective Date Seen by a Provider: Aug 03, 2022 Time Seen by a Provider: 08:05 Subjective/Events-last exam This virtual visit was conducted using real time audio/video. Had repair of right hip Fx 08/01 brought to ICU for hypotension, given IVF, levophed @ 0.15, current BP 107/75, off abx. Has right IJ, site looks ok, Ortho to follow for hip fx, UO marginal and Cr has gone up to 2.74. Has been given 6.5 l of IVF last 2 days with UO still marginal. Family considering making her comfort care, Pt is now DNR/DNI Sepsis Event Evaluation Height, Weight, BMI Height: 5'6.00" Weight: 163lbs. 3.2oz. [id number]; 30.33 BMI Method:Stated Focused Exam Lactate Level 08/02/22 06:00: Lactic Acid Level 4.47*H 08/02/22 08:00: Lactic Acid Level 3.74*H Exam Exam Patient acknowledged, consented, and participated in this virtual visit which was conducted using real time audio/video Vital Signs Date Time Temp Pulse Resp B/P (MAP) Pulse Ox O2 Delivery O2 Flow Rate FiO2 08/03/22 07:42 35.7 08/03/22 07:25 98 Nasal Cannula 8.00 08/03/22 06:00 96 16 107/75 (86) 98 Nasal Cannula 9.00 08/03/22 05:00 110 14 115/45 (68) 92 Nasal Cannula 9.00 08/03/22 04:00 97 Nasal Cannula 8.00 08/03/22 04:00 109 23 109/67 (81) 90 Nasal Cannula 9.00 08/03/22 03:53 36.8 08/03/22 03:00 105 23 133/84 (100) 98 Nasal Cannula 9.00 08/03/22 02:52 89/59 08/03/22 02:00 102 34 126/77 (93) 97 Nasal Cannula 9.00 08/03/22 01:00 117 08/03/22 01:00 102 20 125/83 (97) 96 Nasal Cannula 9.00 08/03/22 00:00 97 Nasal Cannula 8.00 08/03/22 00:00 36.8 08/03/22 00:00 109 14 106/71 (83) 97 Nasal Cannula 9.00 08/02/22 23:00 109 14 121/67 (85) 96 Nasal Cannula 9.00 08/02/22 22:00 116 14 109/70 (83) 97 Nasal Cannula 9.00 08/02/22 21:00 114 19 124/74 (91) 98 Nasal Cannula 9.00 08/02/22 20:20 118 120/67 08/02/22 20:02 94 Nasal Cannula 8.00 08/02/22 20:00 112 17 130/80 (97) 98 Nasal Cannula 9.00 08/02/22 20:00 95 Nasal Cannula 8.00 08/02/22 20:00 36.9 08/02/22 19:06 Nasal Cannula 9.00 08/02/22 19:00 115 08/02/22 19:00 112 15 126/71 (89) 100 Nasal Cannula 6.00 08/02/22 18:00 115 14 116/67 (83) 91 Nasal Cannula 6.00 08/02/22 17:00 124 20 115/71 (86) 99 Nasal Cannula 6.00 08/02/22 16:00 147 18 98/68 (78) 94 Nasal Cannula 6.00 08/02/22 16:00 37.0 08/02/22 15:25 99 Nasal Cannula 6.00 08/02/22 15:00 149 17 80/51 (61) 99 Nasal Cannula 6.00 08/02/22 14:00 154 12 80/38 (52) 99 Nasal Cannula 6.00 08/02/22 13:00 163 15 83/64 (70) 99 Nasal Cannula 6.00 08/02/22 13:00 168 08/02/22 12:48 141 20 87/69 (75) 99 Nasal Cannula 6.00 08/02/22 12:35 99 Nasal Cannula 6.00 08/02/22 12:00 149 18 78/64 (69) 96 Nasal Cannula 10.00 08/02/22 11:36 100 Nasal Cannula 6.00 08/02/22 11:30 154 08/02/22 11:21 37.1 154 8 109/90 (96) Nasal Cannula 10.00 08/02/22 11:00 144 20 99/86 (90) 92 Nasal Cannula 10.00 08/02/22 10:40 Nasal Cannula 3.00 08/02/22 10:30 137 17 77/60 (66) Nasal Cannula 3.00 08/02/22 10:27 81/46 08/02/22 09:03 110 89/50 (63) 08/02/22 08:46 35.8 104 16 86/52 (63) 96 Nasal Cannula 3.00 I & O 08/03/22 06:59 Intake Total 2675 ml Output Total 41 ml Balance 2634 ml Height & Weight Height: 5'6.00" Weight: 163lbs. 3.2oz. 74.055081hn; 30.33 BMI Method:Stated General Appearance: Chronically ill, Moderate Distress, Other (Great) HEENT: PERRL/EOMI, Pharynx Normal Neck: Non Tender, Supple Respiratory: Lungs Clear, Normal Breath Sounds Cardiovascular: Regular Rate, Rhythm Capillary Refill: Less Than 3 Seconds Gastrointestinal: non tender, soft, no organomegaly Extremity: Normal Inspection, Non Tender, Slow Capillary Refill Neurologic/Psychiatric: No Motor/Sensory Deficits, Disoriented Skin: Warm/Dry, Pallor Lymphatic: No Adenopathy Results Lab Laboratory Tests 08/02/22 04:35 08/02/22 10:29 08/03/22 04:39 Assessment/Plan Assessment/Plan x/p hypovolemia/hypotension, now improved had elevated LA, met acidosis, willl repeat LA and ABG I reviewed CXR form today, has right SC line, lungs look clear family has decided to make pt DNR, and DNI Spoke with Maia hearing instrument specialist: Critically Ill Patient Time spent with patient (mins): 25 SIOMARA AREVALO MD Aug 03, 2022 08:10
--- NOTE | 2022-08-03 08:25 | Diagnostic Imaging Report ---
CHEST 1 VIEW, AP/PA ONLY Indication: Dyspnea Comparison: 08/02/2022 Findings: Small bilateral pleural effusions have worsened. Hazy central pulmonary opacities have developed. Stable right IJ central venous catheter. Stable cardiac silhouette. Impression: 1. Bilateral pleural effusions have worsened. 2. Bilateral pulmonary opacities have developed and may be due to edema. Dictated by: Dictated on workstation # [id number]
[2022-08-03] MEDS: MIDODRINE 10 MG (PROAMATINE) TAB PO SCH (09:00)
[2022-08-03] MEDS: DOCUSATE SODIUM 100 MG (COLACE) CAP PO SCH (09:00)
[2022-08-03] MEDS: SENNOSIDES 8.6 MG (SENOKOT) TAB PO SCH (09:00)
[2022-08-03] MEDS: ENOXAPARIN INJECTION 30 MG/0.3 ML SYR SC SCH (09:00)
[2022-08-03] MEDS: NS IV 1000 ML 1,000 ML IV SCH (10:08)
[2022-08-03] MEDS ORDERED: RT-ALBUTEROL/IPRATROPIUM 3 ML (DUONEB) VIAL INH PRN (12:30)
[2022-08-03] MEDS ORDERED: ONDANSETRON 4 MG/2 ML (SDV) Z0FRAN IVP PRN (12:30)
[2022-08-03] MEDS ORDERED: BISACODYL 10 MG SUPP (DULCOLAX) PR PRN (12:30)
[2022-08-03] MEDS ORDERED: SALIVA SUBSTITUTE 60 ML SPRAY(MOUTHKOTE) MM PRN (12:30)
[2022-08-03] MEDS ORDERED: PROMETHAZINE INJ 25 MG/ML (PHENERGAN) AMP IVP PRN (12:30)
[2022-08-03] MEDS ORDERED: GLYCOPYRROLATE 0.2 MG/ML (ROBINUL) 2 ML VIAL IV PRN (12:30)
[2022-08-03] MEDS ORDERED: ARTIFICAL TEARS 0.4 ML UNIT DOSE (REFRESH PLUS) OU PRN (12:30)
[2022-08-03] MEDS ORDERED: ACETAMINOPHEN 650 MG SUPP (TYLENOL) PR PRN (12:30)
[2022-08-03] MEDS ORDERED: LORazepam 1 MG (ATIVAN) TAB SL PRN (12:30)
--- NOTE | 2022-08-03 14:02 | Progress Note - Hospitalist ---
[facility] 08/03/22 1402: Subjective HPI/CC On Admission CC: Right hip fracture HPI: This is an 86 yr old female who sustained a mechanical fall and suffered a right hip fracture. Dr. Arcos performed surgery 08/01. She is complaining of dry mouth. Daughter is at the bedside. Checked meds and labs.. Subjective/Events-last exam This is an 86 yr old female who sustained a mechanical fall and suffered a right hip fracture. Dr. Arcos performed surgery 08/01. She had hypovolemic shock and lactic acidosis and was moved to the ICU yesterday and central line was placed. Echo revealed 55-65% LVEF. She has been given 8L of fluid and is still not producing urine. BUN and Cr are worsening. Albumin at 2.5 on admission resulted in third spacing of fluid. CXR shows worsened bilateral pleural effusions and new bilateral pulmonary opacities. Pt was combative overnight and "wanted to go home," she was given Dilaudid to help with pain. Pt is now minimally responsive. Dr. Degroot has spoken with the family extensively including grandson who is a physician at , today spent 20 minutes discussing pt with her family who are leaning toward transitioning to comfort care. They plan to speak with the social workers again today regarding comfort care. Review of Systems unable to obtain 2/2 medical condition Focused Exam Lactate Level 08/02/22 06:00: Lactic Acid Level 4.47*H 08/02/22 08:00: Lactic Acid Level 3.74*H Objective Exam Vital Signs Vital Signs Date Time Temp Pulse Resp B/P (MAP) Pulse Ox O2 Delivery O2 Flow Rate FiO2 08/03/22 14:00 104 15 151/75 (100) 98 Nasal Cannula 9.00 08/03/22 07:42 35.7 Capillary Refill : Less Than 3 SecondsLess Than 3 Seconds General Appearance: Chronically ill, Mild Distress HEENT: PERRL/EOMI, Moist Mucous Membranes Neck: Normal Inspection, Non Tender, Supple Respiratory: Chest Non Tender, Lungs Clear, Normal Breath Sounds, No Accessory Muscle Use, No Respiratory Distress Cardiovascular: Regular Rate, Rhythm, No Edema, No JVD, Normal Peripheral Pu lses Gastrointestinal: Normal Bowel Sounds, Non Tender, Soft Rectal: Deferred Back: Normal Inspection, No CVA Tenderness Extremity: Normal Capillary Refill, Normal Inspection, Non Tender, No Calf Tenderness Neurologic/Psychiatric: Other (unresponsive) Skin: Normal Color, Warm/Dry Lymphatic: No Adenopathy Results/Procedures Lab Laboratory Tests 08/03/22 04:39 Patient resulted labs reviewed. Assessment/Plan Assessment and Plan Assess & Plan/Chief Complaint Hypovolemic shock Lactic acidosis- no evidence of sepsis Oliguria S/p right hip replacement HLD Advanced age Falls Central line in place No new medications will be started and she is DNR status per conversations with family Still no urine Monitor labs and vitals Likely transition to comfort care today pending family decision Clinical Quality Measures DVT/VTE Risk/Contraindication: Contraindications-Pharm: Other *list below* Other: or HALLEY DEGROOT DO 08/04/22 0629: Subjective HPI/CC On Admission Date Seen by Provider: Aug 03, 2022 Time Seen by Provider: 11:00 Subjective/Events-last exam Long discussion with family members and they have all come to the conclusion of unable to recover. She is in complete kidney failure. She will be placed on comfort care protocol. Supervisory-Addendum Brief Verification & Attestation Participated in pt care: history, MDM, physical Personally performed: exam, history, MDM, supervision of care Care discussed with: Medical Student Procedures: n/a Results interpretation: Verified all documentation Verification and Attestation of Medical Student E/M Service A medical student performed and documented this service in my presence. I reviewed and verified all information documented by the medical student and made modifications to such information, when appropriate. I personally performed the physical exam and medical decision making. Halley Degroot Aug 04, 2022,06:28 JOAQUIN SPANGLER Aug 03, 2022 14:02 HALLEY DEGROOT DO Aug 04, 2022 06:29
[2022-08-03] MEDS: morphine INJ 4 MG/ML 1 ML (VIAL/SYRINGE) IV PRN (16:05)
[2022-08-04] MEDS: morphine INJ 4 MG/ML 1 ML (VIAL/SYRINGE) IV PRN (06:00)
--- NOTE | 2022-08-04 06:40 | Progress Note - Hospitalist ---
Subjective HPI/CC On Admission Date Seen by Provider: Aug 04, 2022 Time Seen by Provider: 11:00 CC: Right hip fracture HPI: This is an 86 yr old female who sustained a mechanical fall and suffered a right hip fracture. Dr. Arcos performed surgery 08/01. She is complaining of dry mouth. Daughter is at the bedside. Checked meds and labs.. Focused Exam Lactate Level 08/02/22 06:00: Lactic Acid Level 4.47*H 08/02/22 08:00: Lactic Acid Level 3.74*H Objective Exam Vital Signs Vital Signs Date Time Temp Pulse Resp B/P (MAP) Pulse Ox O2 Delivery O2 Flow Rate FiO2 08/03/22 18:57 Nasal Cannula 08/03/22 14:00 104 15 151/75 (100) 98 9.00 08/03/22 07:42 35.7 Capillary Refill : Less Than 3 SecondsLess Than 3 Seconds Results/Procedures Lab Patient resulted labs reviewed. Assessment/Plan Assessment and Plan Assess & Plan/Chief Complaint Levophed IV fluids Patient needs comfort care Critical Care Critically Ill Patient Diagnosis/Problems Diagnosis/Problems (1) Subcapital fracture of right femur (2) Fall on same level (3) Traumatic hematoma of scalp (4) Hypotensive episode Status: Resolved Resolution Date/Time: 03/27/18 @ 10:57 Clinical Quality Measures DVT/VTE Risk/Contraindication: Contraindications-Pharm: Other *list below* Other: or LADONNA MCDONOUGH DO Aug 04, 2022 06:40
--- NOTE | 2022-08-04 07:55 | Discharge Summary ---
Discharge Summary Hospital Course Was the Problem List Reviewed?: Yes Problems/Dx: (1) Subcapital fracture of right femur (2) Fall on same level (3) Traumatic hematoma of scalp (4) Hypotensive episode Status: Resolved Hospital Course Date of Admission: Jul 31, 2022 at 19:26 Admission Diagnosis : Family Physician/Provider: Bry Pickard MD Date of Discharge: 08/04/22 Discharge Diagnosis: Hypovolemic shock, acute kidney failure, no evidence of sepsis, protein malnutrition on admit, severe debility prior to admission Hospital Course: This is an 86 yr old female who sustained a mechanical fall and suffered a right hip fracture. Dr. Arcos performed surgery 08/01. She had hypovolemic shock and lactic acidosis and was moved to the ICU yesterday and central line was placed. Echo revealed 55-65% LVEF. She has been given 8L of fluid and is still not producing urine. BUN and Cr are worsening. Albumin at 2.5 on admission resulted in third spacing of fluid. CXR shows worsened bilateral pleural effusions and new bilateral pulmonary opacities. Pt was combative overnight and "wanted to go home," she was given Dilaudid to help with pain. Pt is now minimally responsive. Dr. Degroot has spoken with the family extensively including grandson who is a physician at , today spent 20 minutes discussing pt with her family who are leaning toward transitioning to comfort care. They plan to speak with the social workers again today regarding comfort care. Labs and Pending Lab Test: Microbiology 08/02/22 Urine Culture - Preliminary, Resulted NO GROWTH Home Meds Active Reported Tramadol HCl 50 Mg Tablet 50 Mg PO Q6H Tylenol Extra Strength (Acetaminophen) 500 Mg Tablet 1,000 Mg PO Q8H PRN Metolazone 2.5 Mg Tablet 2.5 Mg PO DAILY Atacand (Candesartan Cilexetil) 32 Mg Tablet 32 Mg PO DAILY Meclizine HCl 25 Mg Tablet 25 Mg PO Q8H PRN Toprol Xl (Metoprolol Succinate) 100 Mg Tab.er.24h 100 Mg PO BID TAKES NAME BRAND TOPROL XL Spiriva Respimat 2.5MCG/ACTUATION (Tiotropium [place]) 2.5 Mcg/Actuation Mist.inhal 1-2 Puff INH BID PRN Assessment/Pt Instructions Discharge Planning: <30 minutes discharge planning Discharge Physical Examination Vital Signs Vital Signs Date Time Temp Pulse Resp B/P (MAP) Pulse Ox O2 Delivery O2 Flow Rate FiO2 08/03/22 18:57 Nasal Cannula 08/03/22 14:00 104 15 151/75 (100) 98 9.00 08/03/22 07:42 35.7 Allergies: Coded Allergies: iodine (Verified Allergy, Severe, RASH, 03/23/18) prednisone (Verified Allergy, Mild, RASH, 03/23/18) Sulfa (Sulfonamide Antibiotics) (Verified Allergy, Unknown, 03/23/18) amlodipine (Verified Allergy, Unknown, SWOLLEN LEGS AND FEET,PAIN IN HEAD UP TO 3 TIMES IN NIGHT, 03/23/18) amoxicillin (Verified Allergy, Unknown, 03/23/18) azithromycin (Verified Allergy, Unknown, 03/23/18) benazepril (Verified Allergy, Unknown, SEVERE HEADACHE, 03/23/18) cefaclor (Verified Allergy, Unknown, 03/23/18) cephalexin (Verified Allergy, Unknown, 03/23/18) cortisone (Verified Allergy, Unknown, 03/23/18) doxycycline (Verified Allergy, Unknown, 03/23/18) egg (Verified Allergy, Unknown, 03/23/18) griseofulvin (Verified Allergy, Unknown, 03/23/18) levofloxacin (Verified Allergy, Unknown, FACIAL FLUSHING, DIARRHEA AND LEG CRAMPS, 03/23/18) oxaprozin (Verified Allergy, Unknown, 03/23/18) propoxyphene (Verified Allergy, Unknown, SEVERE PAIN IN HEAD, 03/23/18) tetracycline (Verified Allergy, Unknown, 03/23/18) verapamil (Verified Allergy, Unknown, 03/23/18) chlorpheniramine (Verified Adverse Reaction, Unknown, HEART PAPILATIONS AND HYPERTENSION, 03/23/18) dextromethorphan (Verified Adverse Reaction, Unknown, HEART PAPILATIONS AND HYPERTENSION, 03/23/18) Uncoded Allergies: ALL EYE DROPS (Adverse Reaction, Unknown, MAKE EYES SWELL SHUT, 12/15/09) Discharge Summary Date of Admission Jul 31, 2022 at 19:26 Date of Discharge Admission Diagnosis Assessment: Right hip fracture Falls Advanced age HTN HLP Plan: Monitor pain IVF Proceed to surgery Comfort Measures/ End of Life Care: Pallative Care Discharge Diagnosis Levophed IV fluids Patient needs comfort care (1) Subcapital fracture of right femur (2) Fall on same level (3) Traumatic hematoma of scalp (4) Hypotensive episode Status: Resolved Clinical Quality Measures DVT/VTE Risk/Contraindication: Contraindications-Pharm: Other *list below* Other: or LADONNA DEGROOT DO Aug 04, 2022 07:55
[2022-08-04] MEDS: ENOXAPARIN INJECTION 30 MG/0.3 ML SYR SC SCH (09:00)
== END 2022-08-04 11:29 | disposition expired | DRG 522 ==
LOC: EDUNIT# 17:44 → ER 17:46 → 4TH 19:26 → ICU 08-02 10:15 → 4TH 08-03 17:18
PROVIDERS: ADMIT Internal Medicine; ATTEND Internal Medicine
PROC: 0SRR0JA Replacement of Right Hip Joint, Femoral Surface with Synthetic Substitute, Uncemented, Open Approach (ICD-10-PCS; principal; 2022-08-01 12:13)
DX: S72.011A Unspecified intracapsular fracture of right femur, initial encounter for closed fracture (principal); E87.20 Acidosis, unspecified; N17.9 Acute kidney failure, unspecified; E46 Unspecified protein-calorie malnutrition; J90 Pleural effusion, not elsewhere classified; S01.01XA Laceration without foreign body of scalp, initial encounter; J43.9 Emphysema, unspecified; Z66 Do not resuscitate; Z51.5 Encounter for palliative care; R57.1 Hypovolemic shock; I95.9 Hypotension, unspecified; I48.91 Unspecified atrial fibrillation; E78.00 Pure hypercholesterolemia, unspecified; I10 Essential (primary) hypertension; M32.9 Systemic lupus erythematosus, unspecified; Z68.30 Body mass index [BMI] 30.0-30.9, adult; K59.09 Other constipation; I34.1 Nonrheumatic mitral (valve) prolapse; Z79.01 Long term (current) use of anticoagulants; Z88.1 Allergy status to other antibiotic agents; Z88.2 Allergy status to sulfonamides; Z88.8 Allergy status to other drugs, medicaments and biological substances; W19.XXXA Unspecified fall, initial encounter; Y92.000 Kitchen of unspecified non-institutional (private) residence as the place of occurrence of the external cause
CPT/HCPCS: 36415; 51702; 70450; 71045; 72125; 73501; 80053; 81000; 82805; 83605; 83735; 83880; 84100; 84145; 85007; 85025; 85027; 87088; 93005; 93306; 94640; 94664; 94760